=== PATIENT | male | born 1950 | race Caucasian/White ===

== ENCOUNTER → 2016-11-26 | Outpatient (REF) | payer MEDICARE ==
[2016-11-26 12:03] LABS: BLOOD UREA NITROGEN 18 MG/DL (7-18); CARBON DIOXIDE LEVEL 34 MEQ/L (21-32); CHLORIDE LEVEL 100 MEQ/L (98-107); CREATININE FOR GFR 0.84 MG/DL (0.70-1.30); GLOMERULAR FILTRATION RATE > 60.0 (>49); GLUCOSE, FASTING 182 MG/DL (80-110); POTASSIUM SERUM 4.4 MEQ/L (3.5-5.1); SODIUM LEVEL 139 MEQ/L (136-145)
[2016-11-26 12:04] LABS: ALBUMIN 3.7 GM/DL (3.2-5.2); ALBUMIN/GLOBULIN RATIO 1.23 (1.00-1.93); ALKALINE PHOSPHATASE 92 U/L (45-117); ALT/SGPT 26 U/L (12-78); ANION GAP 5 MEQ/L (8-16); AST/SGOT 20 U/L (15-37); BILIRUBIN,TOTAL 0.3 MG/DL (0.2-1.0); CALCIUM LEVEL 9.1 MG/DL (8.8-10.2); CHOLESTEROL LEVEL 165 MG/DL (<200); TOTAL PROTEIN 6.7 GM/DL (6.4-8.2); TRIGLYCERIDES LEVEL 74 MG/DL (<150)
== END ==
LOC: M SFHCCLAY 07:10
PROVIDERS: ATTEND Family Medicine
DX: E11.9 Type 2 diabetes mellitus without complications (principal)

== ENCOUNTER → 2017-05-29 | Outpatient (REF) | payer MEDICARE ==
[2017-05-29 13:02] LABS: ALBUMIN 3.8 GM/DL (3.2-5.2); ALBUMIN/GLOBULIN RATIO 1.23 (1.00-1.93); ALKALINE PHOSPHATASE 89 U/L (45-117); ALT/SGPT 20 U/L (12-78); ANION GAP 7 MEQ/L (8-16); AST/SGOT 11 U/L (15-37); BILIRUBIN,TOTAL 0.3 MG/DL (0.2-1.0); BLOOD UREA NITROGEN 18 MG/DL (7-18); CALCIUM LEVEL 9.4 MG/DL (8.8-10.2); CARBON DIOXIDE LEVEL 32 MEQ/L (21-32); CHLORIDE LEVEL 99 MEQ/L (98-107); CREATININE FOR GFR 0.83 MG/DL (0.70-1.30); GLOMERULAR FILTRATION RATE > 60.0 (>49); GLUCOSE, FASTING 189 MG/DL (80-110); POTASSIUM SERUM 4.6 MEQ/L (3.5-5.1); SODIUM LEVEL 138 MEQ/L (136-145); TOTAL PROTEIN 6.9 GM/DL (6.4-8.2)
== END ==
LOC: M SFHCCLAY 09:11
PROVIDERS: ATTEND Family Medicine
DX: E11.9 Type 2 diabetes mellitus without complications (principal)

== ENCOUNTER → 2017-12-29 | Outpatient (REF) | payer MEDICARE ==
[2017-12-29 17:50] LABS: ALBUMIN 3.7 GM/DL (3.2-5.2); ALBUMIN/GLOBULIN RATIO 1.12 (1.00-1.93); ALKALINE PHOSPHATASE 93 U/L (45-117); ALT/SGPT 27 U/L (12-78); ANION GAP 5 MEQ/L (8-16); AST/SGOT 16 U/L (7-37); BILIRUBIN,TOTAL 0.5 MG/DL (0.2-1.0); BLOOD UREA NITROGEN 14 MG/DL (7-18); CALCIUM LEVEL 8.9 MG/DL (8.8-10.2); CARBON DIOXIDE LEVEL 32 MEQ/L (21-32); CHLORIDE LEVEL 99 MEQ/L (98-107); CHOLESTEROL LEVEL 183 MG/DL (<200); CHOLESTEROL RISK RATIO 3.452 (<5); CREATININE FOR GFR 0.81 MG/DL (0.70-1.30); ESTIMATED AVERAGE GLUCOSE 269 MG/DL (60-110); GLOMERULAR FILTRATION RATE > 60.0 (>49); GLUCOSE, FASTING 306 MG/DL (70-100); HDL CHOLESTEROL 53 MG/DL (>40); LDL CHOLESTEROL 112.8 MG/DL (<100); NON-HDL-C 130 MG/DL; POTASSIUM SERUM 4.4 MEQ/L (3.5-5.1); SODIUM LEVEL 136 MEQ/L (136-145); TRIGLYCERIDES LEVEL 86 MG/DL (<150)
== END ==
LOC: M SFHCCLAY 11:12
DX: E11.9 Type 2 diabetes mellitus without complications (principal); E78.5 Hyperlipidemia, unspecified
CPT/HCPCS: 80053

== ENCOUNTER → 2018-07-02 | Outpatient (REF) | payer MEDICARE ==
[2018-07-02 17:01] LABS: ALBUMIN 3.8 GM/DL (3.2-5.2); ALBUMIN/GLOBULIN RATIO 1.31 (1.00-1.93); ALKALINE PHOSPHATASE 131 U/L (45-117); ALT/SGPT 19 U/L (12-78); ANION GAP 4 MEQ/L (8-16); AST/SGOT 13 U/L (7-37); BILIRUBIN,TOTAL 0.5 MG/DL (0.2-1.0); BLOOD UREA NITROGEN 14 MG/DL (7-18); CALCIUM LEVEL 9.2 MG/DL (8.8-10.2); CARBON DIOXIDE LEVEL 32 MEQ/L (21-32); CHLORIDE LEVEL 100 MEQ/L (98-107); CREATININE FOR GFR 0.82 MG/DL (0.70-1.30); GLOMERULAR FILTRATION RATE > 60.0 (>49); GLUCOSE, FASTING 239 MG/DL (70-100); POTASSIUM SERUM 4.6 MEQ/L (3.5-5.1); SODIUM LEVEL 136 MEQ/L (136-145); TOTAL PROTEIN 6.7 GM/DL (6.4-8.2)
[2018-07-02 17:15] LABS: ESTIMATED AVERAGE GLUCOSE 252 MG/DL (60-110); HEMOGLOBIN A1c 10.4 %
== END ==
LOC: M SFHCCLAY 11:01
DX: E11.29 Type 2 diabetes mellitus with other diabetic kidney complication (principal)
CPT/HCPCS: 80053

== ENCOUNTER → 2018-12-14 | Outpatient (REF) | payer MEDICARE ==
[2018-12-14 17:31] LABS: HEMOGLOBIN A1c 13.2 %
[2018-12-14 17:53] LABS: BASO # 0.1 10^3/uL (0.0-0.2); BASO % 0.6 % (0.0-1.0); EOS # 0.1 10^3/uL (0.0-0.50); HEMATOCRIT 38.3 % (42.0-52.0); HEMOGLOBIN 13.2 g/dl (13.5-17.5); LYMPH # 1.9 10^3/uL (1.5-4.5); LYMPH % 23.5 % (24.0-44.0); MEAN CORPUSCULAR HEMOGLOBIN 32.3 pg (27.0-33.0); MEAN CORPUSCULAR HGB CONC 34.5 g/dl (32.0-36.5); MEAN CORPUSCULAR VOLUME 93.6 fl (80.0-96.0); MONO # 0.6 10^3/uL (0.0-0.8); MONO % 7.3 % (0.0-5.0); NEUTROPHILS # 5.4 10^3/uL (1.8-7.7); NEUTROPHILS % 67.2 % (36.0-66.0); PLATELET COUNT, AUTOMATED 201 10^3/uL (150-450); RED BLOOD COUNT 4.09 10^6/uL (4.30-6.10)
[2018-12-14 19:28] LABS: ACETONE/KETONE 3.56 MG/DL (<2.81); ALBUMIN 3.4 GM/DL (3.2-5.2); ALT/SGPT 23 U/L (12-78); BILIRUBIN,TOTAL 0.4 MG/DL (0.2-1.0); BLOOD UREA NITROGEN 31 MG/DL (7-18); CALCIUM LEVEL 8.7 MG/DL (8.8-10.2); CARBON DIOXIDE LEVEL 29 MEQ/L (21-32); CHLORIDE LEVEL 95 MEQ/L (98-107); CHOLESTEROL LEVEL 161 MG/DL (<200); CHOLESTEROL RISK RATIO 3.425 (<5); GLOMERULAR FILTRATION RATE > 60.0 (>49); GLUCOSE, FASTING 513 MG/DL (70-100); HDL CHOLESTEROL 47 MG/DL (>40); LDL CHOLESTEROL 77 MG/DL (<100); NON-HDL-C 114 MG/DL; POTASSIUM SERUM 5.2 MEQ/L (3.5-5.1); SODIUM LEVEL 132 MEQ/L (136-145); THYROID STIMULATING HORMONE 0.683 uIU/ML (0.358-3.740); THYROXINE (T4) 9.1 UG/DL (4.5-12.0); TOTAL PROTEIN 6.5 GM/DL (6.4-8.2); TOTAL T3 74.9 NG/DL (60.0-181.0); TRIGLYCERIDES LEVEL 184 MG/DL (<150); URIC ACID 5.2 MG/DL (3.5-7.2)
== END ==
LOC: M SFHCCLAY 09:23
PROVIDERS: ATTEND Family Medicine
DX: E11.29 Type 2 diabetes mellitus with other diabetic kidney complication (principal); I10 Essential (primary) hypertension; E78.5 Hyperlipidemia, unspecified; M79.674 Pain in right toe(s); F32.9 Major depressive disorder, single episode, unspecified; R41.3 Other amnesia

== ENCOUNTER → 2019-03-17 | Outpatient (REF) | payer MEDICARE ==
[2019-03-17 17:22] LABS: BLOOD UREA NITROGEN 19 MG/DL (7-18); CALCIUM LEVEL 9.3 MG/DL (8.8-10.2); CARBON DIOXIDE LEVEL 30 MEQ/L (21-32); CHLORIDE LEVEL 107 MEQ/L (98-107); CREATININE FOR GFR 0.81 MG/DL (0.70-1.30); GLOMERULAR FILTRATION RATE > 60.0 (>49); GLUCOSE, FASTING 69 MG/DL (70-100); POTASSIUM SERUM 4.7 MEQ/L (3.5-5.1); SODIUM LEVEL 141 MEQ/L (136-145)
[2019-03-17 18:14] LABS: HEMOGLOBIN A1c 6.3 %
== END ==
LOC: M SFHCCLAY 11:14
PROVIDERS: ATTEND Family Medicine
DX: E11.29 Type 2 diabetes mellitus with other diabetic kidney complication (principal)

== ENCOUNTER → 2019-03-31 | Outpatient (REF) | payer MEDICARE ==
[2019-03-31 14:46] LABS: BASO # 0.1 10^3/uL (0.0-0.2); BASO % 0.7 % (0.0-1.0); EOS # 0.1 10^3/uL (0.0-0.50); EOS % 1.5 % (0.0-3.0); HEMATOCRIT 43.4 % (42.0-52.0); HEMOGLOBIN 14.3 g/dl (13.5-17.5); LYMPH # 2.5 10^3/uL (1.5-4.5); LYMPH % 27.7 % (24.0-44.0); MEAN CORPUSCULAR HGB CONC 32.9 g/dl (32.0-36.5); MEAN CORPUSCULAR VOLUME 97.1 fl (80.0-96.0); MONO # 0.7 10^3/uL (0.0-0.8); MONO % 8.1 % (0.0-5.0); NEUTROPHILS # 5.7 10^3/uL (1.8-7.7); NEUTROPHILS % 61.8 % (36.0-66.0); PLATELET COUNT, AUTOMATED 213 10^3/uL (150-450); RED BLOOD COUNT 4.47 10^6/uL (4.30-6.10); WHITE BLOOD COUNT 9.2 10^3/uL (4.0-10.0)
[2019-03-31 15:19] LABS: ALBUMIN 3.8 GM/DL (3.2-5.2); ALT/SGPT 24 U/L (12-78); BILIRUBIN,TOTAL 0.3 MG/DL (0.2-1.0); BLOOD UREA NITROGEN 23 MG/DL (7-18); CALCIUM LEVEL 9.4 MG/DL (8.8-10.2); CARBON DIOXIDE LEVEL 32 MEQ/L (21-32); CHLORIDE LEVEL 107 MEQ/L (98-107); CREATININE FOR GFR 0.92 MG/DL (0.70-1.30); FOLATE 20.7 NG/ML; GLOMERULAR FILTRATION RATE > 60.0 (>49); GLUCOSE, FASTING 104 MG/DL (70-100); POTASSIUM SERUM 5.5 MEQ/L (3.5-5.1); RHEUMATOID FACTOR QUANT < 10.0 IU/ML (<15.0); SODIUM LEVEL 143 MEQ/L (136-145); TOTAL PROTEIN 6.7 GM/DL (6.4-8.2); VITAMIN B12 LEVEL 507 PG/ML
[2019-03-31 15:41] LABS: ERYTHROCYTE SEDIMENTATION RATE 5 mm/hr (0-20)
[2019-04-05 10:13] LABS: DRVV SCREEN 96.8 SEC
[2019-04-05 10:15] LABS: PTT LUPUS TYPE ANTICOAG SCREEN 2.4 (0-1.2)
[2019-04-05 10:35] LABS: NORMALIZED RATIO 1.2 (0.00-1.20)
[2019-04-05 14:21] LABS: ALBUMIN 3.97 GM/DL (3.29-5.55); ALBUMIN % 59.3 % (55.8-66.1); ALPHA-1-GLOBULIN % 4.7 % (2.9-4.9); ALPHA-1-GLOBULINS 0.31 GM/DL (0.17-0.41); ALPHA-2-GLOBULINS 0.93 GM/DL (0.42-0.99); ALPHA-2-GLOBULINS % 13.9 % (7.1-11.8); BETA-1-GLOBULINS 0.42 GM/DL (0.28-0.60); BETA-1-GLOBULINS % 6.2 % (4.7-7.2); BETA-2-GLOBULINS 0.35 GM/DL (0.19-0.55); BETA-2-GLOBULINS % 5.2 % (3.2-6.5); GAMMA GLOBULIN % 10.7 % (11.1-18.8); GAMMA GLOBULINS 0.72 GM/DL (0.65-1.58)
[2019-04-07 00:06] LABS: ANTI DS-DNA AB <1:10 titer (.); ANTINUCLEAR ANTIBODIES DIRECT Negative (Negative); CERULOPLASMIN 25.1 mg/dL (16.0-31.0); COPPER PLASMA 109 ug/dL (72-166); LEAD BLOOD ADULT 2 ug/dL (0-4); Lyme Disease IgG/IgM Antibodie <0.91 ISR (0.00-0.90); Lyme Disease IgM Ab Quantitati <0.80 index (0.00-0.79); SJOGREN'S ANTI SS-A <0.2 AI (0.0-0.9); SJOGREN'S ANTI SS-B <0.2 AI (0.0-0.9); VITAMIN B1 LEVEL WHOLE BLOOD 134.1 nmol/L (66.5-200.0); VITAMIN B6,PYRIDOXAL PHOSPHATE 57.4 ug/L (5.3-46.7); VITAMIN E(ALPHA TOCOPHEROL) 8.5 mg/L (9.0-29.0)
[2019-04-08 08:24] LABS: HEXAGONAL PHASE PHOSPHOLIPID 32 sec (0-11)
== END ==
LOC: M LABNEURO 08:58
PROVIDERS: ATTEND Psychiatry & Neurology Neurology
DX: G31.84 Mild cognitive impairment of uncertain or unknown etiology (principal)

== ENCOUNTER → 2019-04-12 | Outpatient (CLI) | payer MEDICARE ==
[~2019-04-12] MED LIST: ISOVUE-370 76% 100ML VIAL (Q9967) As Ordered ONE
--- NOTE | 2019-04-12 15:38 | REPVR ---
EXAM: CT Head Without and With Contrast EXAM DATE/TIME: 04/12/2019 3:24 PM CLINICAL HISTORY: 68 years old, male; Altered mental status/memory loss TECHNIQUE: Imaging protocol: Computed tomography images of the head without and with intravenous contrast. Radiation optimization: All CT scans at this facility use at least one of these dose optimization techniques: automated exposure control; mA and/or kV adjustment per patient size (includes targeted exams where dose is matched to clinical indication); or iterative reconstruction. Contrast material: ISOVUE 370; Contrast volume: 75 ml; Contrast route: IV; COMPARISON: No relevant prior studies available. FINDINGS: Brain: Prominence of the cortical sulci. Small vessel ischemic change and chronic bilateral parietal lobe ischemic infarcts. No acute cortical infarct, mass effect, pathologic enhancement, or intracranial hemorrhage. Ventricles: Age-appropriate caliber of the ventricles. Bones/joints: No acute calvarial pathology. Sinuses: No sinus fluid. Mastoid air cells: A few opacified left mastoid air cells. Soft tissues: Unremarkable soft tissues. IMPRESSION: Small vessel ischemic change and chronic bilateral parietal lobe ischemic infarcts. Electronically signed by: Cameron Montelongo On 04/12/2019 15:37:46 PM
== END ==
LOC: M RAD 14:52
PROVIDERS: ATTEND Psychiatry & Neurology Neurology
DX: R41.3 Other amnesia (principal)
CPT/HCPCS: 70470; Q9967

== ENCOUNTER → 2019-06-23 | Outpatient (REF) | payer MEDICARE ==
[2019-06-23 16:58] LABS: ALBUMIN 3.9 GM/DL (3.2-5.2); ALT/SGPT 23 U/L (12-78); BILIRUBIN,TOTAL 0.4 MG/DL (0.2-1.0); BLOOD UREA NITROGEN 26 MG/DL (7-18); CALCIUM LEVEL 9.5 MG/DL (8.8-10.2); CARBON DIOXIDE LEVEL 31 MEQ/L (21-32); CHLORIDE LEVEL 104 MEQ/L (98-107); CREATININE FOR GFR 0.88 MG/DL (0.70-1.30); GLOMERULAR FILTRATION RATE > 60.0 (>49); GLUCOSE, FASTING 104 MG/DL (70-100); POTASSIUM SERUM 4.7 MEQ/L (3.5-5.1); SODIUM LEVEL 139 MEQ/L (136-145); TOTAL PROTEIN 7.2 GM/DL (6.4-8.2)
[2019-06-23 18:00] LABS: HEMOGLOBIN A1c 6.8 %
== END ==
LOC: M SFHCCLAY 11:20
PROVIDERS: ATTEND Family Medicine
DX: E11.29 Type 2 diabetes mellitus with other diabetic kidney complication (principal)

== ENCOUNTER 2019-12-10 08:29 | Inpatient (IN) | payer MEDICARE ==
[~2019-12-10] VITALS: Ht 177.8 cm; Wt 88.1 kg
[2019-12-10] MEDS ORDERED: DIGO0.123 (08:37)
[2019-12-10] MEDS ORDERED: METF500T13 PO (08:37)
[2019-12-10] MEDS ORDERED: HUMA100I5 SC (08:37)
[2019-12-10] MEDS ORDERED: ATOR1TAB21 PO (08:37)
[2019-12-10] MEDS ORDERED: CARV12.5 PO (08:37)
[2019-12-10] MEDS ORDERED: TRAM50TA2 PO (08:37)
[2019-12-10] MEDS ORDERED: RAMI1CAP26 PO (08:37)
[2019-12-10] MEDS ORDERED: PRAD150C6 PO (08:37)
[2019-12-10] MEDS ORDERED: LANTINJ4 SC (08:37)
[2019-12-10] MEDS ORDERED: OXYB5TAB10 PO (08:37)
[2019-12-10] MEDS ORDERED: NS 1,000 ML IV SCH (08:51)
[2019-12-10] MEDS ORDERED: NS 250 ML IV ONE (09:00)
[2019-12-10] MEDS ORDERED: ATORVASTATIN 20 MG TAB PO SCH (09:00)
[2019-12-10] MEDS: DABIGATRAN ETEXILATE 75 MG CAP (PRADAXA) PO SCH ×2 (09:00→21:49)
[2019-12-10 09:09] LABS: VENOUS BASE EXCESS 6.6 (-2.0-2.0); VENOUS HCO3 31.2 MEQ/L (23.0-27.0); VENOUS O2 SATURATION 91.3 % (60.0-80.0); VENOUS PARTIAL PRESSURE O2 61.8 mmHg (30.0-50.0); VENOUS PH 7.468 UNITS (7.330-7.430); VENOUS STANDARD HCO3 30.3 MEQ/L; VENOUS TOTAL CO2 32.5 MEQ/L (24.0-28.0)
[2019-12-10 09:17] LABS: BASO % 0.2 % (0.0-1.0); EOS % 0.1 % (0.0-3.0); HEMATOCRIT 41.3 % (42.0-52.0); HEMOGLOBIN 14.3 g/dl (13.5-17.5); LYMPH # 2.7 10^3/uL (1.5-5.0); LYMPH % 14.7 % (24.0-44.0); MEAN CORPUSCULAR HEMOGLOBIN 30.9 pg (27.0-33.0); MEAN CORPUSCULAR HGB CONC 34.6 g/dl (32.0-36.5); MEAN CORPUSCULAR VOLUME 89.2 fl (80.0-96.0); MONO # 1.6 10^3/uL (0.0-0.8); MONO % 8.8 % (0.0-5.0); NEUTROPHILS # 14.2 10^3/uL (1.5-8.5); NEUTROPHILS % 75.8 % (36.0-66.0); PLATELET COUNT, AUTOMATED 228 10^3/uL (150-450); RED BLOOD COUNT 4.63 10^6/uL (4.30-6.10); WHITE BLOOD COUNT 18.7 10^3/uL (4.0-10.0)
--- NOTE | 2019-12-10 09:38 | REP ---
Portable chest x-ray: Single view. History: Diabetic ketoacidosis. No comparison chest x-ray. Findings: A unipolar pacemaker is seen in the right heart via the left side. Monitoring electrodes are noted. The lungs are well inflated and clear. Heart size is normal. The thoracic aorta slightly tortuous. Pulmonary vasculature is not increased. No significant bony abnormality is appreciated. Impression: Pacemaker in place. Otherwise no active disease. Electronically Signed by Derek Ye MD 12/10/2019 09:29 A
[2019-12-10 09:41] LABS: OSMOLALITY SERUM 290 MOSM/KG (280-301)
[2019-12-10 09:50] LABS: ALT/SGPT 44 U/L (12-78); BLOOD UREA NITROGEN 30 MG/DL (7-18); CALCIUM LEVEL 8.7 MG/DL (8.8-10.2); CARBON DIOXIDE LEVEL 32 mmol/L; CHLORIDE LEVEL 93 MEQ/L (98-107); GLOMERULAR FILTRATION RATE > 60.0 (>49); GLUCOSE, FASTING 260 MG/DL (70-100); PHOSPHORUS LEVEL 2.3 MG/DL (2.5-4.9); POTASSIUM SERUM 3.7 MEQ/L (3.5-5.1); SODIUM LEVEL 132 MEQ/L (136-145)
[2019-12-10 09:51] LABS: ALBUMIN 3.3 GM/DL (3.2-5.2); BILIRUBIN,DIRECT 0.2 MG/DL (0.0-0.2); BILIRUBIN,TOTAL 0.8 MG/DL (0.2-1.0); CK-MB VALUE MASS 4.4 NG/ML (<3.6); CPK CREATINE PHOSPHOKINASE 571 U/L (39-308); MAGNESIUM LEVEL 2.2 MG/DL (1.8-2.4); MB/CK RELATIVE INDEX 0.77 (< OR =4); TROPONIN I 0.03 NG/ML (< 0.10)
[2019-12-10 09:52] LABS: LIPASE 112 U/L (73-393)
[2019-12-10 09:56] LABS: ACETONE/KETONE 2.72 MG/DL (<2.81)
[2019-12-10] MEDS ORDERED: ISOVUE-370 76% 100ML VIAL (Q9967) As Ordered ONE (09:56)
[2019-12-10 10:26] LABS: HEMOGLOBIN A1c 7.3 %
[2019-12-10] MEDS ORDERED: ONDANSETRON 4MG/2ML VIAL (J2405 PER 1MG) IV ONE (10:45)
--- NOTE | 2019-12-10 11:44 | ECGEPIP ---
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
--- NOTE | 2019-12-10 12:04 | REP ---
CT abdomen and pelvis with IV but without oral contrast: History: Diabetic ketoacidosis. No comparison abdomen CT. CT contrast dose: 100 mL of intravenous Isovue 370. CT findings: Preliminary advertising account representative views show a normal bowel gas pattern. The lung bases are unremarkable. The liver and the spleen are normal in size and homogeneous in texture. A small sliding-type hiatal hernia is suspected. No adrenal lesion is seen on either side. No focal liver lesion is seen. There is mild fatty infiltration of the liver. There is a pacemaker in the right heart. The spleen is unremarkable. No pancreatic abnormality is observed. The gallbladder shows no abnormality. The kidneys enhance symmetrically. There is some focal cortical scarring in the lower pole of the left kidney. There is no evidence of hydronephrosis. Vascular calcification is seen in the abdominal aorta without evidence of aneurysm. Small and large intestinal bowel loops are unremarkable. Urinary bladder, seminal vesicles and prostate are intact. No abdominal wall defect is seen. The cecal tip is in the right mid abdomen suggesting mesenteric cecum. A short normal appendix is seen in the region of Morison's pouch. No abdominal wall defect is seen. No bony destructive lesion is observed. Impression: Suspected small hiatal hernia. Mild fatty infiltration of the liver. No acute abdominal or pelvic abnormality seen. Electronically Signed by Derek Ye MD 12/10/2019 12:07 P
[2019-12-10] MEDS ORDERED: MOM 30ML SUSPENSION UDC PO PRN (12:15)
[2019-12-10] MEDS ORDERED: ACETAMINOPHEN TAB 650MG DOSE (2X325MG) PO PRN (12:15)
[2019-12-10] MEDS ORDERED: traMADol 50 MG TAB PO PRN (12:30)
[2019-12-10] MEDS ORDERED: DEXTROSE 50% 50 ML SYRINGE IV PRN (12:45)
[2019-12-10] MEDS ORDERED: GLUCAGON FOR INJ 1 MG VIAL (J1610) SC PRN (12:45)
[2019-12-10] MEDS ORDERED: GLUCOSE 4 GM CHEW TABLET PO PRN (12:45)
[2019-12-10] MEDS ORDERED: ONDANSETRON 4 MG TAB (S0181) PO PRN (12:45)
--- NOTE | 2019-12-10 12:47 | HPEPDOC ---
General Date of Admission 12/10/19 Date of Service: Dec 10, 2019 Chief Complaint The patient is a 69-year-old male admitted with a reason for visit of N/V. Source: Patient Exam Limitations: No limitations Timing/Duration: Day(s) Severity: Mild Associated Symptoms: Vomiting History of Present Illness Patient is 69 years old male with past mental history of coronary artery diseases, type 2 diabetes, atrial fibrillation, CVA, pacemaker presented to the hospital with nausea and vomiting. Patient stated that for past 3 days he has been having multiple episodes of vomiting associated with continuous nausea. Patient stated that he has a poor appetite. Patient denied fever, chills, chest pain, palpitations diarrhea or dysuria. In emergency room patient was found to have leukocytosis of 18, EKG does not show any acute ischemic changes. CT chest/abdomen/pelvis did not reveal any acute pathology. Home Medications Scheduled Atorvastatin Calcium (Atorvastatin Calcium) 20 Mg Tablet, 20 MG PO DAILY, (Reported) Carvedilol (Carvedilol) 12.5 Mg Tablet, 12.5 MG PO BID, (Reported) Dabigatran Etexilate Mesylate (Pradaxa) 150 Mg Capsule, 150 MG PO BID, (Reported) Insulin Glargine,Hum.rec.anlog (Lantus Solostar) 100 Unit/1 Ml Insuln.pen, 90 UNITS SC QAM, (Reported) Insulin Lispro (Humalog Kwikpen U-100) 100 Unit/1 Ml Insuln.pen, 1 DOSE SC AC, (Reported) PER SLIDING SCALE Metformin HCl (Metformin HCl) 500 Mg Tablet, 500 MG PO BID, (Reported) Oxybutynin Chloride (Oxybutynin Chloride) 5 Mg Tablet, 5 MG PO BID, (Reported) Ramipril (Ramipril) 10 Mg Capsule, 10 MG PO QHS, (Reported) Scheduled PRN Tramadol HCl (Tramadol HCl) 50 Mg Tablet, 50 MG PO Q6HP PRN for PAIN, (Reported) Allergies Coded Allergies: Penicillins (Verified Allergy, Unknown, UNKNOWN CHILDHOOD REACTION, 12/10/19) lorazepam (Verified Adverse Reaction, Unknown, AGGRESSIVE, 12/10/19) Past Medical History Medical History DM WITH MICROALBUMINURIA LYME DISEASE HTN SEIZURES HX OF ATRIAL FIBRILLATION CVA Surgical History STROKE 2012 CARDIAC STENTS X 2 2012 CARDIAC DEFIBRILLATOR 2012 CARDIAC ABLATION 2011 Family History FATHER: 71 YRS, CHF, DIAGNOSED WITH HYPERTENSION, UNSPECIFIED HEART DISEASE MOTHER: 70 YRS, SEPSIS, DIABETES SIBLINGS: 45 YRS, HOMOCIDE 1 SISTER(S) . 1 SON(S) - HEALTHY. Social History * Smoker: current smoker Alcohol: Denies Drugs: denies, marijuana A-FIB/CHADSVASC A-FIB History Current/History of A-Fib/PAF?: Yes Current PO Anticoag Therapy: Yes Review of Systems Constitutional: Reports: Fatigue; Denies: Chills, Fever Eyes: Denies: Pain, Vision change ENT: Denies: Head Aches Skin: Denies: Rash, Lesions Pulmonary: Denies: Dyspnea, Cough Cardiovascular: Denies: Chest Pain, Palpitations Gastrointestinal: Reports: Nausea, Vomiting Genitourinary: Denies: Dysuria, Frequency Hematologic: Denies: Bruising Endocrine: Denies: Polydipsia Musculoskeletal: Denies: Neck Pain, Back Pain Neurological: Denies: Weakness Psych: Reports: Mood Normal Physical Examination General Exam: Positive: Alert, Cooperative Eye Exam: Positive: PERRLA ENT Exam: Positive: Atraumatic, Mucous membr. moist/pink Neck Exam: Positive: Supple; Negative: JVD Chest Exam: Positive: Clear to auscultation Heart Exam: Positive: Irregular Rhythm Telemetry: Positive: Atrial fibrillation Abdomen Exam: Positive: Normal bowel sounds Extremity Exam: Negative: Clubbing, Cyanosis Skin Exam: Positive: Nl turgor and temperature Neuro Exam: Positive: Strength at 5/5 X4 ext, Cranial Nerves 3-12 NL Psych Exam: Positive: Mental status NL Vital Signs Vital Signs Date Time Temp Pulse Resp B/P (MAP) Pulse Ox O2 Delivery O2 Flow Rate FiO2 12/10/19 11:15 86 170/97 (121) 97 12/10/19 10:29 18 Room Air 12/10/19 08:29 99.0 Laboratory Data Labs 24H Laboratory Tests 2 12/10/19 08:56: Anion Gap 7L, Glomerular Filtration Rate > 60.0, Osmolality 290, Calcium Level 8.7L, Phosphorus Level 2.3L, Magnesium Level 2.2, Total Bilirubin 0.8, Direct Bilirubin 0.2, Aspartate Amino Transf (AST/SGOT) 53H, Alanine Aminotransferase (ALT/SGPT) 44, Alkaline Phosphatase 97, Total Creatine Kinase 571H, Creatine Kinase MB 4.4H, Creatine Kinase MB Relative Index 0.77, Troponin I 0.03, Total Protein 7.0, Albumin 3.3, Albumin/Globulin Ratio 0.89L, Lipase 112, B- Hydroxybutyrate 2.72 12/10/19 08:57: Immature Granulocyte % (Auto) 0.4, Neutrophils (%) (Auto) 75.8H, Lymphocytes (%) (Auto) 14.7L, Monocytes (%) (Auto) 8.8H, Eosinophils (%) (Auto) 0.1, Basophils (%) (Auto) 0.2, Neutrophils # (Auto) 14.2H, Lymphocytes # (Auto) 2.7, Monocytes # (Auto) 1.6H, Eosinophils # (Auto) 0.0, Basophils # (Auto) 0.0, Nucleated Red Blood Cells % (auto) 0.0, Blood Gas Bicarbonate Standard 30.3, Venous Blood pH 7.468H, Venous Blood Partial Pressure CO2 44.0, Venous Blood Partial Pressure O2 61.8H, Venous Blood Total Carbon Dioxide 32.5H, Venous Blood HCO3 31.2H, Venous Blood Oxygen Saturation 91.3H, Venous Blood Base Excess 6.6H 12/10/19 08:58: Estimated Mean Plasma Glucose 163H, Hemoglobin A1c 7.3 CBC/BMP Laboratory Tests 12/10/19 08:56 12/10/19 08:57 Microbiology Microbiology 12/10/19 Blood Culture, Received Pending 12/10/19 Blood Culture, Received Pending Assessment/Plan Patient is 69 years old male with past mental history of coronary artery diseases, type 2 diabetes, atrial fibrillation, CVA, pacemaker presented to the hospital with nausea and vomiting. Patient stated that for past 3 days he has been having multiple episodes of vomiting associated with continuous nausea. Patient stated that he has a poor appetite. Patient denied fever, chills, chest pain, palpitations diarrhea or dysuria. In emergency room patient was found to have leukocytosis of 18, EKG does not show any acute ischemic changes. CT chest/abdomen/pelvis did not reveal any acute pathology Problems (1) Vomiting Status: Acute Problem Text: Most likely secondary to gastritis versus foot poisoning nurses viral gastroenteritis. He does not have diarrhea Liver function test unremarkable Zofran when necessary (2) Leukocytosis Status: Acute Problem Text: Most likely reactive Patient does not look toxic, he doesn't have fever, chills, cough, tachycardia Continue to monitor (3) Insulin dependent diabetes mellitus Status: Chronic Problem Text: Diabetes diet Detemir twice a day Insulin sliding scale HbA1c 7.2, well controlled diabetes (4) Coronary artery disease Status: Chronic Problem Text: I increased the dose of atorvastatin to 40 mg I will add aspirin 81 mg given history of significant coronary artery diseases with stents (5) Hypertensive urgency Status: Acute Problem Text: Blood pressure significantly elevated on admission Most likely patient missed his morning dose of his antihypertensive medications Continue home cardioprotective medications Plan / VTE VTE Prophylaxis Ordered?: Yes TAYLOR MANZANARES DO Dec 10, 2019 12:46
[2019-12-10 12:50] VITALS: BP 135/75
[2019-12-10] MEDS ORDERED: POTASSIUM CHLORIDE 10 MEQ SR TABLET PO ONE (13:00)
[2019-12-10] MEDS: ATORVASTATIN 20 MG TAB PO SCH (13:42)
[2019-12-10] MEDS: ASPIRIN 81 MG CHEW TABLET PO SCH (13:42)
[2019-12-10 14:00] VITALS: BP 135/75
[2019-12-10] MEDS: HumaLOG INSULIN (NovoLOG) PER UNIT SC SCH ×2 (18:09→21:00)
[2019-12-10] MEDS ORDERED: HEPARIN SOD (PORCINE) 5000UNITS/ML VIAL (J1644 PER 1000UNITS) SC SCH (21:00)
[2019-12-10] MEDS: ramipriL 5 MG CAP PO SCH (21:49)
[2019-12-10] MEDS: oxyBUTYnin 5 MG TAB PO SCH (21:49)
[2019-12-10] MEDS: CARVedilol 12.5 MG TAB PO SCH (21:50)
[2019-12-10] MEDS: LEVEMIR (INSULIN DETEMIR) 1 UNITS/0.01ML SC SCH (21:50)
[2019-12-10 22:00] VITALS: BP 121/60
[2019-12-11 05:45] VITALS: BP 109/63
[2019-12-11 05:56] LABS: HEMATOCRIT 37.6 % (42.0-52.0); MEAN CORPUSCULAR HEMOGLOBIN 31.3 pg (27.0-33.0); MEAN CORPUSCULAR HGB CONC 34.6 g/dl (32.0-36.5); MEAN CORPUSCULAR VOLUME 90.6 fl (80.0-96.0); PLATELET COUNT, AUTOMATED 199 10^3/uL (150-450); RED BLOOD COUNT 4.15 10^6/uL (4.30-6.10); WHITE BLOOD COUNT 12.4 10^3/uL (4.0-10.0)
[2019-12-11 06:25] LABS: BLOOD UREA NITROGEN 30 MG/DL (7-18); CALCIUM LEVEL 8.5 MG/DL (8.8-10.2); CARBON DIOXIDE LEVEL 32 MEQ/L (21-32); CHLORIDE LEVEL 98 MEQ/L (98-107); GLOMERULAR FILTRATION RATE > 60.0 (>49); GLUCOSE, FASTING 121 MG/DL (70-100); MAGNESIUM LEVEL 2.1 MG/DL (1.8-2.4); POTASSIUM SERUM 3.8 MEQ/L (3.5-5.1); SODIUM LEVEL 134 MEQ/L (136-145)
[2019-12-11] MEDS: ATORVASTATIN 20 MG TAB PO SCH (08:18)
[2019-12-11] MEDS: DABIGATRAN ETEXILATE 75 MG CAP (PRADAXA) PO SCH ×2 (08:18→21:24)
[2019-12-11] MEDS: ASPIRIN 81 MG CHEW TABLET PO SCH (08:18)
[2019-12-11] MEDS: CARVedilol 12.5 MG TAB PO SCH ×2 (08:18→21:25)
[2019-12-11] MEDS: oxyBUTYnin 5 MG TAB PO SCH ×2 (08:18→21:24)
[2019-12-11] MEDS: HumaLOG INSULIN (NovoLOG) PER UNIT SC SCH ×4 (08:19→20:45)
[2019-12-11] MEDS: LEVEMIR (INSULIN DETEMIR) 1 UNITS/0.01ML SC SCH ×2 (08:19→20:45)
[2019-12-11] MEDS ORDERED: LevoFLOXacin IV 750 MG in IV 1 EA IV SCH (09:00)
[2019-12-11] MEDS ORDERED: FLUBLOK(EGG FREE)(QUAD)INFLUENZA VACC 0.5ML SYRINGE (90682)18YRS&OLDER IM ONE (09:00)
--- NOTE | 2019-12-11 10:29 | IPNPDOC ---
Text Note Date of Service The patient was seen on 12/11/19. NOTE Subjective: Patient continues to have generalized weakness. His nausea resolved. He denied fever, chills, nausea, vomiting, chest pain, palpitations, diarrhea or dysuria Objective:VITAL SIGNS: Please see below. GENERAL: awake, alert, NAD HEENT: NCAT, anicteric sclera, [place] NECK: supple, no JVD CARDIOVASCULAR EXAMINATION: NS1S2, regular rate/rhythm RESPIRATORY EXAMINATION: CTA b/l, no wheezes/rales/rhonchi ABDOMINAL EXAMINATION: positive bowel sounds x 4, NT EXTREMITIES: no cyanosis, clubbing, edema SKIN: warm, no rashes. NEUROLOGICAL EXAMINATION: AAO x 3, no motor/sensory deficits PSYCHIATRIC EXAMINATION: calm, normal affect Patient is 69 years old male with past mental history of coronary artery diseases, type 2 diabetes, atrial fibrillation, CVA, pacemaker presented to the hospital with nausea and vomiting. Patient stated that for past 3 days he has been having multiple episodes of vomiting associated with continuous nausea. Patient stated that he has a poor appetite. Patient denied fever, chills, chest pain, palpitations diarrhea or dysuria. In emergency room patient was found to have leukocytosis of 18, EKG does not show any acute ischemic changes. CT chest/abdomen/pelvis did not reveal any acute pathology. On 12/11/19 blood culture came back positive for gram-positive cocci in clusters. Problems Sepsis Unknown source for now. On admission patient had leukocytosis, however patient was nontoxic, afebrile. Today in the morning blood culture came back positive for gram positive cocci in clusters. His leukocytosis improved without antibiotic treatment. There is possibility for blood culture contamination. I will repeat blood culture. I will check sedimentation rate and rheumatoid factor. I will do echo to rule out endocarditis. Patient has pacemaker, there is possibility that device can be infected due to possible bacteremia. I started vancomycin to cover possible MRSA Appreciate/agree with ID consult Vomiting Resolved Most likely secondary to gastritis versus foot poisoning versus viral gastroenteritis. He does not have diarrhea. Could be secondary to daily use of marijuana and represent marijuana cyclic vomiting syndrome Liver function test unremarkable Zofran when necessary Leukocytosis Improved today. There is possibility for sepsis. Await repeated blood culture Patient does not look toxic, he doesn't have fever, chills, cough, tachycardia Vancomycin IV started empirically Insulin dependent diabetes mellitus Diabetes diet Detemir twice a day Insulin sliding scale HbA1c 7.2, well controlled diabetes Coronary artery disease I increased the dose of atorvastatin to 40 mg aspirin 81 mg given history of significant coronary artery diseases with stents Hypertensive urgency/hypertension Resolved Blood pressure significantly elevated on admission Most likely patient missed his morning dose of his antihypertensive medications Continue home cardioprotective medications VS,Fishbone, I+O VS, Fishbone, I+O Laboratory Tests 12/11/19 05:01 Vital Signs Date Time Temp Pulse Resp B/P (MAP) Pulse Ox O2 Delivery O2 Flow Rate FiO2 12/11/19 08:18 84 109/63 12/11/19 05:45 99.1 20 97 Room Air I&O- Last 24 Hours up to 6 AM 12/11/19 05:59 Intake Total 2290 ml Output Total 0 ml Balance 2290 ml TAYLOR MANZANARES DO Dec 11, 2019 10:29
[2019-12-11 10:43] LABS: RHEUMATOID FACTOR QUANT < 10.0 IU/ML (<15.0)
--- NOTE | 2019-12-11 11:10 | PHACANCOPD ---
PHARMACY VANCOMYCIN DOSING Pt Demographics Demographics Patient Age:69 , Weight:88.100 , Gender: male Adjusted Body Weight Date: 12/11/19, Adjusted Body Weight: [79.04] Kg Vancomycin Vancomycin indication: Sepsis Vancomycin Target Ranges: 15-20 mcg/ml Vancomycin Load Y/N: Yes Load Dose Date Time Vancomycin Load Dose:2g Date:12/11/19 Time:11:00 Vancomycin Dose Date: 12/11/19. Current Vancomycin Dose: [1g iv q12h] Intermittent Dosing?: No Labs Labs Item Value Date Time White Blood Count 18.7 10^3/uL H 12/10/19 0857 White Blood Count 12.4 10^3/uL H 12/11/19 0501 Creatinine 1.00 MG/DL 12/10/19 0856 Creatinine 0.90 MG/DL 12/11/19 0501 Micro Microbiology 12/11/19 Blood Culture, Received Pending 12/11/19 Blood Culture, Received Pending 12/10/19 Blood Culture - Preliminary, Resulted No growth after 24 hours . All specim... 12/10/19 Blood Culture - Preliminary, Resulted Creatinine Clearance Date:12/11/19. Creatinine Clearance: [80ml/min]. Assessment and Plan Maintaining Current Dose?: Yes Reason for dose change: No Dose Change Pharmacist Note Pharmacist Note Date: 12/11/19. Pharmacist note: Pt is a 69 year old male being treated for sepsis goal trough 15-20mcg/ml. The patient has not been treated with vancomycin here at [facility] in the past. To achieve goal the patient will receive a 2g iv vancomycin loading dose 12/11/19 @11:00. Maintenance therapy will consist of 1g vancomycin IV every 12 hours. We will continue to monitor and adjust the dose as needed. [facility] Dec 11, 2019 11:10
[2019-12-11 11:11] LABS: ERYTHROCYTE SEDIMENTATION RATE 7 mm/hr (0-20)
[2019-12-11] MEDS: VANCOMYCIN HCL 1,000 MG, VIAL MATE ADAPTER 1 EACH in D5W 250 ML IV SCH ×2 (11:34→22:56)
[2019-12-11] MEDS ORDERED: VANCOMYCIN HCL 1,000 MG, VIAL MATE ADAPTER 1 EACH in D5W 250 ML IV ONE (12:00)
[2019-12-11 14:00] VITALS: BP 122/62
[2019-12-11] MEDS: ramipriL 5 MG CAP PO SCH (20:44)
[2019-12-11 22:00] VITALS: BP 102/61
[2019-12-12 06:00] VITALS: BP 116/66
[2019-12-12] MEDS: HumaLOG INSULIN (NovoLOG) PER UNIT SC SCH ×4 (07:01→21:00)
[2019-12-12] MEDS: ASPIRIN 81 MG CHEW TABLET PO SCH (08:42)
[2019-12-12] MEDS: DABIGATRAN ETEXILATE 75 MG CAP (PRADAXA) PO SCH ×2 (08:42→21:04)
[2019-12-12] MEDS: oxyBUTYnin 5 MG TAB PO SCH ×2 (08:42→21:05)
[2019-12-12] MEDS: ATORVASTATIN 20 MG TAB PO SCH (08:42)
[2019-12-12] MEDS: CARVedilol 12.5 MG TAB PO SCH ×2 (08:44→21:05)
[2019-12-12] MEDS: LEVEMIR (INSULIN DETEMIR) 1 UNITS/0.01ML SC SCH ×2 (09:18→21:06)
[2019-12-12 09:28] LABS: BLOOD UREA NITROGEN 25 MG/DL (7-18); CALCIUM LEVEL 8.4 MG/DL (8.8-10.2); CARBON DIOXIDE LEVEL 32 MEQ/L (21-32); CHLORIDE LEVEL 97 MEQ/L (98-107); CREATININE FOR GFR 0.94 MG/DL (0.70-1.30); GLOMERULAR FILTRATION RATE > 60.0 (>49); GLUCOSE, FASTING 121 MG/DL (70-100); POTASSIUM SERUM 3.8 MEQ/L (3.5-5.1); SODIUM LEVEL 135 MEQ/L (136-145)
[2019-12-12] MEDS: VANCOMYCIN HCL 1,000 MG, VIAL MATE ADAPTER 1 EACH in D5W 250 ML IV SCH (10:44)
--- NOTE | 2019-12-12 11:59 | IPNPDOC ---
Text Note Date of Service The patient was seen on 12/12/19. NOTE Subjective: Patient stated that he feels better today. Also, patient stated when he walk he has a problem with balance. He denied fever, chills, nausea, vomiting, chest pain, palpitations, diarrhea or dysuria Objective:VITAL SIGNS: Please see below. GENERAL: awake, alert, NAD HEENT: NCAT, anicteric sclera, [place] NECK: supple, no JVD CARDIOVASCULAR EXAMINATION: NS1S2, regular rate/rhythm RESPIRATORY EXAMINATION: CTA b/l, no wheezes/rales/rhonchi ABDOMINAL EXAMINATION: positive bowel sounds x 4, NT EXTREMITIES: no cyanosis, clubbing, edema SKIN: warm, no rashes. NEUROLOGICAL EXAMINATION: AAO x 3, no motor/sensory deficits PSYCHIATRIC EXAMINATION: calm, normal affect Patient is 69 years old male with past mental history of coronary artery diseases, type 2 diabetes, atrial fibrillation, CVA, pacemaker presented to the hospital with nausea and vomiting. Patient stated that for past 3 days he has been having multiple episodes of vomiting associated with continuous nausea. Patient stated that he has a poor appetite. Patient denied fever, chills, chest pain, palpitations diarrhea or dysuria. In emergency room patient was found to have leukocytosis of 18, EKG does not show any acute ischemic changes. CT chest/abdomen/pelvis did not reveal any acute pathology. On 12/11/19 blood culture came back positive for gram-positive cocci in clusters. Repeated 3 sets of blood culture negative Problems Sepsis Unknown source for now. On admission patient had leukocytosis, however patient was nontoxic, afebrile. Today in the morning blood culture came back positive for gram positive cocci in clusters. His leukocytosis improved without antibiotic treatment. There is possibility for blood culture contamination. Patient has pacemaker, there is possibility that device can be infected due to possible bacteremia. I started vancomycin to cover possible MRSA On 12/12/19 MRSA screen negative. I will discontinue vancomycin. We'll start doxycycline by mouth Subsequently 3 sets of blood culture negative. The second and third sets of blood culture have been done before antibiotics. Most likely patient had contamination, however patient had leukocytosis on admission. I ordered Echo to rule out endocarditis, pending Sedimentation rate 7, rheumatoid factor within normal limit Vomiting Resolved Most likely secondary to gastritis versus food poisoning versus viral gastro enteritis. He does not have diarrhea. Could be secondary to daily use of marijuana and represent marijuana cyclic vomiting syndrome Liver function test unremarkable Zofran when necessary Leukocytosis Await CBC result Patient does not look toxic Continue empiric antibiotic therapy Insulin dependent diabetes mellitus Diabetes diet Detemir twice a day Insulin sliding scale HbA1c 7.2, well controlled diabetes Coronary artery disease I increased the dose of atorvastatin to 40 mg aspirin 81 mg given history of significant coronary artery diseases with stents Hypertensive urgency/hypertension Blood pressures under control now Resolved Blood pressure significantly elevated on admission Most likely patient missed his morning dose of his antihypertensive medications Continue home cardioprotective medications PT/OT evaluation VS,Fishbone, I+O VS, Fishbone, I+O Laboratory Tests 12/12/19 08:46 Vital Signs Date Time Temp Pulse Resp B/P (MAP) Pulse Ox O2 Delivery O2 Flow Rate FiO2 12/12/19 08:44 80 116/66 12/12/19 06:00 99.7 18 97 Room Air I&O- Last 24 Hours up to 6 AM 12/12/19 05:59 Intake Total 690 ml Output Total 0 ml Balance 690 ml TAYLOR MANZANARES DO Dec 12, 2019 11:59
[2019-12-12] MEDS: DOXYCYCLINE HYCLATE 100MG TABLET PO SCH ×2 (12:18→21:05)
[2019-12-12 12:20] LABS: BASO # 0.1 10^3/uL (0.0-0.2); BASO % 0.5 % (0.0-1.0); EOS % 0.4 % (0.0-3.0); HEMATOCRIT 38.8 % (42.0-52.0); LYMPH # 2.1 10^3/uL (1.5-5.0); LYMPH % 23.1 % (24.0-44.0); MEAN CORPUSCULAR HEMOGLOBIN 30.7 pg (27.0-33.0); MEAN CORPUSCULAR HGB CONC 33.5 g/dl (32.0-36.5); MEAN CORPUSCULAR VOLUME 91.5 fl (80.0-96.0); MONO # 0.9 10^3/uL (0.0-0.8); MONO % 9.7 % (0.0-5.0); NEUTROPHILS % 65.8 % (36.0-66.0); PLATELET COUNT, AUTOMATED 210 10^3/uL (150-450); RED BLOOD COUNT 4.24 10^6/uL (4.30-6.10); WHITE BLOOD COUNT 9.2 10^3/uL (4.0-10.0)
[2019-12-12 14:00] VITALS: BP 102/60
--- NOTE | 2019-12-12 19:23 | ECHO ---
DATE OF PROCEDURE: 12/12/2019 REFERRING PHYSICIAN: Dr. Vicente Ramirezhzgarret INDICATION: Sepsis. Height 178 cm, weight 88 kg. DIMENSIONS: IVS: 1.3 LV: 4.7 LVPW: 1.3 LA: 4.4 Aorta: 3.7 IVC: 1.2 Mitral E wave velocity: 64 A wave: 93 E prime septal: 4.0 E prime lateral: 8.0 FINDINGS: The study is of good technical quality, the patient is in sinus rhythm. Left ventricle is normal size. Mild left ventricular hypertrophy is present. There is a subtle apical wall motion abnormality but overall left ventricular systolic function is preserved, and I estimate ejection fraction (EF) around 60%. Right ventricle is also normal size and systolic function. Left atrium is mildly enlarged. Right atrium appears normal. There is an echo artifact in right- sided chambers consistent with pacemaker or implantable cardioverter defibrillator (ICD) leads. No pericardial effusion is noted. Aortic valve is minimally sclerotic, but it has three cusps and preserved mobility. Mitral valve also has mild degenerative abnormalities but mobility of leaflets is preserved. Tricuspid valve appears normal. Pulmonic valve was not seen. Inferior vena cava is normal size. Aortic root is normal. Aortic arch and abdominal aorta were not well seen. Doppler interrogation reveals no significant aortic valvular disease. There is also competent mitral valve. There is mild tricuspid insufficiency. Calculated pulmonary artery pressure is in high 20s corresponding to upper limits of normal values. Mitral inflow pattern and tissue Doppler imaging of mitral annulus indicate grade 1 diastolic dysfunction. CONCLUSIONS: 1. Study is of good technical quality, the patient is in sinus rhythm. 2. Normal left ventricular (LV) size with mild left ventricular hypertrophy (LVH), small apical wall motion abnormality and overall preserved LV systolic function. Grade 1 diastolic dysfunction. 3. No significant valvular disease. 4. Likely normal central venous pressure and normal pulmonary artery pressure. 5. An echo artifact in right-sided heart chambers corresponding to pacemaker or ICD leads. COMMENT: Subacute bacterial endocarditis (SBE) prophylaxis is not recommended. MTDD
[2019-12-12] MEDS: ramipriL 5 MG CAP PO SCH (21:05)
[2019-12-12 22:00] VITALS: BP 105/59
[2019-12-13 06:00] VITALS: BP 102/64
[2019-12-13] MEDS: ASPIRIN 81 MG CHEW TABLET PO SCH (08:00)
[2019-12-13] MEDS: HumaLOG INSULIN (NovoLOG) PER UNIT SC SCH ×2 (08:00→11:59)
[2019-12-13 08:01] VITALS: BP 102/64
[2019-12-13] MEDS: DABIGATRAN ETEXILATE 75 MG CAP (PRADAXA) PO SCH (08:01)
[2019-12-13] MEDS: CARVedilol 12.5 MG TAB PO SCH (08:01)
[2019-12-13] MEDS: DOXYCYCLINE HYCLATE 100MG TABLET PO SCH (08:01)
[2019-12-13] MEDS: ATORVASTATIN 20 MG TAB PO SCH (08:01)
[2019-12-13] MEDS: oxyBUTYnin 5 MG TAB PO SCH (08:01)
[2019-12-13] MEDS: LEVEMIR (INSULIN DETEMIR) 1 UNITS/0.01ML SC SCH (08:02)
[2019-12-13 08:45] LABS: BASO # 0.1 10^3/uL (0.0-0.2); BASO % 0.5 % (0.0-1.0); EOS # 0.1 10^3/uL (0.0-0.5); EOS % 1.3 % (0.0-3.0); HEMATOCRIT 36.8 % (42.0-52.0); HEMOGLOBIN 12.4 g/dl (13.5-17.5); LYMPH # 2.8 10^3/uL (1.5-5.0); LYMPH % 25.2 % (24.0-44.0); MEAN CORPUSCULAR HEMOGLOBIN 30.8 pg (27.0-33.0); MEAN CORPUSCULAR HGB CONC 33.7 g/dl (32.0-36.5); MEAN CORPUSCULAR VOLUME 91.5 fl (80.0-96.0); MONO # 1.2 10^3/uL (0.0-0.8); NEUTROPHILS # 6.7 10^3/uL (1.5-8.5); NEUTROPHILS % 60.6 % (36.0-66.0); PLATELET COUNT, AUTOMATED 211 10^3/uL (150-450); RED BLOOD COUNT 4.02 10^6/uL (4.30-6.10)
[2019-12-13 09:27] LABS: BLOOD UREA NITROGEN 26 MG/DL (7-18); CALCIUM LEVEL 8.4 MG/DL (8.8-10.2); CARBON DIOXIDE LEVEL 31 MEQ/L (21-32); CHLORIDE LEVEL 98 MEQ/L (98-107); CREATININE FOR GFR 0.99 MG/DL (0.70-1.30); GLOMERULAR FILTRATION RATE > 60.0 (>49); GLUCOSE, FASTING 163 MG/DL (70-100); MAGNESIUM LEVEL 2.3 MG/DL (1.8-2.4); POTASSIUM SERUM 3.7 MEQ/L (3.5-5.1); SODIUM LEVEL 135 MEQ/L (136-145)
[2019-12-13] MEDS ORDERED: DOXY100T PO (11:40)
[2019-12-13] MEDS ORDERED: ASPI81CH33 PO (14:38)
--- NOTE | 2019-12-13 14:43 | DS.PDOC ---
Discharge Summary General Date of Admission Dec 10, 2019 at 12:11 Date of Discharge 12/13/19 Discharge Summary PROCEDURES PERFORMED DURING STAY: [None]. ADMITTING DIAGNOSES: Vomiting Sepsis rule out Leukocytosis Hypertensive urgency/hypertension Coronary artery disease Insulin dependent diabetes mellitus DISCHARGE DIAGNOSES: Vomiting Sepsis rule out Leukocytosis Hypertensive urgency/hypertension Coronary artery disease Insulin dependent diabetes mellitus COMPLICATIONS/CHIEF COMPLAINT: Insulin Dependent Diabetes Mellitus,Vomiting. HISTORY OF PRESENT ILLNESS: Patient is 69 years old male with past mental history of coronary artery diseases, type 2 diabetes, atrial fibrillation, CVA, pacemaker presented to the hospital with nausea and vomiting. Patient stated that for past 3 days he has been having multiple episodes of vomiting associated with continuous nausea. Patient stated that he has a poor appetite. Patient denied fever, chills, chest pain, palpitations diarrhea or dysuria. In emergency room patient was found to have leukocytosis of 18, EKG does not show any acute ischemic changes. CT chest/abdomen/pelvis did not reveal any acute pathology. On 12/11/19 blood culture came back positive for gram-positive cocci in clusters. Repeated 3 sets of blood culture negative HOSPITAL COURSE: Sepsis, rule out On admission patient had leukocytosis, however patient was nontoxic, afebrile. T chastity in the morning blood culture came back positive for gram positive cocci in clusters. His leukocytosis improved without antibiotic treatment. There is possibility for blood culture contamination. Patient has pacemaker, there is possibility that device can be infected due to possible bacteremia. I started vancomycin to cover possible MRSA On 12/12/19 MRSA screen negative. I discontinued vancomycin and start doxycycline by mouth Subsequently 3 sets of blood culture negative. The second and third sets of blood culture have been done before antibiotics. Most likely patient had contamination, however patient had leukocytosis on admission. Echo was done and it was negative for vegetation Sedimentation rate 7, rheumatoid factor within normal limit Vomiting Resolved Most likely secondary to gastritis versus food poisoning versus viral gastroenteritis. He did not have diarrhea. Could be secondary to daily use of marijuana and represent marijuana cyclic vomiting syndrome Liver function test unremarkable Zofran when necessary Leukocytosis Await CBC result Patient does not look toxic Continue empiric antibiotic therapy Insulin dependent diabetes mellitus Diabetes diet Detemir twice a day Insulin sliding scale HbA1c 7.2, well controlled diabetes Coronary artery disease I increased the dose of atorvastatin to 40 mg aspirin 81 mg given history of significant coronary artery diseases with stents Hypertensive urgency/hypertension Blood pressures under control now Resolved Blood pressure significantly elevated on admission Most likely patient missed his morning dose of his antihypertensive medications Continue home cardioprotective medications PT/OT evaluation DISCHARGE MEDICATIONS: Please see below. ALLERGIES: Please see below. PHYSICAL EXAMINATION ON DISCHARGE: VITAL SIGNS: Please see below. Objective:VITAL SIGNS: Please see below. GENERAL: awake, alert, NAD HEENT: NCAT, anicteric sclera, [place] NECK: supple, no JVD CARDIOVASCULAR EXAMINATION: NS1S2, regular rate/rhythm RESPIRATORY EXAMINATION: CTA b/l, no wheezes/rales/rhonchi ABDOMINAL EXAMINATION: positive bowel sounds x 4, NT EXTREMITIES: no cyanosis, clubbing, edema SKIN: warm, no rashes. NEUROLOGICAL EXAMINATION: AAO x 3, no motor/sensory deficits PSYCHIATRIC EXAMINATION: calm, normal affect LABORATORY DATA: Please see below. IMAGING: CT abdomen and pelvis with IV but without oral contrast: History: Diabetic ketoacidosis. No comparison abdomen CT. CT contrast dose: 100 mL of intravenous Isovue 370. CT findings: Preliminary design editor views show a normal bowel gas pattern. The lung bases are unremarkable. The liver and the spleen are normal in size and homogeneous in texture. A small sliding-type hiatal hernia is suspected. No adrenal lesion is seen on either side. No focal liver lesion is seen. There is mild fatty infiltration of the liver. There is a pacemaker in the right heart. The spleen is unremarkable. No pancreatic abnormality is observed. The gallbladder shows no abnormality. The kidneys enhance symmetrically. There is some focal cortical scarring in the lower pole of the left kidney. There is no evidence of hydronephrosis. Vascular calcification is seen in the abdominal aorta without evidence of aneurysm. Small and large intestinal bowel loops are unremarkable. Urinary bladder, seminal vesicles and prostate are intact. No abdominal wall defect is seen. The cecal tip is in the right mid abdomen suggesting mesenteric cecum. A short normal appendix is seen in the region of Morison's pouch. No abdominal wall defect is seen. No bony destructive lesion is observed. Impression: Suspected small hiatal hernia. Mild fatty infiltration of the liver. No acute abdominal or pelvic abnormality seen. Electronically Signed by Derek Ye MD 12/10/2019 12:07 P Portable chest x-ray: Single view. History: Diabetic ketoacidosis. No comparison chest x-ray. Findings: A unipolar pacemaker is seen in the right heart via the left side. Monitoring electrodes are noted. The lungs are well inflated and clear. Heart size is normal. The thoracic aorta slightly tortuous. Pulmonary vasculature is not increased. No significant bony abnormality is appreciated. Impression: Pacemaker in place. Otherwise no active disease. Electronically Signed by Derek Ye MD 12/10/2019 09:29 A PROGNOSIS: Fair ACTIVITY: [As tolerated]. DIET: Cardiac DISPOSITION: Home, Self-Care. DISCHARGE INSTRUCTIONS: Follow-up with PCP Avoid marijuana smoking DISCHARGE CONDITION: [Stable]. TIME SPENT ON DISCHARGE: Greater than 20 minutes. Vital Signs/I&Os Vital Signs Date Time Temp Pulse Resp B/P (MAP) Pulse Ox O2 Delivery O2 Flow Rate FiO2 12/13/19 08:01 77 102/64 12/13/19 06:00 98.6 18 98 Room Air I&O- Last 24 Hours up to 6 AM 12/13/19 06:00 Intake Total 2165 ml Output Total 0 ml Balance 2165 ml Laboratory Data Labs 24H Laboratory Tests 2 12/12/19 16:23: Bedside Glucose (Misc Panel) 212H 12/12/19 20:15: Bedside Glucose (Misc Panel) 147H 12/13/19 06:10: Bedside Glucose (Misc Panel) 183H 12/13/19 08:27: Immature Granulocyte % (Auto) 1.4, Neutrophils (%) (Auto) 60.6, Lymphocytes (%) (Auto) 25.2, Monocytes (%) (Auto) 11.0H, Eosinophils (%) (Auto) 1.3, Basophils (%) (Auto) 0.5, Neutrophils # (Auto) 6.7, Lymphocytes # (Auto) 2.8, Monocytes # (Auto) 1.2H, Eosinophils # (Auto) 0.1, Basophils # (Auto) 0.1, Nucleated Red Blood Cells % (auto) 0.0, Anion Gap 6L, Glomerular Filtration Rate > 60.0, Calcium Level 8.4L, Magnesium Level 2.3, Thyroid Stimulating Hormone (TSH) 1.070 12/13/19 11:48: Bedside Glucose (Misc Panel) 112 CBC/BMP Laboratory Tests 12/13/19 08:27 FSBS Laboratory Tests Test 12/12/19 16:23 12/12/19 20:15 12/13/19 06:10 12/13/19 11:48 Range/Units Bedside Glucose (Misc Panel) 212 147 183 112 80-115 MG/DL Microbiology Microbiology 12/11/19 Blood Culture - Preliminary, Resulted No Growth after 48 hours. All Specime... 12/11/19 Blood Culture - Preliminary, Resulted No Growth after 48 hours. All Specime... 12/10/19 Blood Culture - Preliminary, Resulted No Growth after 72 hours. All specime... 12/10/19 Blood Culture - Final, Complete Staphylococcus Warneri Discharge Medications Scheduled Atorvastatin Calcium (Atorvastatin Calcium) 20 Mg Tablet, 20 MG PO DAILY, (Reported) Carvedilol (Carvedilol) 12.5 Mg Tablet, 12.5 MG PO BID, (Reported) Dabigatran Etexilate Mesylate (Pradaxa) 150 Mg Capsule, 150 MG PO BID, (Reported) Doxycycline Hyclate (Doxycycline Hyclate) 100 Mg Tablet, 100 MG PO BID Insulin Glargine,Hum.rec.anlog (Lantus Solostar) 100 Unit/1 Ml Insuln.pen, 90 UNITS SC QAM, (Reported) Insulin Lispro (Humalog Kwikpen U-100) 100 Unit/1 Ml Insuln.pen, 1 DOSE SC AC, (Reported) PER SLIDING SCALE Metformin HCl (Metformin HCl) 500 Mg Tablet, 500 MG PO BID, (Reported) Oxybutynin Chloride (Oxybutynin Chloride) 5 Mg Tablet, 5 MG PO BID, (Reported) Ramipril (Ramipril) 10 Mg Capsule, 10 MG PO QHS, (Reported) Scheduled PRN Tramadol HCl (Tramadol HCl) 50 Mg Tablet, 50 MG PO Q6HP PRN for PAIN, (Reported) Allergies Coded Allergies: Penicillins (Verified Allergy, Unknown, UNKNOWN CHILDHOOD REACTION, 12/10/19) lorazepam (Verified Adverse Reaction, Unknown, AGGRESSIVE, 12/10/19) TAYLOR MANZANARES DO Dec 13, 2019 14:43
== END 2019-12-13 13:12 | disposition home or self-care (01) | DRG 392 ==
LOC: M ED 08:29 → M ED INP 12:11 → ENRESERVDT 12:27 → ENRESERVTM 12:27 → M MSPAV 12:41 → ENRESERV 12:50
PROVIDERS: ADMIT Internal Medicine; ATTEND Internal Medicine
DX: R11.2 Nausea with vomiting, unspecified (principal); D72.829 Elevated white blood cell count, unspecified; I16.0 Hypertensive urgency; I25.10 Atherosclerotic heart disease of native coronary artery without angina pectoris; F12.988 Cannabis use, unspecified with other cannabis-induced disorder; E11.9 Type 2 diabetes mellitus without complications; R11.15 Cyclical vomiting syndrome unrelated to migraine; I48.91 Unspecified atrial fibrillation; Z86.73 Personal history of transient ischemic attack (TIA), and cerebral infarction without residual deficits; Z95.0 Presence of cardiac pacemaker; Z79.4 Long term (current) use of insulin; Z79.899 Other long term (current) drug therapy; Z95.5 Presence of coronary angioplasty implant and graft

== ENCOUNTER → 2019-12-20 | Outpatient (REF) | payer MEDICARE ==
[~2019-12-20] MED LIST changes: +ASPI81CH33 PO; +ATOR1TAB21 PO; +CARV12.5 PO; +DIGO0.123; +DOXY100T PO; +HUMA100I5 SC; -ISOVUE-370 76% 100ML VIAL (Q9967) As Ordered ONE; +LANTINJ4 SC; +METF500T13 PO; +OXYB5TAB10 PO; +PRAD150C6 PO; +RAMI1CAP26 PO; +TRAM50TA2 PO
[2019-12-20 17:40] LABS: BASO # 0.1 10^3/uL (0.0-0.2); BASO % 0.7 % (0.0-1.0); EOS # 0.2 10^3/uL (0.0-0.5); EOS % 1.4 % (0.0-3.0); HEMATOCRIT 38.3 % (42.0-52.0); HEMOGLOBIN 12.7 g/dl (13.5-17.5); LYMPH # 3.5 10^3/uL (1.5-5.0); LYMPH % 25.7 % (24.0-44.0); MEAN CORPUSCULAR HEMOGLOBIN 30.9 pg (27.0-33.0); MEAN CORPUSCULAR HGB CONC 33.2 g/dl (32.0-36.5); MEAN CORPUSCULAR VOLUME 93.2 fl (80.0-96.0); MONO # 0.9 10^3/uL (0.0-0.8); MONO % 6.7 % (0.0-5.0); NEUTROPHILS # 8.7 10^3/uL (1.5-8.5); NEUTROPHILS % 64.8 % (36.0-66.0); PLATELET COUNT, AUTOMATED 300 10^3/uL (150-450); RED BLOOD COUNT 4.11 10^6/uL (4.30-6.10); WHITE BLOOD COUNT 13.5 10^3/uL (4.0-10.0)
[2019-12-20 17:58] LABS: ALBUMIN 3.3 GM/DL (3.2-5.2); ALT/SGPT 26 U/L (12-78); BILIRUBIN,TOTAL 0.5 MG/DL (0.2-1.0); BLOOD UREA NITROGEN 15 MG/DL (7-18); CALCIUM LEVEL 9.1 MG/DL (8.8-10.2); CARBON DIOXIDE LEVEL 32 MEQ/L (21-32); CHLORIDE LEVEL 101 MEQ/L (98-107); CREATININE FOR GFR 0.75 MG/DL (0.70-1.30); GLOMERULAR FILTRATION RATE > 60.0 (>49); GLUCOSE, FASTING 116 MG/DL (70-100); POTASSIUM SERUM 3.9 MEQ/L (3.5-5.1); SODIUM LEVEL 138 MEQ/L (136-145); TOTAL PROTEIN 6.2 GM/DL (6.4-8.2)
== END ==
LOC: M SFHCCLAY 13:09
PROVIDERS: ATTEND Family Medicine
DX: R11.2 Nausea with vomiting, unspecified (principal); K59.00 Constipation, unspecified; E11.29 Type 2 diabetes mellitus with other diabetic kidney complication

== ENCOUNTER 2020-01-25 19:19 | Inpatient (IN) | payer MEDICARE ==
[2020-01-25] VITALS (8 sets, daily range): BP systolic 135–172; BP diastolic 64–77
[~2020-01-25] VITALS: Ht 177.8 cm; Wt 86.1 kg
[2020-01-25] MEDS ORDERED: ISOVUE-370 76% 100ML VIAL As Ordered ONE (19:40)
[2020-01-25 19:54] LABS: BASO # 0.1 10^3/uL (0.0-0.2); BASO % 0.7 % (0.0-1.0); EOS # 0.2 10^3/uL (0.0-0.5); EOS % 2.5 % (0.0-3.0); HEMATOCRIT 35.4 % (42.0-52.0); HEMOGLOBIN 11.5 g/dl (13.5-17.5); LYMPH # 2.2 10^3/uL (1.5-5.0); LYMPH % 24.7 % (24.0-44.0); MEAN CORPUSCULAR HEMOGLOBIN 30.5 pg (27.0-33.0); MEAN CORPUSCULAR HGB CONC 32.5 g/dl (32.0-36.5); MEAN CORPUSCULAR VOLUME 93.9 fl (80.0-96.0); MONO # 0.7 10^3/uL (0.0-0.8); MONO % 7.7 % (0.0-5.0); NEUTROPHILS # 5.7 10^3/uL (1.5-8.5); NEUTROPHILS % 64.1 % (36.0-66.0); PLATELET COUNT, AUTOMATED 258 10^3/uL (150-450); RED BLOOD COUNT 3.77 10^6/uL (4.30-6.10); WHITE BLOOD COUNT 8.9 10^3/uL (4.0-10.0)
[2020-01-25 20:04] LABS: INR 2.02; PROTHROMBIN TIME 22.6 SECONDS (11.8-14.0)
[2020-01-25 20:05] LABS: PARTIAL THROMBOPLASTIN TIME 40.8 SECONDS (25.0-38.4)
--- NOTE | 2020-01-25 20:19 | REPVR ---
PROCEDURE INFORMATION: Exam: CT Head Without Contrast Exam date and time: 01/25/2020 7:52 PM Age: 69 years old Clinical indication: Other: CVA; Additional info: CVA - nursing interventions must not delay CT TECHNIQUE: Imaging protocol: Computed tomography of the head without contrast. Radiation optimization: All CT scans at this facility use at least one of these dose optimization techniques: automated exposure control; mA and/or kV adjustment per patient size (includes targeted exams where dose is matched to clinical indication); or iterative reconstruction. Other technique: STROKE PROTOCOL was implemented. COMPARISON: CT Head W/O FOLL BY WITH CONTR 04/12/2019 3:14 PM FINDINGS: Brain: There is a stable large area of encephalomalacia involving the right parietal lobe, consistent with an old infarct. A small area of encephalomalacia consistent with old infarct is visualized involving the medial left parietal lobe, which is also stable. Chronic lacunar infarcts are identified within the bilateral thalami. This is stable. Artifact limits evaluation of the samara. There is a tiny focus of hypodensity inferior to the right basal ganglia, likely representing a dilated perivascular space. A small lacunar infarct is within the differential. This is a stable finding. No acute intracranial hemorrhage is visualized. The white-fernandez differentiation is otherwise preserved demonstrating no acute territorial type infarct. There is moderate cerebral white matter hypodensity, likely representing small vessel ischemic disease in a patient this age. The acuity of the white matter disease is indeterminate. There is no midline shift. Ventricles: There is mild prominence of the ventricles and sulci, compatible with atrophy. Bones/joints: The calvarium demonstrates no evidence for a depressed fracture. Sinuses: Visualized sinuses are unremarkable. No fluid levels. Mastoid air cells: No mastoid effusion. Vasculature: Intracranial atherosclerosis visualized. Soft tissues: Unremarkable. IMPRESSION: 1. No acute intracranial hemorrhage or acute territorial type infarct. 2. There is a stable large area of encephalomalacia involving the right parietal lobe, consistent with an old infarct. A small area of encephalomalacia consistent with old infarct is visualized involving the medial left parietal lobe, which is also stable. 3. Chronic lacunar infarcts are identified within the bilateral thalami. This is stable. 4. There is moderate cerebral white matter hypodensity, likely representing small vessel ischemic disease in a patient this age. 5. Mild atrophy. 6. If further evaluation is clinically indicated, an MRI of the brain is recommended. ASSESSMENT: [place] Stroke Program Early CT Score (ASPECTS) = 10 Electronically signed by: Pablo Jeong On 01/25/2020 20:18:45 PM
--- NOTE | 2020-01-25 20:42 | REPVR ---
PROCEDURE INFORMATION: Exam: CT Angiography Neck With Contrast Exam date and time: 01/25/2020 7:52 PM Age: 69 years old Clinical indication: Other: CVA TECHNIQUE: Imaging protocol: Computed tomography angiography of the neck with intravenous contrast. 3D rendering: MIP and/or 3D reconstructed images were created by the technologist. Radiation optimization: All CT scans at this facility use at least one of these dose optimization techniques: automated exposure control; mA and/or kV adjustment per patient size (includes targeted exams where dose is matched to clinical indication); or iterative reconstruction. Contrast material: ISOVUE 370; Contrast volume: 100 ml; Contrast route: IV; COMPARISON: No relevant prior studies available. FINDINGS: Right common carotid artery: No significant stenosis. No dissection or occlusion. Right internal carotid artery: Atherosclerosis and less than 50% stenosis of the proximal right internal carotid artery. Right external carotid artery: No occlusion or significant stenosis. Right vertebral artery: The right vertebral artery is asymmetrically small in caliber, without occlusion. Left common carotid artery: A bovine aortic arch is visualized, with common origin of the brachiocephalic artery and left common carotid artery. No significant stenosis or occlusion of the left common carotid artery. Left internal carotid artery: Atherosclerotic changes involving the proximal left internal carotid artery, without stenosis using NASCET criteria. This vessel appears stenosed on the MIP images, although stenosis is not confirmed on the source images. Left external carotid artery: No occlusion or significant stenosis. Left vertebral artery: A dominant left vertebral artery is identified. Severe stenosis of the proximal left vertebral artery. Subclavian arteries: Venous enhancement and artifact limit evaluation of the right subclavian artery. Atherosclerosis and mural thrombus involving the proximal left subclavian artery, with less than 50% luminal narrowing/stenosis. Oropharynx: Calcifications are visualized within the bilateral palatine tonsils. Bones/joints: Spondylosis visualized at multiple cervical and upper thoracic levels. Soft tissues: A left-sided pacemaker is partially visualized. Lymph nodes: Scattered small cervical lymph nodes identified, without significant lymphadenopathy. Lungs: Centrilobular and paraseptal emphysematous changes identified within the lungs bilaterally. IMPRESSION: 1. Atherosclerosis and less than 50% stenosis of the proximal right internal carotid artery. 2. A dominant left vertebral artery is identified. Severe stenosis of the proximal left vertebral artery. 3. Atherosclerosis and mural thrombus involving the proximal left subclavian artery, with less than 50% luminal narrowing/stenosis. 4. Atherosclerotic changes involving the proximal left internal carotid artery, without stenosis using NASCET criteria. 5. Additional findings described above. REFERENCES: NASCET CRITERIA. The degree of internal carotid artery stenosis is based on NASCET criteria. Normal is no stenosis. Mild is less than 50% stenosis. Moderate is 50-69% stenosis. Severe is 70% to 99% stenosis. Total occlusion is no detectable patent lumen. Electronically signed by: Pablo Jeong On 01/25/2020 20:41:29 PM
--- NOTE | 2020-01-25 20:42 | REPVR ---
PROCEDURE INFORMATION: Exam: CT Angiography Head With Contrast Exam date and time: 01/25/2020 7:52 PM Age: 69 years old Clinical indication: Other: CVA; Additional info: CVA - nursing interventions must not delay CT TECHNIQUE: Imaging protocol: Computed tomography angiography of the head with intravenous contrast. 3D rendering: MIP and/or 3D reconstructed images were created by the technologist. Radiation optimization: All CT scans at this facility use at least one of these dose optimization techniques: automated exposure control; mA and/or kV adjustment per patient size (includes targeted exams where dose is matched to clinical indication); or iterative reconstruction. Contrast material: ISOVUE 370; Contrast volume: 100 ml; Contrast route: IV; COMPARISON: CT Head W/O FOLL BY WITH CONTR 04/12/2019 3:14 PM FINDINGS: Anterior cerebral arteries: No occlusion or significant stenosis. No aneurysm. Right internal carotid artery: Atherosclerotic changes and moderate stenoses of the right internal carotid artery. No aneurysm. Right middle cerebral artery: No occlusion or significant stenosis. No aneurysm. Right posterior cerebral artery: No occlusion or significant stenosis. No aneurysm. Right vertebral artery: No occlusion or significant stenosis. No aneurysm. Left internal carotid artery: Atherosclerotic changes and moderate stenoses of the left internal carotid artery. No aneurysm. Left middle cerebral artery: Mild stenosis involving an M2 segment of the left middle cerebral artery. No aneurysm. Left posterior cerebral artery: Hypoplasia of the P1 segment of the left posterior cerebral artery. No significant stenosis or occlusion of the remaining left BANK ANALYST. No aneurysm. Left vertebral artery: Atherosclerosis and mild stenosis of the V4 segment of the left vertebral artery. A dominant left vertebral artery is identified. Basilar artery: No occlusion or significant stenosis. No aneurysm. Dural sinuses/cerebral veins: The left transverse and sigmoid venous sinuses are poorly visualized, which can be due to the timing of injection or hypoplasia, although thrombosis cannot be excluded. IMPRESSION: 1. Atherosclerotic changes and moderate stenoses of the bilateral internal carotid arteries. 2. Atherosclerosis and mild stenosis of the V4 segment of the left vertebral artery. A dominant left vertebral artery is identified. 3. Mild stenosis involving an M2 segment of the left middle cerebral artery. 4. The left transverse and sigmoid venous sinuses are poorly visualized, which can be due to the timing of injection or hypoplasia, although thrombosis cannot be excluded. This can be further evaluated with postcontrast MRI/MRV. 5. Additional findings described above. Electronically signed by: Pablo Jeong On 01/25/2020 20:41:45 PM
[2020-01-25] MEDS ORDERED: BASA100I SC (20:45)
[2020-01-25] MEDS ORDERED: VENL75TA2 PO (20:45)
[2020-01-25] MEDS: HumaLOG INSULIN (NovoLOG) PER UNIT SC SCH (21:00)
[2020-01-25] MEDS: LEVEMIR (INSULIN DETEMIR) 1 UNITS/0.01ML SC SCH (21:00)
[2020-01-25 21:10] LABS: ALBUMIN 3.3 GM/DL (3.2-5.2); ALT/SGPT 23 U/L (12-78); BILIRUBIN,DIRECT < 0.1 MG/DL (0.0-0.2); BILIRUBIN,TOTAL 0.3 MG/DL (0.2-1.0); CK-MB VALUE MASS 2.1 NG/ML (<3.6); CPK CREATINE PHOSPHOKINASE 123 U/L (39-308); DIGOXIN LEVEL 0.1 NG/ML (0.5-2.0); MB/CK RELATIVE INDEX 1.71 (< OR =4); TOTAL PROTEIN 6.4 GM/DL (6.4-8.2); TROPONIN I < 0.02 NG/ML (< 0.10)
[2020-01-25] MEDS ORDERED: ASPIRIN 81 MG CHEW TABLET PO ONE (21:30)
[2020-01-25] MEDS ORDERED: GLUCAGON INJ 1MG VIAL SC PRN (22:30)
[2020-01-25] MEDS ORDERED: DEXTROSE 50% 50 ML SYRINGE IV PRN (22:30)
[2020-01-25] MEDS ORDERED: GLUCOSE 4GM CHEW TABLET PO PRN (22:30)
[2020-01-25] MEDS ORDERED: INSULADS SC (22:36)
[2020-01-25] MEDS ORDERED: ONDA8TAB10 PO (22:37)
--- NOTE | 2020-01-26 01:00 | HPEPDOC ---
General Date of Admission 01/25/20 Date of Service: Jan 25, 2020 Chief Complaint The patient is a 69-year-old male admitted with a reason for visit of Weakness. Source: Patient, RN/MD History of Present Illness 69 year old male with PMH of Stroke, seizures, Dementia, CAD s/p stents, AICD, DM, Hypertension, Smoker presented to the ED with sudden onset weakness of the right side of his body today at 5:30 pm. He was sitting in a chair in the porch smoking cigarette when he slumped over to the right. He tried to get up but was unable to do so. His hands and legs were just flopping down and he could not hold them up. He also had slurring of speech but denied any difficulty in swallowing. He was brought to the ED at 7:30 pm. In the ED he was noted to have right sided weakness though the slurring had improved. Patient said he was weak all over both his legs and arms and he could not get out his chair and walk. Patient is not a reliable historian. During his stay in the ED his weakness had improved significantly though still not completely resolved. CT head showed large area of old stroke on the right parietal area with encephalomalacia and a small area of encephalomalacia consistent with old infarct involving the medial left parietal lobe, which is also stable, Chronic lacunar infarcts are identified within the bilateral thalami. This Patient has AICD so could not get an MRI. CT angio of the head and neck were done. CT angio of head showed moderate stenosis of both the internal carotid arteries. The rest of the right system ( Right MCA, Right ANIMAL SITTER and Right Vertebral) was ok. On the left MCA there was mild stenosis, Left ANIMAL SITTER has hypoplastic P1 segment, Left vertebral artery mild stenosis. CT angio of the neck did not show any significant stenosis of the common carotid / external carotid arteries/ proximal internal carotid/ bracheocephalic art eries. It showed a dominant left vertebral artery. Severe stenosis of the proximal left vertebral artery. Atherosclerosis and mural thrombus involving the proximal left subclavian without significant occlusion. Dr Garcia Spoke with the Neuro attending at [facility] [place]. As per him patient is not a candidate for interventional neurology and advised adding ASA to pradexa. Patient was admitted for Stroke/TIA. Home Medications Scheduled Aspirin (Children's Aspirin) 81 Mg Tab.chew, 81 MG PO DAILY Atorvastatin Calcium (Atorvastatin Calcium) 20 Mg Tablet, 40 MG PO QHS Carvedilol (Carvedilol) 12.5 Mg Tablet, 12.5 MG PO BID, (Reported) Dabigatran Etexilate Mesylate (Pradaxa) 150 Mg Capsule, 150 MG PO BID, (Reported) Insulin Glargine (Lantus) 100 Unit/1 Ml Vial, 60 UNIT SC DAILY, (Reported) Insulin Lispro (Humalog Kwikpen U-100) 100 Unit/1 Ml Insuln.pen, 1 DOSE SC AC, (Reported) PER SLIDING SCALE Metformin HCl (Metformin HCl) 500 Mg Tablet, 500 MG PO BID, (Reported) Ondansetron HCl (Ondansetron HCl) 8 Mg Tablet, 8 MG PO BID, (Reported) Oxybutynin Chloride (Oxybutynin Chloride) 5 Mg Tablet, 5 MG PO BID, (Reported) Ramipril (Ramipril) 10 Mg Capsule, 10 MG PO QHS, (Reported) Venlafaxine HCl (Venlafaxine HCl) 75 Mg Tablet, 75 MG PO BID, (Reported) Allergies Coded Allergies: Penicillins (Verified Allergy, Unknown, UNKNOWN CHILDHOOD REACTION, 12/10/19) lorazepam (Verified Adverse Reaction, Unknown, AGGRESSIVE, 12/10/19) Past Medical History Medical History STROKE 2012 DM LYME DISEASE HTN SEIZURES HX OF ATRIAL FIBRILLATION s/p Ablation AICD CAD S/P stents DEPRESSION VASCULAR DEMENTIA WITHOUT BEHAVIORAL DISTURBANCE MEMORY LOSS Mild left ventricular hypertrophy(LVH), small apical wall motion abnormality and overall preserved LV systolic function. Grade 1 diastolic dysfunction. Surgical History CARDIAC STENTS X 2 2012 CARDIAC DEFIBRILLATOR 2012 CARDIAC ABLATION 2012 Family History FATHER: 71 YRS, CHF, DIAGNOSED WITH HYPERTENSION, UNSPECIFIED HEART DISEASE MOTHER: 70 YRS, SEPSIS, DIABETES SIBLINGS: 45 YRS, HOMICIDE Social History * Smoker: current smoker Alcohol: Denies Drugs: marijuana A-FIB/CHADSVASC A-FIB History Current/History of A-Fib/PAF?: Yes Current PO Anticoag Therapy: Yes Review of Systems Constitutional: Denies: Chills, Fever, Night Sweats Eyes: Denies: Pain, Vision change ENT: Denies: Head Aches, Ear Pain, Dysphagia Skin: Denies: Rash, Lesions, Breakdown Pulmonary: Denies: Dyspnea, Cough Cardiovascular: Denies: Chest Pain, Palpitations, Orthopnea, Paroxysmal Noc. Dyspnea Gastrointestinal: Denies: Nausea, Vomiting, Abdominal Pain, Diarrhea Genitourinary: Denies: Dysuria, Frequency, Incontinence, Retention Hematologic: Denies: Bruising, Bleeding Excessively Musculoskeletal: Denies: Neck Pain, Back Pain, Joint Pain, Muscle Pain, Spasms Neurological: Reports: Weakness, Incoordination, Change in speech Physical Examination General Exam: Positive: Alert, Cooperative, No Acute Distress Eye Exam: Positive: PERRLA, Conjunctiva & lids normal, EOMI; Negative: Sclera icteric ENT Exam: Positive: Atraumatic, Mucous membr. moist/pink, Pharynx Normal Neck Exam: Positive: Supple; Negative: JVD, thyromegaly Chest Exam: Positive: Clear to auscultation, Normal air movement Heart Exam: Positive: Rate Normal, Regular Rhythm, Normal S1, Normal S2; Negative: Murmurs, Rubs Telemetry: Positive: No significant arrhythmia Abdomen Exam: Positive: Normal bowel sounds, Soft; Negative: Tenderness, Hepatospenomegaly Extremity Exam: Positive: Normal pulses; Negative: Clubbing, Cyanosis, Edema Neuro Exam: Positive: Normal Speech, Reflexes 2+ (at the knees bilaterally), Other (Power 3/5 in the right upper and lower extremity and 5/5 on the left upper and lower extremity.) Vital Signs Vital Signs Date Time Temp Pulse Resp B/P (MAP) Pulse Ox O2 Delivery O2 Flow Rate FiO2 01/25/20 21:05 87 20 140/70 98 Room Air 01/25/20 20:50 98.6 Laboratory Data Labs 24H Laboratory Tests 2 01/25/20 19:44: POC Glucose (Misc Panel) 246H, POC Sodium (Misc Panel) 140, POC Potassium (Misc Panel) 4.7, POC Chloride (Misc Panel) 100, POC Total CO2 (Misc Panel) 30.0H, POC Blood Urea Nitrogen (Misc Panel 22, POC Ionized Calcium (Misc Panel) 4.7, POC Creatinine (Misc Panel) 1.1, POC Hematocrit (Misc Panel) 35.0L 01/25/20 19:45: Prothrombin Time 22.6H, Prothromb Time International Ratio 2.02, Activated Partial Thromboplast Time 40.8H 01/25/20 19:46: Immature Granulocyte % (Auto) 0.3, Neutrophils (%) (Auto) 64.1, Lymphocytes (%) (Auto) 24.7, Monocytes (%) (Auto) 7.7H, Eosinophils (%) (Auto) 2.5, Basophils (%) (Auto) 0.7, Neutrophils # (Auto) 5.7, Lymphocytes # (Auto) 2.2, Monocytes # (Auto) 0.7, Eosinophils # (Auto) 0.2, Basophils # (Auto) 0.1, Nucleated Red Blood Cells % (auto) 0.0, Total Bilirubin 0.3, Direct Bilirubin < 0.1, Aspartate Amino Transf (AST/SGOT) 34, Alanine Aminotransferase (ALT/SGPT) 23, Alkaline Phosphatase 77, Total Creatine Kinase 123, Creatine Kinase MB 2.1, Creatine Kinase MB Relative Index 1.71, Troponin I < 0.02, Total Protein 6.4, Albumin 3.3, Albumin/Globulin Ratio 1.1, Digoxin Level 0.1L 01/25/20 20:09: CBC/BMP Laboratory Tests 01/25/20 19:46 Assessment/Plan 69 year old male with PMH of Stroke, seizures, Dementia, CAD s/p stents, AICD, DM, Hypertension, Smoker presented to the ED with sudden onset weakness of the right side of his body today at 5:30 pm. He was sitting in a chair in the porch smoking cigarette when he slumped over to the right. He tried to get up but was unable to do so. His hands and legs were just flopping down and he could not hold them up. He also had slurring of speech but denied any difficulty in swallowing. He was brought to the ED at 7:30 pm. In the ED he was noted to have right sided weakness though the slurring had improved. Patient said he was weak all over both his legs and arms and he could not get out his chair and walk. Patient is not a reliable historian. During his stay in [facility] ED his weakness had improved significantly though still not completely resolved. CT head showed large area of old stroke on the right parietal area with encep halomalacia and a small area of encephalomalacia consistent with old infarct involving the medial left parietal lobe, which is also stable, Chronic lacunar infarcts are identified within the bilateral thalami. This Patient has AICD so could not get an MRI. CT angio of the head and neck were done. CT angio of head showed moderate stenosis of both the internal carotid arteries. The rest of the right system ( Right MCA, Right ANIMAL SITTER and Right Vertebral) was ok. On the left MCA there was mild stenosis, Left ANIMAL SITTER has hypoplastic P1 segment, Left vertebral artery mild stenosis. CT angio of the neck did not show any significant stenosis of the common carotid / external carotid arteries/ proximal internal carotid/ bracheocephalic arteries. It showed a dominant left vertebral artery. Severe stenosis of the proximal left vertebral artery. Atherosclerosis and mural thrombus involving the proximal left subclavian without significant occlusion. Dr Garcia Spoke with the Neuro attending at [facility] [place]. As per him patient is not a candidate for interventional neurology and advised adding ASA to pradexa. Patient was admitted for Stroke/TIA. TIA/Stroke No acute events noted in CT angio of the head and neck. He does have severe stenosis in the proximal left vertebral artery started on ASA, continue pradexa, statin allow for permission hypertension will hold ACEI Will leave it to the day team to consider consultation with our Neurology if necessary. PT/OT Diabetes continue levemir and lispro. Hold metformin. Hypertension continue betablocker, hold ACEi. Depression venlafaxine. Smoker smoking cessation discussed Vascular dementia multiinfarct dementia history is not reliable gets easily agitated, fussy and irritated. Plan / VTE VTE Prophylaxis Ordered?: Yes BRUCE OAKLEY MD Jan 25, 2020 22:00
[2020-01-26 04:00] VITALS: BP 161/76
[2020-01-26 06:11] LABS: BASO # 0.1 10^3/uL (0.0-0.2); BASO % 0.7 % (0.0-1.0); EOS # 0.2 10^3/uL (0.0-0.5); EOS % 1.5 % (0.0-3.0); HEMATOCRIT 32.9 % (42.0-52.0); LYMPH # 2.4 10^3/uL (1.5-5.0); LYMPH % 22.4 % (24.0-44.0); MEAN CORPUSCULAR HEMOGLOBIN 31.6 pg (27.0-33.0); MEAN CORPUSCULAR HGB CONC 33.4 g/dl (32.0-36.5); MEAN CORPUSCULAR VOLUME 94.5 fl (80.0-96.0); MONO # 1.1 10^3/uL (0.0-0.8); MONO % 10.2 % (0.0-5.0); NEUTROPHILS # 6.9 10^3/uL (1.5-8.5); NEUTROPHILS % 64.8 % (36.0-66.0); PLATELET COUNT, AUTOMATED 246 10^3/uL (150-450); RED BLOOD COUNT 3.48 10^6/uL (4.30-6.10); WHITE BLOOD COUNT 10.7 10^3/uL (4.0-10.0)
[2020-01-26 06:35] LABS: BLOOD UREA NITROGEN 17 MG/DL (7-18); CALCIUM LEVEL 8.8 MG/DL (8.8-10.2); CARBON DIOXIDE LEVEL 28 MEQ/L (21-32); CHLORIDE LEVEL 107 MEQ/L (98-107); CREATININE FOR GFR 0.81 MG/DL (0.70-1.30); GLOMERULAR FILTRATION RATE > 60.0 (>49); GLUCOSE, FASTING 137 MG/DL (70-100); POTASSIUM SERUM 3.8 MEQ/L (3.5-5.1); SODIUM LEVEL 142 MEQ/L (136-145)
[2020-01-26 08:00] VITALS: BP 174/87
[2020-01-26] MEDS: VENLAFAXINE 37.5 MG TAB PO SCH ×2 (08:47→20:50)
[2020-01-26] MEDS: oxyBUTYnin 5 MG TAB PO SCH ×2 (08:47→20:50)
[2020-01-26] MEDS: DABIGATRAN ETEXILATE 75 MG CAP (PRADAXA) PO SCH ×2 (08:47→20:50)
[2020-01-26] MEDS: CARVedilol 12.5 MG TAB PO SCH ×2 (08:47→20:50)
[2020-01-26] MEDS: ASPIRIN 81 MG CHEW TABLET PO SCH (08:47)
[2020-01-26] MEDS: LEVEMIR (INSULIN DETEMIR) 1 UNITS/0.01ML SC SCH ×2 (08:48→20:49)
[2020-01-26] MEDS: HumaLOG INSULIN (NovoLOG) PER UNIT SC SCH ×4 (08:48→20:43)
--- NOTE | 2020-01-26 10:01 | REP ---
CHEST, PORTABLE: Two portable views of the chest are performed and compared to a prior study of 12/10/2019. No acute infiltrate seen. The heart is not enlarged. There is mild calcification and tortuosity of the thoracic aorta. The mediastinal silhouette is unchanged. Single lead pacemaker is unchanged. IMPRESSION: No acute pulmonary disease. Electronically Signed by Trey Thibodeaux MD 01/26/2020 07:36 P
[2020-01-26 12:00] VITALS: BP 173/82
--- NOTE | 2020-01-26 14:37 | ECGEPIP ---
[facility] - ED Test Date: 2020-01-25 Pat Name: ADAM WARD Department: Room: [place] [address] Gender: Male Lokie Engineer: ninoska : 1950 Requested By: WILMER Murray Order Number: [id number] Reading MD: Marbella Zaragoza Measurements Intervals [place] Rate: 85 P: 67 MI: 245 QRS: -4 QRSD: 105 T: 26 QT: 350 QTc: 418 Interpretive Statements SINUS RHYTHM WITH FIRST DEGREE AV BLOCK NSTTW abnormalities IVCD INCREASED RATE 12/10/19 Electronically Signed on 01-26-2020 14:37:45 EDT by Marbella Zaragoza
--- NOTE | 2020-01-26 14:56 | REPVR ---
PROCEDURE INFORMATION: Exam: CT Head Without Contrast Exam date and time: 01/26/2020 12:18 PM Age: 69 years old Clinical indication: Pain; Headache; Additional info: Interim eval TECHNIQUE: Imaging protocol: Computed tomography of the head without contrast. Radiation optimization: All CT scans at this facility use at least one of these dose optimization techniques: automated exposure control; mA and/or kV adjustment per patient size (includes targeted exams where dose is matched to clinical indication); or iterative reconstruction. COMPARISON: CT Head without contrast 01/25/2020 7:44 PM FINDINGS: Brain: There is low attenuation abnormality in the periventricular white matter, likely reflecting chronic microvascular ischemic disease. There are chronic lacunar infarcts. There is an old right MCA territory infarct. Ventricles: Normal. No ventriculomegaly. Bones/joints: Unremarkable. No acute fracture. Sinuses: Visualized sinuses are unremarkable. No fluid levels. Mastoid air cells: Visualized mastoid air cells are well aerated. Soft tissues: Unremarkable. IMPRESSION: 1. There is low attenuation abnormality in the periventricular white matter, likely reflecting chronic microvascular ischemic disease. If an acute infarct is clinically suspected, consider MRI with diffusion imaging. 2. There are chronic lacunar infarcts. 3. There is an old right MCA territory infarct. Electronically signed by: Dandre Kelley On 01/26/2020 14:56:00 PM
--- NOTE | 2020-01-26 15:31 | IPNPDOC ---
Text Note Date of Service The patient was seen on 01/26/20. NOTE Subjective: Patient seen and examined at [facility]. No acute overnight evnets re ported. No new medical complaints. Still reports right sided weakness. Objective: General: NAD, lying comfortably in bed, disheveled HEENT: NC/AT, EOMI, PERRL Lungs: CTA B/L Heart; +S1S2, RRR Abd; soft, NT, +BS Ext: no edema Neuro: diminished sensation right upper/lower extremity, 3-4/5 strength right upper/lower extremity A/P: 69 year old male with PMH of Stroke, seizures, Dementia, CAD s/p stents, AICD, DM, Hypertension, Smoker presented to the ED with sudden onset weakness of the right side of his body. He was sitting in a chair in the porch smoking cigarette when he slumped over to the right. He tried to get up but was unable to do so. His hands and legs were just flopping down and he could not hold them up. He also had slurring of speech but denied any difficulty in swallowing. He was brought to the ED at 7:30 pm. In the ED he was noted to have right sided weakness though the slurring had improved. Patient said he was weak all over both his legs and arms and he could not get out his chair and walk. Patient is not a reliable historian. During his stay in [facility] ED his weakness had improved significantly though still not completely resolved. Dr Garcia Spoke with the Neuro attending at [facility] [place]. As per him patient is not a candidate for interventional neurology and advised adding ASA to pradexa. Patient was admitted for Stroke/TIA. #TIA/Stroke - No acute findings noted in CT angio of the head and neck. He does have severe stenosis in the proximal left vertebral artery, and prior CVA's - started on ASA, continue pradexa, statin - allow for permission hypertension - will hold ACEI - discussed with neurology - assistance appreciated - repeat CT head today and tomorrow, telemetry monitoring, then focus on PT/OT/ST #seizure disorder #Diabetes continue levemir and lispro. Hold metformin. #HTN continue betablocker, hold ACEi. #Depression venlafaxine. #Smoker smoking cessation discussed #Vascular dementia multiinfarct dementia history is not reliable gets easily agitated, fussy and irritated. #HX OF ATRIAL FIBRILLATION s/p Ablation - on pradaxa - rate controlled #HFpEF #DVT prophylaxis VS,Fishbone, I+O VS, Fishbone, I+O Laboratory Tests 01/25/20 19:46 01/26/20 05:25 Vital Signs Date Time Temp Pulse Resp B/P (MAP) Pulse Ox O2 Delivery O2 Flow Rate FiO2 01/26/20 12:00 97.3 68 20 173/82 (112) 97 Room Air I&O- Last 24 Hours up to 6 AM 01/26/20 06:00 Output Total 280 ml Balance -280 ml ROB ALMONTE MD Jan 26, 2020 15:31
[2020-01-26 16:00] VITALS: BP 179/91
[2020-01-26 20:00] VITALS: BP 157/77
[2020-01-26] MEDS ORDERED: ATORVASTATIN 20 MG TAB PO SCH (21:00)
[2020-01-26] MEDS ORDERED: zolPIDEM TARTRATE 5 MG TAB PO ONE (22:15)
[2020-01-27] VITALS: BP 146/76
[2020-01-27 04:00] VITALS: BP 161/86
[2020-01-27 05:22] LABS: BASO # 0.1 10^3/uL (0.0-0.2); BASO % 0.6 % (0.0-1.0); EOS # 0.2 10^3/uL (0.0-0.5); EOS % 1.7 % (0.0-3.0); HEMATOCRIT 33.2 % (42.0-52.0); HEMOGLOBIN 11.1 g/dl (13.5-17.5); LYMPH # 2.7 10^3/uL (1.5-5.0); LYMPH % 28.8 % (24.0-44.0); MEAN CORPUSCULAR HEMOGLOBIN 30.8 pg (27.0-33.0); MEAN CORPUSCULAR HGB CONC 33.4 g/dl (32.0-36.5); MEAN CORPUSCULAR VOLUME 92.2 fl (80.0-96.0); MONO # 0.9 10^3/uL (0.0-0.8); MONO % 9.8 % (0.0-5.0); NEUTROPHILS # 5.4 10^3/uL (1.5-8.5); NEUTROPHILS % 58.8 % (36.0-66.0); PLATELET COUNT, AUTOMATED 228 10^3/uL (150-450); WHITE BLOOD COUNT 9.3 10^3/uL (4.0-10.0)
[2020-01-27 05:49] LABS: BLOOD UREA NITROGEN 12 MG/DL (7-18); CALCIUM LEVEL 8.5 MG/DL (8.8-10.2); CARBON DIOXIDE LEVEL 30 MEQ/L (21-32); CHLORIDE LEVEL 106 MEQ/L (98-107); CREATININE FOR GFR 0.61 MG/DL (0.70-1.30); GLOMERULAR FILTRATION RATE > 60.0 (>49); GLUCOSE, FASTING 54 MG/DL (70-100); POTASSIUM SERUM 3.5 MEQ/L (3.5-5.1); SODIUM LEVEL 141 MEQ/L (136-145)
[2020-01-27] MEDS: HumaLOG INSULIN (NovoLOG) PER UNIT SC SCH ×2 (07:30→12:46)
[2020-01-27 08:00] VITALS: BP 160/77
[2020-01-27] MEDS: LEVEMIR (INSULIN DETEMIR) 1 UNITS/0.01ML SC SCH (08:42)
[2020-01-27] MEDS ORDERED: LEVEMIR (INSULIN DETEMIR) 1 UNITS/0.01ML SC ONE (08:45)
[2020-01-27] MEDS: ASPIRIN 81 MG CHEW TABLET PO SCH (08:50)
[2020-01-27 08:51] VITALS: BP 161/86
[2020-01-27] MEDS: oxyBUTYnin 5 MG TAB PO SCH (08:51)
[2020-01-27] MEDS: VENLAFAXINE 37.5 MG TAB PO SCH (08:51)
[2020-01-27] MEDS: DABIGATRAN ETEXILATE 75 MG CAP (PRADAXA) PO SCH (08:51)
[2020-01-27] MEDS: CARVedilol 12.5 MG TAB PO SCH (08:51)
[2020-01-27] MEDS ORDERED: ATOR1TAB21 PO (11:37)
[2020-01-27] MEDS ORDERED: ASPI81CH8 PO (11:37)
[2020-01-27 12:00] VITALS: BP 158/80
--- NOTE | 2020-01-27 14:08 | DS.PDOC ---
Discharge Summary General Date of Admission Jan 25, 2020 at 22:18 Date of Discharge 01/27/20 Specialist/Consultants Involve neurology Discharge Summary PROCEDURES PERFORMED DURING STAY: [None]. ADMITTING DIAGNOSES: 1. CVA/TIA Secondary DIAGNOSES: Hx #CVA HTN DM Depression nicotine abuse vascular dementia afib/ablation/pradaxa HFpEF COMPLICATIONS/CHIEF COMPLAINT: Cva,Dementia. HISTORY OF PRESENT ILLNESS: 69 year old male with PMH of Stroke, seizures, Dementia, CAD s/p stents, AICD, DM, Hypertension, Smoker presented to the ED with sudden onset weakness of the right side of his body today at 5:30 pm. He was sitting in a chair in the porch smoking cigarette when he slumped over to the right. He tried to get up but was unable to do so. His hands and legs were just flopping down and he could not hold them up. He also had slurring of speech but denied any difficulty in swal lowing. He was brought to the ED at 7:30 pm. In the ED he was noted to have right sided weakness though the slurring had improved. Patient said he was weak all over both his legs and arms and he could not get out his chair and walk. Patient is not a reliable historian. During his stay in the ED his weakness had improved significantly though still not completely resolved. CT head showed large area of old stroke on the right parietal area with encephalomalacia and a small area of encephalomalacia consistent with old infarct involving the medial left parietal lobe, which is also stable, Chronic lacunar infarcts are identified within the bilateral thalami. This Patient has AICD so could not get an MRI. CT angio of the head and neck were done. CT angio of head showed moderate stenosis of both the internal carotid arteries. The rest of the right system ( Right MCA, Right CONDITIONER TUMBLER OPERATOR and Right Vertebral) was ok. On the left MCA there was mild stenosis, Left CONDITIONER TUMBLER OPERATOR has hypoplastic P1 segment, Left vertebral artery mild stenosis. CT angio of the neck did not show any significant stenosis of the common carotid / external carotid arteries/ proximal internal carotid/ bracheocephalic arteries. It showed a dominant left vertebral artery. Severe stenosis of the proximal left vertebral artery. Atherosclerosis and mural thrombus involving the proximal left subclavian without significant occlusion. Dr Garcia Spoke with the Neuro attending at [facility]. As per him patient is not a candidate for interventional neurology and advised adding ASA to pradexa. Patient was admitted for Stroke/TIA. HOSPITAL COURSE: Patient continued with right sided residual deficits. Consulted neurology with recs for PT/OT/ST. Repeat CT with no evidence of CVA. No events on telemetry. Discharged to ARU. DISCHARGE MEDICATIONS: Please see below. ALLERGIES: Please see below. PHYSICAL EXAMINATION ON DISCHARGE: VITAL SIGNS: Please see below. General: NAD, lying comfortably in bed, disheveled HEENT: NC/AT, EOMI, PERRL Lungs: CTA B/L Heart; +S1S2, RRR Abd; soft, NT, +BS Ext: no edema Neuro: diminished sensation right upper/lower extremity, 3-4/5 strength right upper/lower extremity LABORATORY DATA: Please see below. ACTIVITY: [As tolerated]. DISCHARGE PLAN: Discharge to ARU DISCHARGE INSTRUCTIONS: 1. As per ARU 2. Neurology on discharge as scheduled 3. PCP on discharge as scheduled DISCHARGE CONDITION: [Stable]. TIME SPENT ON DISCHARGE: 35 minutes. Vital Signs/I&Os Vital Signs Date Time Temp Pulse Resp B/P (MAP) Pulse Ox O2 Delivery O2 Flow Rate FiO2 01/27/20 12:00 98.1 72 16 158/80 (106) 96 Room Air I&O- Last 24 Hours up to 6 AM 01/27/20 05:59 Intake Total 510 ml Output Total 0 ml Balance 510 ml Laboratory Data Labs 24H Laboratory Tests 2 01/26/20 18:11: Bedside Glucose (Misc Panel) 59L 01/26/20 20:41: Bedside Glucose (Misc Panel) 201H 01/27/20 05:07: Immature Granulocyte % (Auto) 0.3, Neutrophils (%) (Auto) 58.8, Lymphocytes (%) (Auto) 28.8, Monocytes (%) (Auto) 9.8H, Eosinophils (%) (Auto) 1.7, Basophils (%) (Auto) 0.6, Neutrophils # (Auto) 5.4, Lymphocytes # (Auto) 2.7, Monocytes # (Auto) 0.9H, Eosinophils # (Auto) 0.2, Basophils # (Auto) 0.1, Nucleated Red Blood Cells % (auto) 0.0, Anion Gap 5L, Glomerular Filtration Rate > 60.0, Calcium Level 8.5L 01/27/20 08:31: Bedside Glucose (Misc Panel) 183H 01/27/20 12:37: Bedside Glucose (Misc Panel) 179H CBC/BMP Laboratory Tests 01/27/20 05:07 FSBS Laboratory Tests Test 01/26/20 18:11 01/26/20 20:41 01/27/20 08:31 01/27/20 12:37 Range/Units Bedside Glucose (Misc Panel) 59 201 183 179 80-115 MG/DL Discharge Medications Scheduled Aspirin (Children's Aspirin) 81 Mg Tab.chew, 81 MG PO DAILY Atorvastatin Calcium (Atorvastatin Calcium) 20 Mg Tablet, 40 MG PO QHS Carvedilol (Carvedilol) 12.5 Mg Tablet, 12.5 MG PO BID, (Reported) Dabigatran Etexilate Mesylate (Pradaxa) 150 Mg Capsule, 150 MG PO BID, (Reported) Insulin Glargine (Lantus) 100 Unit/1 Ml Vial, 60 UNIT SC DAILY, (Reported) Insulin Lispro (Humalog Kwikpen U-100) 100 Unit/1 Ml Insuln.pen, 1 DOSE SC AC, (Reported) PER SLIDING SCALE Metformin HCl (Metformin HCl) 500 Mg Tablet, 500 MG PO BID, (Reported) Ondansetron HCl (Ondansetron HCl) 8 Mg Tablet, 8 MG PO BID, (Reported) Oxybutynin Chloride (Oxybutynin Chloride) 5 Mg Tablet, 5 MG PO BID, (Reported) Ramipril (Ramipril) 10 Mg Capsule, 10 MG PO QHS, (Reported) Venlafaxine HCl (Venlafaxine HCl) 75 Mg Tablet, 75 MG PO BID, (Reported) Allergies Coded Allergies: Penicillins (Verified Allergy, Unknown, UNKNOWN CHILDHOOD REACTION, 12/10/19) lorazepam (Verified Adverse Reaction, Unknown, AGGRESSIVE, 12/10/19) ROB ALMONTE MD Jan 27, 2020 14:08
== END 2020-01-27 14:58 | DRG 65 ==
LOC: M ED 19:19 → M ED INP 22:18 → ENRESERV 22:30 → M PCU 23:37
PROVIDERS: ADMIT Internal Medicine Nephrology; ATTEND Internal Medicine
DX: I63.9 Cerebral infarction, unspecified (principal); G81.91 Hemiplegia, unspecified affecting right dominant side; I50.32 Chronic diastolic (congestive) heart failure; R56.9 Unspecified convulsions; F01.50 Vascular dementia, unspecified severity, without behavioral disturbance, psychotic disturbance, mood disturbance, and anxiety; I25.10 Atherosclerotic heart disease of native coronary artery without angina pectoris; E11.9 Type 2 diabetes mellitus without complications; I11.0 Hypertensive heart disease with heart failure; I65.02 Occlusion and stenosis of left vertebral artery; I65.23 Occlusion and stenosis of bilateral carotid arteries; F17.210 Nicotine dependence, cigarettes, uncomplicated; Z95.810 Presence of automatic (implantable) cardiac defibrillator; Z95.5 Presence of coronary angioplasty implant and graft; Z79.82 Long term (current) use of aspirin; Z79.899 Other long term (current) drug therapy; Z79.4 Long term (current) use of insulin; Z88.0 Allergy status to penicillin; Z88.8 Allergy status to other drugs, medicaments and biological substances

== ENCOUNTER 2020-01-26 13:55 | Inpatient (IN) | payer MEDICARE ==
[~2020-01-26] VITALS: Ht 177.8 cm; Wt 84.2 kg
[~2020-01-26 13:55] MED LIST changes: +BASA100I SC; +INSULADS SC; +ONDA8TAB10 PO; +VENL75TA2 PO
[2020-01-27] MEDS ORDERED: ASPI81CH8 PO (11:37)
[2020-01-27] MEDS ORDERED: ATOR1TAB21 PO (11:37)
[2020-01-27] MEDS ORDERED: GLUCAGON INJ 1MG VIAL SC PRN (12:30)
[2020-01-27] MEDS ORDERED: ACETAMINOPHEN TAB 650MG DOSE (2X325MG) PO PRN (12:30)
[2020-01-27] MEDS ORDERED: zolPIDEM TARTRATE 5 MG TAB PO PRN (12:30)
[2020-01-27] MEDS ORDERED: DEXTROSE 50% 50 ML SYRINGE IV PRN (12:30)
[2020-01-27] MEDS ORDERED: GLUCOSE 4GM CHEW TABLET PO PRN (12:30)
[2020-01-27] MEDS ORDERED: HEPARIN SOD (PORCINE) 5000UNITS/ML VIAL (J1644 PER 1000UNITS) SC SCH (12:30)
[2020-01-27] MEDS ORDERED: BISACODYL 10 MG SUPP PR PRN (12:30)
--- NOTE | 2020-01-27 12:38 | HPEPDOC ---
Hydro Station Operator Note DATE OF ADMISSION: 01-27-20 DATE OF SERVICE: 01-27-20 TIME OF ADMISSION: Please refer to physician's admission order. SOURCE OF ADMISSION INFORMATION: [facility] record and patient CHIEF COMPLAINT: stroke HISTORY OF PRESENT ILLNESS: 69M pmh seizures, strokes, Cad s/p stent with AICD, HTN, Afib s/p ablation, chronic diastolic CHF, vascular dementia, current smoker presented to [facility] ED on 01-25-20 with new right sided weakness and dysarthria. CTH showed, No acute i ntracranial hemorrhage or acute territorial type infarctstable large area of encephalomalacia involving the right parietal lobe, consistent with an old infarct. A small area of encephalomalacia consistent with old infarct is visualized involving the medial left parietal lobe, which is also stableChronic lacunar infarcts are identified within the bilateral thalami. Patient was u nable to have MRI performed due to AICD and CTA neck did show, Severe stenosis of the proximal left vertebral artery. His case was discussed with [facility] neurologist who recommended Pradaxa and ASA. He was noted to have significant weakness in therapy for clinical symptoms consistent with a new stroke and deemed medically appropriate for discharge to ARU on 01-27-20. REVIEW OF SYSTEMS: The following is a completed review of systems and has been reviewed. Review of systems otherwise unremarkable. PAIN: Patient self reports no pain EYES: No recent vision changes EARS, NOSE, & THROAT: No throat pain, or dysphagia, or rhinorrhea CARDIOVASCULAR: Denies chest pain or palpitations PULMONARY: Denies shortness of breath GASTROINTESTINAL: +constipation GENITOURINARY: denies dysuria MUSCULOSKELETAL: right sided weakness NEUROLOGICAL:right sided paresis and mild neglect HEMATOLOGICAL: denies easy bruising SKIN: denies rash PSYCHIATRIC: Unremarkable All other review of systems found to be negative. PAST MEDICAL HISTORY: as per HPI ALLERGIES: Please see below. MEDICATIONS: Please see below. FAMILY HISTORY: Cardiac, DM SOCIAL HISTORY: +smoker, +marijuana user, denies ETOH DIET: consistent carb, fluid restrict PHYSICAL EXAMINATION: VITAL SIGNS: Please see below. GENERAL: Pleasant and cooperative. No acute distress. HEENT: PERRL. Extraocular movements intact. Clear conjunctiva CARDIOVASCULAR: Regular rate and rhythm. No murmurs, rubs, or gallops, + AICD LUNGS: Clear to auscultation bilaterally. No wheezes. No rhonchi ABDOMEN: [Soft, nontender, nondistended. Positive bowel sounds. Normal active bowel sounds NEUROLOGICAL: Alert and oriented times three. Cranial nerves II through XII grossly intact. Sensation diminished to light touch RUE with extinction to light touch EXTREMITIES: 5\5 strength LUE, 3/5 Right elbow flexors/extensors and wrist extensors, 4+/5 collection systems foreman, 4\5 strength right lower extremity. 5/5 strength in left lower extremity. SKIN: no rash LABORATORY DATA: Please see below. IMAGING:Imaging documentation personally reviewed by record FUNCTIONAL STATUS: Premorbid: Modified Independent with all activities of daily life as well as mobility On Admission: Max-total assist for bed mobility and functional transfers GOALS: Supervision ambulation with RW household distances, functional transfers, Mod-I bed mobility, dressing, toileting, supervision bathing ASSESSMENT:69-year-old M with past medical history of vascular dementia with multiple strokes who presents status new onset right sided weakness likely due to new CVA PLAN: 1. Rehab-PT/OT advance gait and ADLs, strengthen/stretch/maintain ROM all 4 limbs- avoid E-stim to RUE as patient reporting seizure-like activity following an old stroke and AICD in place - SUPPLY CHAIN DIRECTOR eval for cog and swallow 2. Neuro: hx of multiple infarcts with new right sided weakness, MRI incompatible, with symptoms most consistent with new ischemic stroke in setting of severely stenotic left vertebral artery- c/u statin, ASA and Pradaxa for secondary stroke prevention, optimize BPs -vascular dementia with depression- c/u Effexor -f/u neuro as outpatient 3. Cardiac- chronic systolic CHF- fluid restrict, daily weights, medicine consulted to assist in overall management -HTN c/u Coreg and Ramipril 4. Resp: encourage incentive spirometry, Duonebs given hx of smoking, monitor for infection 5. Endo: pmh DM c/u Levemir and ISS, home metformin restarted, adjust prn 6. : monitor PVRS 7. GI ppx: protonix 40mg 8. DVT ppx: heparin and TEDs, f/u admission dopplers 9. Pain: Tylenol prn 10. Dispo: TBD POST ADMISSION PHYSICIAN EVALUATION: Medical and functional status: Description of medical status, medical assessment: As above. Rehabilitation diagnosis and current and prior cold morbid medical conditions as above. Risk of complications and plans to mitigate them as above. Description of functional status current status is as above. Prior status as above. Status compared to preadmission: There are no clinically significant differences between the patient's current status and the information described on the preadmission screening document. Treatment plan anticipated: Treatment plan is as described above. Required disciplines including physical therapy, occupational therapy, others as noted above. Intensity of services: 3 hours a day, 6 days a week. Special considerations: There are no specific special or safety considerations that would likely preclude immediate implementation of an intensive rehabilitation program or subsequently influence the plan of care. ATTESTATION: Considering all the information above, it is my best judgment that this patient requires intensive rehabilitation therapy as described above and an inpatient hospital environment due to the complexity of nursing, medical, and rehabilitation needs required by the patient. Furthermore, this patient can reasonably be expected to participate in an benefit from an inpatient rehabilit ation stay with an interdisciplinary team approach to the delivery of rehabilitation care under the direction and supervision of rehabilitation physician. PROGNOSIS: good ESTIMATED LENGTH OF STAY:18-21 days. PROJECTED DISCHARGE DESTINATION: Home with family support and any durable medical equipment required to increase functional safety and mobility TIME SPENT COUNSELING AND COORDINATING INITIAL CARE: Greater than 70 minutes. Vital Signs as per EMR Home Medications Scheduled Aspirin (Children's Aspirin) 81 Mg Tab.chew, 81 MG PO DAILY Atorvastatin Calcium (Atorvastatin Calcium) 20 Mg Tablet, 40 MG PO QHS Carvedilol (Carvedilol) 12.5 Mg Tablet, 12.5 MG PO BID, (Reported) Dabigatran Etexilate Mesylate (Pradaxa) 150 Mg Capsule, 150 MG PO BID, (Reported) Insulin Glargine (Lantus) 100 Unit/1 Ml Vial, 60 UNIT SC DAILY, (Reported) Insulin Lispro (Humalog Kwikpen U-100) 100 Unit/1 Ml Insuln.pen, 1 DOSE SC AC, (Reported) PER SLIDING SCALE Metformin HCl (Metformin HCl) 500 Mg Tablet, 500 MG PO BID, (Reported) Ondansetron HCl (Ondansetron HCl) 8 Mg Tablet, 8 MG PO BID, (Reported) Oxybutynin Chloride (Oxybutynin Chloride) 5 Mg Tablet, 5 MG PO BID, (Reported) Ramipril (Ramipril) 10 Mg Capsule, 10 MG PO QHS, (Reported) Venlafaxine HCl (Venlafaxine HCl) 75 Mg Tablet, 75 MG PO BID, (Reported) Allergies Coded Allergies: Penicillins (Verified Allergy, Unknown, UNKNOWN CHILDHOOD REACTION, 12/10/19) lorazepam (Verified Adverse Reaction, Unknown, AGGRESSIVE, 12/10/19) A-FIB/CHADSVASC A-FIB History Current/History of A-Fib/PAF?: No RUSLAN SOTELO MD Jan 27, 2020 12:38
[2020-01-27 15:26] VITALS: BP 129/70
--- NOTE | 2020-01-27 16:31 | REP ---
Bilateral lower extremity Duplex Doppler venous ultrasound: Real time compression and duplex Doppler interrogation of the bilateral lower extremity deep venous system is performed. Bilaterally, the common femoral, superficial femoral and popliteal veins are fully compressible with transducer pressure and demonstrate normal spontaneous and phasic flow, without evidence of deep venous thrombosis. Impression: No evidence of deep venous thrombosis of the bilateral lower extremity femoral popliteal venous system. Electronically Signed by Trey Thibodeaux MD 01/27/2020 04:22 P
[2020-01-27] MEDS: HumaLOG INSULIN (NovoLOG) PER UNIT SC SCH ×2 (17:26→20:18)
[2020-01-27] MEDS: metFORMIN (GLUCOPHAGE) 500 MG TAB PO SCH (17:26)
[2020-01-27] MEDS: REMEDY PHYTOPLEX Z-GUARD PASTE 113GM TUBE (FROM STOREROOM PRODUCT) TOP SCH ×2 (17:27→20:19)
[2020-01-27 20:00] VITALS: BP 166/87
[2020-01-27] MEDS: IPRATROPIUM 0.5MG/ALBUTEROL 2.5MG INH SOL UD 3ML (DUONEB) NEB SCH (20:00)
[2020-01-27] MEDS: CARVedilol 12.5 MG TAB PO SCH (20:15)
[2020-01-27] MEDS: ramipriL 5 MG CAP PO SCH (20:16)
[2020-01-27] MEDS: DOCUSATE SODIUM 100 MG CAP PO SCH (20:16)
[2020-01-27] MEDS: SENNA 8.6 MG TAB (SENOKOT) PO SCH (20:16)
[2020-01-27] MEDS: oxyBUTYnin 5 MG TAB PO SCH (20:17)
[2020-01-27] MEDS: DABIGATRAN ETEXILATE 75 MG CAP (PRADAXA) PO SCH (20:17)
[2020-01-27] MEDS: ATORVASTATIN 20 MG TAB PO SCH (20:17)
[2020-01-27] MEDS: VENLAFAXINE 37.5 MG TAB PO SCH (20:17)
[2020-01-27] MEDS: LEVEMIR (INSULIN DETEMIR) 1 UNITS/0.01ML SC SCH (20:18)
[2020-01-28 06:00] VITALS: BP 164/88
[2020-01-28 07:18] LABS: BASO # 0.1 10^3/uL (0.0-0.2); BASO % 0.5 % (0.0-1.0); EOS # 0.2 10^3/uL (0.0-0.5); EOS % 1.9 % (0.0-3.0); HEMATOCRIT 36.5 % (42.0-52.0); HEMOGLOBIN 12.2 g/dl (13.5-17.5); LYMPH # 2.1 10^3/uL (1.5-5.0); LYMPH % 18.8 % (24.0-44.0); MEAN CORPUSCULAR HEMOGLOBIN 31.4 pg (27.0-33.0); MEAN CORPUSCULAR HGB CONC 33.4 g/dl (32.0-36.5); MEAN CORPUSCULAR VOLUME 94.1 fl (80.0-96.0); MONO # 1.2 10^3/uL (0.0-0.8); MONO % 10.7 % (0.0-5.0); NEUTROPHILS # 7.5 10^3/uL (1.5-8.5); NEUTROPHILS % 67.7 % (36.0-66.0); PLATELET COUNT, AUTOMATED 260 10^3/uL (150-450); RED BLOOD COUNT 3.88 10^6/uL (4.30-6.10); WHITE BLOOD COUNT 11.1 10^3/uL (4.0-10.0)
[2020-01-28 07:36] LABS: ALBUMIN 3.3 GM/DL (3.2-5.2); ALT/SGPT 19 U/L (12-78); BILIRUBIN,TOTAL 0.8 MG/DL (0.2-1.0); BLOOD UREA NITROGEN 11 MG/DL (7-18); CALCIUM LEVEL 8.9 MG/DL (8.8-10.2); CARBON DIOXIDE LEVEL 32 MEQ/L (21-32); CHLORIDE LEVEL 102 MEQ/L (98-107); GLOMERULAR FILTRATION RATE > 60.0 (>49); GLUCOSE, FASTING 161 MG/DL (70-100); POTASSIUM SERUM 4.6 MEQ/L (3.5-5.1); SODIUM LEVEL 135 MEQ/L (136-145); TOTAL PROTEIN 6.9 GM/DL (6.4-8.2)
--- NOTE | 2020-01-28 07:44 | HPEPDOC ---
[facility] Medical History & Physical Date of Admission Jan 27, 2020 Date of Service: Jan 28, 2020 Attending Physician: RUSLAN SOTELO MD History and Physical TIME OF SERVICE: 3:10 PM REASON FOR CONSULT: Medical management HISTORY OF PRESENT ILLNESS: This is a 59-year-old presented to ER on January 24 with complaints of new right- sided weakness and dysarthria. CT of the head was negative for a new acute infarct. He was unable to have an MRI because of ICD placement. But CTA of the neck confirmed the presence of severe stenosis of the proximal left vertebral artery. Per discussion with Neurology at [facility], he was started on pradaxa and aspirin and was transferred to ARU for rehabilitation. Currently, the patients only complaint is of nausea. Per discussion with his RN, his blood pressure has been high. REVIEW OF SYSTEMS: 12 point review of systems negative except as listed in HPI PAST MEDICAL/ SURGICAL HISTORY: CAD status post stent. Chronic HTN A. fib status post ablation Chronic diastolic CHF Vascular dementia. AICD placement. Old right parietal lobe infarct SOCIAL HISTORY: He smokes tobacco and THC products He is FAMILY HISTORY: CAD Diabetes ALLERGIES: Please see below. HOME MEDICATIONS: Please see below. PHYSICAL EXAMINATION: VITAL SIGNS: Please see below. GEN: well-nourished / well developed/ NAD HEENT: mucus membranes moist and pink CVS: RRR/NMRG LUNGS: lungs are clear to auscultation bilaterally on room air MSK/EXTREMITIES: range of motion intact in all 4 extremities NEURO: CN 2-12 are grossly intact / he has marked right upper and right lower extremity weakness PSYCH: alert and oriented / able to understand and follow all commands LABORATORY DATA: See below. MICROBIOLOGY: Please see below. ASSESSMENT: Mr. Ngo is a 59-year-old with a history of CAD, HTN, A. fib, chronic diastolic CHF, vascular dementia, and CVA who presented with new right upper lower extremity weakness, possibly due to new CVA; he is admitted to ARU for rehabilitation. PLAN: 1. Right upper and lower extremity weakness, possibly due to CVA - plan per PMNR / continue with aspirin, atorvastatin, resume Pradaxa 150mg BID 2. Uncontrolled hypertension - continue with current doses of Coreg and ramipril, add amlodipine 2.5 mg daily 3. IDDM - levemir and lispro with metformin. 4. Depression venlafaxine 5. A Fib - pradaxa DVT PROPHYLAXIS: n/a on AC Thank you for consulting us. We will continue to follow the patient with you Vital Signs Vital Signs Date Time Temp Pulse Resp B/P (MAP) Pulse Ox O2 Delivery O2 Flow Rate FiO2 01/28/20 06:00 97.8 76 18 164/88 (113) 98 Room Air Laboratory Data Labs 24H Laboratory Tests 2 01/27/20 16:26: Bedside Glucose (Misc Panel) 262H 01/27/20 20:03: Bedside Glucose (Misc Panel) 118H 01/28/20 06:23: Immature Granulocyte % (Auto) 0.4, Neutrophils (%) (Auto) 67.7H, Lymphocytes (%) (Auto) 18.8L, Monocytes (%) (Auto) 10.7H, Eosinophils (%) (Auto) 1.9, Basophils (%) (Auto) 0.5, Neutrophils # (Auto) 7.5, Lymphocytes # (Auto) 2.1, Monocytes # (Auto) 1.2H, Eosinophils # (Auto) 0.2, Basophils # (Auto) 0.1, Nucleated Red Blood Cells % (auto) 0.0, Anion Gap 1L, Glomerular Filtration Rate > 60.0, Calcium Level 8.9, Total Bilirubin 0.8#, Aspartate Amino Transf (AST/SGOT) 14, Alanine Aminotransferase (ALT/SGPT) 19, Alkaline Phosphatase 83, Total Protein 6.9, Albumin 3.3, Albumin/Globulin Ratio 0.9 01/28/20 06:50: Bedside Glucose (Misc Panel) 169H CBC/BMP Laboratory Tests 01/28/20 06:23 Home Medications Scheduled Amlodipine Besylate (Amlodipine Besylate) 10 Mg Tablet, 10 MG PO DAILY Aspirin (Children's Aspirin) 81 Mg Tab.chew, 81 MG PO DAILY Atorvastatin Calcium (Atorvastatin Calcium) 20 Mg Tablet, 40 MG PO QHS Carvedilol (Carvedilol) 12.5 Mg Tablet, 12.5 MG PO BID Dabigatran Etexilate Mesylate (Pradaxa) 150 Mg Capsule, 150 MG PO BID Insulin Glargine (Lantus) 100 Unit/1 Ml Vial, 60 UNIT SC DAILY Insulin Lispro (Humalog Kwikpen U-100) 100 Unit/1 Ml Insuln.pen, 1 DOSE SC AC PER SLIDING SCALE Metoclopramide HCl (Metoclopramide HCl) 10 Mg Tablet, 10 MG PO ACHS Ondansetron HCl (Ondansetron HCl) 8 Mg Tablet, 8 MG PO BID Oxybutynin Chloride (Oxybutynin Chloride) 5 Mg Tablet, 5 MG PO BID Ramipril (Altace) 5 Mg Capsule, 10 MG PO Q12H Venlafaxine HCl (Venlafaxine HCl) 75 Mg Tablet, 75 MG PO BID Allergies Coded Allergies: Penicillins (Verified Allergy, Unknown, UNKNOWN CHILDHOOD REACTION, 12/10/19) lorazepam (Verified Adverse Reaction, Unknown, AGGRESSIVE, 12/10/19) A-FIB/CHADSVASC A-FIB History Current/History of A-Fib/PAF?: Yes Current PO Anticoag Therapy: Yes MARY BENJAMIN MD Jan 28, 2020 07:44
[2020-01-28] MEDS: IPRATROPIUM 0.5MG/ALBUTEROL 2.5MG INH SOL UD 3ML (DUONEB) NEB SCH ×3 (08:30→19:49)
[2020-01-28] MEDS: REMEDY PHYTOPLEX Z-GUARD PASTE 113GM TUBE (FROM STOREROOM PRODUCT) TOP SCH ×3 (09:00→21:00)
[2020-01-28] MEDS ORDERED: HYDROCHLOROthiazide 6.25MG PER 1/4TAB PO SCH (09:00)
[2020-01-28] MEDS ORDERED: ASPIRIN 81 MG ENTERIC TAB PO SCH (09:00)
[2020-01-28] MEDS ORDERED: PANTOPRAZOLE 40MG TAB (PROTONIX) PO SCH (09:00)
[2020-01-28] MEDS: DABIGATRAN ETEXILATE 75 MG CAP (PRADAXA) PO SCH ×2 (09:25→21:00)
[2020-01-28] MEDS: VENLAFAXINE 37.5 MG TAB PO SCH ×2 (09:26→21:00)
[2020-01-28] MEDS: metFORMIN (GLUCOPHAGE) 500 MG TAB PO SCH (09:26)
[2020-01-28] MEDS: oxyBUTYnin 5 MG TAB PO SCH ×2 (09:26→21:00)
[2020-01-28] MEDS: DOCUSATE SODIUM 100 MG CAP PO SCH ×2 (09:26→21:00)
[2020-01-28] MEDS: CARVedilol 12.5 MG TAB PO SCH ×2 (09:27→21:00)
[2020-01-28] MEDS: HumaLOG INSULIN (NovoLOG) PER UNIT SC SCH ×4 (09:27→21:00)
[2020-01-28 15:10] VITALS: BP 190/102
[2020-01-28] MEDS ORDERED: ONDANSETRON 4 MG TAB PO PRN (17:15)
[2020-01-28 18:00] VITALS: BP 172/92
[2020-01-28] MEDS ORDERED: METOPROLOL 5 MG/5 ML VIAL IV STA (19:11)
[2020-01-28] MEDS ORDERED: ONDANSETRON 4MG/2ML VIAL IV PRN (19:15)
[2020-01-28] MEDS ORDERED: NS 1,000 ML IV SCH (19:15)
[2020-01-28 19:35] VITALS: BP 180/100
[2020-01-28] MEDS: ramipriL 5 MG CAP PO SCH (21:00)
[2020-01-28] MEDS ORDERED: DABIGATRAN ETEXILATE 75 MG CAP (PRADAXA) PO SCH (21:00)
[2020-01-28] MEDS: SENNA 8.6 MG TAB (SENOKOT) PO SCH (21:00)
[2020-01-28] MEDS: LEVEMIR (INSULIN DETEMIR) 1 UNITS/0.01ML SC SCH (21:00)
[2020-01-28] MEDS: ATORVASTATIN 20 MG TAB PO SCH (21:00)
[2020-01-30] MEDS ORDERED: AMLO10TA5 PO (08:18)
[2020-01-30] MEDS ORDERED: ALTA1CAP3 PO (08:21)
[2020-01-30] MEDS ORDERED: METO10TA2 PO (08:24)
[2020-01-30 12:30] VITALS: BP 119/71
[2020-01-30] MEDS: **hydrALAZINE HCL** 25 MG TAB PO SCH ×2 (12:30→17:24)
--- NOTE | 2020-01-30 13:26 | IPNPDOC ---
PM&R Progress Note DATE OF SERVICE: Jan 30, 2020 Vice President Underwriting Progress Note Subjective: Patient reporting his nausea is accompanied by dizziness. He denies having new weakness in his limbs or difficulty swallowing. REVIEW OF SYSTEMS: The following is a completed review of systems and has been reviewed. Review of systems otherwise unremarkable. PAIN: Patient self reports no pain EYES: No recent vision changes EARS, NOSE, & THROAT: No throat pain, or dysphagia, or rhinorrhea CARDIOVASCULAR: Denies chest pain or palpitations PULMONARY: Denies shortness of breath GASTROINTESTINAL: +constipation GENITOURINARY: denies dysuria MUSCULOSKELETAL: right sided weakness NEUROLOGICAL:right sided paresis and mild neglect, +dizziness HEMATOLOGICAL: denies easy bruising SKIN: denies rash PSYCHIATRIC: Unremarkable All other review of systems found to be negative. PHYSICAL EXAMINATION: VITAL SIGNS: Please see below. GENERAL: Pleasant and cooperative. No acute distress. HEENT: PERRL. Extraocular movements intact. Clear conjunctiva CARDIOVASCULAR: Regular rate and rhythm. No murmurs, rubs, or gallops, + AICD LUNGS: Clear to auscultation bilaterally. No wheezes. No rhonchi ABDOMEN: [Soft, nontender, nondistended. Positive bowel sounds. Normal active bowel sounds NEUROLOGICAL: Alert and oriented times three. Cranial nerves II through XII grossly intact. Sensation diminished to light touch RUE with extinction to light touch (-) nystagmus EXTREMITIES: 5\5 strength LUE, 3/5 Right elbow flexors/extensors and wrist extensors, 4+/5 heavy equipment operator, 4\5 strength right lower extremity. 5/5 strength in left lower extremity. SKIN: no rash ASSESSMENT:69-year-old M with past medical history of vascular dementia with multiple strokes who presents status new onset right sided weakness likely due to new CVA was transferred to acute level of care on 01-28-20 for Hypertensive emergency requiring IV BP meds, now returning 01-30-20 for an interrupted stay- PLAN: 1. Rehab-PT/OT advance gait and ADLs, strengthen/stretch/maintain ROM all 4 limbs- avoid E-stim to RUE as patient reporting seizure-like activity following an old stroke and AICD in place - SUPERIOR COURT CLERK eval for cog and swallow 2. Neuro: hx of multiple infarcts with new right sided weakness, MRI incompatible, with symptoms most consistent with new ischemic stroke in setting of severely stenotic left vertebral artery- c/u statin, ASA and Pradaxa for secondary stroke prevention, optimize BPs -vascular dementia with depression- c/u Effexor -f/u neuro as outpatient -patient sent out for hypertensive urgency 01-28-20 with nausea and vomiting, suspect possible posterior circulation infarct given severe vertebral artery stenosis, will add meclizine 3. Cardiac- chronic diastolic CHF (ECHO )- fluid restrict, daily weights, medicine consulted to assist in overall management -HTN c/u Coreg and Ramipril, amlodipine added, will also add hydralazine 25mg q6h and hold for sBP <140 -Afib s/p ablation on pradaxa 4. Resp: encourage incentive spirometry, Duonebs given hx of smoking, monitor for infection 5. Endo: pmh DM c/u Levemir and ISS with possible gastroparesis 6. : monitor PVRS 7. GI ppx: protonix 40mg -possible gastroparesis, started on Reglan while on acute care side, will lower from 10mg to 5mg ACqHS to avoid serotonin syndrome since he is on Effexor 8. DVT ppx: on pradxa, TEDs -dopplers negative for DVT 9. Pain: Tylenol prn 10. Dispo: TBD Allergies Coded Allergies: Penicillins (Verified Allergy, Unknown, UNKNOWN CHILDHOOD REACTION, 12/10/19) lorazepam (Verified Adverse Reaction, Unknown, AGGRESSIVE, 12/10/19) Vital Signs Vital Signs Date Time Temp Pulse Resp B/P (MAP) Pulse Ox O2 Delivery O2 Flow Rate FiO2 01/28/20 19:35 97.1 94 16 180/100 (126) 93 Room Air Current Medications Current Medications Current Medications Medications (Trade) Dose Ordered Sig/Kenneth Route PRN Reason Start Time Stop Time Status Last Admin Dose Admin Acetaminophen (Tylenol Tab) 650 mg Q4HP PRN PO fever/MILD PAIN (PS 1-4) 01/27/20 12:30 01/29/20 21:13 DC Albuterol/ Ipratropium (Duoneb (Ipr 0.5mg/Alb 2.5mg)) 3 ml RTID NEB 01/27/20 20:00 01/29/20 21:13 DC 01/28/20 13:29 Amlodipine Besylate (Norvasc) 2.5 mg DAILY PO 01/28/20 09:00 01/28/20 19:12 DC Aspirin (Ecotrin) 81 mg DAILY PO 01/28/20 09:00 01/29/20 21:13 DC 01/28/20 09:25 Atorvastatin Calcium (Lipitor) 40 mg QHS PO 01/27/20 21:00 01/29/20 21:13 DC 01/27/20 20:17 Bisacodyl (Dulcolax Suppository) 10 mg DAILYPRN PRN HI CONSTIPATION 01/27/20 12:30 01/29/20 21:13 DC Carvedilol (COReg) 12.5 mg BID PO 01/27/20 21:00 01/29/20 21:13 DC 01/28/20 09:27 Dabigatran (Pradaxa) 150 mg BID PO 01/27/20 21:00 01/29/20 21:13 DC 01/28/20 09:25 Dabigatran (Pradaxa) 150 mg BID PO 01/28/20 21:00 UNV Dextrose (Dextrose 50%) 25 ml ASDIRECTED PRN IV SEE LABEL COMMENTS 01/27/20 12:30 01/29/20 21:13 DC Docusate Sodium (Colace) 100 mg BID PO 01/27/20 21:00 01/29/20 21:13 DC 01/28/20 09:26 Glucagon (Glucagon) 1 mg ASDIRECTED PRN SC SEE LABEL COMMENTS 01/27/20 12:30 01/29/20 21:13 DC Glucose (Glucose) 16 GM ASDIRECTED PRN PO SEE LABEL COMMENTS 01/27/20 12:30 01/29/20 21:13 DC Heparin Sodium (Porcine) (Heparin) 5,000 units Q12H SC 01/27/20 12:30 01/27/20 15:41 DC Hydrochlorothiazide (Hydrodiuril) 6.25 mg DAILY PO 01/28/20 09:00 01/28/20 17:33 DC Insulin Detemir (Levemir Insulin) 10 units QHS SC 01/27/20 21:00 01/29/20 21:13 DC 01/27/20 20:18 Insulin Human Lispro (HumaLOG INSULIN) SEE PROTOCOL TABLE AC SC 01/27/20 17:30 01/29/20 21:13 DC 01/28/20 11:53 Insulin Human Lispro (HumaLOG INSULIN) SEE PROTOCOL TABLE QHS SC 01/27/20 21:00 01/29/20 21:13 DC Metformin HCl (Glucophage) 500 mg BID@08,18 PO 01/27/20 18:00 01/28/20 19:12 DC 01/28/20 09:26 Metoprolol Tartrate (Lopressor) 2.5 mg STAT STAT IV 01/28/20 19:11 01/28/20 19:28 DC Ondansetron HCl (ZOFRAN INJection) 4 mg Q4HP PRN IV NAUSEA OR VOMITING 01/28/20 19:15 01/29/20 21:13 DC Ondansetron HCl (Zofran) 4 mg Q6HP PRN PO NAUSEA OR VOMITING 01/28/20 17:15 01/28/20 19:12 DC 01/28/20 17:39 Oxybutynin Chloride (Ditropan) 5 mg BID PO 01/27/20 21:00 01/29/20 21:13 DC 01/28/20 09:26 Pantoprazole Sodium (Protonix) 40 mg DAILY PO 01/28/20 09:00 01/29/20 21:13 DC Ramipril (Altace) 10 mg QHS PO 01/27/20 21:00 01/29/20 21:13 DC 01/27/20 20:16 Senna (Senokot) 1 tab QHS PO 01/27/20 21:00 01/29/20 21:13 DC 01/27/20 20:16 Sodium Chloride 1,000 ml @ 40 mls/hr Q24H IV 01/28/20 19:15 01/29/20 21:13 DC 01/28/20 20:08 Venlafaxine HCl (Effexor) 75 mg BID PO 01/27/20 21:00 01/29/20 21:13 DC 01/28/20 09:26 Zolpidem Tartrate (Ambien) 5 mg QHSP PRN PO insomnia 01/27/20 12:30 01/29/20 21:13 DC 01/27/20 20:16 RUSLAN SOTELO MD Jan 30, 2020 13:26
[2020-01-30] MEDS: IPRATROPIUM 0.5MG/ALBUTEROL 2.5MG INH SOL UD 3ML (DUONEB) NEB SCH ×2 (14:00→19:33)
[2020-01-30] MEDS: METOCLOPRAMIDE 10 MG TAB PO SCH ×3 (14:32→21:27)
[2020-01-30] MEDS: REMEDY PHYTOPLEX Z-GUARD PASTE 113GM TUBE (FROM STOREROOM PRODUCT) TOP SCH ×2 (16:00→21:00)
[2020-01-30] MEDS: guaiFENesin 200 MG TAB PO SCH ×2 (17:25→21:26)
[2020-01-30] MEDS: MECLIZINE 12.5 MG TAB PO SCH ×2 (17:25→21:27)
[2020-01-30] MEDS: HumaLOG INSULIN (NovoLOG) PER UNIT SC SCH ×2 (17:26→21:25)
[2020-01-30 20:00] VITALS: BP 150/86
[2020-01-30] MEDS ORDERED: LEVEMIR (INSULIN DETEMIR) 1 UNITS/0.01ML SC SCH (21:00)
[2020-01-30] MEDS: ramipriL 5 MG CAP PO SCH (21:26)
[2020-01-30] MEDS: VENLAFAXINE 37.5 MG TAB PO SCH (21:26)
[2020-01-30] MEDS: oxyBUTYnin 5 MG TAB PO SCH (21:26)
[2020-01-30] MEDS: DABIGATRAN ETEXILATE 75 MG CAP (PRADAXA) PO SCH (21:26)
[2020-01-30] MEDS: ATORVASTATIN 20 MG TAB PO SCH (21:26)
[2020-01-30] MEDS: CARVedilol 12.5 MG TAB PO SCH (21:27)
[2020-01-30] MEDS: zolPIDEM TARTRATE 5 MG TAB PO PRN (22:12)
[2020-01-31] MEDS: **hydrALAZINE HCL** 25 MG TAB PO SCH ×4 (00:30→17:27)
[2020-01-31 06:00] VITALS: BP 142/81
[2020-01-31] MEDS: IPRATROPIUM 0.5MG/ALBUTEROL 2.5MG INH SOL UD 3ML (DUONEB) NEB SCH ×3 (06:03→19:33)
[2020-01-31] MEDS: DABIGATRAN ETEXILATE 75 MG CAP (PRADAXA) PO SCH ×2 (09:03→21:27)
[2020-01-31] MEDS: oxyBUTYnin 5 MG TAB PO SCH ×2 (09:05→21:28)
[2020-01-31] MEDS: guaiFENesin 200 MG TAB PO SCH ×3 (09:06→21:27)
[2020-01-31] MEDS: METOCLOPRAMIDE 10 MG TAB PO SCH ×4 (09:06→21:27)
[2020-01-31] MEDS: ASPIRIN 81 MG CHEW TABLET PO SCH (09:06)
[2020-01-31] MEDS: HumaLOG INSULIN (NovoLOG) PER UNIT SC SCH ×4 (09:06→21:00)
[2020-01-31] MEDS: CARVedilol 12.5 MG TAB PO SCH ×2 (09:07→21:28)
[2020-01-31] MEDS: amLODIPine 10 MG TAB PO SCH (09:07)
[2020-01-31] MEDS: MECLIZINE 12.5 MG TAB PO SCH (09:07)
[2020-01-31] MEDS: ramipriL 5 MG CAP PO SCH ×2 (09:07→21:26)
[2020-01-31] MEDS: VENLAFAXINE 37.5 MG TAB PO SCH ×2 (09:08→21:27)
[2020-01-31] MEDS: REMEDY PHYTOPLEX Z-GUARD PASTE 113GM TUBE (FROM STOREROOM PRODUCT) TOP SCH ×3 (09:08→21:30)
[2020-01-31 14:00] VITALS: BP 98/53
--- NOTE | 2020-01-31 15:14 | IPNPDOC ---
PM&R Progress Note DATE OF SERVICE: Jan 31, 2020 Freight Hustler Progress Note Subjective: Patient reporting he feels dizzy with position changes in therapy and believes this is why he has trouble sitting up straight and following steps. eh was encouraged to be patient and work on the small steps first. REVIEW OF SYSTEMS: The following is a completed review of systems and has been reviewed. Review of systems otherwise unremarkable. PAIN: Patient self reports no pain EYES: No recent vision changes EARS, NOSE, & THROAT: No throat pain, or dysphagia, or rhinorrhea CARDIOVASCULAR: Denies chest pain or palpitations PULMONARY: Denies shortness of breath GASTROINTESTINAL: denies constipation/diarrhea GENITOURINARY: denies dysuria MUSCULOSKELETAL: right sided weakness NEUROLOGICAL:right sided paresis and mild neglect, +dizziness HEMATOLOGICAL: denies easy bruising SKIN: denies rash PSYCHIATRIC: Unremarkable All other review of systems found to be negative. PHYSICAL EXAMINATION: VITAL SIGNS: Please see below. GENERAL: Pleasant and cooperative. No acute distress. HEENT: PERRL. Extraocular movements intact. Clear conjunctiva CARDIOVASCULAR: Regular rate and rhythm. No murmurs, rubs, or gallops, + AICD LUNGS: Clear to auscultation bilaterally. No wheezes. No rhonchi ABDOMEN: [Soft, nontender, nondistended. Positive bowel sounds. Normal active bowel sounds NEUROLOGICAL: Alert and oriented times three. Cranial nerves II through XII grossly intact. Sensation diminished to light touch RUE with extinction to light touch (-) nystagmus EXTREMITIES: 5\5 strength LUE, 3/5 Right elbow flexors/extensors and wrist extensors, 4+/5 chief controller tower, 4\5 strength right lower extremity. 5/5 strength in left lower extremity. SKIN: no rash ASSESSMENT:69-year-old M with past medical history of vascular dementia with multiple strokes who presents status new onset right sided weakness likely due to new CVA was transferred to acute level of care on 01-28-20 for Hypertensive emergency requiring IV BP meds, now returning 01-30-20 for an interrupted stay- PLAN: 1. Rehab-PT/OT advance gait and ADLs, strengthen/stretch/maintain ROM all 4 limbs- avoid E-stim to RUE as patient reporting seizure-like activity following an old stroke and AICD in place - DUMPMAN eval for cog and swallow 2. Neuro: hx of multiple infarcts with new right sided weakness, MRI incompatible, with symptoms most consistent with new ischemic stroke in setting of severely stenotic left vertebral artery- c/u statin, ASA and Pradaxa for secondary stroke prevention, optimize BPs -vascular dementia with depression- c/u Effexor -f/u neuro as outpatient -patient sent out for hypertensive urgency 01-28-20 with nausea and vomiting, suspect possible posterior circulation infarct given severe vertebral artery stenosis, with significant new impairments in his mobility level due to positional vertigo making a new posterior infarct very likely- will change Meclizine to 25mg TID for central vertigo 3. Cardiac- chronic diastolic CHF (ECHO )- fluid restrict, daily weights, medicine consulted to assist in overall management -HTN c/u Coreg and Ramipril, amlodipine added, c/u hydralazine 25mg q6h and hold for sBP <140 -Afib s/p ablation on pradaxa 4. Resp: encourage incentive spirometry, Duonebs given hx of smoking, monitor for infection 5. Endo: pmh DM c/u Levemir and ISS, increasing evening levemir and adding daytime dosing 6. : monitor PVRS 7. GI ppx: protonix 40mg -possible gastroparesis, started on Reglan while on acute care side, lowered from 10mg to 5mg ACqHS to avoid serotonin syndrome since he is on Effexor 8. DVT ppx: on pradaxa, TEDs -dopplers negative for DVT 9. Pain: Tylenol prn 10. Dispo: TBD Allergies Coded Allergies: Penicillins (Verified Allergy, Unknown, UNKNOWN CHILDHOOD REACTION, 12/10/19) lorazepam (Verified Adverse Reaction, Unknown, AGGRESSIVE, 12/10/19) Vital Signs Vital Signs Date Time Temp Pulse Resp B/P (MAP) Pulse Ox O2 Delivery O2 Flow Rate FiO2 01/31/20 14:00 97.8 75 18 98/53 (68) 96 Room Air Laboratory Data Labs 24H Laboratory Tests 2 01/30/20 20:56: Bedside Glucose (Misc Panel) 285H 01/31/20 06:52: Bedside Glucose (Misc Panel) 263H 01/31/20 11:22: Bedside Glucose (Misc Panel) 271H Current Medications Current Medications Current Medications Medications (Trade) Dose Ordered Sig/Kenneth Route PRN Reason Start Time Stop Time Status Last Admin Dose Admin Acetaminophen (Tylenol Tab) 650 mg Q4HP PRN PO fever/MILD PAIN (PS 1-4) 01/27/20 12:30 01/29/20 21:13 DC Albuterol/ Ipratropium (Duoneb (Ipr 0.5mg/Alb 2.5mg)) 3 ml RTID NEB 01/27/20 20:00 01/29/20 21:13 DC 01/28/20 13:29 Albuterol/ Ipratropium (Duoneb (Ipr 0.5mg/Alb 2.5mg)) 3 ml RTID NEB 01/30/20 14:00 01/31/20 13:06 Amlodipine Besylate (Norvasc) 2.5 mg DAILY PO 01/28/20 09:00 01/28/20 19:12 DC Amlodipine Besylate (Norvasc) 10 mg DAILY PO 01/31/20 09:00 01/31/20 09:07 Aspirin (Aspirin Chewable) 81 mg DAILY PO 01/31/20 09:00 01/31/20 09:06 Aspirin (Ecotrin) 81 mg DAILY PO 01/28/20 09:00 01/29/20 21:13 DC 01/28/20 09:25 Atorvastatin Calcium (Lipitor) 40 mg QHS PO 01/27/20 21:00 01/29/20 21:13 DC 01/27/20 20:17 Atorvastatin Calcium (Lipitor) 40 mg QHS PO 01/30/20 21:00 01/30/20 21:26 Bisacodyl (Dulcolax Suppository) 10 mg DAILYPRN PRN [place] CONSTIPATION 01/27/20 12:30 01/29/20 21:13 DC Carvedilol (COReg) 12.5 mg BID PO 01/27/20 21:00 01/29/20 21:13 DC 01/28/20 09:27 Carvedilol (COReg) 12.5 mg BID PO 01/30/20 21:00 01/31/20 09:07 Dabigatran (Pradaxa) 150 mg BID PO 01/27/20 21:00 01/29/20 21:13 DC 01/28/20 09:25 Dabigatran (Pradaxa) 150 mg BID PO 01/28/20 21:00 UNV Dabigatran (Pradaxa) 150 mg BID PO 01/30/20 21:00 01/31/20 09:03 Dextrose (Dextrose 50%) 25 ml ASDIRECTED PRN IV SEE LABEL COMMENTS 01/27/20 12:30 01/29/20 21:13 DC Docusate Sodium (Colace) 100 mg BID PO 01/27/20 21:00 01/29/20 21:13 DC 01/28/20 09:26 Glucagon (Glucagon) 1 mg ASDIRECTED PRN SC SEE LABEL COMMENTS 01/27/20 12:30 01/29/20 21:13 DC Glucose (Glucose) 16 GM ASDIRECTED PRN PO SEE LABEL COMMENTS 01/27/20 12:30 01/29/20 21:13 DC Guaifenesin (Robitussin Tab) 400 mg TID PO 01/30/20 16:00 01/31/20 09:06 Heparin Sodium (Porcine) (Heparin) 5,000 units Q12H SC 01/27/20 12:30 01/27/20 15:41 DC Hydralazine HCl (Apresoline) 25 mg Q6H PO 01/30/20 12:00 01/31/20 06:37 Hydrochlorothiazide (Hydrodiuril) 6.25 mg DAILY PO 01/28/20 09:00 01/28/20 17:33 DC Insulin Detemir (Levemir Insulin) 5 units DAILY SC 02/01/20 09:00 Insulin Detemir (Levemir Insulin) 10 units QHS SC 01/27/20 21:00 01/29/20 21:13 DC 01/27/20 20:18 Insulin Detemir (Levemir Insulin) 15 units QHS SC 01/30/20 21:00 01/31/20 10:21 DC 01/30/20 21:25 Insulin Detemir (Levemir Insulin) 20 units QHS SC 01/31/20 21:00 Insulin Human Lispro (HumaLOG INSULIN) SEE PROTOCOL TABLE AC SC 01/27/20 17:30 01/29/20 21:13 DC 01/28/20 11:53 Insulin Human Lispro (HumaLOG INSULIN) SEE PROTOCOL TABLE QHS SC 01/27/20 21:00 01/29/20 21:13 DC Insulin Human Lispro (HumaLOG INSULIN) See Protocol Table AC SC 01/30/20 17:30 01/31/20 11:56 Insulin Human Lispro (HumaLOG INSULIN) See Protocol Table QHS SC 01/30/20 21:00 01/30/20 21:25 Meclizine HCl (Antivert) 12.5 mg TID PO 01/30/20 16:00 01/31/20 13:52 DC 01/31/20 09:07 Meclizine HCl (Antivert) 25 mg TID PO 01/31/20 16:00 Metformin HCl (Glucophage) 500 mg BID@08,18 PO 01/27/20 18:00 01/28/20 19:12 DC 01/28/20 09:26 Metoclopramide HCl (Reglan) 5 mg ACHS PO 01/30/20 12:00 01/31/20 11:56 Metoprolol Tartrate (Lopressor) 2.5 mg STAT STAT IV 01/28/20 19:11 01/28/20 19:28 DC Ondansetron HCl (ZOFRAN INJection) 4 mg Q4HP PRN IV NAUSEA OR VOMITING 01/28/20 19:15 01/29/20 21:13 DC Ondansetron HCl (Zofran) 4 mg Q6HP PRN PO NAUSEA OR VOMITING 01/28/20 17:15 01/28/20 19:12 DC 01/28/20 17:39 Oxybutynin Chloride (Ditropan) 5 mg BID PO 01/27/20 21:00 01/29/20 21:13 DC 01/28/20 09:26 Oxybutynin Chloride (Ditropan) 5 mg BID PO 01/30/20 21:00 01/31/20 09:05 Pantoprazole Sodium (Protonix) 40 mg DAILY PO 01/28/20 09:00 01/29/20 21:13 DC Ramipril (Altace) 10 mg Q12H PO 01/30/20 21:00 01/31/20 09:07 Ramipril (Altace) 10 mg QHS PO 01/27/20 21:00 01/29/20 21:13 DC 01/27/20 20:16 Senna (Senokot) 1 tab QHS PO 01/27/20 21:00 01/29/20 21:13 DC 01/27/20 20:16 Sodium Chloride 1,000 ml @ 40 mls/hr Q24H IV 01/28/20 19:15 01/29/20 21:13 DC 01/28/20 20:08 Venlafaxine HCl (Effexor) 75 mg BID PO 01/27/20 21:00 01/29/20 21:13 DC 01/28/20 09:26 Venlafaxine HCl (Effexor) 75 mg BID PO 01/30/20 21:00 01/31/20 09:08 Zolpidem Tartrate (Ambien) 5 mg QHSP PRN PO insomnia 01/27/20 12:30 01/29/20 21:13 DC 01/27/20 20:16 Zolpidem Tartrate (Ambien) 5 mg QHSP PRN PO insomnia 01/30/20 13:30 01/30/20 22:12 RUSLAN SOTELO MD Jan 31, 2020 15:14
[2020-01-31] MEDS: MECLIZINE 25 MG TABLET PO SCH ×2 (17:26→21:27)
[2020-01-31] MEDS: LIDOCAINE 5% (LIDODERM) PATCH TD SCH ×2 (18:20)
[2020-01-31 20:00] VITALS: BP 126/67
[2020-01-31] MEDS ORDERED: LEVEMIR (INSULIN DETEMIR) 1 UNITS/0.01ML SC SCH (21:00)
[2020-01-31] MEDS: zolPIDEM TARTRATE 5 MG TAB PO PRN (21:28)
[2020-01-31] MEDS: ATORVASTATIN 20 MG TAB PO SCH (21:28)
[2020-02-01] VITALS: BP 108/64
[2020-02-01 06:00] VITALS: BP 127/74
[2020-02-01] MEDS: **hydrALAZINE HCL** 25 MG TAB PO SCH ×4 (06:00→17:43)
[2020-02-01] MEDS: IPRATROPIUM 0.5MG/ALBUTEROL 2.5MG INH SOL UD 3ML (DUONEB) NEB SCH ×3 (06:19→19:20)
[2020-02-01 07:19] LABS: BASO # 0.1 10^3/uL (0.0-0.2); BASO % 0.5 % (0.0-1.0); EOS # 0.1 10^3/uL (0.0-0.5); EOS % 1.1 % (0.0-3.0); HEMATOCRIT 36.2 % (42.0-52.0); HEMOGLOBIN 12.2 g/dl (13.5-17.5); LYMPH % 27.3 % (24.0-44.0); MEAN CORPUSCULAR HEMOGLOBIN 30.8 pg (27.0-33.0); MEAN CORPUSCULAR HGB CONC 33.7 g/dl (32.0-36.5); MEAN CORPUSCULAR VOLUME 91.4 fl (80.0-96.0); MONO # 1.3 10^3/uL (0.0-0.8); MONO % 11.5 % (0.0-5.0); NEUTROPHILS # 6.5 10^3/uL (1.5-8.5); NEUTROPHILS % 59.2 % (36.0-66.0); PLATELET COUNT, AUTOMATED 301 10^3/uL (150-450); RED BLOOD COUNT 3.96 10^6/uL (4.30-6.10); WHITE BLOOD COUNT 11.1 10^3/uL (4.0-10.0)
[2020-02-01 07:48] LABS: BLOOD UREA NITROGEN 36 MG/DL (7-18); CALCIUM LEVEL 8.8 MG/DL (8.8-10.2); CARBON DIOXIDE LEVEL 29 MEQ/L (21-32); CHLORIDE LEVEL 98 MEQ/L (98-107); CREATININE FOR GFR 0.85 MG/DL (0.70-1.30); GLOMERULAR FILTRATION RATE > 60.0 (>49); GLUCOSE, FASTING 198 MG/DL (70-100); POTASSIUM SERUM 3.3 MEQ/L (3.5-5.1); SODIUM LEVEL 132 MEQ/L (136-145)
[2020-02-01] MEDS: LIDOCAINE 5% (LIDODERM) PATCH TD SCH ×2 (09:00)
[2020-02-01] MEDS: REMEDY PHYTOPLEX Z-GUARD PASTE 113GM TUBE (FROM STOREROOM PRODUCT) TOP SCH ×3 (09:00→21:06)
[2020-02-01] MEDS: guaiFENesin 200 MG TAB PO SCH ×3 (09:00→21:03)
[2020-02-01] MEDS: DABIGATRAN ETEXILATE 75 MG CAP (PRADAXA) PO SCH ×2 (09:28→21:04)
[2020-02-01] MEDS: LEVEMIR (INSULIN DETEMIR) 1 UNITS/0.01ML SC SCH ×2 (09:29→21:05)
[2020-02-01] MEDS: VENLAFAXINE 37.5 MG TAB PO SCH ×2 (09:30→21:04)
[2020-02-01] MEDS: HumaLOG INSULIN (NovoLOG) PER UNIT SC SCH ×4 (09:30→21:00)
[2020-02-01] MEDS: MECLIZINE 25 MG TABLET PO SCH ×3 (09:31→21:04)
[2020-02-01] MEDS: ASPIRIN 81 MG CHEW TABLET PO SCH (09:31)
[2020-02-01] MEDS: METOCLOPRAMIDE 10 MG TAB PO SCH ×4 (09:31→21:05)
[2020-02-01] MEDS: oxyBUTYnin 5 MG TAB PO SCH ×2 (09:31→21:05)
[2020-02-01] MEDS: CARVedilol 12.5 MG TAB PO SCH ×2 (09:32→21:06)
[2020-02-01] MEDS: amLODIPine 10 MG TAB PO SCH (09:32)
[2020-02-01] MEDS: ramipriL 5 MG CAP PO SCH ×2 (09:38→21:04)
[2020-02-01] MEDS ORDERED: POTASSIUM CHLORIDE 10 MEQ SR TABLET PO ONE (10:30)
[2020-02-01 14:00] VITALS: BP 106/56
[2020-02-01 21:00] VITALS: BP 145/65
[2020-02-01] MEDS: zolPIDEM TARTRATE 5 MG TAB PO PRN (21:04)
[2020-02-01] MEDS: ATORVASTATIN 20 MG TAB PO SCH (21:05)
[2020-02-02] MEDS: **hydrALAZINE HCL** 25 MG TAB PO SCH ×4 (06:00→17:15)
[2020-02-02 06:27] VITALS: BP 132/66
[2020-02-02] MEDS: IPRATROPIUM 0.5MG/ALBUTEROL 2.5MG INH SOL UD 3ML (DUONEB) NEB SCH ×3 (07:02→20:00)
[2020-02-02 07:18] LABS: BLOOD UREA NITROGEN 32 MG/DL (7-18); CALCIUM LEVEL 8.2 MG/DL (8.8-10.2); CARBON DIOXIDE LEVEL 29 MEQ/L (21-32); CHLORIDE LEVEL 105 MEQ/L (98-107); CREATININE FOR GFR 0.77 MG/DL (0.70-1.30); GLOMERULAR FILTRATION RATE > 60.0 (>49); GLUCOSE, FASTING 93 MG/DL (70-100); POTASSIUM SERUM 3.7 MEQ/L (3.5-5.1); SODIUM LEVEL 141 MEQ/L (136-145)
[2020-02-02] MEDS: HumaLOG INSULIN (NovoLOG) PER UNIT SC SCH ×4 (07:30→21:00)
[2020-02-02] MEDS: LEVEMIR (INSULIN DETEMIR) 1 UNITS/0.01ML SC SCH ×2 (09:00→21:42)
[2020-02-02] MEDS: ASPIRIN 81 MG CHEW TABLET PO SCH (09:54)
[2020-02-02] MEDS: ramipriL 5 MG CAP PO SCH ×2 (09:55→21:44)
[2020-02-02] MEDS: guaiFENesin 200 MG TAB PO SCH ×3 (09:55→21:44)
[2020-02-02] MEDS: amLODIPine 10 MG TAB PO SCH (09:55)
[2020-02-02] MEDS: POTASSIUM CHLORIDE 10 MEQ SR TABLET PO SCH (09:55)
[2020-02-02] MEDS: LIDOCAINE 5% (LIDODERM) PATCH TD SCH ×2 (09:56→09:57)
[2020-02-02] MEDS: VENLAFAXINE 37.5 MG TAB PO SCH ×2 (09:56→21:45)
[2020-02-02] MEDS: MECLIZINE 25 MG TABLET PO SCH ×3 (09:56→21:43)
[2020-02-02] MEDS: oxyBUTYnin 5 MG TAB PO SCH ×2 (09:56→21:45)
[2020-02-02] MEDS: DABIGATRAN ETEXILATE 75 MG CAP (PRADAXA) PO SCH ×2 (09:56→21:45)
[2020-02-02] MEDS: CARVedilol 12.5 MG TAB PO SCH ×2 (09:56→21:43)
[2020-02-02] MEDS: REMEDY PHYTOPLEX Z-GUARD PASTE 113GM TUBE (FROM STOREROOM PRODUCT) TOP SCH ×3 (09:57→21:43)
[2020-02-02 14:00] VITALS: BP 104/57
[2020-02-02] MEDS ORDERED: MOM 30ML SUSPENSION UDC PO PRN (16:15)
[2020-02-02 17:14] VITALS: BP 139/71
[2020-02-02] MEDS: SENNA 8.6 MG TAB (SENOKOT) PO PRN ×2 (17:23→21:43)
[2020-02-02 20:00] VITALS: BP 130/64
[2020-02-02] MEDS: ATORVASTATIN 20 MG TAB PO SCH (21:44)
[2020-02-02] MEDS: DOCUSATE SODIUM 100 MG CAP PO PRN (21:45)
[2020-02-03 06:00] VITALS: BP 116/65
[2020-02-03] MEDS: **hydrALAZINE HCL** 25 MG TAB PO SCH ×4 (06:00→17:21)
[2020-02-03] MEDS: IPRATROPIUM 0.5MG/ALBUTEROL 2.5MG INH SOL UD 3ML (DUONEB) NEB SCH ×3 (07:31→19:47)
[2020-02-03 07:44] LABS: BASO # 0.1 10^3/uL (0.0-0.2); BASO % 0.7 % (0.0-1.0); EOS # 0.2 10^3/uL (0.0-0.5); EOS % 2.4 % (0.0-3.0); HEMATOCRIT 34.2 % (42.0-52.0); HEMOGLOBIN 11.4 g/dl (13.5-17.5); LYMPH # 2.3 10^3/uL (1.5-5.0); LYMPH % 23.8 % (24.0-44.0); MEAN CORPUSCULAR HEMOGLOBIN 30.7 pg (27.0-33.0); MEAN CORPUSCULAR HGB CONC 33.3 g/dl (32.0-36.5); MEAN CORPUSCULAR VOLUME 92.2 fl (80.0-96.0); MONO # 1.2 10^3/uL (0.0-0.8); MONO % 11.9 % (0.0-5.0); NEUTROPHILS # 5.9 10^3/uL (1.5-8.5); NEUTROPHILS % 60.7 % (36.0-66.0); PLATELET COUNT, AUTOMATED 276 10^3/uL (150-450); RED BLOOD COUNT 3.71 10^6/uL (4.30-6.10); WHITE BLOOD COUNT 9.7 10^3/uL (4.0-10.0)
[2020-02-03 08:05] LABS: BLOOD UREA NITROGEN 24 MG/DL (7-18); CALCIUM LEVEL 8.6 MG/DL (8.8-10.2); CARBON DIOXIDE LEVEL 29 MEQ/L (21-32); CHLORIDE LEVEL 104 MEQ/L (98-107); CREATININE FOR GFR 0.69 MG/DL (0.70-1.30); GLOMERULAR FILTRATION RATE > 60.0 (>49); GLUCOSE, FASTING 172 MG/DL (70-100); POTASSIUM SERUM 3.9 MEQ/L (3.5-5.1); SODIUM LEVEL 137 MEQ/L (136-145)
[2020-02-03] MEDS: amLODIPine 10 MG TAB PO SCH (09:00)
[2020-02-03] MEDS: ramipriL 5 MG CAP PO SCH ×2 (09:00→20:56)
[2020-02-03] MEDS: CARVedilol 12.5 MG TAB PO SCH ×2 (09:00→20:57)
[2020-02-03] MEDS: HumaLOG INSULIN (NovoLOG) PER UNIT SC SCH ×4 (09:33→20:58)
[2020-02-03] MEDS: LEVEMIR (INSULIN DETEMIR) 1 UNITS/0.01ML SC SCH ×2 (09:35→20:57)
[2020-02-03] MEDS: ASPIRIN 81 MG CHEW TABLET PO SCH (09:35)
[2020-02-03] MEDS: DABIGATRAN ETEXILATE 75 MG CAP (PRADAXA) PO SCH ×2 (09:35→20:56)
[2020-02-03] MEDS: POTASSIUM CHLORIDE 10 MEQ SR TABLET PO SCH (09:35)
[2020-02-03] MEDS: VENLAFAXINE 37.5 MG TAB PO SCH ×2 (09:36→20:57)
[2020-02-03] MEDS: guaiFENesin 200 MG TAB PO SCH ×3 (09:36→20:56)
[2020-02-03] MEDS: oxyBUTYnin 5 MG TAB PO SCH ×2 (09:37→20:57)
[2020-02-03] MEDS: MECLIZINE 25 MG TABLET PO SCH ×3 (09:37→20:57)
[2020-02-03] MEDS: REMEDY PHYTOPLEX Z-GUARD PASTE 113GM TUBE (FROM STOREROOM PRODUCT) TOP SCH ×3 (09:38→20:58)
[2020-02-03] MEDS: LIDOCAINE 5% (LIDODERM) PATCH TD SCH ×2 (09:40)
[2020-02-03] MEDS: ATORVASTATIN 20 MG TAB PO SCH (20:57)
[2020-02-03 22:00] VITALS: BP 139/77
[2020-02-04 06:00] VITALS: BP 126/63
[2020-02-04] MEDS: **hydrALAZINE HCL** 25 MG TAB PO SCH ×4 (06:00→18:00)
[2020-02-04] MEDS: IPRATROPIUM 0.5MG/ALBUTEROL 2.5MG INH SOL UD 3ML (DUONEB) NEB SCH ×3 (07:20→19:29)
[2020-02-04] MEDS: REMEDY PHYTOPLEX Z-GUARD PASTE 113GM TUBE (FROM STOREROOM PRODUCT) TOP SCH ×3 (09:00→21:00)
[2020-02-04] MEDS: LIDOCAINE 5% (LIDODERM) PATCH TD SCH ×4 (09:00→09:33)
[2020-02-04] MEDS: MIRALAX *UNIT DOSE* 17GM PACKET PO SCH (09:00)
[2020-02-04] MEDS: DOCUSATE SODIUM 100 MG CAP PO PRN (09:30)
[2020-02-04] MEDS: ramipriL 5 MG CAP PO SCH ×2 (09:30→21:47)
[2020-02-04] MEDS: guaiFENesin 200 MG TAB PO SCH ×3 (09:30→21:50)
[2020-02-04] MEDS: POTASSIUM CHLORIDE 10 MEQ SR TABLET PO SCH (09:30)
[2020-02-04] MEDS: DABIGATRAN ETEXILATE 75 MG CAP (PRADAXA) PO SCH ×2 (09:30→21:49)
[2020-02-04] MEDS: MECLIZINE 25 MG TABLET PO SCH ×3 (09:31→21:49)
[2020-02-04] MEDS: LEVEMIR (INSULIN DETEMIR) 1 UNITS/0.01ML SC SCH ×2 (09:31→21:48)
[2020-02-04] MEDS: SENNA 8.6 MG TAB (SENOKOT) PO PRN (09:32)
[2020-02-04] MEDS: oxyBUTYnin 5 MG TAB PO SCH ×2 (09:32→21:47)
[2020-02-04] MEDS: CARVedilol 12.5 MG TAB PO SCH ×2 (09:32→21:49)
[2020-02-04] MEDS: ASPIRIN 81 MG CHEW TABLET PO SCH (09:32)
[2020-02-04] MEDS: amLODIPine 10 MG TAB PO SCH (09:32)
[2020-02-04] MEDS: HumaLOG INSULIN (NovoLOG) PER UNIT SC SCH ×4 (09:32→21:00)
[2020-02-04] MEDS: VENLAFAXINE 37.5 MG TAB PO SCH ×2 (09:33→21:50)
[2020-02-04 14:00] VITALS: BP 100/59
[2020-02-04] MEDS: BISACODYL 5 MG TAB PO SCH (16:17)
[2020-02-04 17:37] VITALS: BP 101/60
[2020-02-04 20:00] VITALS: BP 110/75
[2020-02-04] MEDS: ATORVASTATIN 20 MG TAB PO SCH (21:49)
[2020-02-04 23:43] VITALS: BP 111/56
[2020-02-05] MEDS: **hydrALAZINE HCL** 25 MG TAB PO SCH ×4 (06:00→18:00)
[2020-02-05 06:04] VITALS: BP 109/64
[2020-02-05] MEDS: IPRATROPIUM 0.5MG/ALBUTEROL 2.5MG INH SOL UD 3ML (DUONEB) NEB SCH ×3 (07:22→19:28)
[2020-02-05 08:11] LABS: HEMATOCRIT 35.7 % (42.0-52.0); HEMOGLOBIN 11.9 g/dl (13.5-17.5); MEAN CORPUSCULAR HEMOGLOBIN 31.8 pg (27.0-33.0); MEAN CORPUSCULAR HGB CONC 33.3 g/dl (32.0-36.5); MEAN CORPUSCULAR VOLUME 95.5 fl (80.0-96.0); PLATELET COUNT, AUTOMATED 290 10^3/uL (150-450); RED BLOOD COUNT 3.74 10^6/uL (4.30-6.10); WHITE BLOOD COUNT 15.5 10^3/uL (4.0-10.0)
[2020-02-05 08:40] LABS: ALBUMIN 2.6 GM/DL (3.2-5.2); ALT/SGPT 27 U/L (12-78); BILIRUBIN,TOTAL 0.5 MG/DL (0.2-1.0); BLOOD UREA NITROGEN 23 MG/DL (7-18); CALCIUM LEVEL 8.2 MG/DL (8.8-10.2); CARBON DIOXIDE LEVEL 29 MEQ/L (21-32); CHLORIDE LEVEL 101 MEQ/L (98-107); CREATININE FOR GFR 0.83 MG/DL (0.70-1.30); GLOMERULAR FILTRATION RATE > 60.0 (>49); GLUCOSE, FASTING 182 MG/DL (70-100); POTASSIUM SERUM 4.9 MEQ/L (3.5-5.1); SODIUM LEVEL 137 MEQ/L (136-145); TOTAL PROTEIN 5.5 GM/DL (6.4-8.2)
[2020-02-05] MEDS: REMEDY PHYTOPLEX Z-GUARD PASTE 113GM TUBE (FROM STOREROOM PRODUCT) TOP SCH ×3 (09:00→21:00)
[2020-02-05] MEDS: guaiFENesin 200 MG TAB PO SCH ×3 (09:00→21:33)
[2020-02-05] MEDS: MIRALAX *UNIT DOSE* 17GM PACKET PO SCH (09:55)
[2020-02-05] MEDS: LEVEMIR (INSULIN DETEMIR) 1 UNITS/0.01ML SC SCH ×2 (09:56→21:34)
[2020-02-05] MEDS: HumaLOG INSULIN (NovoLOG) PER UNIT SC SCH ×4 (09:57→21:00)
[2020-02-05] MEDS: DABIGATRAN ETEXILATE 75 MG CAP (PRADAXA) PO SCH ×2 (09:57→21:35)
[2020-02-05] MEDS: ramipriL 5 MG CAP PO SCH ×2 (09:58→21:36)
[2020-02-05] MEDS: amLODIPine 10 MG TAB PO SCH (09:58)
[2020-02-05] MEDS: ASPIRIN 81 MG CHEW TABLET PO SCH (09:58)
[2020-02-05] MEDS: VENLAFAXINE 37.5 MG TAB PO SCH ×2 (09:58→21:36)
[2020-02-05] MEDS: BISACODYL 5 MG TAB PO SCH (09:58)
[2020-02-05] MEDS: MECLIZINE 25 MG TABLET PO SCH ×3 (09:59→21:36)
[2020-02-05] MEDS: oxyBUTYnin 5 MG TAB PO SCH ×2 (09:59→21:34)
[2020-02-05] MEDS: POTASSIUM CHLORIDE 10 MEQ SR TABLET PO SCH (09:59)
[2020-02-05] MEDS: CARVedilol 12.5 MG TAB PO SCH ×2 (09:59→21:34)
[2020-02-05] MEDS: LIDOCAINE 5% (LIDODERM) PATCH TD SCH ×2 (10:22)
[2020-02-05 12:00] VITALS: BP 94/50
[2020-02-05 14:00] VITALS: BP 110/61
[2020-02-05] MEDS ORDERED: BISACODYL 10 MG SUPP PR PRN (15:00)
--- NOTE | 2020-02-05 15:46 | IPNPDOC ---
Text Note Date of Service The patient was seen on 02/05/20. NOTE Subjective: Patient seen and examined at bedside. Sitting in chair eating lunch. In good spirits. at bedside. No medical complaints. Objective: VITAL SIGNS: Please see below. GEN: well-nourished / well developed/ NAD HEENT: mucus membranes moist and pink CVS: RRR/NMRG LUNGS: lungs are clear to auscultation bilaterally on room air NEURO: CN 2-12 are grossly intact / he has marked right upper and right lower extremity weakness PSYCH: alert and oriented / able to understand and follow all commands LABORATORY DATA: See below. MICROBIOLOGY: Please see below. ASSESSMENT: Mr. Ngo is a 59-year-old with a history of CAD, HTN, A. fib, chronic diastolic CHF, vascular dementia, and CVA who presented with new right upper lower extremity weakness, possibly due to new CVA; he is admitted to ARU for rehabilitation. PLAN: 1. Right upper and lower extremity weakness, possibly due to CVA - plan per PMNR / continue with aspirin, atorvastatin, resume Pradaxa 150mg BID 2. Uncontrolled hypertension - continue with current doses of Coreg and ramipril, add amlodipine 2.5 mg daily 3. IDDM - levemir and lispro with metformin. 4. Depression venlafaxine 5. A Fib - pradaxa 6. Leukocytosis - unclear etiology - no obvious signs/symptoms of infection - will continue to monitor Dispo: follow up CBC, further eval for possible source of infx. VS,Fishbone, I+O VS, Fishbone, I+O Laboratory Tests 02/05/20 07:50 Vital Signs Date Time Temp Pulse Resp B/P (MAP) Pulse Ox O2 Delivery O2 Flow Rate FiO2 02/05/20 14:00 99.2 71 18 110/61 (77) 95 Room Air I&O- Last 24 Hours up to 6 AM 02/05/20 06:00 Intake Total 500 ml Output Total 150 ml Balance 350 ml ROB ALMONTE MD Feb 05, 2020 15:46
--- NOTE | 2020-02-05 16:41 | REP ---
Two-view chest: 02/05/2020. Indication: Dyspnea. Leukocytosis. Comparison: 01/25/2020. Findings: Right lower lobe opacity is present. There is no pleural effusion or pneumothorax. Left-sided pacer / AICD device is present. The cardiac silhouette is not enlarged. Impression: Right lower lobe pneumonia. Electronically Signed by Carlito Mendoza DO 02/05/2020 04:32 P
[2020-02-05] MEDS: ATORVASTATIN 20 MG TAB PO SCH (21:35)
[2020-02-05] MEDS: zolPIDEM TARTRATE 5 MG TAB PO PRN (21:36)
[2020-02-05 22:00] VITALS: BP 123/76
[2020-02-06 05:25] VITALS: BP 135/77
[2020-02-06] MEDS: **hydrALAZINE HCL** 25 MG TAB PO SCH ×4 (05:25→18:07)
[2020-02-06] MEDS: HumaLOG INSULIN (NovoLOG) PER UNIT SC SCH ×4 (07:30→21:00)
[2020-02-06 07:39] LABS: BASO # 0.1 10^3/uL (0.0-0.2); BASO % 0.5 % (0.0-1.0); EOS # 0.3 10^3/uL (0.0-0.5); EOS % 1.9 % (0.0-3.0); HEMATOCRIT 33.5 % (42.0-52.0); HEMOGLOBIN 11.1 g/dl (13.5-17.5); LYMPH # 1.8 10^3/uL (1.5-5.0); LYMPH % 13.5 % (24.0-44.0); MEAN CORPUSCULAR HEMOGLOBIN 31.5 pg (27.0-33.0); MEAN CORPUSCULAR HGB CONC 33.1 g/dl (32.0-36.5); MEAN CORPUSCULAR VOLUME 95.2 fl (80.0-96.0); MONO # 1.4 10^3/uL (0.0-0.8); MONO % 10.6 % (0.0-5.0); NEUTROPHILS # 9.7 10^3/uL (1.5-8.5); NEUTROPHILS % 72.7 % (36.0-66.0); PLATELET COUNT, AUTOMATED 276 10^3/uL (150-450); RED BLOOD COUNT 3.52 10^6/uL (4.30-6.10); WHITE BLOOD COUNT 13.4 10^3/uL (4.0-10.0)
[2020-02-06] MEDS: IPRATROPIUM 0.5MG/ALBUTEROL 2.5MG INH SOL UD 3ML (DUONEB) NEB SCH ×3 (08:00→19:51)
[2020-02-06] MEDS: oxyBUTYnin 5 MG TAB PO SCH ×2 (08:13→22:08)
[2020-02-06] MEDS: MIRALAX *UNIT DOSE* 17GM PACKET PO SCH (08:13)
[2020-02-06] MEDS: amLODIPine 10 MG TAB PO SCH (08:13)
[2020-02-06] MEDS: guaiFENesin 200 MG TAB PO SCH ×3 (08:13→22:08)
[2020-02-06] MEDS: MECLIZINE 25 MG TABLET PO SCH (08:13)
[2020-02-06] MEDS: BISACODYL 5 MG TAB PO SCH (08:13)
[2020-02-06] MEDS: DABIGATRAN ETEXILATE 75 MG CAP (PRADAXA) PO SCH ×2 (08:14→22:06)
[2020-02-06] MEDS: LIDOCAINE 5% (LIDODERM) PATCH TD SCH ×2 (08:14)
[2020-02-06] MEDS: POTASSIUM CHLORIDE 10 MEQ SR TABLET PO SCH (08:14)
[2020-02-06] MEDS: ramipriL 5 MG CAP PO SCH ×2 (08:15→22:08)
[2020-02-06] MEDS: VENLAFAXINE 37.5 MG TAB PO SCH ×2 (08:15→22:08)
[2020-02-06] MEDS: CARVedilol 12.5 MG TAB PO SCH ×2 (08:15→22:09)
[2020-02-06] MEDS: ASPIRIN 81 MG CHEW TABLET PO SCH (08:15)
[2020-02-06] MEDS: REMEDY PHYTOPLEX Z-GUARD PASTE 113GM TUBE (FROM STOREROOM PRODUCT) TOP SCH ×3 (08:16→22:07)
[2020-02-06] MEDS: LEVEMIR (INSULIN DETEMIR) 1 UNITS/0.01ML SC SCH ×2 (08:16→22:07)
[2020-02-06 14:00] VITALS: BP 92/55
--- NOTE | 2020-02-06 15:12 | IPNPDOC ---
PM&R Progress Note DATE OF SERVICE: Feb 01, 2020 [employer] Progress Note Subjective: Patient reporting he feels ok and states his dizziness is getting better. He denies anymore nausea or vomiting. REVIEW OF SYSTEMS: The following is a completed review of systems and has been reviewed. Review of systems otherwise unremarkable. PAIN: Patient self reports no pain EYES: No recent vision changes EARS, NOSE, & THROAT: No throat pain, or dysphagia, or rhinorrhea CARDIOVASCULAR: Denies chest pain or palpitations PULMONARY: Denies shortness of breath GASTROINTESTINAL: denies constipation/diarrhea GENITOURINARY: denies dysuria MUSCULOSKELETAL: right sided weakness NEUROLOGICAL:right sided paresis and mild neglect, +dizziness HEMATOLOGICAL: denies easy bruising SKIN: denies rash PSYCHIATRIC: Unremarkable All other review of systems found to be negative. PHYSICAL EXAMINATION: VITAL SIGNS: Please see below. GENERAL: Pleasant and cooperative. No acute distress. HEENT: PERRL. Extraocular movements intact. Clear conjunctiva CARDIOVASCULAR: Regular rate and rhythm. No murmurs, rubs, or gallops, + AICD LUNGS: Clear to auscultation bilaterally. No wheezes. No rhonchi ABDOMEN: [Soft, nontender, nondistended. Positive bowel sounds. Normal active bowel sounds NEUROLOGICAL: Alert and oriented times three. Cranial nerves II through XII gr ossly intact. Sensation diminished to light touch RUE with extinction to light touch (-) nystagmus EXTREMITIES: 5\5 strength LUE, 3/5 Right elbow flexors/extensors and wrist extensors, 4+/5 director of product marketing, 4\5 strength right lower extremity. 5/5 strength in left lower extremity. SKIN: no rash ASSESSMENT:69-year-old M with past medical history of vascular dementia with multiple strokes who presents status new onset right sided weakness likely due to new CVA was transferred to acute level of care on 01-28-20 for Hypertensive emergency requiring IV BP meds, now returning 01-30-20 for an interrupted stay- PLAN: 1. Rehab-PT/OT advance gait and ADLs, strengthen/stretch/maintain ROM all 4 mehta bs- avoid E-stim to RUE as patient reporting seizure-like activity following an old stroke and AICD in place - PLUMBER'S HELPER eval for cog and swallow 2. Neuro: hx of multiple infarcts with new right sided weakness, MRI incompatible, with symptoms most consistent with new ischemic stroke in setting of severely stenotic left vertebral artery- c/u statin, ASA and Pradaxa for secondary stroke prevention, optimize BPs -vascular dementia with depression- c/u Effexor -f/u neuro as outpatient -patient sent out for hypertensive urgency 01-28-20 with nausea and vomiting, suspect possible posterior circulation infarct given severe vertebral artery stenosis, with significant new impairments in his mobility level due to positional vertigo making a new posterior infarct very likely- will change Meclizine to 25mg TID for central vertigo 3. Cardiac- chronic diastolic CHF (ECHO )- fluid restrict, daily weights, medicine consulted to assist in overall management -HTN c/u Coreg and Ramipril, amlodipine added, c/u hydralazine 25mg q6h and hold for sBP <140 -Afib s/p ablation on pradaxa 4. Resp: encourage incentive spirometry, Duonebs given hx of smoking, monitor for infection 5. Endo: pmh DM c/u Levemir and ISS, increasing evening levemir and adding daytime dosing -hypokalemia- replete and add daily dosing 6. : monitor PVRS, c/u ditropan 7. GI ppx: protonix 40mg -possible gastroparesis, started on Reglan while on acute care side, lowered from 10mg to 5mg ACqHS, will d/c altogether as nausea improving 8. DVT ppx: on pradaxa, TEDs -dopplers negative for DVT 9. Pain: Tylenol prn 10. Dispo: TBD Allergies Coded Allergies: Penicillins (Verified Allergy, Unknown, UNKNOWN CHILDHOOD REACTION, 12/10/19) lorazepam (Verified Adverse Reaction, Unknown, AGGRESSIVE, 12/10/19) Vital Signs Vital Signs Date Time Temp Pulse Resp B/P (MAP) Pulse Ox O2 Delivery O2 Flow Rate FiO2 02/06/20 14:00 99.6 74 19 92/55 (67) 94 Room Air Laboratory Data CBC/BMP Laboratory Tests 02/06/20 07:14 Labs 24H Laboratory Tests 2 02/05/20 16:29: Bedside Glucose (Misc Panel) 56L 02/05/20 20:51: Bedside Glucose (Misc Panel) 190H 02/05/20 21:07: Urine Color YELLOW, Urine Appearance CLEAR, Urine pH 5.0, Urine Specific [place] 1.019, Urine Protein NEGATIVE, Urine Glucose (UA) NEGATIVE, Urine Ketones NEGATIVE, Urine Blood NEGATIVE, Urine Nitrite NEGATIVE, Urine Bilirubin NEGATIVE, Urine Urobilinogen 0.2, Urine Leukocyte Esterase NEGATIVE, Urine WBC (Auto) 1, Urine RBC (Auto) 3, Urine Hyaline Casts (Auto) 0, Urine Bacteria (Auto ) NEGATIVE, Urine Squamous Epithelial Cells 0, Urine Sperm (Auto) 02/06/20 05:54: Bedside Glucose (Misc Panel) 57L 02/06/20 06:22: Bedside Glucose (Misc Panel) 111 02/06/20 07:14: Immature Granulocyte % (Auto) 0.8, Neutrophils (%) (Auto) 72.7H, Lymphocytes (%) (Auto) 13.5L, Monocytes (%) (Auto) 10.6H, Eosinophils (%) (Auto) 1.9, Basophils (%) (Auto) 0.5, Neutrophils # (Auto) 9.7H, Lymphocytes # (Auto) 1.8, Monocytes # (Auto) 1.4H, Eosinophils # (Auto) 0.3, Basophils # (Auto) 0.1, Nucleated Red Blood Cells % (auto) 0.0 02/06/20 11:37: Bedside Glucose (Misc Panel) 94 Current Medications Current Medications Current Medications Medications (Trade) Dose Ordered Sig/Kenneth Route PRN Reason Start Time Stop Time Status Last Admin Dose Admin Acetaminophen (Tylenol Tab) 650 mg Q4HP PRN PO fever/MILD PAIN (PS 1-4) 01/27/20 12:30 01/29/20 21:13 DC Albuterol/ Ipratropium (Duoneb (Ipr 0.5mg/Alb 2.5mg)) 3 ml RTID NEB 01/27/20 20:00 01/29/20 21:13 DC 01/28/20 13:29 Albuterol/ Ipratropium (Duoneb (Ipr 0.5mg/Alb 2.5mg)) 3 ml RTID NEB 01/30/20 14:00 02/04/20 07:20 Amlodipine Besylate (Norvasc) 2.5 mg DAILY PO 01/28/20 09:00 01/28/20 19:12 DC Amlodipine Besylate (Norvasc) 10 mg DAILY PO 01/31/20 09:00 02/06/20 08:13 Aspirin (Aspirin Chewable) 81 mg DAILY PO 01/31/20 09:00 02/06/20 08:15 Aspirin (Ecotrin) 81 mg DAILY PO 01/28/20 09:00 01/29/20 21:13 DC 01/28/20 09:25 Atorvastatin Calcium (Lipitor) 40 mg QHS PO 01/27/20 21:00 01/29/20 21:13 DC 01/27/20 20:17 Atorvastatin Calcium (Lipitor) 40 mg QHS PO 01/30/20 21:00 02/05/20 21:35 Bisacodyl (Dulcolax Suppository) 10 mg DAILYPRN PRN [place] CONSTIPATION 02/05/20 15:00 Bisacodyl (Dulcolax Suppository) 10 mg DAILYPRN PRN [place] CONSTIPATION 01/27/20 12:30 01/29/20 21:13 DC Bisacodyl (Dulcolax Tab) 5 mg DAILY PO 02/04/20 09:00 02/06/20 08:13 Carvedilol (COReg) 12.5 mg BID PO 01/27/20 21:00 01/29/20 21:13 DC 01/28/20 09:27 Carvedilol (COReg) 12.5 mg BID PO 01/30/20 21:00 02/06/20 08:15 Dabigatran (Pradaxa) 150 mg BID PO 01/27/20 21:00 01/29/20 21:13 DC 01/28/20 09:25 Dabigatran (Pradaxa) 150 mg BID PO 01/28/20 21:00 UNV Dabigatran (Pradaxa) 150 mg BID PO 01/30/20 21:00 02/06/20 08:14 Dextrose (Dextrose 50%) 25 ml ASDIRECTED PRN IV SEE LABEL COMMENTS 01/27/20 12:30 01/29/20 21:13 DC Docusate Sodium (Colace) 100 mg BID PO 01/27/20 21:00 01/29/20 21:13 DC 01/28/20 09:26 Docusate Sodium (Colace) 100 mg BIDP PRN PO CONSTIPATION 02/02/20 16:15 02/04/20 09:30 Glucagon (Glucagon) 1 mg ASDIRECTED PRN SC SEE LABEL COMMENTS 01/27/20 12:30 01/29/20 21:13 DC Glucose (Glucose) 16 GM ASDIRECTED PRN PO SEE LABEL COMMENTS 01/27/20 12:30 01/29/20 21:13 DC Guaifenesin (Robitussin Tab) 400 mg TID PO 01/30/20 16:00 02/06/20 08:13 Heparin Sodium (Porcine) (Heparin) 5,000 units Q12H SC 01/27/20 12:30 01/27/20 15:41 DC Hydralazine HCl (Apresoline) 25 mg Q6H PO 01/30/20 12:00 02/03/20 17:21 Hydrochlorothiazide (Hydrodiuril) 6.25 mg DAILY PO 01/28/20 09:00 01/28/20 17:33 DC Insulin Detemir (Levemir Insulin) 5 units DAILY SC 02/01/20 09:00 02/06/20 10:23 DC 02/06/20 08:16 Insulin Detemir (Levemir Insulin) 10 units QHS [place] 01/27/20 21:00 01/29/20 21:13 DC 01/27/20 20:18 Insulin Detemir (Levemir Insulin) 15 units QHS SC 02/06/20 21:00 Insulin Detemir (Levemir Insulin) 15 units QHS LA 01/30/20 21:00 01/31/20 10:21 DC 01/30/20 21:25 Insulin Detemir (Levemir Insulin) 20 units QHS LA 01/31/20 21:00 02/01/20 10:03 DC 01/31/20 21:29 Insulin Detemir (Levemir Insulin) 24 units QHS LA 02/01/20 21:00 02/06/20 10:22 DC 02/05/20 21:34 Insulin Human Lispro (HumaLOG INSULIN) SEE PROTOCOL TABLE AC LA 01/27/20 17:30 01/29/20 21:13 DC 01/28/20 11:53 Insulin Human Lispro (H[facility]LOG [facility]ULIN) [facility] 01/[facility]20 21:00 01/29/20 21:13 DC Insulin Human Lispro (HumaLOG INSULIN) See Protocol Table AC LA 01/30/20 17:30 02/05/20 12:45 Insulin Human Lispro (HumaLOG INSULIN) See Protocol Table QHS SC 01/30/20 21:00 01/30/20 21:25 Lidocaine (Lidoderm Patch) 1 patch DAILY TD 01/31/20 09:00 02/06/20 08:14 Lidocaine (Lidoderm Patch) 1 patch DAILY TD 01/31/20 09:00 02/06/20 08:14 Magnesium Hydroxide (Milk Of Magnesia) 30 ml DAILYPRN PRN PO CONSTIPATION 02/02/20 16:15 02/02/20 17:22 Meclizine HCl (Antivert) 12.5 mg TID PO 02/06/20 16:00 Meclizine HCl (Antivert) 12.5 mg TID PO 01/30/20 16:00 01/31/20 13:52 DC 01/31/20 09:07 Meclizine HCl (Antivert) 25 mg TID PO 01/31/20 16:00 02/06/20 10:22 DC 02/06/20 08:13 Metformin HCl (Glucophage) 500 mg BID@ PO 01/27/20 18:00 01/28/20 19:12 DC 01/28/20 09:26 Metoclopramide HCl (Reglan) 5 mg ACHS PO 01/30/20 12:00 02/02/20 09:14 DC 02/01/20 21:05 Metoprolol Tartrate (Lopressor) 2.5 mg STAT STAT IV 01/28/20 19:11 01/28/20 19:28 DC Non-Formulary Medication ( See Comment Field Below ) REMOVE LIDODERM PATCH DAILY@ XX 01/31/20 21:00 02/05/20 21:36 Non-Formulary Medication ( See Comment Field Below ) REMOVE LIDODERM PATCH DAILY@ XX 01/31/20 21:00 02/05/20 21:37 Ondansetron HCl (ZOFRAN INJection) 4 mg Q4HP PRN IV NAUSEA OR VOMITING 01/28/20 19:15 01/29/20 21:13 DC Ondansetron HCl (Zofran) 4 mg Q6HP PRN PO NAUSEA OR VOMITING 01/28/20 17:15 01/28/20 19:12 DC 01/28/20 17:39 Oxybutynin Chloride (Ditropan) 5 mg BID PO 01/27/20 21:00 01/29/20 21:13 DC 01/28/20 09:26 Oxybutynin Chloride (Ditropan) 5 mg BID PO 01/30/20 21:00 02/06/20 08:13 Pantoprazole Sodium (Protonix) 40 mg DAILY PO 01/28/20 09:00 01/29/20 21:13 DC Polyethylene Glycol (Miralax) 1 pkt DAILY PO 02/04/20 09:00 02/06/20 08:13 Potassium Chloride (Micro-K Extencaps) 20 meq DAILY PO 02/02/20 09:00 02/06/20 08:14 Ramipril (Altace) 10 mg Q12H PO 01/30/20 21:00 02/06/20 08:15 Ramipril (Altace) 10 mg QHS PO 01/27/20 21:00 01/29/20 21:13 DC 01/27/20 20:16 Senna (Senokot) 1 tab BIDP PRN PO CONSTIPATION 02/02/20 16:15 02/04/20 09:32 Senna (Senokot) 1 tab QHS PO 01/27/20 21:00 01/29/20 21:13 DC 01/27/20 20:16 Sodium Chloride 1,000 ml @ 40 mls/hr Q24H IV 01/28/20 19:15 01/29/20 21:13 DC 01/28/20 20:08 Venlafaxine HCl (Effexor) 75 mg BID PO 01/27/20 21:00 01/29/20 21:13 DC 01/28/20 09:26 Venlafaxine HCl (Effexor) 75 mg BID PO 01/30/20 21:00 02/06/20 08:15 Zolpidem Tartrate (Ambien) 5 mg QHSP PRN PO insomnia 01/27/20 12:30 01/29/20 21:13 DC 01/27/20 20:16 Zolpidem Tartrate (Ambien) 5 mg QHSP PRN PO insomnia 01/30/20 13:30 02/05/20 21:36 RUSLAN SOTELO MD Feb 06, 2020 15:12
--- NOTE | 2020-02-06 15:15 | IPNPDOC ---
PM&R Progress Note DATE OF SERVICE: Feb 06, 2020 [employer] Progress Note Subjective: Patient reporting he is eating more and drinking more since the weekend and was pleased to see his . he thinks the ambien is making him more confused during the day and would like to try something else for sleep. REVIEW OF SYSTEMS: The following is a completed review of systems and has been reviewed. Review of systems otherwise unremarkable. PAIN: Patient self reports no pain EYES: No recent vision changes EARS, NOSE, & THROAT: No throat pain, or dysphagia, or rhinorrhea CARDIOVASCULAR: Denies chest pain or palpitations PULMONARY: Denies shortness of breath GASTROINTESTINAL: denies constipation/diarrhea GENITOURINARY: denies dysuria MUSCULOSKELETAL: right sided weakness NEUROLOGICAL:right sided paresis and mild neglect, +dizziness (improving) HEMATOLOGICAL: denies easy bruising SKIN: denies rash PSYCHIATRIC: Unremarkable All other review of systems found to be negative. PHYSICAL EXAMINATION: VITAL SIGNS: Please see below. GENERAL: Pleasant and cooperative. No acute distress. HEENT: PERRL. Extraocular movements intact. Clear conjunctiva CARDIOVASCULAR: Regular rate and rhythm. No murmurs, rubs, or gallops, + AICD LUNGS: Clear to auscultation bilaterally. No wheezes. No rhonchi ABDOMEN: [Soft, nontender, nondistended. Positive bowel sounds. Normal active bowel sounds NEUROLOGICAL: Alert and oriented times three. Cranial nerves II through XII grossly intact. Sensation diminished to light touch RUE with extinction to light touch (-) nystagmus EXTREMITIES: 5\5 strength LUE, 3/5 Right elbow flexors/extensors and wrist extensors, 4+/5 manager food, 4\5 strength right lower extremity. 5/5 strength in left lower extremity. SKIN: no rash ASSESSMENT:69-year-old M with past medical history of vascular dementia with multiple strokes who presents status new onset right sided weakness likely due to new CVA was transferred to acute level of care on 01-28-20 for Hypertensive emergency requiring IV BP meds, now returning 01-30-20 for an interrupted stay- PLAN: 1. Rehab-PT/OT advance gait and ADLs, strengthen/stretch/maintain ROM all 4 limbs- avoid E-stim to RUE as patient reporting seizure-like activity following an old stroke and AICD in place - ENTERPR[employer] SERVICES MANAGER eval for cog and swallow 2. Neuro: hx of multiple infarcts with new right sided weakness, MRI incompatible, with symptoms most consistent with new ischemic stroke in setting of severely stenotic left vertebral artery- c/u statin, ASA and Pradaxa for secondary stroke prevention, optimize BPs -vascular dementia with depression- c/u Effexor -f/u neuro as outpatient -patient sent out for hypertensive urgency 01-28-20 with nausea and vomiting, suspect possible posterior circulation infarct given severe vertebral artery stenosis, with significant new impairments in his mobility level due to positional vertigo making a new posterior infarct very likely- dizziness overall better, will decrease Meclizine to 12.5 mg TID for central vertigo and c/u taper off 3. Cardiac- chronic diastolic CHF (ECHO )- fluid restrict, daily weights, medicine consulted to assist in overall management -HTN c/u Coreg and Ramipril, amlodipine added, c/u hydralazine 25mg q6h and hold for sBP <140 -Afib s/p ablation on pradaxa 4. Resp: encourage incentive spirometry, Duonebs given hx of smoking, monitor for infection 5. Endo: pmh DM c/u Levemir and ISS, lowering levemir due to recent poor po intake -hypokalemia- resolved, K=4.9 today, will d/c daily dosing 6. : monitor PVRS, c/u ditropan 7. GI ppx: protonix 40mg -reglan d/c'd 8. DVT ppx: on pradaxa, TEDs -dopplers negative for DVT 9. Pain: Tylenol prn 10. SPych- c/u effexor for depression, will change ambien to trazodone 11. Dispo: TBD Allergies Coded Allergies: Penicillins (Verified Allergy, Unknown, UNKNOWN CHILDHOOD REACTION, 12/10/19) lorazepam (Verified Adverse Reaction, Unknown, AGGRESSIVE, 12/10/19) Vital Signs Vital Signs Date Time Temp Pulse Resp B/P (MAP) Pulse Ox O2 Delivery O2 Flow Rate FiO2 02/06/20 14:00 99.6 74 19 92/55 (67) 94 Room Air Laboratory Data CBC/BMP Laboratory Tests 02/06/20 07:14 Labs 24H Laboratory Tests 2 02/05/20 16:29: Bedside Glucose (Misc Panel) 56L 02/05/20 20:51: Bedside Glucose (Misc Panel) 190H 02/05/20 21:07: Urine Color YELLOW, Urine Appearance CLEAR, Urine pH 5.0, Urine Specific [place] 1.019, Urine Protein NEGATIVE, Urine Glucose (UA) NEGATIVE, Urine Ketones NEGATIVE, Urine Blood NEGATIVE, Urine Nitrite NEGATIVE, Urine Bilirubin NEGATIVE, Urine Urobilinogen 0.2, Urine Leukocyte Esterase NEGATIVE, Urine WBC (Auto) 1, Urine RBC (Auto) 3, Urine Hyaline Casts (Auto) 0, Urine Bacteria (Auto) NEGATIVE, Urine Squamous Epithelial Cells 0, Urine Sperm (Auto) 02/06/20 05:54: Bedside Glucose (Misc Panel) 57L 02/06/20 06:22: Bedside Glucose (Misc Panel) 111 02/06/20 07:14: Immature Granulocyte % (Auto) 0.8, Neutrophils (%) (Auto) 72.7H, Lymphocytes (%) (Auto) 13.5L, Monocytes (%) (Auto) 10.6H, Eosinophils (%) (Auto) 1.9, Basophils (%) (Auto) 0.5, Neutrophils # (Auto) 9.7H, Lymphocytes # (Auto) 1.8, Monocytes # (Auto) 1.4H, Eosinophils # (Auto) 0.3, Basophils # (Auto) 0.1, Nucleated Red Blood Cells % (auto) 0.0 02/06/20 11:37: Bedside Glucose (Misc Panel) 94 Current Medications Current Medications Current Medications Medications (Trade) Dose Ordered Sig/Kenneth Route PRN Reason Start Time Stop Time Status Last Admin Dose Admin Acetaminophen (Tylenol Tab) 650 mg Q4HP PRN PO fever/MILD PAIN (PS 1-4) 01/27/20 12:30 01/29/20 21:13 DC Albuterol/ Ipratropium (Duoneb (Ipr 0.5mg/Alb 2.5mg)) 3 ml RTID NEB 01/27/20 20:00 01/29/20 21:13 DC 01/28/20 13:29 Albuterol/ Ipratropium (Duoneb (Ipr 0.5mg/Alb 2.5mg)) 3 ml RTID NEB 01/30/20 14:00 02/04/20 07:20 Amlodipine Besylate (Norvasc) 2.5 mg DAILY PO 01/28/20 09:00 01/28/20 19:12 DC Amlodipine Besylate (Norvasc) 10 mg DAILY PO 01/31/20 09:00 02/06/20 08:13 Aspirin (Aspirin Chewable) 81 mg DAILY PO 01/31/20 09:00 02/06/20 08:15 Aspirin (Ecotrin) 81 mg DAILY PO 01/28/20 09:00 01/29/20 21:13 DC 01/28/20 09:25 Atorvastatin Calcium (Lipitor) 40 mg QHS PO 01/27/20 21:00 01/29/20 21:13 DC 01/27/20 20:17 Atorvastatin Calcium (Lipitor) 40 mg QHS PO 01/30/20 21:00 02/05/20 21:35 Bisacodyl (Dulcolax Suppository) 10 mg DAILYPRN PRN [place] CONSTIPATION 02/05/20 15:00 Bisacodyl (Dulcolax Suppository) 10 mg DAILYPRN PRN [place] CONSTIPATION 01/27/20 12:30 01/29/20 21:13 DC Bisacodyl (Dulcolax Tab) 5 mg DAILY PO 02/04/20 09:00 02/06/20 08:13 Carvedilol (COReg) 12.5 mg BID PO 01/27/20 21:00 01/29/20 21:13 DC 01/28/20 09:27 Carvedilol (COReg) 12.5 mg BID PO 01/30/20 21:00 02/06/20 08:15 Dabigatran (Pradaxa) 150 mg BID PO 01/27/20 21:00 01/29/20 21:13 DC 01/28/20 09:25 Dabigatran (Pradaxa) 150 mg BID PO 01/28/20 21:00 UNV Dabigatran (Pradaxa) 150 mg BID PO 01/30/20 21:00 02/06/20 08:14 Dextrose (Dextrose 50%) 25 ml ASDIRECTED PRN IV SEE LABEL COMMENTS 01/27/20 12:30 01/29/20 21:13 DC Docusate Sodium (Colace) 100 mg BID PO 01/27/20 21:00 01/29/20 21:13 DC 01/28/20 09:26 Docusate Sodium (Colace) 100 mg BIDP PRN PO CONSTIPATION 02/02/20 16:15 02/04/20 09:30 Glucagon (Glucagon) 1 mg ASDIRECTED PRN SC SEE LABEL COMMENTS 01/27/20 12:30 01/29/20 21:13 DC Glucose (Glucose) 16 GM ASDIRECTED PRN PO SEE LABEL COMMENTS 01/27/20 12:30 01/29/20 21:13 DC Guaifenesin (Robitussin Tab) 400 mg TID PO 01/30/20 16:00 02/06/20 08:13 Heparin Sodium (Porcine) (Heparin) 5,000 units Q12H SC 01/27/20 12:30 01/27/20 15:41 DC Hydralazine HCl (Apresoline) 25 mg Q6H PO 01/30/20 12:00 02/03/20 17:21 Hydrochlorothiazide (Hydrodiuril) 6.25 mg DAILY PO 01/28/20 09:00 01/28/20 17:33 DC Insulin Detemir (Levemir Insulin) 5 units DAILY SC 02/01/20 09:00 02/06/20 10:23 DC 02/06/20 08:16 Insulin Detemir (Levemir Insulin) 10 units QHS SC 01/27/20 21:00 01/29/20 21:13 DC 01/27/20 20:18 Insulin Detemir (Levemir Insulin) 15 units QHS SC 02/06/20 21:00 Insulin Detemir (Levemir Insulin) 15 units QHS SC 01/30/20 21:00 01/31/20 10:21 DC 01/30/20 21:25 Insulin Detemir (Levemir Insulin) 20 units QHS SC 01/31/20 21:00 02/01/20 10:03 DC 01/31/20 21:29 Insulin Detemir (Levemir Insulin) 24 units QHS SC 02/01/20 21:00 02/06/20 10:22 DC 02/05/20 21:34 Insulin Human Lispro (HumaLOG INSULIN) SEE PROTOCOL TABLE AC [place] 01/27/20 17:30 01/29/20 21:13 DC 01/28/20 11:53 Insulin Human Lispro (HumaLOG INSULIN) SEE PROTOCOL TABLE QHS [place] 01/27/20 21:00 01/29/20 21:13 DC Insulin Human Lispro (HumaLOG INSULIN) See Protocol Table AC SC 01/30/20 17:30 02/05/20 12:45 Insulin Human Lispro (HumaLOG INSULIN) See Protocol Table QHS [place] 01/30/20 21:00 01/30/20 21:25 Lidocaine (Lidoderm Patch) 1 patch DAILY TD 01/31/20 09:00 02/06/20 08:14 Lidocaine (Lidoderm Patch) 1 patch DAILY TD 01/31/20 09:00 02/06/20 08:14 Magnesium Hydroxide (Milk Of Magnesia) 30 ml DAILYPRN PRN PO CONSTIPATION 02/02/20 16:15 02/02/20 17:22 Meclizine HCl (Antivert) 12.5 mg TID PO 02/06/20 16:00 Meclizine HCl (Antivert) 12.5 mg TID PO 01/30/20 16:00 01/31/20 13:52 DC 01/31/20 09:07 Meclizine HCl (Antivert) 25 mg TID PO 01/31/20 16:00 02/06/20 10:22 DC 02/06/20 08:13 Metformin HCl (Glucophage) 500 mg BID@08,18 PO 01/27/20 18:00 01/28/20 19:12 DC 01/28/20 09:26 Metoclopramide HCl (Reglan) 5 mg ACHS PO 01/30/20 12:00 02/02/20 09:14 DC 02/01/20 21:05 Metoprolol Tartrate (Lopressor) 2.5 mg STAT STAT IV 01/28/20 19:11 01/28/20 19:28 DC Non-Formulary Medication ( See Comment Field Below ) REMOVE LIDODERM PATCH DAILY@ XX 01/31/20 21:00 02/05/20 21:36 Non-Formulary Medication ( See Comment Field Below ) REMOVE LIDODERM PATCH DAILY@ XX 01/31/20 21:00 02/05/20 21:37 Ondansetron HCl (ZOFRAN INJection) 4 mg Q4HP PRN IV NAUSEA OR VOMITING 01/28/20 19:15 01/29/20 21:13 DC Ondansetron HCl (Zofran) 4 mg Q6HP PRN PO NAUSEA OR VOMITING 01/28/20 17:15 01/28/20 19:12 DC 01/28/20 17:39 Oxybutynin Chloride (Ditropan) 5 mg BID PO 01/27/20 21:00 01/29/20 21:13 DC 01/28/20 09:26 Oxybutynin Chloride (Ditropan) 5 mg BID PO 01/30/20 21:00 02/06/20 08:13 Pantoprazole Sodium (Protonix) 40 mg DAILY PO 01/28/20 09:00 01/29/20 21:13 DC Polyethylene Glycol (Miralax) 1 pkt DAILY PO 02/04/20 09:00 02/06/20 08:13 Potassium Chloride (Micro-K Extencaps) 20 meq DAILY PO 02/02/20 09:00 02/06/20 08:14 Ramipril (Altace) 10 mg Q12H PO 01/30/20 21:00 02/06/20 08:15 Ramipril (Altace) 10 mg QHS PO 01/27/20 21:00 01/29/20 21:13 DC 01/27/20 20:16 Senna (Senokot) 1 tab BIDP PRN PO CONSTIPATION 02/02/20 16:15 02/04/20 09:32 Senna (Senokot) 1 tab QHS PO 01/27/20 21:00 01/29/20 21:13 DC 01/27/20 20:16 Sodium Chloride 1,000 ml @ 40 mls/hr Q24H IV 01/28/20 19:15 01/29/20 21:13 DC 01/28/20 20:08 Venlafaxine HCl (Effexor) 75 mg BID PO 01/27/20 21:00 01/29/20 21:13 DC 01/28/20 09:26 Venlafaxine HCl (Effexor) 75 mg BID PO 01/30/20 21:00 02/06/20 08:15 Zolpidem Tartrate (Ambien) 5 mg QHSP PRN PO insomnia 01/27/20 12:30 01/29/20 21:13 DC 01/27/20 20:16 Zolpidem Tartrate (Ambien) 5 mg QHSP PRN PO insomnia 01/30/20 13:30 02/05/20 21:36 RUSLAN SOTELO MD Feb 06, 2020 15:15
[2020-02-06] MEDS ORDERED: DOCUSATE SODIUM 100 MG CAP PO SCH (16:00)
[2020-02-06] MEDS: MECLIZINE 12.5 MG TAB PO SCH ×2 (18:06→22:09)
[2020-02-06] MEDS ORDERED: traZODone 25MG PER 1/2 TABLET PO SCH (21:00)
[2020-02-06 22:00] VITALS: BP 132/75
[2020-02-06] MEDS: ATORVASTATIN 20 MG TAB PO SCH (22:09)
[2020-02-07] VITALS: BP 121/75
[2020-02-07 06:00] VITALS: BP 128/60
[2020-02-07] MEDS: **hydrALAZINE HCL** 25 MG TAB PO SCH ×4 (06:00→18:00)
[2020-02-07] MEDS: LevoFLOXacin 750 MG TABLET PO SCH (06:20)
[2020-02-07] MEDS: IPRATROPIUM 0.5MG/ALBUTEROL 2.5MG INH SOL UD 3ML (DUONEB) NEB SCH ×3 (07:12→20:00)
[2020-02-07] MEDS: HumaLOG INSULIN (NovoLOG) PER UNIT SC SCH ×4 (07:30→20:34)
[2020-02-07] MEDS: MECLIZINE 12.5 MG TAB PO SCH ×3 (08:39→21:13)
[2020-02-07] MEDS: DABIGATRAN ETEXILATE 75 MG CAP (PRADAXA) PO SCH ×2 (08:39→21:13)
[2020-02-07] MEDS: oxyBUTYnin 5 MG TAB PO SCH ×2 (08:39→21:12)
[2020-02-07] MEDS: POTASSIUM CHLORIDE 10 MEQ SR TABLET PO SCH (08:40)
[2020-02-07] MEDS: guaiFENesin 200 MG TAB PO SCH ×3 (08:40→21:13)
[2020-02-07] MEDS: ramipriL 5 MG CAP PO SCH ×2 (08:42→21:14)
[2020-02-07] MEDS: amLODIPine 10 MG TAB PO SCH (08:42)
[2020-02-07] MEDS: VENLAFAXINE 37.5 MG TAB PO SCH ×2 (08:42→21:13)
[2020-02-07] MEDS: ASPIRIN 81 MG CHEW TABLET PO SCH (08:42)
[2020-02-07] MEDS: CARVedilol 12.5 MG TAB PO SCH ×2 (08:42→21:12)
[2020-02-07] MEDS: MIRALAX *UNIT DOSE* 17GM PACKET PO SCH (08:43)
[2020-02-07] MEDS: BISACODYL 5 MG TAB PO SCH (08:43)
[2020-02-07] MEDS: LIDOCAINE 5% (LIDODERM) PATCH TD SCH ×2 (08:43)
[2020-02-07] MEDS: REMEDY PHYTOPLEX Z-GUARD PASTE 113GM TUBE (FROM STOREROOM PRODUCT) TOP SCH ×3 (08:44→21:14)
[2020-02-07 14:00] VITALS: BP 137/70
[2020-02-07 20:00] VITALS: BP 114/56
[2020-02-07] MEDS: ATORVASTATIN 20 MG TAB PO SCH (21:12)
[2020-02-07] MEDS: LEVEMIR (INSULIN DETEMIR) 1 UNITS/0.01ML SC SCH (21:14)
[2020-02-08] MEDS: LevoFLOXacin 750 MG TABLET PO SCH (05:38)
[2020-02-08 06:00] VITALS: BP 120/64
[2020-02-08] MEDS: **hydrALAZINE HCL** 25 MG TAB PO SCH ×4 (06:00→17:25)
[2020-02-08 06:44] LABS: BASO # 0.1 10^3/uL (0.0-0.2); EOS # 0.2 10^3/uL (0.0-0.5); EOS % 2.4 % (0.0-3.0); HEMATOCRIT 32.5 % (42.0-52.0); HEMOGLOBIN 10.9 g/dl (13.5-17.5); LYMPH # 2.1 10^3/uL (1.5-5.0); MEAN CORPUSCULAR HEMOGLOBIN 31.3 pg (27.0-33.0); MEAN CORPUSCULAR HGB CONC 33.5 g/dl (32.0-36.5); MEAN CORPUSCULAR VOLUME 93.4 fl (80.0-96.0); MONO # 0.9 10^3/uL (0.0-0.8); MONO % 10.4 % (0.0-5.0); NEUTROPHILS # 5.4 10^3/uL (1.5-8.5); PLATELET COUNT, AUTOMATED 286 10^3/uL (150-450); RED BLOOD COUNT 3.48 10^6/uL (4.30-6.10); WHITE BLOOD COUNT 8.8 10^3/uL (4.0-10.0)
[2020-02-08 07:15] LABS: BLOOD UREA NITROGEN 15 MG/DL (7-18); CALCIUM LEVEL 8.4 MG/DL (8.8-10.2); CARBON DIOXIDE LEVEL 28 MEQ/L (21-32); CHLORIDE LEVEL 103 MEQ/L (98-107); CREATININE FOR GFR 0.74 MG/DL (0.70-1.30); GLOMERULAR FILTRATION RATE > 60.0 (>49); GLUCOSE, FASTING 143 MG/DL (70-100); POTASSIUM SERUM 4.4 MEQ/L (3.5-5.1); SODIUM LEVEL 135 MEQ/L (136-145)
[2020-02-08] MEDS: IPRATROPIUM 0.5MG/ALBUTEROL 2.5MG INH SOL UD 3ML (DUONEB) NEB SCH ×3 (08:00→19:50)
[2020-02-08] MEDS: ASPIRIN 81 MG CHEW TABLET PO SCH (08:40)
[2020-02-08] MEDS: VENLAFAXINE 37.5 MG TAB PO SCH ×2 (08:40→21:50)
[2020-02-08] MEDS: HumaLOG INSULIN (NovoLOG) PER UNIT SC SCH ×4 (08:40→21:49)
[2020-02-08] MEDS: guaiFENesin 200 MG TAB PO SCH ×3 (08:40→21:49)
[2020-02-08] MEDS: BISACODYL 5 MG TAB PO SCH (08:41)
[2020-02-08] MEDS: MECLIZINE 12.5 MG TAB PO SCH (08:41)
[2020-02-08] MEDS: amLODIPine 10 MG TAB PO SCH (08:41)
[2020-02-08] MEDS: DABIGATRAN ETEXILATE 75 MG CAP (PRADAXA) PO SCH ×2 (08:41→21:49)
[2020-02-08] MEDS: ramipriL 5 MG CAP PO SCH ×2 (08:41→21:50)
[2020-02-08] MEDS: oxyBUTYnin 5 MG TAB PO SCH ×2 (08:42→21:50)
[2020-02-08] MEDS: LIDOCAINE 5% (LIDODERM) PATCH TD SCH ×2 (08:42)
[2020-02-08] MEDS: CARVedilol 12.5 MG TAB PO SCH ×2 (08:42→21:50)
[2020-02-08] MEDS: MIRALAX *UNIT DOSE* 17GM PACKET PO SCH (08:42)
[2020-02-08] MEDS: REMEDY PHYTOPLEX Z-GUARD PASTE 113GM TUBE (FROM STOREROOM PRODUCT) TOP SCH ×3 (08:43→21:49)
--- NOTE | 2020-02-08 09:52 | IPNPDOC ---
PM&R Progress Note DATE OF SERVICE: Feb 07, 2020 Net Mvc Developer Progress Note Subjective: Patient seen in the morning sleeping and unable to rouse, vitals stable, therapy held until the afternoon when patient was able to participate. REVIEW OF SYSTEMS: The following is a completed review of systems and has been reviewed. Review of systems otherwise unremarkable. PAIN: Patient self reports no pain EYES: No recent vision changes EARS, NOSE, & THROAT: No throat pain, or dysphagia, or rhinorrhea CARDIOVASCULAR: Denies chest pain or palpitations PULMONARY: Denies shortness of breath GASTROINTESTINAL: denies constipation/diarrhea GENITOURINARY: denies dysuria MUSCULOSKELETAL: right sided weakness NEUROLOGICAL:right sided paresis and mild neglect, +dizziness (improving) HEMATOLOGICAL: denies easy bruising SKIN: denies rash PSYCHIATRIC: Unremarkable All other review of systems found to be negative. PHYSICAL EXAMINATION: VITAL SIGNS: Please see below. GENERAL: Pleasant and cooperative. No acute distress. HEENT: PERRL. Extraocular movements intact. Clear conjunctiva CARDIOVASCULAR: Regular rate and rhythm. No murmurs, rubs, or gallops, + AICD LUNGS: Clear to auscultation bilaterally. No wheezes. No rhonchi ABDOMEN: Soft, nontender, nondistended. Positive bowel sounds. Normal active bowel sounds NEUROLOGICAL: Alert and oriented times three. Cranial nerves II through XII grossly intact. Sensation diminished to light touch RUE with extinction to light touch (-) nystagmus EXTREMITIES: 5\5 strength LUE, 3/5 Right elbow flexors/extensors and wrist extensors, 4+/5 studio couch frame builder, 4\5 strength right lower extremity. 5/5 strength in left lower extremity. SKIN: no rash ASSESSMENT:69-year-old M with past medical history of vascular dementia with multiple strokes who presents status new onset right sided weakness likely due to new CVA was transferred to acute level of care on 01-28-20 for Hypertensive emergency requiring IV BP meds, now returning 01-30-20 for an interrupted stay- PLAN: 1. Rehab-PT/OT advance gait and ADLs, strengthen/stretch/maintain ROM all 4 limbs- avoid E-stim to RUE as patient reporting seizure-like activity following an old stroke and AICD in place - FILEMAKER DEVELOPER eval for cog and swallow- dysphagia resolved 2. Neuro: hx of multiple infarcts with new right sided weakness, MRI incompatible, with symptoms most consistent with new ischemic stroke in setting of severely stenotic left vertebral artery- c/u statin, ASA and Pradaxa for secondary stroke prevention, optimize BPs -vascular dementia with depression- c/u Effexor -f/u neuro as outpatient -patient sent out for hypertensive urgency 01-28-20 with nausea and vomiting, suspect possible posterior circulation infarct given severe vertebral artery alysia nosis, with significant new impairments in his mobility level due to positional vertigo making a new posterior infarct very likely- dizziness overall better, decreased Meclizine to 12.5 mg TID for central vertigo and plan to taper off 3. Cardiac- chronic diastolic CHF (ECHO )- fluid restrict, daily weights, medicine consulted to assist in overall management -HTN c/u Coreg and Ramipril, amlodipine added, c/u hydralazine 25mg q6h and hold for sBP <140 -Afib s/p ablation on pradaxa 4. Resp: encourage incentive spirometry, recent CXR positive for Right LL PNA started on Levaquin -c/u Duonebs 5. Endo: pmh DM with fluctuating po intake, will hold levemir and c/u ISS for now -hypokalemia- resolved, holding daily supplement and c/u to monitor 6. : monitor PVRS, c/u ditropan 7. GI ppx: protonix 40mg -reglan d/c'd 8. DVT ppx: on pradaxa, TEDs -dopplers negative for DVT 9. Pain: Tylenol prn 10. Psych- c/u effexor for depression, will hold all sleep aids as patient very lethargic this morning 11. Dispo: 02-20-20 to home, slowly progressing towards goals Allergies Coded Allergies: Penicillins (Verified Allergy, Unknown, UNKNOWN CHILDHOOD REACTION, 12/10/19) lorazepam (Verified Adverse Reaction, Unknown, AGGRESSIVE, 12/10/19) Vital Signs Vital Signs Date Time Temp Pulse Resp B/P (MAP) Pulse Ox O2 Delivery O2 Flow Rate FiO2 02/08/20 08:41 128/70 02/08/20 08:41 66 02/08/20 06:00 98.2 16 94 Room Air Laboratory Data CBC/BMP Laboratory Tests 02/08/20 06:12 Labs 24H Laboratory Tests 2 02/07/20 11:30: Bedside Glucose (Misc Panel) 140H 02/07/20 16:43: Bedside Glucose (Misc Panel) 183H 02/07/20 19:54: Bedside Glucose (Misc Panel) 198H 02/08/20 05:37: Bedside Glucose (Misc Panel) 144H 02/08/20 06:12: Immature Granulocyte % (Auto) 1.2, Neutrophils (%) (Auto) 61.0, Lymphocytes (%) (Auto) 24.0, Monocytes (%) (Auto) 10.4H, Eosinophils (%) (Auto) 2.4, Basophils (%) (Auto) 1.0, Neutrophils # (Auto) 5.4, Lymphocytes # (Auto) 2.1, Monocytes # (Auto) 0.9H, Eosinophils # (Auto) 0.2, Basophils # (Auto) 0.1, Nucleated Red Blood Cells % (auto) 0.0, Anion Gap 4L, Glomerular Filtration Rate > 60.0, Calcium Level 8.4L Current Medications Current Medications Current Medications Medications (Trade) Dose Ordered Sig/Kenneth Route PRN Reason Start Time Stop Time Status Last Admin Dose Admin Acetaminophen (Tylenol Tab) 650 mg Q4HP PRN PO fever/MILD PAIN (PS 1-4) 01/27/20 12:30 01/29/20 21:13 DC Albuterol/ Ipratropium (Duoneb (Ipr 0.5mg/Alb 2.5mg)) 3 ml RTID NEB 01/27/20 20:00 01/29/20 21:13 DC 01/28/20 13:29 Albuterol/ Ipratropium (Duoneb (Ipr 0.5mg/Alb 2.5mg)) 3 ml RTID NEB 01/30/20 14:00 02/04/20 07:20 Amlodipine Besylate (Norvasc) 2.5 mg DAILY PO 01/28/20 09:00 01/28/20 19:12 DC Amlodipine Besylate (Norvasc) 10 mg DAILY PO 01/31/20 09:00 02/08/20 08:41 Aspirin (Aspirin Chewable) 81 mg DAILY PO 01/31/20 09:00 02/08/20 08:40 Aspirin (Ecotrin) 81 mg DAILY PO 01/28/20 09:00 01/29/20 21:13 DC 01/28/20 09:25 Atorvastatin Calcium (Lipitor) 40 mg QHS PO 01/27/20 21:00 01/29/20 21:13 DC 01/27/20 20:17 Atorvastatin Calcium (Lipitor) 40 mg QHS PO 01/30/20 21:00 02/07/20 21:12 Bisacodyl (Dulcolax Suppository) 10 mg DAILYPRN PRN [place] CONSTIPATION 02/05/20 15:00 Bisacodyl (Dulcolax Suppository) 10 mg DAILYPRN PRN [place] CONSTIPATION 01/27/20 12:30 01/29/20 21:13 DC Bisacodyl (Dulcolax Tab) 5 mg DAILY PO 02/04/20 09:00 02/08/20 08:41 Carvedilol (COReg) 12.5 mg BID PO 01/27/20 21:00 01/29/20 21:13 DC 01/28/20 09:27 Carvedilol (COReg) 12.5 mg BID PO 01/30/20 21:00 02/08/20 08:42 Dabigatran (Pradaxa) 150 mg BID PO 01/27/20 21:00 01/29/20 21:13 DC 01/28/20 09:25 Dabigatran (Pradaxa) 150 mg BID PO 01/28/20 21:00 UNV Dabigatran (Pradaxa) 150 mg BID PO 01/30/20 21:00 02/08/20 08:41 Dextrose (Dextrose 50%) 25 ml ASDIRECTED PRN IV SEE LABEL COMMENTS 01/27/20 12:30 01/29/20 21:13 DC Docusate Sodium (Colace) 100 mg BID PO 01/27/20 21:00 01/29/20 21:13 DC 01/28/20 09:26 Docusate Sodium (Colace) 100 mg BIDP PRN PO CONSTIPATION 02/02/20 16:15 02/06/20 15:16 DC 02/04/20 09:30 Docusate Sodium (Colace) 100 mg BIDP PRN PO CONSTIPATION 02/06/20 15:30 Docusate Sodium (Colace) 100 mg TID PO 02/06/20 16:00 Cancel Glucagon (Glucagon) 1 mg ASDIRECTED PRN SC SEE LABEL COMMENTS 01/27/20 12:30 01/29/20 21:13 DC Glucose (Glucose) 16 GM ASDIRECTED PRN PO SEE LABEL COMMENTS 01/27/20 12:30 01/29/20 21:13 DC Guaifenesin (Robitussin Tab) 400 mg TID PO 01/30/20 16:00 02/08/20 08:40 Heparin Sodium (Porcine) (Heparin) 5,000 units Q12H SC 01/27/20 12:30 01/27/20 15:41 DC Hydralazine HCl (Apresoline) 25 mg Q6H PO 01/30/20 12:00 02/06/20 18:07 Hydrochlorothiazide (Hydrodiuril) 6.25 mg DAILY PO 01/28/20 09:00 01/28/20 17:33 DC Insulin Detemir (Levemir Insulin) 5 units DAILY SC 02/01/20 09:00 02/06/20 10:23 DC 02/06/20 08:16 Insulin Detemir (Levemir Insulin) 10 units QHS IA 01/27/20 21:00 01/29/20 21:13 DC 01/27/20 20:18 Insulin Detemir (Levemir Insulin) 15 units QHS IA 02/06/20 21:00 02/07/20 21:14 Insulin Detemir (Levemir Insulin) 15 units QHS IA 01/30/20 21:00 01/31/20 10:21 DC 01/30/20 21:25 Insulin Detemir (Levemir Insulin) 20 units QHS IA 01/31/20 21:00 02/01/20 10:03 DC 01/31/20 21:29 Insulin Detemir (Levemir Insulin) 24 units QHS IA 02/01/20 21:00 02/06/20 10:22 DC 02/05/20 21:34 Insulin Human Lispro (HumaLOG INSULIN) SEE PROTOCOL TABLE AC IA 01/27/20 17:30 01/29/20 21:13 DC 01/28/20 11:53 Insulin Human Lispro (HumaLOG INSULIN) SEE [facility]OTOCOL TABLE [facility] 01/27/20 21:00 01/29/20 21:13 DC Insulin Human Lispro (HumaLOG INSULIN) See Protocol Table AC IA 01/30/20 17:30 02/08/20 08:40 Insulin Human Lispro (HumaLOG INSULIN) See Protocol Table QHS SC 01/30/20 21:00 01/30/20 21:25 Levofloxacin (Levaquin) 750 mg DAILY@06 PO 02/07/20 06:00 02/08/20 05:38 Lidocaine (Lidoderm Patch) 1 patch DAILY TD 01/31/20 09:00 02/08/20 08:42 Lidocaine (Lidoderm Patch) 1 patch DAILY TD 01/31/20 09:00 02/08/20 08:42 Magnesium Hydroxide (Milk Of Magnesia) 30 ml DAILYPRN PRN PO CONSTIPATION 02/02/20 16:15 02/02/20 17:22 Meclizine HCl (Antivert) 12.5 mg TID PO 02/06/20 16:00 02/08/20 08:41 Meclizine HCl (Antivert) 12.5 mg TID PO 01/30/20 16:00 01/31/20 13:52 DC 01/31/20 09:07 Meclizine HCl (Antivert) 25 mg TID PO 01/31/20 16:00 02/06/20 10:22 DC 02/06/20 08:13 Metformin HCl (Glucophage) 500 mg BID@08,18 PO 01/27/20 18:00 01/28/20 19:12 DC 01/28/20 09:26 Metoclopramide HCl (Reglan) 5 mg ACHS PO 01/30/20 12:00 02/02/20 09:14 DC 02/01/20 21:05 Metoprolol Tartrate (Lopressor) 2.5 mg STAT STAT IV 01/28/20 19:11 01/28/20 19:28 DC Non-Formulary Medication ( See Comment Field Below ) REMOVE LIDODERM PATCH DAILY@ XX 01/31/20 21:00 02/07/20 21:15 Non-Formulary Medication ( See Comment Field Below ) REMOVE LIDODERM PATCH DAILY@21 XX 01/31/20 21:00 02/07/20 21:15 Ondansetron HCl (ZOFRAN INJection) 4 mg Q4HP PRN IV NAUSEA OR VOMITING 01/28/20 19:15 01/29/20 21:13 DC Ondansetron HCl (Zofran) 4 mg Q6HP PRN PO NAUSEA OR VOMITING 01/28/20 17:15 01/28/20 19:12 DC 01/28/20 17:39 Oxybutynin Chloride (Ditropan) 5 mg BID PO 01/27/20 21:00 01/29/20 21:13 DC 01/28/20 09:26 Oxybutynin Chloride (Ditropan) 5 mg BID PO 01/30/20 21:00 02/08/20 08:42 Pantoprazole Sodium (Protonix) 40 mg DAILY PO 01/28/20 09:00 01/29/20 21:13 DC Polyethylene Glycol (Miralax) 1 pkt DAILY PO 02/04/20 09:00 02/08/20 08:42 Potassium Chloride (Micro-K Extencaps) 20 meq DAILY PO 02/02/20 09:00 02/07/20 10:10 DC 02/07/20 08:40 Ramipril (Altace) 10 mg Q12H PO 01/30/20 21:00 02/08/20 08:41 Ramipril (Altace) 10 mg QHS PO 01/27/20 21:00 01/29/20 21:13 DC 01/27/20 20:16 Senna (Senokot) 1 tab BIDP PRN PO CONSTIPATION 02/02/20 16:15 02/04/20 09:32 Senna (Senokot) 1 tab QHS PO 01/27/20 21:00 01/29/20 21:13 DC 01/27/20 20:16 Sodium Chloride 1,000 ml @ 40 mls/hr Q24H IV 01/28/20 19:15 01/29/20 21:13 DC 01/28/20 20:08 Trazodone HCl (Desyrel) 25 mg QHS PO 02/06/20 21:00 02/07/20 17:37 DC 02/06/20 22:08 Venlafaxine HCl (Effexor) 75 mg BID PO 01/27/20 21:00 01/29/20 21:13 DC 01/28/20 09:26 Venlafaxine HCl (Effexor) 75 mg BID PO 01/30/20 21:00 02/08/20 08:40 Zolpidem Tartrate (Ambien) 5 mg QHSP PRN PO insomnia 01/27/20 12:30 01/29/20 21:13 DC 01/27/20 20:16 Zolpidem Tartrate (Ambien) 5 mg QHSP PRN PO insomnia 01/30/20 13:30 02/06/20 15:15 DC 02/05/20 21:36 RUSLAN SOTELO MD Feb 08, 2020 09:52
[2020-02-08 12:27] VITALS: BP 122/68
[2020-02-08] MEDS: LACTOBACILLUS ACIDOPHILUS CAP (BACID) PO SCH ×3 (12:33→21:51)
--- NOTE | 2020-02-08 13:12 | IPNPDOC ---
PM&R Progress Note DATE OF SERVICE: Feb 08, 2020 Air Traffic Instructor Progress Note Subjective: Patient seen today eating lunch stating he feels well overall and denies having a cough or fever. He reports he continues be less dizzy. REVIEW OF SYSTEMS: The following is a completed review of systems and has been reviewed. Review of systems otherwise unremarkable. PAIN: Patient self reports no pain EYES: No recent vision changes EARS, NOSE, & THROAT: No throat pain, or dysphagia, or rhinorrhea CARDIOVASCULAR: Denies chest pain or palpitations PULMONARY: Denies shortness of breath GASTROINTESTINAL: denies constipation/diarrhea GENITOURINARY: denies dysuria MUSCULOSKELETAL: right sided weakness NEUROLOGICAL:right sided paresis and mild neglect, +dizziness (improving) HEMATOLOGICAL: denies easy bruising SKIN: denies rash PSYCHIATRIC: Unremarkable All other review of systems found to be negative. PHYSICAL EXAMINATION: VITAL SIGNS: Please see below. GENERAL: Pleasant and cooperative. No acute distress. HEENT: PERRL. Extraocular movements intact. Clear conjunctiva CARDIOVASCULAR: Regular rate and rhythm. No murmurs, rubs, or gallops, + AICD LUNGS: Clear to auscultation bilaterally. No wheezes. No rhonchi ABDOMEN: Soft, nontender, nondistended. Positive bowel sounds. Normal active bowel sounds NEUROLOGICAL: Alert and oriented times three. Cranial nerves II through XII grossly intact. Sensation diminished to light touch RUE with extinction to light touch (-) nystagmus EXTREMITIES: 5\5 strength LUE, 3/5 Right elbow flexors/extensors and wrist extensors, 4+/5 shearing machine operator, 4\5 strength right lower extremity. 5/5 strength in left lower extremity. SKIN: no rash ASSESSMENT:69-year-old M with past medical history of vascular dementia with multiple strokes who presents status new onset right sided weakness likely due to new CVA was transferred to acute level of care on 01-28-20 for Hypertensive emergency requiring IV BP meds, now returning 01-30-20 for an interrupted stay- PLAN: 1. Rehab-PT/OT advance gait and ADLs, strengthen/stretch/maintain ROM all 4 limbs- avoid E-stim to RUE as patient reporting seizure-like activity following an old stroke and AICD in place - ROPE WALKER eval for cog and swallow- dysphagia resolved 2. Neuro: hx of multiple infarcts with new right sided weakness, MRI incompatible, with symptoms most consistent with new ischemic stroke in setting of severely stenotic left vertebral artery- c/u statin, ASA and Pradaxa for secondary stroke prevention, optimize BPs -vascular dementia with depression- c/u Effexor -f/u neuro as outpatient -patient sent out for hypertensive urgency 01-28-20 with nausea and vomiting, suspect possible posterior circulation infarct given severe vertebral artery stenosis, with significant new impairments in his mobility level due to positional vertigo making a new posterior infarct very likely- dizziness overall better, will change Meclizine to 12.5 mg TID prn for central vertigo and plan to taper off 3. Cardiac- chronic diastolic CHF (ECHO )- fluid restrict, daily weights, medicine consulted to assist in overall management -HTN c/u Coreg and Ramipril, amlodipine added, c/u hydralazine 25mg q6h and hold for sBP <140 -Afib s/p ablation on pradaxa 4. Resp: encourage incentive spirometry, recent CXR positive for Right LL PNA c/u 7 day course of Levaquin, patient denies cough or fever -c/u Duonebs 5. Endo: pmh DM with fluctuating po intake, c/u to hold levemir and c/u ISS for now -hypokalemia- resolved, holding daily supplement and c/u to monitor 6. : monitor PVRS, c/u ditropan 7. GI ppx: protonix 40mg -reglan d/c'd 8. DVT ppx: on pradaxa, TEDs -dopplers negative for DVT 9. Pain: Tylenol prn 10. Psych- c/u effexor for depression, c/u to hold sleep aids, daytime lethargy resolved today 11. Dispo: 02-20-20 to home, slowly progressing towards goals Allergies Coded Allergies: Penicillins (Verified Allergy, Unknown, UNKNOWN CHILDHOOD REACTION, 12/10/19) lorazepam (Verified Adverse Reaction, Unknown, AGGRESSIVE, 12/10/19) Vital Signs Vital Signs Date Time Temp Pulse Resp B/P (MAP) Pulse Ox O2 Delivery O2 Flow Rate FiO2 02/08/20 12:27 122/68 (86) 02/08/20 08:41 66 02/08/20 06:00 98.2 16 94 Room Air Laboratory Data CBC/BMP Laboratory Tests 02/08/20 06:12 Labs 24H Laboratory Tests 2 02/07/20 16:43: Bedside Glucose (Misc Panel) 183H 02/07/20 19:54: Bedside Glucose (Misc Panel) 198H 02/08/20 05:37: Bedside Glucose (Misc Panel) 144H 02/08/20 06:12: Immature Granulocyte % (Auto) 1.2, Neutrophils (%) (Auto) 61.0, Lymphocytes (%) (Auto) 24.0, Monocytes (%) (Auto) 10.4H, Eosinophils (%) (Auto) 2.4, Basophils (%) (Auto) 1.0, Neutrophils # (Auto) 5.4, Lymphocytes # (Auto) 2.1, Monocytes # (Auto) 0.9H, Eosinophils # (Auto) 0.2, Basophils # (Auto) 0.1, Nucleated Red Blood Cells % (auto) 0.0, Anion Gap 4L, Glomerular Filtration Rate > 60.0, Calcium Level 8.4L 02/08/20 11:47: Bedside Glucose (Misc Panel) 128H Current Medications Current Medications Current Medications Medications (Trade) Dose Ordered Sig/Kenneth Route PRN Reason Start Time Stop Time Status Last Admin Dose Admin Acetaminophen (Tylenol Tab) 650 mg Q4HP PRN PO fever/MILD PAIN (PS 1-4) 01/27/20 12:30 01/29/20 21:13 DC Albuterol/ Ipratropium (Duoneb (Ipr 0.5mg/Alb 2.5mg)) 3 ml RTID NEB 01/27/20 20:00 01/29/20 21:13 DC 01/28/20 13:29 Albuterol/ Ipratropium (Duoneb (Ipr 0.5mg/Alb 2.5mg)) 3 ml RTID NEB 01/30/20 14:00 02/04/20 07:20 Amlodipine Besylate (Norvasc) 2.5 mg DAILY PO 01/28/20 09:00 01/28/20 19:12 DC Amlodipine Besylate (Norvasc) 10 mg DAILY PO 01/31/20 09:00 02/08/20 08:41 Aspirin (Aspirin Chewable) 81 mg DAILY PO 01/31/20 09:00 02/08/20 08:40 Aspirin (Ecotrin) 81 mg DAILY PO 01/28/20 09:00 01/29/20 21:13 DC 01/28/20 09:25 Atorvastatin Calcium (Lipitor) 40 mg QHS PO 01/27/20 21:00 01/29/20 21:13 DC 01/27/20 20:17 Atorvastatin Calcium (Lipitor) 40 mg QHS PO 01/30/20 21:00 02/07/20 21:12 Bisacodyl (Dulcolax Suppository) 10 mg DAILYPRN PRN [place] CONSTIPATION 02/05/20 15:00 Bisacodyl (Dulcolax Suppository) 10 mg DAILYPRN PRN [place] CONSTIPATION 01/27/20 12:30 01/29/20 21:13 DC Bisacodyl (Dulcolax Tab) 5 mg DAILY PO 02/04/20 09:00 02/08/20 08:41 Carvedilol (COReg) 12.5 mg BID PO 01/27/20 21:00 01/29/20 21:13 DC 01/28/20 09:27 Carvedilol (COReg) 12.5 mg BID PO 01/30/20 21:00 02/08/20 08:42 Dabigatran (Pradaxa) 150 mg BID PO 01/27/20 21:00 01/29/20 21:13 DC 01/28/20 09:25 Dabigatran (Pradaxa) 150 mg BID PO 01/28/20 21:00 UNV Dabigatran (Pradaxa) 150 mg BID PO 01/30/20 21:00 02/08/20 08:41 Dextrose (Dextrose 50%) 25 ml ASDIRECTED PRN IV SEE LABEL COMMENTS 01/27/20 12:30 01/29/20 21:13 DC Docusate Sodium (Colace) 100 mg BID PO 01/27/20 21:00 01/29/20 21:13 DC 01/28/20 09:26 Docusate Sodium (Colace) 100 mg BIDP PRN PO CONSTIPATION 02/02/20 16:15 02/06/20 15:16 DC 02/04/20 09:30 Docusate Sodium (Colace) 100 mg BIDP PRN PO CONSTIPATION 02/06/20 15:30 Docusate Sodium (Colace) 100 mg TID PO 02/06/20 16:00 Cancel Glucagon (Glucagon) 1 mg ASDIRECTED PRN SC SEE LABEL COMMENTS 01/27/20 12:30 01/29/20 21:13 DC Glucose (Glucose) 16 GM ASDIRECTED PRN PO SEE LABEL COMMENTS 01/27/20 12:30 01/29/20 21:13 DC Guaifenesin (Robitussin Tab) 400 mg TID PO 01/30/20 16:00 02/08/20 08:40 Heparin Sodium (Porcine) (Heparin) 5,000 units Q12H SC 01/27/20 12:30 01/27/20 15:41 DC Hydralazine HCl (Apresoline) 25 mg Q6H PO 01/30/20 12:00 02/06/20 18:07 Hydrochlorothiazide (Hydrodiuril) 6.25 mg DAILY PO 01/28/20 09:00 01/28/20 17:33 DC Insulin Detemir (Levemir Insulin) 5 units DAILY SC 02/01/20 09:00 02/06/20 10:23 DC 02/06/20 08:16 Insulin Detemir (Levemir Insulin) 10 units QHS SC 01/27/20 21:00 01/29/20 21:13 DC 01/27/20 20:18 Insulin Detemir (Levemir Insulin) 15 units QHS SC 02/06/20 21:00 02/07/20 21:14 Insulin Detemir (Levemir Insulin) 15 units QHS SC 01/30/20 21:00 01/31/20 10:21 DC 01/30/20 21:25 Insulin Detemir (Levemir Insulin) 20 units QHS SC 01/31/20 21:00 02/01/20 10:03 DC 01/31/20 21:29 Insulin Detemir (Levemir Insulin) 24 units QHS SC 02/01/20 21:00 02/06/20 10:22 DC 02/05/20 21:34 Insulin Human Lispro (HumaLOG INSULIN) SEE PROTOCOL TABLE AC SC 01/27/20 17:30 01/29/20 21:13 DC 01/28/20 11:53 Insulin Human Lispro (HumaLOG INSULIN) SEE PROTOCOL TABLE QHS SC 01/27/20 21:00 01/29/20 21:13 DC Insulin Human Lispro (HumaLOG INSULIN) See Protocol Table AC SC 01/30/20 17:30 02/08/20 12:33 Insulin Human Lispro (HumaLOG INSULIN) See Protocol Table QHS SC 01/30/20 21:00 01/30/20 21:25 Lactobacillus Acidophilus (Bacid) 1 ea WMHS PO 02/08/20 12:30 02/08/20 12:33 Levofloxacin (Levaquin) 750 mg DAILY@06 PO 02/07/20 06:00 02/13/20 21:00 02/08/20 05:38 Lidocaine (Lidoderm Patch) 1 patch DAILY TD 01/31/20 09:00 02/08/20 08:42 Lidocaine (Lidoderm Patch) 1 patch DAILY TD 01/31/20 09:00 02/08/20 08:42 Magnesium Hydroxide (Milk Of Magnesia) 30 ml DAILYPRN PRN PO CONSTIPATION 02/02/20 16:15 02/02/20 17:22 Meclizine HCl (Antivert) 12.5 mg TID PO 02/06/20 16:00 02/08/20 08:41 Meclizine HCl (Antivert) 12.5 mg TID PO 01/30/20 16:00 01/31/20 13:52 DC 01/31/20 09:07 Meclizine HCl (Antivert) 25 mg TID PO 01/31/20 16:00 02/06/20 10:22 DC 02/06/20 08:13 Metformin HCl (Glucophage) 500 mg BID@08,18 PO 01/27/20 18:00 01/28/20 19:12 DC 01/28/20 09:26 Metoclopramide HCl (Reglan) 5 mg ACHS PO 01/30/20 12:00 02/02/20 09:14 DC 02/01/20 21:05 Metoprolol Tartrate (Lopressor) 2.5 mg STAT STAT IV 01/28/20 19:11 01/28/20 19:28 DC Non-Formulary Medication ( See Comment Field Below ) REMOVE LIDODERM PATCH DAILY@21 XX 01/31/20 21:00 02/07/20 21:15 Non-Formulary Medication ( See Comment Field Below ) REMOVE LIDODERM PATCH DAILY@21 XX 01/31/20 21:00 02/07/20 21:15 Ondansetron HCl (ZOFRAN INJection) 4 mg Q4HP PRN IV NAUSEA OR VOMITING 01/28/20 19:15 01/29/20 21:13 DC Ondansetron HCl (Zofran) 4 mg Q6HP PRN PO NAUSEA OR VOMITING 01/28/20 17:15 01/28/20 19:12 DC 01/28/20 17:39 Oxybutynin Chloride (Ditropan) 5 mg BID PO 01/27/20 21:00 01/29/20 21:13 DC 01/28/20 09:26 Oxybutynin Chloride (Ditropan) 5 mg BID PO 01/30/20 21:00 02/08/20 08:42 Pantoprazole Sodium (Protonix) 40 mg DAILY PO 01/28/20 09:00 01/29/20 21:13 DC Polyethylene Glycol (Miralax) 1 pkt DAILY PO 02/04/20 09:00 02/08/20 08:42 Potassium Chloride (Micro-K Extencaps) 20 meq DAILY PO 02/02/20 09:00 02/07/20 10:10 DC 02/07/20 08:40 Ramipril (Altace) 10 mg Q12H PO 01/30/20 21:00 02/08/20 08:41 Ramipril (Altace) 10 mg QHS PO 01/27/20 21:00 01/29/20 21:13 DC 01/27/20 20:16 Senna (Senokot) 1 tab BIDP PRN PO CONSTIPATION 02/02/20 16:15 02/04/20 09:32 Senna (Senokot) 1 tab QHS PO 01/27/20 21:00 01/29/20 21:13 DC 01/27/20 20:16 Sodium Chloride 1,000 ml @ 40 mls/hr Q24H IV 01/28/20 19:15 01/29/20 21:13 DC 01/28/20 20:08 Trazodone HCl (Desyrel) 25 mg QHS PO 02/06/20 21:00 02/07/20 17:37 DC 02/06/20 22:08 Venlafaxine HCl (Effexor) 75 mg BID PO 01/27/20 21:00 01/29/20 21:13 DC 01/28/20 09:26 Venlafaxine HCl (Effexor) 75 mg BID PO 01/30/20 21:00 02/08/20 08:40 Zolpidem Tartrate (Ambien) 5 mg QHSP PRN PO insomnia 01/27/20 12:30 01/29/20 21:13 DC 01/27/20 20:16 Zolpidem Tartrate (Ambien) 5 mg QHSP PRN PO insomnia 01/30/20 13:30 02/06/20 15:15 DC 02/05/20 21:36 RUSLAN SOTELO MD Feb 08, 2020 13:12
[2020-02-08] MEDS ORDERED: MECLIZINE 12.5 MG TAB PO PRN (13:15)
[2020-02-08 14:00] VITALS: BP 120/70
[2020-02-08 20:32] VITALS: BP 114/64
[2020-02-08] MEDS: LEVEMIR (INSULIN DETEMIR) 1 UNITS/0.01ML SC SCH (21:48)
[2020-02-08] MEDS: ATORVASTATIN 20 MG TAB PO SCH (21:51)
[2020-02-09] VITALS: BP 133/72
[2020-02-09] MEDS: LevoFLOXacin 750 MG TABLET PO SCH (05:34)
[2020-02-09 05:36] VITALS: BP 103/55
[2020-02-09] MEDS: **hydrALAZINE HCL** 25 MG TAB PO SCH ×4 (05:40→17:34)
[2020-02-09] MEDS: IPRATROPIUM 0.5MG/ALBUTEROL 2.5MG INH SOL UD 3ML (DUONEB) NEB SCH ×3 (07:37→19:34)
[2020-02-09] MEDS: REMEDY PHYTOPLEX Z-GUARD PASTE 113GM TUBE (FROM STOREROOM PRODUCT) TOP SCH ×3 (09:00→21:35)
[2020-02-09] MEDS: ramipriL 5 MG CAP PO SCH ×2 (09:00→21:33)
[2020-02-09] MEDS: amLODIPine 10 MG TAB PO SCH (09:00)
[2020-02-09] MEDS: CARVedilol 12.5 MG TAB PO SCH ×2 (09:00→21:33)
[2020-02-09] MEDS: BISACODYL 5 MG TAB PO SCH (09:24)
[2020-02-09] MEDS: ASPIRIN 81 MG CHEW TABLET PO SCH (09:24)
[2020-02-09] MEDS: LACTOBACILLUS ACIDOPHILUS CAP (BACID) PO SCH ×4 (09:24→21:34)
[2020-02-09] MEDS: oxyBUTYnin 5 MG TAB PO SCH ×2 (09:25→21:34)
[2020-02-09] MEDS: VENLAFAXINE 37.5 MG TAB PO SCH ×2 (09:25→21:34)
[2020-02-09] MEDS: DABIGATRAN ETEXILATE 75 MG CAP (PRADAXA) PO SCH ×2 (09:25→21:34)
[2020-02-09] MEDS: guaiFENesin 200 MG TAB PO SCH ×3 (09:25→21:34)
[2020-02-09] MEDS: MIRALAX *UNIT DOSE* 17GM PACKET PO SCH (09:26)
[2020-02-09] MEDS: LIDOCAINE 5% (LIDODERM) PATCH TD SCH ×2 (09:26)
[2020-02-09] MEDS: HumaLOG INSULIN (NovoLOG) PER UNIT SC SCH ×4 (09:27→21:00)
--- NOTE | 2020-02-09 10:49 | IPNPDOC ---
PM&R Progress Note DATE OF SERVICE: Feb 09, 2020 [employer] Progress Note Subjective: Patient seen in the gym and later in his room stating his sitting tolerance is improving. REVIEW OF SYSTEMS: The following is a completed review of systems and has been reviewed. Review of systems otherwise unremarkable. PAIN: Patient self reports no pain EYES: No recent vision changes EARS, NOSE, & THROAT: No throat pain, or dysphagia, or rhinorrhea CARDIOVASCULAR: Denies chest pain or palpitations PULMONARY: Denies shortness of breath GASTROINTESTINAL: denies constipation/diarrhea GENITOURINARY: denies dysuria MUSCULOSKELETAL: right sided weakness NEUROLOGICAL:right sided paresis and mild neglect, +dizziness (improving) HEMATOLOGICAL: denies easy bruising SKIN: denies rash PSYCHIATRIC: Unremarkable All other review of systems found to be negative. PHYSICAL EXAMINATION: VITAL SIGNS: Please see below. GENERAL: Pleasant and cooperative. No acute distress. HEENT: PERRL. Extraocular movements intact. Clear conjunctiva CARDIOVASCULAR: Regular rate and rhythm. No murmurs, rubs, or gallops, + AICD LUNGS: Clear to auscultation bilaterally. No wheezes. No rhonchi ABDOMEN: Soft, nontender, nondistended. Positive bowel sounds. Normal active bowel sounds NEUROLOGICAL: Alert and oriented times three. Cranial nerves II through XII grossly intact. Sensation diminished to light touch RUE with extinction to light touch (-) nystagmus EXTREMITIES: 5\5 strength LUE, 3/5 Right elbow flexors/extensors and wrist extensors, 4+/5 intelligence director, 4\5 strength right lower extremity. 5/5 strength in left lower extremity. SKIN: no rash ASSESSMENT:69-year-old M with past medical history of vascular dementia with multiple strokes who presents status new onset right sided weakness likely due to new CVA was transferred to acute level of care on 01-28-20 for Hypertensive emergency requiring IV BP meds, now returning 01-30-20 for an interrupted stay- PLAN: 1. Rehab-PT/OT advance gait and ADLs, strengthen/stretch/maintain ROM all 4 limbs- avoid E-stim to RUE as patient reporting seizure-like activity following an old stroke and AICD in place - [employer] TE[employer]ER eval for cog and swallow- dysphagia resolved 2. Neuro: hx of multiple infarcts with new right sided weakness, MRI incompatible, with symptoms most consistent with new ischemic stroke in setting of severely stenotic left vertebral artery- c/u statin, ASA and Pradaxa for secondary stroke prevention, optimize BPs -vascular dementia with depression- c/u Effexor -f/u neuro as outpatient -patient sent out for hypertensive urgency 01-28-20 with nausea and vomiting, suspect possible posterior circulation infarct given severe vertebral artery stenosis, with significant new impairments in his mobility level due to p ositional vertigo making a new posterior infarct very likely- dizziness overall better, will change Meclizine to 12.5 mg TID prn for central vertigo and plan to taper off 3. Cardiac- chronic diastolic CHF (ECHO )- fluid restrict, daily weights, medicine consulted to assist in overall management -HTN c/u Coreg and Ramipril, amlodipine added, c/u hydralazine 25mg q6h and hold for sBP <140 -Afib s/p ablation on pradaxa 4. Resp: encourage incentive spirometry, recent CXR positive for Right LL PNA c/u 7 day course of Levaquin, patient denies cough or fever -c/u Duonebs 5. Endo: pmh DM with fluctuating po intake however patient reporting his appaetite is improving, c/u levemir and c/u ISS for now -hypokalemia- resolved, holding daily supplement and c/u to monitor 6. : monitor PVRS, c/u ditropan 7. GI ppx: protonix 40mg -reglan d/c'd 8. DVT ppx: on pradaxa, TEDs -dopplers negative for DVT 9. Pain: Tylenol prn 10. Psych- c/u effexor for depression, c/u to hold sleep aids, daytime lethargy reolved 11. Dispo: 02-20-20 to home, slowly progressing towards goals Allergies Coded Allergies: Penicillins (Verified Allergy, Unknown, UNKNOWN CHILDHOOD REACTION, 12/10/19) lorazepam (Verified Adverse Reaction, Unknown, AGGRESSIVE, 12/10/19) Vital Signs Vital Signs Date Time Temp Pulse Resp B/P (MAP) Pulse Ox O2 Delivery O2 Flow Rate FiO2 02/09/20 09:00 75 103/55 02/09/20 05:36 99.9 18 97 Room Air Laboratory Data Labs 24H Laboratory Tests 2 02/08/20 11:47: Bedside Glucose (Misc Panel) 128H 02/08/20 16:26: Bedside Glucose (Misc Panel) 175H 02/08/20 20:19: Bedside Glucose (Misc Panel) 262H 02/09/20 06:08: Bedside Glucose (Misc Panel) 200H Current Medications Current Medications Current Medications Medications (Trade) Dose Ordered Sig/Kenneth Route PRN Reason Start Time Stop Time Status Last Admin Dose Admin Acetaminophen (Tylenol Tab) 650 mg Q4HP PRN PO fever/MILD PAIN (PS 1-4) 01/27/20 12:30 01/29/20 21:13 DC Albuterol/ Ipratropium (Duoneb (Ipr 0.5mg/Alb 2.5mg)) 3 ml RTID NEB 01/27/20 20:00 01/29/20 21:13 DC 01/28/20 13:29 Albuterol/ Ipratropium (Duoneb (Ipr 0.5mg/Alb 2.5mg)) 3 ml RTID NEB 01/30/20 14:00 02/04/20 07:20 Amlodipine Besylate (Norvasc) 2.5 mg DAILY PO 01/28/20 09:00 01/28/20 19:12 DC Amlodipine Besylate (Norvasc) 10 mg DAILY PO 01/31/20 09:00 02/08/20 08:41 Aspirin (Aspirin Chewable) 81 mg DAILY PO 01/31/20 09:00 02/09/20 09:24 Aspirin (Ecotrin) 81 mg DAILY PO 01/28/20 09:00 01/29/20 21:13 DC 01/28/20 09:25 Atorvastatin Calcium (Lipitor) 40 mg QHS PO 01/27/20 21:00 01/29/20 21:13 DC 01/27/20 20:17 Atorvastatin Calcium (Lipitor) 40 mg QHS PO 01/30/20 21:00 02/08/20 21:51 Bisacodyl (Dulcolax Suppository) 10 mg DAILYPRN PRN [place] CONSTIPATION 02/05/20 15:00 Bisacodyl (Dulcolax Suppository) 10 mg DAILYPRN PRN [place] CONSTIPATION 01/27/20 12:30 01/29/20 21:13 DC Bisacodyl (Dulcolax Tab) 5 mg DAILY PO 02/04/20 09:00 02/09/20 09:24 Carvedilol (COReg) 12.5 mg BID PO 01/27/20 21:00 01/29/20 21:13 DC 01/28/20 09:27 Carvedilol (COReg) 12.5 mg BID PO 01/30/20 21:00 02/08/20 21:50 Dabigatran (Pradaxa) 150 mg BID PO 01/27/20 21:00 01/29/20 21:13 DC 01/28/20 09:25 Dabigatran (Pradaxa) 150 mg BID PO 01/28/20 21:00 UNV Dabigatran (Pradaxa) 150 mg BID PO 01/30/20 21:00 02/09/20 09:25 Dextrose (Dextrose 50%) 25 ml ASDIRECTED PRN IV SEE LABEL COMMENTS 01/27/20 12:30 01/29/20 21:13 DC Docusate Sodium (Colace) 100 mg BID PO 01/27/20 21:00 01/29/20 21:13 DC 01/28/20 09:26 Docusate Sodium (Colace) 100 mg BIDP PRN PO CONSTIPATION 02/02/20 16:15 02/06/20 15:16 DC 02/04/20 09:30 Docusate Sodium (Colace) 100 mg BIDP PRN PO CONSTIPATION 02/06/20 15:30 Docusate Sodium (Colace) 100 mg TID PO 02/06/20 16:00 Cancel Glucagon (Glucagon) 1 mg ASDIRECTED PRN SC SEE LABEL COMMENTS 01/27/20 12:30 01/29/20 21:13 DC Glucose (Glucose) 16 GM ASDIRECTED PRN PO SEE LABEL COMMENTS 01/27/20 12:30 01/29/20 21:13 DC Guaifenesin (Robitussin Tab) 400 mg TID PO 01/30/20 16:00 02/09/20 09:25 Heparin Sodium (Porcine) (Heparin) 5,000 units Q12H SC 01/27/20 12:30 01/27/20 15:41 DC Hydralazine HCl (Apresoline) 25 mg Q6H PO 01/30/20 12:00 02/08/20 17:25 Hydrochlorothiazide (Hydrodiuril) 6.25 mg DAILY PO 01/28/20 09:00 01/28/20 17:33 DC Insulin Detemir (Levemir Insulin) 5 units DAILY [place] 02/01/20 09:00 02/06/20 10:23 DC 02/06/20 08:16 Insulin Detemir (Levemir Insulin) 10 units QHS [place] 01/27/20 21:00 01/29/20 21:13 DC 01/27/20 20:18 [facility]ulin [facility] ([facility]) [facility] 02/06/20 21:00 02/08/20 21:48 Insulin Detemir (Levemir Insulin) 15 units QHS [place] 01/30/20 21:00 01/31/20 10:21 DC 01/30/20 21:25 Insulin Detemir (Le[facility]mir Insulin) [facility] 01/31/20 21:00 02/01/20 10:03 DC 01/31/20 21:29 Insulin Detemir (Levemir Insulin) 24 units [facility] 02/01/20 21:00 02/06/20 10:22 DC 02/05/20 21:34 Insulin Human Lispro (HumaLOG INSULIN) SEE PROTOCOL TABLE AC [place] 01/27/20 17:30 01/29/20 21:13 DC 01/28/20 11:53 Insulin Human Lispro (HumaLOG INSULIN) SEE PROTOCOL TABLE [facility] 01/27/20 21:00 01/29/20 21:13 DC Insulin Human Lispro (HumaLOG INSULIN) See Protocol Table AC [place] 01/30/20 17:30 02/09/20 09:27 Insulin Human Lispro (HumaLOG INSULIN) See Protocol Table [facility] 01/30/20 21:00 02/08/20 21:49 Lactobacillus Acidophilus (Bacid) 1 ea WMHS PO 02/08/20 12:30 02/09/20 09:24 Levofloxacin (Levaquin) 750 mg DAILY@06 PO 02/07/20 06:00 02/13/20 21:00 02/09/20 05:34 Lidocaine (Lidoderm Patch) 1 patch DAILY TD 01/31/20 09:00 02/09/20 09:26 Lidocaine (Lidoderm Patch) 1 patch DAILY TD 01/31/20 09:00 02/09/20 09:26 Magnesium Hydroxide (Milk Of Magnesia) 30 ml DAILYPRN PRN PO CONSTIPATION 02/02/20 16:15 02/02/20 17:22 Meclizine HCl (Antivert) 12.5 mg TID PO 02/06/20 16:00 02/08/20 13:13 DC 02/08/20 08:41 Meclizine HCl (Antivert) 12.5 mg TID PO 01/30/20 16:00 01/31/20 13:52 DC 01/31/20 09:07 Meclizine HCl (Antivert) 12.5 mg TID PRN PO dizziness 02/08/20 13:15 Meclizine HCl (Antivert) 25 mg TID PO 01/31/20 16:00 02/06/20 10:22 DC 02/06/20 08:13 Metformin HCl (Glucophage) 500 mg BID@18 PO 01/27/20 18:00 01/28/20 19:12 DC 01/28/20 09:26 Metoclopramide HCl (Reglan) 5 mg ACHS PO 01/30/20 12:00 02/02/20 09:14 DC 02/01/20 21:05 Metoprolol Tartrate (Lopressor) 2.5 mg STAT STAT IV 01/28/20 19:11 01/28/20 19:28 DC Non-Formulary Medication ( See Comment Field Below ) REMOVE LIDODERM PATCH DAILY@ XX 01/31/20 21:00 02/08/20 21:49 Non-Formulary Medication ( See Comment Field Below ) REMOVE LIDODERM PATCH DAILY@ XX 01/31/20 21:00 02/08/20 21:49 Ondansetron HCl (ZOFRAN INJection) 4 mg Q4HP PRN IV NAUSEA OR VOMITING 01/28/20 19:15 01/29/20 21:13 DC Ondansetron HCl (Zofran) 4 mg Q6HP PRN PO NAUSEA OR VOMITING 01/28/20 17:15 01/28/20 19:12 DC 01/28/20 17:39 Oxybutynin Chloride (Ditropan) 5 mg BID PO 01/27/20 21:00 01/29/20 21:13 DC 01/28/20 09:26 Oxybutynin Chloride (Ditropan) 5 mg BID PO 01/30/20 21:00 02/09/20 09:25 Pantoprazole Sodium (Protonix) 40 mg DAILY PO 01/28/20 09:00 01/29/20 21:13 DC Polyethylene Glycol (Miralax) 1 pkt DAILY PO 02/04/20 09:00 02/09/20 09:26 Potassium Chloride (Micro-K Extencaps) 20 meq DAILY PO 02/02/20 09:00 02/07/20 10:10 DC 02/07/20 08:40 Ramipril (Altace) 10 mg Q12H PO 01/30/20 21:00 02/08/20 21:50 Ramipril (Altace) 10 mg QHS PO 01/27/20 21:00 01/29/20 21:13 DC 01/27/20 20:16 Senna (Senokot) 1 tab BIDP PRN PO CONSTIPATION 02/02/20 16:15 02/04/20 09:32 Senna (Senokot) 1 tab QHS PO 01/27/20 21:00 01/29/20 21:13 DC 01/27/20 20:16 Sodium Chloride 1,000 ml @ 40 mls/hr Q24H IV 01/28/20 19:15 01/29/20 21:13 DC 01/28/20 20:08 Trazodone HCl (Desyrel) 25 mg QHS PO 02/06/20 21:00 02/07/20 17:37 DC 02/06/20 22:08 Venlafaxine HCl (Effexor) 75 mg BID PO 01/27/20 21:00 01/29/20 21:13 DC 01/28/20 09:26 Venlafaxine HCl (Effexor) 75 mg BID PO 01/30/20 21:00 02/09/20 09:25 Zolpidem Tartrate (Ambien) 5 mg QHSP PRN PO insomnia 01/27/20 12:30 01/29/20 21:13 DC 01/27/20 20:16 Zolpidem Tartrate (Ambien) 5 mg QHSP PRN PO insomnia 01/30/20 13:30 02/06/20 15:15 DC 02/05/20 21:36 RUSLAN SOTELO MD Feb 09, 2020 10:49
[2020-02-09 14:00] VITALS: BP 117/56
[2020-02-09 20:46] VITALS: BP 132/67
[2020-02-09] MEDS: LEVEMIR (INSULIN DETEMIR) 1 UNITS/0.01ML SC SCH (21:32)
[2020-02-09] MEDS: ATORVASTATIN 20 MG TAB PO SCH (21:34)
[2020-02-10 05:37] VITALS: BP 139/77
[2020-02-10] MEDS: LevoFLOXacin 750 MG TABLET PO SCH (05:58)
[2020-02-10] MEDS: **hydrALAZINE HCL** 25 MG TAB PO SCH ×6 (06:00→23:42)
[2020-02-10] MEDS: IPRATROPIUM 0.5MG/ALBUTEROL 2.5MG INH SOL UD 3ML (DUONEB) NEB SCH ×3 (07:19→19:17)
[2020-02-10] MEDS: HumaLOG INSULIN (NovoLOG) PER UNIT SC SCH ×4 (08:10→21:00)
[2020-02-10] MEDS: ASPIRIN 81 MG CHEW TABLET PO SCH (08:11)
[2020-02-10] MEDS: ramipriL 5 MG CAP PO SCH ×2 (08:11→21:04)
[2020-02-10] MEDS: DABIGATRAN ETEXILATE 75 MG CAP (PRADAXA) PO SCH ×2 (08:11→21:03)
[2020-02-10] MEDS: guaiFENesin 200 MG TAB PO SCH ×3 (08:11→21:04)
[2020-02-10] MEDS: BISACODYL 5 MG TAB PO SCH (08:11)
[2020-02-10] MEDS: VENLAFAXINE 37.5 MG TAB PO SCH ×2 (08:12→21:04)
[2020-02-10] MEDS: oxyBUTYnin 5 MG TAB PO SCH ×2 (08:12→21:04)
[2020-02-10] MEDS: amLODIPine 10 MG TAB PO SCH (08:12)
[2020-02-10] MEDS: MIRALAX *UNIT DOSE* 17GM PACKET PO SCH (08:12)
[2020-02-10] MEDS: CARVedilol 12.5 MG TAB PO SCH ×2 (08:12→21:04)
[2020-02-10] MEDS: LACTOBACILLUS ACIDOPHILUS CAP (BACID) PO SCH ×4 (08:12→21:04)
[2020-02-10] MEDS: REMEDY PHYTOPLEX Z-GUARD PASTE 113GM TUBE (FROM STOREROOM PRODUCT) TOP SCH ×3 (08:13→21:05)
[2020-02-10] MEDS: LIDOCAINE 5% (LIDODERM) PATCH TD SCH ×2 (08:21→08:22)
[2020-02-10 08:28] LABS: BASO # 0.1 10^3/uL (0.0-0.2); BASO % 0.8 % (0.0-1.0); EOS # 0.2 10^3/uL (0.0-0.5); EOS % 1.6 % (0.0-3.0); HEMOGLOBIN 10.8 g/dl (13.5-17.5); LYMPH # 1.8 10^3/uL (1.5-5.0); LYMPH % 18.3 % (24.0-44.0); MEAN CORPUSCULAR HEMOGLOBIN 31.1 pg (27.0-33.0); MEAN CORPUSCULAR HGB CONC 32.7 g/dl (32.0-36.5); MEAN CORPUSCULAR VOLUME 95.1 fl (80.0-96.0); MONO # 0.8 10^3/uL (0.0-0.8); MONO % 7.6 % (0.0-5.0); NEUTROPHILS % 70.6 % (36.0-66.0); PLATELET COUNT, AUTOMATED 315 10^3/uL (150-450); RED BLOOD COUNT 3.47 10^6/uL (4.30-6.10); WHITE BLOOD COUNT 9.9 10^3/uL (4.0-10.0)
[2020-02-10 08:44] LABS: BLOOD UREA NITROGEN 13 MG/DL (7-18); CALCIUM LEVEL 8.3 MG/DL (8.8-10.2); CARBON DIOXIDE LEVEL 30 MEQ/L (21-32); CHLORIDE LEVEL 105 MEQ/L (98-107); CREATININE FOR GFR 0.79 MG/DL (0.70-1.30); GLOMERULAR FILTRATION RATE > 60.0 (>49); GLUCOSE, FASTING 231 MG/DL (70-100); SODIUM LEVEL 140 MEQ/L (136-145)
[2020-02-10 14:00] VITALS: BP 130/63
[2020-02-10 20:00] VITALS: BP 121/72
[2020-02-10] MEDS: LEVEMIR (INSULIN DETEMIR) 1 UNITS/0.01ML SC SCH (21:03)
[2020-02-10] MEDS: ATORVASTATIN 20 MG TAB PO SCH (21:05)
[2020-02-10 23:42] VITALS: BP 138/82
[2020-02-11] MEDS ORDERED: ONDANSETRON 4MG/2ML VIAL IV PRN (02:15)
[2020-02-11] MEDS ORDERED: ONDANSETRON 4MG/2ML VIAL IV SCH (02:15)
[2020-02-11 06:00] VITALS: BP 132/66
[2020-02-11] MEDS: **hydrALAZINE HCL** 25 MG TAB PO SCH ×3 (06:00→18:00)
[2020-02-11] MEDS: LevoFLOXacin 750 MG TABLET PO SCH (06:07)
[2020-02-11] MEDS: IPRATROPIUM 0.5MG/ALBUTEROL 2.5MG INH SOL UD 3ML (DUONEB) NEB SCH ×2 (08:00→14:00)
[2020-02-11] MEDS: HumaLOG INSULIN (NovoLOG) PER UNIT SC SCH ×4 (08:41→21:00)
[2020-02-11] MEDS: oxyBUTYnin 5 MG TAB PO SCH ×2 (08:42→21:00)
[2020-02-11] MEDS: LIDOCAINE 5% (LIDODERM) PATCH TD SCH ×2 (08:42)
[2020-02-11] MEDS: LACTOBACILLUS ACIDOPHILUS CAP (BACID) PO SCH ×4 (08:43→21:01)
[2020-02-11] MEDS: MIRALAX *UNIT DOSE* 17GM PACKET PO SCH (08:43)
[2020-02-11] MEDS: BISACODYL 5 MG TAB PO SCH (08:43)
[2020-02-11] MEDS: ramipriL 5 MG CAP PO SCH ×2 (08:43→21:01)
[2020-02-11] MEDS: amLODIPine 10 MG TAB PO SCH (08:43)
[2020-02-11] MEDS: ASPIRIN 81 MG CHEW TABLET PO SCH (08:43)
[2020-02-11] MEDS: CARVedilol 12.5 MG TAB PO SCH ×2 (08:43→21:01)
[2020-02-11] MEDS: guaiFENesin 200 MG TAB PO SCH ×3 (08:44→21:02)
[2020-02-11] MEDS: DABIGATRAN ETEXILATE 75 MG CAP (PRADAXA) PO SCH ×2 (08:44→21:00)
[2020-02-11] MEDS: VENLAFAXINE 37.5 MG TAB PO SCH ×2 (08:44→21:01)
[2020-02-11] MEDS: REMEDY PHYTOPLEX Z-GUARD PASTE 113GM TUBE (FROM STOREROOM PRODUCT) TOP SCH ×3 (08:44→21:03)
[2020-02-11 14:00] VITALS: BP 109/61
[2020-02-11 20:00] VITALS: BP 126/62
[2020-02-11] MEDS: SENNA 8.6 MG TAB (SENOKOT) PO PRN (21:01)
[2020-02-11] MEDS: DOCUSATE SODIUM 100 MG CAP PO PRN (21:02)
[2020-02-11] MEDS: LEVEMIR (INSULIN DETEMIR) 1 UNITS/0.01ML SC SCH (21:02)
[2020-02-11] MEDS: ATORVASTATIN 20 MG TAB PO SCH (21:02)
[2020-02-12] VITALS: BP 125/65
[2020-02-12] MEDS: **hydrALAZINE HCL** 25 MG TAB PO SCH ×5 (05:16→23:45)
[2020-02-12] MEDS: LevoFLOXacin 750 MG TABLET PO SCH (05:28)
[2020-02-12 06:00] VITALS: BP 135/76
[2020-02-12] MEDS: IPRATROPIUM 0.5MG/ALBUTEROL 2.5MG INH SOL UD 3ML (DUONEB) NEB SCH ×3 (07:50→19:23)
[2020-02-12] MEDS: BISACODYL 5 MG TAB PO SCH (09:08)
[2020-02-12] MEDS: oxyBUTYnin 5 MG TAB PO SCH ×2 (09:08→20:50)
[2020-02-12] MEDS: HumaLOG INSULIN (NovoLOG) PER UNIT SC SCH ×4 (09:08→20:49)
[2020-02-12] MEDS: DABIGATRAN ETEXILATE 75 MG CAP (PRADAXA) PO SCH ×2 (09:08→20:49)
[2020-02-12] MEDS: LACTOBACILLUS ACIDOPHILUS CAP (BACID) PO SCH ×4 (09:08→20:49)
[2020-02-12] MEDS: SENNA 8.6 MG TAB (SENOKOT) PO PRN (09:08)
[2020-02-12] MEDS: ASPIRIN 81 MG CHEW TABLET PO SCH (09:08)
[2020-02-12] MEDS: guaiFENesin 200 MG TAB PO SCH ×3 (09:09→20:50)
[2020-02-12] MEDS: amLODIPine 10 MG TAB PO SCH (09:09)
[2020-02-12] MEDS: VENLAFAXINE 37.5 MG TAB PO SCH ×2 (09:09→20:49)
[2020-02-12] MEDS: ramipriL 5 MG CAP PO SCH ×2 (09:09→20:50)
[2020-02-12] MEDS: CARVedilol 12.5 MG TAB PO SCH ×2 (09:09→20:50)
[2020-02-12] MEDS: MIRALAX *UNIT DOSE* 17GM PACKET PO SCH (09:09)
[2020-02-12] MEDS: REMEDY PHYTOPLEX Z-GUARD PASTE 113GM TUBE (FROM STOREROOM PRODUCT) TOP SCH ×3 (09:10→20:50)
[2020-02-12] MEDS: LIDOCAINE 5% (LIDODERM) PATCH TD SCH ×2 (09:10)
[2020-02-12 14:00] VITALS: BP 124/63
--- NOTE | 2020-02-12 18:21 | IPNPDOC ---
Date Seen The patient was seen on 02/12/20. Progress Note SUBJECTIVE: Follow up. No acute complaints. At this time patient is not safe for home discharge. He denies chest pain, n/v/d, shortness of breath, cough. OBJECTIVE: VITAL SIGNS: Please see below PHYSICAL EXAMINATION: VITAL SIGNS: Please see below. GEN: well-nourished / well developed/ NAD HEENT: mucus membranes moist and pink CVS: RRR/NMRG. AICD in place LUNGS: CTAB, no wheezing, rhonchi or rales. MSK/EXTREMITIES: range of motion intact in all 4 extremities NEURO: CN 2-12 are grossly intact, 5/5 strength LUE, 4/5 RUE, 4/5 RLE, 5/5 LLE, no new focal deficits. PSYCH: alert and oriented / able to understand and follow all commands LABORATORY DATA: See below. MICROBIOLOGY: Please see below. ASSESSMENT: Mr. Ngo is a 59-year-old with a history of CAD, HTN, A. fib, chronic diastolic CHF, vascular dementia who is currently being treated for right sided weakness 2/2 to new CVA. PLAN: 1. Right upper and lower extremity weakness 2/2 to CVA. Plan per PMNR. C/w aspirin, atorvastatin, Pradaxa 150mg BID, PT/OT. Currently still not safe to go home. 2. HTN. Stable. C/w current meds. 3. IDDM. C/w levemir, ISS, AC/HS blood sugar checks, consistent carb diet. 4. Depression. Stable. C/w venlafaxine. 5. A Fib. Rate controlled. C/w BB, pradaxa 6. DVT px. On ASA, pradaxa only. VS, I&O, 24H, Fishbone Vital Signs/I&O Vital Signs Date Time Temp Pulse Resp B/P (MAP) Pulse Ox O2 Delivery O2 Flow Rate FiO2 02/12/20 17:59 101/64 02/12/20 14:00 97.5 70 17 98 Room Air I&O- Last 24 Hours up to 6 AM 02/12/20 06:00 Intake Total 780 ml Output Total 500 ml Balance 280 ml Laboratory Data 24H LABS Laboratory Tests 2 02/11/20 19:33: Bedside Glucose (Misc Panel) 226H 02/12/20 05:32: Bedside Glucose (Misc Panel) 202H 02/12/20 11:29: Bedside Glucose (Misc Panel) 249H 02/12/20 16:32: Bedside Glucose (Misc Panel) 169H Current Medications Current Medications Medications (Trade) Dose Ordered Sig/Kenneth Route PRN Reason Start Time Stop Time Status Last Admin Dose Admin Acetaminophen (Tylenol Tab) 650 mg Q4HP PRN PO fever/MILD PAIN (PS 1-4) 01/27/20 12:30 01/29/20 21:13 DC Albuterol/ Ipratropium (Duoneb (Ipr 0.5mg/Alb 2.5mg)) 3 ml RTID NEB 01/27/20 20:00 01/29/20 21:13 DC 01/28/20 13:29 Albuterol/ Ipratropium (Duoneb (Ipr 0.5mg/Alb 2.5mg)) 3 ml RTID NEB 01/30/20 14:00 02/12/20 07:50 Amlodipine Besylate (Norvasc) 2.5 mg DAILY PO 01/28/20 09:00 01/28/20 19:12 DC Amlodipine Besylate (Norvasc) 10 mg DAILY PO 01/31/20 09:00 02/12/20 09:09 Aspirin (Aspirin Chewable) 81 mg DAILY PO 01/31/20 09:00 02/12/20 09:08 Aspirin (Ecotrin) 81 mg DAILY PO 01/28/20 09:00 01/29/20 21:13 DC 01/28/20 09:25 Atorvastatin Calcium (Lipitor) 40 mg QHS PO 01/27/20 21:00 01/29/20 21:13 DC 01/27/20 20:17 Atorvastatin Calcium (Lipitor) 40 mg QHS PO 01/30/20 21:00 02/11/20 21:02 Bisacodyl (Dulcolax Suppository) 10 mg DAILYPRN PRN [place] CONSTIPATION 02/05/20 15:00 Bisacodyl (Dulcolax Suppository) 10 mg DAILYPRN PRN [place] CONSTIPATION 01/27/20 12:30 01/29/20 21:13 DC Bisacodyl (Dulcolax Tab) 5 mg DAILY PO 02/04/20 09:00 02/12/20 09:08 Carvedilol (COReg) 12.5 mg BID PO 01/27/20 21:00 01/29/20 21:13 DC 01/28/20 09:27 Carvedilol (COReg) 12.5 mg BID PO 01/30/20 21:00 02/12/20 09:09 Dabigatran (Pradaxa) 150 mg BID PO 01/27/20 21:00 01/29/20 21:13 DC 01/28/20 09:25 Dabigatran (Pradaxa) 150 mg BID PO 01/28/20 21:00 UNV Dabigatran (Pradaxa) 150 mg BID PO 01/30/20 21:00 02/12/20 09:08 Dextrose (Dextrose 50%) 25 ml ASDIRECTED PRN IV SEE LABEL COMMENTS 01/27/20 12:30 01/29/20 21:13 DC Docusate Sodium (Colace) 100 mg BID PO 01/27/20 21:00 01/29/20 21:13 DC 01/28/20 09:26 Docusate Sodium (Colace) 100 mg BIDP PRN PO CONSTIPATION 02/02/20 16:15 02/06/20 15:16 DC 02/04/20 09:30 Docusate Sodium (Colace) 100 mg BIDP PRN PO CONSTIPATION 02/06/20 15:30 02/11/20 21:02 Docusate Sodium (Colace) 100 mg TID PO 02/06/20 16:00 Cancel Glucagon (Glucagon) 1 mg ASDIRECTED PRN SC SEE LABEL COMMENTS 01/27/20 12:30 01/29/20 21:13 DC Glucose (Glucose) 16 GM ASDIRECTED PRN PO SEE LABEL COMMENTS 01/27/20 12:30 01/29/20 21:13 DC Guaifenesin (Robitussin Tab) 400 mg TID PO 01/30/20 16:00 02/12/20 17:58 Heparin Sodium (Porcine) (Heparin) 5,000 units Q12H SC 01/27/20 12:30 01/27/20 15:41 DC Hydralazine HCl (Apresoline) 25 mg Q6H PO 01/30/20 12:00 02/08/20 17:25 Hydrochlorothiazide (Hydrodiuril) 6.25 mg DAILY PO 01/28/20 09:00 01/28/20 17:33 DC Insulin Detemir (Levemir Insulin) 5 units DAILY [place] 02/01/20 09:00 02/06/20 10:23 DC 02/06/20 08:16 Insulin Detemir (Levemir Insulin) 10 units QHS [place] 01/27/20 21:00 01/29/20 21:13 DC 01/27/20 20:18 [facility] 02/06/20 21:00 02/11/20 21:02 Insulin Detemir (Levemir Insulin) 15 units QHS [place] 01/30/20 21:00 01/31/20 10:21 DC 01/30/20 21:25 [facility]ulin [facility]emir ([facility]mir [facility]ulin) [facility] 01/31/20 21:00 02/01/20 10:03 DC 01/31/20 21:29 Insulin Detemir (Levemir Insulin) [facility] 02/01/20 21:00 02/06/20 10:22 DC 02/05/20 21:34 Insulin Human Lispro (HumaLOG INSULIN) SEE PROTOCOL TABLE AC [place] 01/27/20 17:30 01/29/20 21:13 DC 01/28/20 11:53 Insulin Human Lispro (HumaLOG INSULIN) [facility]OCOL [facility] 01/27/20 21:00 01/29/20 21:13 DC Insulin Human Lispro (HumaLOG INSULIN) See Protocol Table AC [place] 01/30/20 17:30 02/12/20 17:59 Insulin Human Lispro (HumaLOG INSULIN) See Protocol Table [facility] 01/30/20 21:00 02/08/20 21:49 Lactobacillus Acidophilus (Bacid) 1 ea WMHS PO 02/08/20 12:30 02/12/20 17:58 Levofloxacin (Levaquin) 750 mg DAILY@06 PO 02/07/20 06:00 02/13/20 21:00 02/12/20 05:28 Lidocaine (Lidoderm Patch) 1 patch DAILY TD 01/31/20 09:00 02/12/20 09:10 Lidocaine (Lidoderm Patch) 1 patch DAILY TD 01/31/20 09:00 02/12/20 09:10 Magnesium Hydroxide (Milk Of Magnesia) 30 ml DAILYPRN PRN PO CONSTIPATION 02/02/20 16:15 02/02/20 17:22 Meclizine HCl (Antivert) 12.5 mg TID PO 02/06/20 16:00 02/08/20 13:13 DC 02/08/20 08:41 Meclizine HCl (Antivert) 12.5 mg TID PO 01/30/20 16:00 01/31/20 13:52 DC 01/31/20 09:07 Meclizine HCl (Antivert) 12.5 mg TID PRN PO dizziness 02/08/20 13:15 Meclizine HCl (Antivert) 25 mg TID PO 01/31/20 16:00 02/06/20 10:22 DC 02/06/20 08:13 Metformin HCl (Glucophage) 500 mg BID@08,18 PO 01/27/20 18:00 01/28/20 19:12 DC 01/28/20 09:26 Metoclopramide HCl (Reglan) 5 mg ACHS PO 01/30/20 12:00 02/02/20 09:14 DC 02/01/20 21:05 Metoprolol Tartrate (Lopressor) 2.5 mg STAT STAT IV 01/28/20 19:11 01/28/20 19:28 DC Miscellaneous (Unresolved Clarification Entry) SEE LABEL COMMENTS DAILY XX 02/11/20 09:00 02/12/20 11:02 DC 02/11/20 09:00 Non-Formulary Medication ( See Comment Field Below ) REMOVE LIDODERM PATCH DAILY@ XX 01/31/20 21:00 02/11/20 21:07 Non-Formulary Medication ( See Comment Field Below ) REMOVE LIDODERM PATCH DAILY@ XX 01/31/20 21:00 02/11/20 21:07 Ondansetron HCl (ZOFRAN INJection) 4 mg Q4H IV 02/11/20 02:15 02/11/20 02:19 DC Ondansetron HCl (ZOFRAN INJection) 4 mg Q4HP PRN IV NAUSEA OR VOMITING 02/11/20 02:15 02/11/20 03:14 Ondansetron HCl (ZOFRAN INJection) 4 mg Q4HP PRN IV NAUSEA OR VOMITING 01/28/20 19:15 01/29/20 21:13 DC Ondansetron HCl (Zofran) 4 mg Q6HP PRN PO NAUSEA OR VOMITING 01/28/20 17:15 01/28/20 19:12 DC 01/28/20 17:39 Oxybutynin Chloride (Ditropan) 5 mg BID PO 01/27/20 21:00 01/29/20 21:13 DC 01/28/20 09:26 Oxybutynin Chloride (Ditropan) 5 mg BID PO 01/30/20 21:00 02/12/20 09:08 Pantoprazole Sodium (Protonix) 40 mg DAILY PO 01/28/20 09:00 01/29/20 21:13 DC Polyethylene Glycol (Miralax) 1 pkt DAILY PO 02/04/20 09:00 02/12/20 09:09 Potassium Chloride (Micro-K Extencaps) 20 meq DAILY PO 02/02/20 09:00 02/07/20 10:10 DC 02/07/20 08:40 Ramipril (Altace) 10 mg Q12H PO 01/30/20 21:00 02/12/20 09:09 Ramipril (Altace) 10 mg QHS PO 01/27/20 21:00 01/29/20 21:13 DC 01/27/20 20:16 Senna (Senokot) 1 tab BIDP PRN PO CONSTIPATION 02/02/20 16:15 02/12/20 09:08 Senna (Senokot) 1 tab QHS PO 01/27/20 21:00 01/29/20 21:13 DC 01/27/20 20:16 Sodium Chloride 1,000 ml @ 40 mls/hr Q24H IV 01/28/20 19:15 01/29/20 21:13 DC 01/28/20 20:08 Trazodone HCl (Desyrel) 25 mg QHS PO 02/06/20 21:00 02/07/20 17:37 DC 02/06/20 22:08 Venlafaxine HCl (Effexor) 75 mg BID PO 01/27/20 21:00 01/29/20 21:13 DC 01/28/20 09:26 Venlafaxine HCl (Effexor) 75 mg BID PO 6/8/20 21:00 02/12/20 09:09 Zolpidem Tartrate (Ambien) 5 mg QHSP PRN PO insomnia 01/27/20 12:30 01/29/20 21:13 DC 01/27/20 20:16 Zolpidem Tartrate (Ambien) 5 mg QHSP PRN PO insomnia 01/30/20 13:30 02/06/20 15:15 DC 02/05/20 21:36 Allergies Coded Allergies: Penicillins (Verified Allergy, Unknown, UNKNOWN CHILDHOOD REACTION, 12/10/19) lorazepam (Verified Adverse Reaction, Unknown, AGGRESSIVE, 12/10/19) Margie Ho MD Feb 12, 2020 18:21
[2020-02-12 20:00] VITALS: BP 108/61
[2020-02-12] MEDS: ATORVASTATIN 20 MG TAB PO SCH (20:49)
[2020-02-12] MEDS: LEVEMIR (INSULIN DETEMIR) 1 UNITS/0.01ML SC SCH (20:49)
[2020-02-12 23:40] VITALS: BP 121/62
[2020-02-13 04:54] VITALS: BP 123/68
[2020-02-13] MEDS: **hydrALAZINE HCL** 25 MG TAB PO SCH ×5 (05:11→23:59)
[2020-02-13] MEDS: LevoFLOXacin 750 MG TABLET PO SCH (05:38)
[2020-02-13] MEDS: guaiFENesin 200 MG TAB PO SCH ×3 (07:32→20:09)
[2020-02-13] MEDS: HumaLOG INSULIN (NovoLOG) PER UNIT SC SCH ×4 (07:32→20:22)
[2020-02-13] MEDS: MIRALAX *UNIT DOSE* 17GM PACKET PO SCH (07:32)
[2020-02-13] MEDS: LACTOBACILLUS ACIDOPHILUS CAP (BACID) PO SCH ×4 (07:34→20:10)
[2020-02-13] MEDS: DABIGATRAN ETEXILATE 75 MG CAP (PRADAXA) PO SCH ×2 (07:41→20:10)
[2020-02-13] MEDS: ramipriL 5 MG CAP PO SCH ×2 (07:41→20:10)
[2020-02-13] MEDS: CARVedilol 12.5 MG TAB PO SCH ×2 (07:42→20:10)
[2020-02-13] MEDS: oxyBUTYnin 5 MG TAB PO SCH ×2 (07:42→20:10)
[2020-02-13] MEDS: amLODIPine 10 MG TAB PO SCH (07:42)
[2020-02-13] MEDS: VENLAFAXINE 37.5 MG TAB PO SCH ×2 (07:42→20:10)
[2020-02-13] MEDS: ASPIRIN 81 MG CHEW TABLET PO SCH (07:43)
[2020-02-13] MEDS: BISACODYL 5 MG TAB PO SCH (07:43)
[2020-02-13] MEDS: IPRATROPIUM 0.5MG/ALBUTEROL 2.5MG INH SOL UD 3ML (DUONEB) NEB SCH ×3 (07:45→20:00)
[2020-02-13] MEDS: REMEDY PHYTOPLEX Z-GUARD PASTE 113GM TUBE (FROM STOREROOM PRODUCT) TOP SCH ×3 (07:50→20:11)
[2020-02-13] MEDS: LIDOCAINE 5% (LIDODERM) PATCH TD SCH ×2 (07:55→07:56)
[2020-02-13 11:14] LABS: BASO # 0.1 10^3/uL (0.0-0.2); BASO % 0.6 % (0.0-1.0); EOS # 0.2 10^3/uL (0.0-0.5); EOS % 1.2 % (0.0-3.0); HEMATOCRIT 34.2 % (42.0-52.0); HEMOGLOBIN 11.1 g/dl (13.5-17.5); LYMPH # 1.9 10^3/uL (1.5-5.0); MEAN CORPUSCULAR HEMOGLOBIN 30.8 pg (27.0-33.0); MEAN CORPUSCULAR HGB CONC 32.5 g/dl (32.0-36.5); MONO # 1.2 10^3/uL (0.0-0.8); MONO % 8.1 % (0.0-5.0); NEUTROPHILS % 76.1 % (36.0-66.0); PLATELET COUNT, AUTOMATED 350 10^3/uL (150-450); WHITE BLOOD COUNT 14.4 10^3/uL (4.0-10.0)
[2020-02-13 11:37] LABS: BLOOD UREA NITROGEN 17 MG/DL (7-18); CALCIUM LEVEL 8.8 MG/DL (8.8-10.2); CARBON DIOXIDE LEVEL 29 MEQ/L (21-32); CHLORIDE LEVEL 105 MEQ/L (98-107); CREATININE FOR GFR 0.85 MG/DL (0.70-1.30); GLOMERULAR FILTRATION RATE > 60.0 (>49); GLUCOSE, FASTING 192 MG/DL (70-100); POTASSIUM SERUM 4.4 MEQ/L (3.5-5.1); SODIUM LEVEL 140 MEQ/L (136-145)
--- NOTE | 2020-02-13 13:45 | IPNPDOC ---
PM&R Progress Note DATE OF SERVICE: Feb 13, 2020 [employer] Therapist Progress Note Subjective: Patient seen in his room stating his right arm feels numb sometimes, but he get sensation back when he moves it around. REVIEW OF SYSTEMS: The following is a completed review of systems and has been reviewed. Review of systems otherwise unremarkable. PAIN: Patient self reports no pain EYES: No recent vision changes EARS, NOSE, & THROAT: No throat pain, or dysphagia, or rhinorrhea CARDIOVASCULAR: Denies chest pain or palpitations PULMONARY: Denies shortness of breath GASTROINTESTINAL: denies constipation/diarrhea GENITOURINARY: denies dysuria MUSCULOSKELETAL: right sided weakness NEUROLOGICAL:right sided paresis and mild neglect, +dizziness (improving) HEMATOLOGICAL: denies easy bruising SKIN: denies rash PSYCHIATRIC: Unremarkable All other review of systems found to be negative. PHYSICAL EXAMINATION: VITAL SIGNS: Please see below. GENERAL: Pleasant and cooperative. No acute distress. HEENT: PERRL. Extraocular movements intact. Clear conjunctiva CARDIOVASCULAR: Regular rate and rhythm. No murmurs, rubs, or gallops, + AICD LUNGS: Clear to auscultation bilaterally. No wheezes. No rhonchi ABDOMEN: Soft, nontender, nondistended. Positive bowel sounds. Normal active bowel sounds NEUROLOGICAL: Alert and oriented times three. Cranial nerves II through XII grossly intact. Sensation diminished to light touch RUE with extinction to light touch (-) nystagmus EXTREMITIES: 5\5 strength LUE, 3/5 Right elbow flexors/extensors and wrist extensors, 4+/5 seat joiner, 4\5 strength right lower extremity. 5/5 strength in left lower extremity. SKIN: no rash ASSESSMENT:69-year-old M with past medical history of vascular dementia with multiple strokes who presents status new onset right sided weakness likely due to new CVA was transferred to acute level of care on 01-28-20 for Hypertensive emergency requiring IV BP meds, returned 01-30-20 for an interrupted stay- PLAN: 1. Rehab-PT/OT advance gait and ADLs, strengthen/stretch/maintain ROM all 4 limbs- avoid E-stim to RUE as patient reporting seizure-like activity following an old stroke and AICD in place - LEAD MEDICAL TECHNOLOGIST eval for cog and swallow- dysphagia resolved 2. Neuro: hx of multiple infarcts with new right sided weakness, MRI incompatible, with symptoms most consistent with new ischemic stroke in setting of severely stenotic left vertebral artery- c/u statin, ASA and Pradaxa for s econdary stroke prevention, optimize BPs -vascular dementia with depression- c/u Effexor -f/u neuro as outpatient -patient sent out for hypertensive urgency 01-28-20 with nausea and vomiting, suspect possible posterior circulation infarct given severe vertebral artery stenosis, with significant new impairments in his mobility level due to positional vertigo making a new posterior infarct very likely- dizziness overall better, c/u Meclizine to 12.5 mg TID prn for central vertigo-patient currently not requesting 3. Cardiac- chronic diastolic CHF (ECHO )- fluid restrict, daily weights, medicine consulted to assist in overall management -HTN c/u Coreg and Ramipril, amlodipine added, c/u hydralazine 25mg q6h and hold for sBP <140 -Afib s/p ablation on pradaxa 4. Resp: encourage incentive spirometry, recent CXR positive for Right LL PNA s/p 7 day course of Levaquin, patient denies cough or fever- +leukocytosis today, clinically patient does not appear infected, will recheck cbc tomorrow -c/u Duonebs 5. Endo: pmh DM with fluctuating po intake however patient reporting his appetite is improving, c/u levemir and c/u ISS for now -hypokalemia- resolved, holding daily supplement and c/u to monitor 6. : monitor PVRS, c/u ditropan -will order UA given leukocytosis, patient with diminished sensation due to stroke 7. GI ppx: protonix 40mg -reglan d/c'd 8. DVT ppx: on pradaxa, TEDs -dopplers negative for DVT 9. Pain: Tylenol prn 10. Psych- c/u effexor for depression, c/u to hold sleep aids, daytime lethargy resolved 11. Dispo: 02-20-20 to home, slowly progressing towards goals Allergies Coded Allergies: Penicillins (Verified Allergy, Unknown, UNKNOWN CHILDHOOD REACTION, 12/10/19) lorazepam (Verified Adverse Reaction, Unknown, AGGRESSIVE, 12/10/19) Vital Signs Vital Signs Date Time Temp Pulse Resp B/P (MAP) Pulse Ox O2 Delivery O2 Flow Rate FiO2 6/22/20 12:34 138/70 02/13/20 04:54 98.0 53 16 100 Room Air Laboratory Data CBC/BMP Laboratory Tests 02/13/20 10:36 Labs 24H Laboratory Tests 2 02/12/20 16:32: Bedside Glucose (Misc Panel) 169H 02/12/20 19:43: Bedside Glucose (Misc Panel) 265H 02/13/20 06:16: Bedside Glucose (Misc Panel) 157H 02/13/20 10:36: Immature Granulocyte % (Auto) 1.0, Neutrophils (%) (Auto) 76.1H, Lymphocytes (%) (Auto) 13.0L, Monocytes (%) (Auto) 8.1H, Eosinophils (%) (Auto) 1.2, Basophils (%) (Auto) 0.6, Neutrophils # (Auto) 11.0H, Lymphocytes # (Auto) 1.9, Monocytes # (Auto) 1.2H, Eosinophils # (Auto) 0.2, Basophils # (Auto) 0.1, Nucleated Red Blood Cells % (auto) 0.0, Anion Gap 6L, Glomerular Filtration Rate > 60.0, Calcium Level 8.8 02/13/20 11:36: Bedside Glucose (Misc Panel) 181H Current Medications Current Medications Current Medications Medications (Trade) Dose Ordered Sig/Kenneth Route PRN Reason Start Time Stop Time Status Last Admin Dose Admin Acetaminophen (Tylenol Tab) 650 mg Q4HP PRN PO fever/MILD PAIN (PS 1-4) 01/27/20 12:30 01/29/20 21:13 DC Albuterol/ Ipratropium (Duoneb (Ipr 0.5mg/Alb 2.5mg)) 3 ml RTID NEB 01/27/20 20:00 01/29/20 21:13 DC 01/28/20 13:29 Albuterol/ Ipratropium (Duoneb (Ipr 0.5mg/Alb 2.5mg)) 3 ml RTID NEB 01/30/20 14:00 02/12/20 07:50 Amlodipine Besylate (Norvasc) 2.5 mg DAILY PO 01/28/20 09:00 01/28/20 19:12 DC Amlodipine Besylate (Norvasc) 10 mg DAILY PO 01/31/20 09:00 02/13/20 07:42 Aspirin (Aspirin Chewable) 81 mg DAILY PO 01/31/20 09:00 02/13/20 07:43 Aspirin (Ecotrin) 81 mg DAILY PO 01/28/20 09:00 01/29/20 21:13 DC 01/28/20 09:25 Atorvastatin Calcium (Lipitor) 40 mg QHS PO 01/27/20 21:00 01/29/20 21:13 DC 01/27/20 20:17 Atorvastatin Calcium (Lipitor) 40 mg QHS PO 01/30/20 21:00 02/12/20 20:49 Bisacodyl (Dulcolax Suppository) 10 mg DAILYPRN PRN [place] CONSTIPATION 02/05/20 15:00 02/12/20 20:49 Bisacodyl (Dulcolax Suppository) 10 mg DAILYPRN PRN [place] CONSTIPATION 01/27/20 12:30 01/29/20 21:13 DC Bisacodyl (Dulcolax Tab) 5 mg DAILY PO 02/04/20 09:00 02/13/20 07:43 Carvedilol (COReg) 12.5 mg BID PO 01/27/20 21:00 01/29/20 21:13 DC 01/28/20 09:27 Carvedilol (COReg) 12.5 mg BID PO 01/30/20 21:00 02/13/20 07:42 Dabigatran (Pradaxa) 150 mg BID PO 01/27/20 21:00 01/29/20 21:13 DC 01/28/20 09:25 Dabigatran (Pradaxa) 150 mg BID PO 01/28/20 21:00 UNV Dabigatran (Pradaxa) 150 mg BID PO 01/30/20 21:00 02/13/20 07:41 Dextrose (Dextrose 50%) 25 ml ASDIRECTED PRN IV SEE LABEL COMMENTS 01/27/20 12:30 01/29/20 21:13 DC Docusate Sodium (Colace) 100 mg BID PO 01/27/20 21:00 01/29/20 21:13 DC 01/28/20 09:26 Docusate Sodium (Colace) 100 mg BIDP PRN PO CONSTIPATION 02/02/20 16:15 02/06/20 15:16 DC 02/04/20 09:30 Docusate Sodium (Colace) 100 mg BIDP PRN PO CONSTIPATION 02/06/20 15:30 02/11/20 21:02 Docusate Sodium (Colace) 100 mg TID PO 02/06/20 16:00 Cancel Glucagon (Glucagon) 1 mg ASDIRECTED PRN SC SEE LABEL COMMENTS 01/27/20 12:30 01/29/20 21:13 DC Glucose (Glucose) 16 GM ASDIRECTED PRN PO SEE LABEL COMMENTS 01/27/20 12:30 01/29/20 21:13 DC Guaifenesin (Robitussin Tab) 400 mg TID PO 01/30/20 16:00 02/13/20 07:32 Heparin Sodium (Porcine) (Heparin) 5,000 units Q12H SC 01/27/20 12:30 01/27/20 15:41 DC Hydralazine HCl (Apresoline) 25 mg Q6H PO 01/30/20 12:00 02/13/20 12:34 Hydrochlorothiazide (Hydrodiuril) 6.25 mg DAILY PO 01/28/20 09:00 01/28/20 17:33 DC Insulin Detemir (Levemir Insulin) 5 units DAILY SC 02/01/20 09:00 02/06/20 10:23 DC 02/06/20 08:16 Insulin Detemir (Levemir Insulin) 10 units QHS SC 01/27/20 21:00 01/29/20 21:13 DC 01/27/20 20:18 Insulin Detemir (Levemir Insulin) 15 units QHS SC 02/06/20 21:00 02/12/20 20:49 Insulin Detemir (Levemir Insulin) 15 units QHS SC 01/30/20 21:00 01/31/20 10:21 DC 01/30/20 21:25 Insulin Detemir (Levemir Insulin) 20 units QHS SC 01/31/20 21:00 02/01/20 10:03 DC 01/31/20 21:29 Insulin Detemir (Levemir Insulin) 24 units QHS SC 02/01/20 21:00 02/06/20 10:22 DC 02/05/20 21:34 Insulin Human Lispro (HumaLOG INSULIN) SEE PROTOCOL TABLE AC SC 01/27/20 17:30 01/29/20 21:13 DC 01/28/20 11:53 Insulin Human Lispro (HumaLOG INSULIN) SEE PROTOCOL TABLE QHS SC 01/27/20 21:00 01/29/20 21:13 DC Insulin Human Lispro (HumaLOG INSULIN) See Protocol Table AC SC 01/30/20 17:30 02/13/20 12:35 Insulin Human Lispro (HumaLOG INSULIN) See Protocol Table QHS SC 01/30/20 21:00 02/12/20 20:49 Lactobacillus Acidophilus (Bacid) 1 ea WMHS PO 02/08/20 12:30 02/13/20 12:34 Levofloxacin (Levaquin) 750 mg DAILY@06 PO 02/07/20 06:00 02/13/20 21:00 02/13/20 05:38 Lidocaine (Lidoderm Patch) 1 patch DAILY TD 01/31/20 09:00 02/13/20 07:55 Lidocaine (Lidoderm Patch) 1 patch DAILY TD 01/31/20 09:00 02/13/20 07:56 Magnesium Hydroxide (Milk Of Magnesia) 30 ml DAILYPRN PRN PO CONSTIPATION 02/02/20 16:15 02/02/20 17:22 Meclizine HCl (Antivert) 12.5 mg TID PO 02/06/20 16:00 02/08/20 13:13 DC 02/08/20 08:41 Meclizine HCl (Antivert) 12.5 mg TID PO 01/30/20 16:00 01/31/20 13:52 DC 01/31/20 09:07 Meclizine HCl (Antivert) 12.5 mg TID PRN PO dizziness 02/08/20 13:15 Meclizine HCl (Antivert) 25 mg TID PO 01/31/20 16:00 02/06/20 10:22 DC 02/06/20 08:13 Metformin HCl (Glucophage) 500 mg BID@08,18 PO 01/27/20 18:00 01/28/20 19:12 DC 01/28/20 09:26 Metoclopramide HCl (Reglan) 5 mg ACHS PO 01/30/20 12:00 02/02/20 09:14 DC 02/01/20 21:05 Metoprolol Tartrate (Lopressor) 2.5 mg STAT STAT IV 01/28/20 19:11 01/28/20 19:28 DC Miscellaneous (Unresolved Clarification Entry) SEE LABEL COMMENTS DAILY XX 02/11/20 09:00 02/12/20 11:02 DC 02/11/20 09:00 Non-Formulary Medication ( See Comment Field Below ) REMOVE LIDODERM PATCH DAILY@21 XX 01/31/20 21:00 02/12/20 20:50 Non-Formulary Medication ( See Comment Field Below ) REMOVE LIDODERM PATCH DAILY@21 XX 01/31/20 21:00 02/12/20 20:50 Ondansetron HCl (ZOFRAN INJection) 4 mg Q4H IV 02/11/20 02:15 02/11/20 02:19 DC Ondansetron HCl (ZOFRAN INJection) 4 mg Q4HP PRN IV NAUSEA OR VOMITING 02/11/20 02:15 02/11/20 03:14 Ondansetron HCl (ZOFRAN INJection) 4 mg Q4HP PRN IV NAUSEA OR VOMITING 01/28/20 19:15 01/29/20 21:13 DC Ondansetron HCl (Zofran) 4 mg Q6HP PRN PO NAUSEA OR VOMITING 01/28/20 17:15 01/28/20 19:12 DC 01/28/20 17:39 Oxybutynin Chloride (Ditropan) 5 mg BID PO 01/27/20 21:00 01/29/20 21:13 DC 01/28/20 09:26 Oxybutynin Chloride (Ditropan) 5 mg BID PO 01/30/20 21:00 02/13/20 07:42 Pantoprazole Sodium (Protonix) 40 mg DAILY PO 01/28/20 09:00 01/29/20 21:13 DC Polyethylene Glycol (Miralax) 1 pkt DAILY PO 02/04/20 09:00 02/13/20 07:32 Potassium Chloride (Micro-K Extencaps) 20 meq DAILY PO 02/02/20 09:00 02/07/20 10:10 DC 02/07/20 08:40 Ramipril (Altace) 10 mg Q12H PO 01/30/20 21:00 02/13/20 07:41 Ramipril (Altace) 10 mg QHS PO 01/27/20 21:00 01/29/20 21:13 DC 01/27/20 20:16 Senna (Senokot) 1 tab BIDP PRN PO CONSTIPATION 02/02/20 16:15 02/12/20 09:08 Senna (Senokot) 1 tab QHS PO 01/27/20 21:00 01/29/20 21:13 DC 01/27/20 20:16 Sodium Chloride 1,000 ml @ 40 mls/hr Q24H IV 01/28/20 19:15 01/29/20 21:13 DC 01/28/20 20:08 Trazodone HCl (Desyrel) 25 mg QHS PO 02/06/20 21:00 02/07/20 17:37 DC 02/06/20 22:08 Venlafaxine HCl (Effexor) 75 mg BID PO 01/27/20 21:00 01/29/20 21:13 DC 01/28/20 09:26 Venlafaxine HCl (Effexor) 75 mg BID PO 01/30/20 21:00 02/13/20 07:42 Zolpidem Tartrate (Ambien) 5 mg QHSP PRN PO insomnia 01/27/20 12:30 01/29/20 21:13 DC 01/27/20 20:16 Zolpidem Tartrate (Ambien) 5 mg QHSP PRN PO insomnia 01/30/20 13:30 02/06/20 15:15 DC 02/05/20 21:36 RUSLAN SOTELO MD Feb 13, 2020 13:45
[2020-02-13 14:00] VITALS: BP 109/66
[2020-02-13 19:44] VITALS: BP 118/70
[2020-02-13] MEDS: ATORVASTATIN 20 MG TAB PO SCH (20:09)
[2020-02-13] MEDS: LEVEMIR (INSULIN DETEMIR) 1 UNITS/0.01ML SC SCH (20:11)
[2020-02-13] MEDS ORDERED: RAMELTEON 8 MG TAB (ROZEREM) PO ONE (22:00)
[2020-02-14] MEDS: **hydrALAZINE HCL** 25 MG TAB PO SCH ×4 (05:26→23:09)
[2020-02-14 05:55] VITALS: BP 124/69
[2020-02-14 06:36] LABS: BASO # 0.1 10^3/uL (0.0-0.2); BASO % 0.6 % (0.0-1.0); EOS # 0.3 10^3/uL (0.0-0.5); EOS % 2.4 % (0.0-3.0); HEMATOCRIT 33.3 % (42.0-52.0); HEMOGLOBIN 11.1 g/dl (13.5-17.5); LYMPH # 2.2 10^3/uL (1.5-5.0); LYMPH % 20.5 % (24.0-44.0); MEAN CORPUSCULAR HEMOGLOBIN 31.2 pg (27.0-33.0); MEAN CORPUSCULAR HGB CONC 33.3 g/dl (32.0-36.5); MEAN CORPUSCULAR VOLUME 93.5 fl (80.0-96.0); MONO # 0.9 10^3/uL (0.0-0.8); MONO % 8.8 % (0.0-5.0); NEUTROPHILS % 66.8 % (36.0-66.0); PLATELET COUNT, AUTOMATED 338 10^3/uL (150-450); RED BLOOD COUNT 3.56 10^6/uL (4.30-6.10); WHITE BLOOD COUNT 10.5 10^3/uL (4.0-10.0)
[2020-02-14] MEDS: HumaLOG INSULIN (NovoLOG) PER UNIT SC SCH ×4 (06:44→20:39)
[2020-02-14] MEDS: ASPIRIN 81 MG CHEW TABLET PO SCH (07:55)
[2020-02-14] MEDS: BISACODYL 5 MG TAB PO SCH (07:56)
[2020-02-14] MEDS: MIRALAX *UNIT DOSE* 17GM PACKET PO SCH (07:56)
[2020-02-14] MEDS: VENLAFAXINE 37.5 MG TAB PO SCH ×2 (07:56→21:24)
[2020-02-14] MEDS: ramipriL 5 MG CAP PO SCH ×2 (07:56→21:00)
[2020-02-14] MEDS: oxyBUTYnin 5 MG TAB PO SCH ×2 (07:56→21:25)
[2020-02-14] MEDS: LACTOBACILLUS ACIDOPHILUS CAP (BACID) PO SCH ×4 (07:56→21:24)
[2020-02-14] MEDS: CARVedilol 12.5 MG TAB PO SCH ×2 (07:56→21:00)
[2020-02-14] MEDS: DABIGATRAN ETEXILATE 75 MG CAP (PRADAXA) PO SCH ×2 (07:56→21:24)
[2020-02-14] MEDS: amLODIPine 10 MG TAB PO SCH (07:57)
[2020-02-14] MEDS: REMEDY PHYTOPLEX Z-GUARD PASTE 113GM TUBE (FROM STOREROOM PRODUCT) TOP SCH ×3 (07:58→21:26)
[2020-02-14] MEDS: LIDOCAINE 5% (LIDODERM) PATCH TD SCH ×2 (07:58)
[2020-02-14] MEDS: IPRATROPIUM 0.5MG/ALBUTEROL 2.5MG INH SOL UD 3ML (DUONEB) NEB SCH ×3 (08:00→19:54)
[2020-02-14] MEDS: guaiFENesin 200 MG TAB PO SCH ×3 (08:19→21:23)
[2020-02-14 14:00] VITALS: BP 147/74
[2020-02-14 20:28] VITALS: BP 105/56
[2020-02-14] MEDS: ATORVASTATIN 20 MG TAB PO SCH (21:25)
[2020-02-14] MEDS: DOCUSATE SODIUM 100 MG CAP PO PRN (21:25)
[2020-02-14] MEDS: SENNA 8.6 MG TAB (SENOKOT) PO PRN (21:25)
[2020-02-14] MEDS: LEVEMIR (INSULIN DETEMIR) 1 UNITS/0.01ML SC SCH (21:26)
[2020-02-14] MEDS: RAMELTEON 8 MG TAB (ROZEREM) PO PRN (23:07)
[2020-02-14 23:08] VITALS: BP 121/71
[2020-02-15] MEDS: **hydrALAZINE HCL** 25 MG TAB PO SCH ×3 (05:49→17:38)
[2020-02-15 05:50] VITALS: BP 131/70
[2020-02-15 06:49] LABS: BASO % 0.5 % (0.0-1.0); EOS # 0.2 10^3/uL (0.0-0.5); EOS % 2.5 % (0.0-3.0); HEMATOCRIT 32.2 % (42.0-52.0); HEMOGLOBIN 10.9 g/dl (13.5-17.5); LYMPH # 1.7 10^3/uL (1.5-5.0); LYMPH % 19.7 % (24.0-44.0); MEAN CORPUSCULAR HGB CONC 33.9 g/dl (32.0-36.5); MEAN CORPUSCULAR VOLUME 91.5 fl (80.0-96.0); MONO # 0.7 10^3/uL (0.0-0.8); NEUTROPHILS % 68.7 % (36.0-66.0); PLATELET COUNT, AUTOMATED 333 10^3/uL (150-450); RED BLOOD COUNT 3.52 10^6/uL (4.30-6.10); WHITE BLOOD COUNT 8.8 10^3/uL (4.0-10.0)
[2020-02-15 07:17] LABS: BLOOD UREA NITROGEN 15 MG/DL (7-18); CALCIUM LEVEL 8.5 MG/DL (8.8-10.2); CARBON DIOXIDE LEVEL 28 MEQ/L (21-32); CHLORIDE LEVEL 104 MEQ/L (98-107); GLOMERULAR FILTRATION RATE > 60.0 (>49); GLUCOSE, FASTING 172 MG/DL (70-100); SODIUM LEVEL 135 MEQ/L (136-145)
[2020-02-15] MEDS: IPRATROPIUM 0.5MG/ALBUTEROL 2.5MG INH SOL UD 3ML (DUONEB) NEB SCH ×3 (07:28→19:46)
[2020-02-15] MEDS: MIRALAX *UNIT DOSE* 17GM PACKET PO SCH (09:13)
[2020-02-15] MEDS: LACTOBACILLUS ACIDOPHILUS CAP (BACID) PO SCH ×4 (09:14→21:20)
[2020-02-15] MEDS: ASPIRIN 81 MG CHEW TABLET PO SCH (09:14)
[2020-02-15] MEDS: HumaLOG INSULIN (NovoLOG) PER UNIT SC SCH ×4 (09:14→21:20)
[2020-02-15] MEDS: LIDOCAINE 5% (LIDODERM) PATCH TD SCH ×2 (09:14)
[2020-02-15] MEDS: oxyBUTYnin 5 MG TAB PO SCH ×2 (09:15→21:22)
[2020-02-15] MEDS: DABIGATRAN ETEXILATE 75 MG CAP (PRADAXA) PO SCH ×2 (09:15→21:20)
[2020-02-15] MEDS: BISACODYL 5 MG TAB PO SCH (09:15)
[2020-02-15] MEDS: ramipriL 5 MG CAP PO SCH ×2 (09:15→21:00)
[2020-02-15] MEDS: amLODIPine 10 MG TAB PO SCH (09:15)
[2020-02-15] MEDS: VENLAFAXINE 37.5 MG TAB PO SCH ×2 (09:16→21:22)
[2020-02-15] MEDS: CARVedilol 12.5 MG TAB PO SCH ×2 (09:16→21:00)
[2020-02-15] MEDS: guaiFENesin 200 MG TAB PO SCH ×3 (09:16→21:22)
[2020-02-15] MEDS: REMEDY PHYTOPLEX Z-GUARD PASTE 113GM TUBE (FROM STOREROOM PRODUCT) TOP SCH ×3 (09:16→21:22)
--- NOTE | 2020-02-15 10:10 | IPNPDOC ---
PM&R Progress Note DATE OF SERVICE: Feb 14, 2020 [employer] Support Lead Progress Note Subjective: Patient seen in his room stating he is comfortable being discharged to short term rehab in order to make further gains before going home with his . REVIEW OF SYSTEMS: The following is a completed review of systems and has been reviewed. Review of systems otherwise unremarkable. PAIN: Patient self reports no pain EYES: No recent vision changes EARS, NOSE, & THROAT: No throat pain, or dysphagia, or rhinorrhea CARDIOVASCULAR: Denies chest pain or palpitations PULMONARY: Denies shortness of breath GASTROINTESTINAL: denies constipation/diarrhea GENITOURINARY: denies dysuria MUSCULOSKELETAL: right sided weakness NEUROLOGICAL:right sided paresis and mild neglect, +dizziness (resolved) HEMATOLOGICAL: denies easy bruising SKIN: denies rash PSYCHIATRIC: Unremarkable All other review of systems found to be negative. PHYSICAL EXAMINATION: VITAL SIGNS: Please see below. GENERAL: Pleasant and cooperative. No acute distress. HEENT: PERRL. Extraocular movements intact. Clear conjunctiva CARDIOVASCULAR: Regular rate and rhythm. No murmurs, rubs, or gallops, + AICD LUNGS: Clear to auscultation bilaterally. No wheezes. No rhonchi ABDOMEN: Soft, nontender, nondistended. Positive bowel sounds. Normal active bowel sounds NEUROLOGICAL: Alert and oriented times three. Cranial nerves II through XII grossly intact. Sensation diminished to light touch RUE with extinction to light touch (-) nystagmus EXTREMITIES: 5\5 strength LUE, 4/5 Right elbow flexors/extensors and wrist extensors, 4+/5 wood floor layer, 4\5 strength right lower extremity. 5/5 strength in left lower extremity. SKIN: no rash ASSESSMENT:69-year-old M with past medical history of vascular dementia with multiple strokes who presents status new onset right sided weakness likely due to new CVA was transferred to acute level of care on 01-28-20 for Hypertensive emergency requiring IV BP meds, returned 01-30-20 for an interrupted stay- PLAN: 1. Rehab-PT/OT advance gait and ADLs, strengthen/stretch/maintain ROM all 4 limbs- avoid E-stim to RUE as patient reporting seizure-like activity following an old stroke and AICD in place - PACK WORKER eval for cog and swallow- dysphagia resolved 2. Neuro: hx of multiple infarcts with new right sided weakness, MRI incompatible, with symptoms most consistent with new ischemic stroke in setting of severely stenotic left vertebral artery- c/u statin, ASA and Pradaxa for secondary stroke prevention, optimize BPs -vascular dementia with depression- c/u Effexor -f/u neuro as outpatient -patient sent out for hypertensive urgency 01-28-20 with nausea and vomiting, suspect possible posterior circulation infarct given severe vertebral artery s tenosis, with significant new impairments in his mobility level due to positional vertigo making a new posterior infarct very likely- dizziness overall better, c/u Meclizine to 12.5 mg TID prn for central vertigo-patient currently not requesting 3. Cardiac- chronic diastolic CHF (ECHO )- fluid restrict, daily weights, medicine consulted to assist in overall management -HTN c/u Coreg and Ramipril, amlodipine added, c/u hydralazine 25mg q6h and hold for sBP <140 -Afib s/p ablation on pradaxa 4. Resp: encourage incentive spirometry, recent CXR positive for Right LL PNA s/p 7 day course of Levaquin, patient denies cough or fever- +leukocytosis improving and clinically patient does not appear infected -c/u Duonebs 5. Endo: pmh DM with fluctuating po intake however patient reporting his appetite is improving, c/u levemir and c/u ISS for now -hypokalemia- resolved, holding daily supplement and c/u to monitor 6. : monitor PVRS, c/u ditropan -repeat AU negative and leukocytosis trending down 7. GI ppx: protonix 40mg -reglan d/c'd 8. DVT ppx: on pradaxa, TEDs -dopplers negative for DVT 9. Pain: Tylenol prn 10. Psych- c/u effexor for depression, c/u to hold sleep aids, daytime lethargy resolved 11. Dispo: 02-20-20 to SNF as patient would benefit from ongoing rehab given his complex neurological deficits Allergies Coded Allergies: Penicillins (Verified Allergy, Unknown, UNKNOWN CHILDHOOD REACTION, 12/10/19) lorazepam (Verified Adverse Reaction, Unknown, AGGRESSIVE, 12/10/19) Vital Signs Vital Signs Date Time Temp Pulse Resp B/P (MAP) Pulse Ox O2 Delivery O2 Flow Rate FiO2 02/15/20 09:15 71 124/64 02/15/20 05:50 98.4 18 95 Room Air Laboratory Data CBC/BMP Laboratory Tests 02/15/20 06:21 Labs 24H Laboratory Tests 2 02/14/20 11:27: Bedside Glucose (Misc Panel) 142H 02/14/20 16:30: Bedside Glucose (Misc Panel) 218H 02/14/20 20:00: Bedside Glucose (Misc Panel) 238H 02/15/20 05:38: Bedside Glucose (Misc Panel) 175H 02/15/20 06:21: Immature Granulocyte % (Auto) 0.6, Neutrophils (%) (Auto) 68.7H, Lymphocytes (%) (Auto) 19.7L, Monocytes (%) (Auto) 8.0H, Eosinophils (%) (Auto) 2.5, Basophils (%) (Auto) 0.5, Neutrophils # (Auto) 6.0, Lymphocytes # (Auto) 1.7, Monocytes # (Auto) 0.7, Eosinophils # (Auto) 0.2, Basophils # (Auto) 0.0, Nucleated Red Blood Cells % (auto) 0.0, Anion Gap 3L, Glomerular Filtration Rate > 60.0, Calcium Level 8.5L Current Medications Current Medications Current Medications Medications (Trade) Dose Ordered Sig/Kenneth Route PRN Reason Start Time Stop Time Status Last Admin Dose Admin Acetaminophen (Tylenol Tab) 650 mg Q4HP PRN PO fever/MILD PAIN (PS 1-4) 01/27/20 12:30 01/29/20 21:13 DC Albuterol/ Ipratropium (Duoneb (Ipr 0.5mg/Alb 2.5mg)) 3 ml RTID NEB 01/27/20 20:00 01/29/20 21:13 DC 01/28/20 13:29 Albuterol/ Ipratropium (Duoneb (Ipr 0.5mg/Alb 2.5mg)) 3 ml RTID NEB 01/30/20 14:00 02/12/20 07:50 Amlodipine Besylate (Norvasc) 2.5 mg DAILY PO 01/28/20 09:00 01/28/20 19:12 DC Amlodipine Besylate (Norvasc) 10 mg DAILY PO 01/31/20 09:00 02/15/20 09:15 Aspirin (Aspirin Chewable) 81 mg DAILY PO 01/31/20 09:00 02/15/20 09:14 Aspirin (Ecotrin) 81 mg DAILY PO 01/28/20 09:00 01/29/20 21:13 DC 01/28/20 09:25 Atorvastatin Calcium (Lipitor) 40 mg QHS PO 01/27/20 21:00 01/29/20 21:13 DC 01/27/20 20:17 Atorvastatin Calcium (Lipitor) 40 mg QHS PO 01/30/20 21:00 02/14/20 21:25 Bisacodyl (Dulcolax Suppository) 10 mg DAILYPRN PRN [place] CONSTIPATION 02/05/20 15:00 02/12/20 20:49 Bisacodyl (Dulcolax Suppository) 10 mg DAILYPRN PRN [place] CONSTIPATION 01/27/20 12:30 01/29/20 21:13 DC Bisacodyl (Dulcolax Tab) 5 mg DAILY PO 02/04/20 09:00 02/15/20 09:15 Carvedilol (COReg) 12.5 mg BID PO 01/27/20 21:00 01/29/20 21:13 DC 01/28/20 09:27 Carvedilol (COReg) 12.5 mg BID PO 01/30/20 21:00 02/15/20 09:16 Dabigatran (Pradaxa) 150 mg BID PO 01/27/20 21:00 01/29/20 21:13 DC 01/28/20 09:25 Dabigatran (Pradaxa) 150 mg BID PO 01/28/20 21:00 UNV Dabigatran (Pradaxa) 150 mg BID PO 01/30/20 21:00 02/15/20 09:15 Dextrose (Dextrose 50%) 25 ml ASDIRECTED PRN IV SEE LABEL COMMENTS 01/27/20 12:30 01/29/20 21:13 DC Docusate Sodium (Colace) 100 mg BID PO 01/27/20 21:00 01/29/20 21:13 DC 01/28/20 09:26 Docusate Sodium (Colace) 100 mg BIDP PRN PO CONSTIPATION 02/02/20 16:15 02/06/20 15:16 DC 02/04/20 09:30 Docusate Sodium (Colace) 100 mg BIDP PRN PO CONSTIPATION 02/06/20 15:30 02/14/20 21:25 Docusate Sodium (Colace) 100 mg TID PO 02/06/20 16:00 Cancel Glucagon (Glucagon) 1 mg ASDIRECTED PRN SC SEE LABEL COMMENTS 01/27/20 12:30 01/29/20 21:13 DC Glucose (Glucose) 16 GM ASDIRECTED PRN PO SEE LABEL COMMENTS 01/27/20 12:30 01/29/20 21:13 DC Guaifenesin (Robitussin Tab) 400 mg TID PO 01/30/20 16:00 02/15/20 09:16 Heparin Sodium (Porcine) (Heparin) 5,000 units Q12H SC 01/27/20 12:30 01/27/20 15:41 DC Hydralazine HCl (Apresoline) 25 mg Q6H PO 01/30/20 12:00 02/13/20 23:59 Hydrochlorothiazide (Hydrodiuril) 6.25 mg DAILY PO 01/28/20 09:00 01/28/20 17:33 DC Insulin Detemir (Levemir Insulin) 5 units DAILY SC 02/01/20 09:00 02/06/20 10:23 DC 02/06/20 08:16 Insulin Detemir (Levemir Insulin) 10 units QHS SC 01/27/20 21:00 01/29/20 21:13 DC 01/27/20 20:18 Insulin Detemir (Levemir Insulin) 15 units QHS SC 02/06/20 21:00 02/14/20 21:26 Insulin Detemir (Levemir Insulin) 15 units QHS SC 01/30/20 21:00 01/31/20 10:21 DC 01/30/20 21:25 Insulin Detemir (Levemir Insulin) 20 units QHS SC 01/31/20 21:00 02/01/20 10:03 DC 01/31/20 21:29 Insulin Detemir (Levemir Insulin) 24 units QHS SC 02/01/20 21:00 02/06/20 10:22 DC 02/05/20 21:34 Insulin Human Lispro (HumaLOG INSULIN) SEE PROTOCOL TABLE AC SC 01/27/20 17:30 01/29/20 21:13 DC 01/28/20 11:53 Insulin Human Lispro (HumaLOG INSULIN) SEE PROTOCOL TABLE QHS SC 01/27/20 21:00 01/29/20 21:13 DC Insulin Human Lispro (HumaLOG INSULIN) See Protocol Table AC SC 01/30/20 17:30 02/15/20 09:14 Insulin Human Lispro (HumaLOG INSULIN) See Protocol Table QHS SC 01/30/20 21:00 02/12/20 20:49 Lactobacillus Acidophilus (Bacid) 1 ea WMHS PO 02/08/20 12:30 02/15/20 09:14 Levofloxacin (Levaquin) 750 mg DAILY@06 PO 02/07/20 06:00 02/13/20 21:00 DC 02/13/20 05:38 Lidocaine (Lidoderm Patch) 1 patch DAILY TD 01/31/20 09:00 02/15/20 09:14 Lidocaine (Lidoderm Patch) 1 patch DAILY TD 01/31/20 09:00 02/15/20 09:14 Magnesium Hydroxide (Milk Of Magnesia) 30 ml DAILYPRN PRN PO CONSTIPATION 02/02/20 16:15 02/02/20 17:22 Meclizine HCl (Antivert) 12.5 mg TID PO 02/06/20 16:00 02/08/20 13:13 DC 02/08/20 08:41 Meclizine HCl (Antivert) 12.5 mg TID PO 01/30/20 16:00 01/31/20 13:52 DC 01/31/20 09:07 Meclizine HCl (Antivert) 12.5 mg TID PRN PO dizziness 02/08/20 13:15 Meclizine HCl (Antivert) 25 mg TID PO 01/31/20 16:00 02/06/20 10:22 DC 02/06/20 08:13 Metformin HCl (Glucophage) 500 mg BID@08,18 PO 01/27/20 18:00 01/28/20 19:12 DC 01/28/20 09:26 Metoclopramide HCl (Reglan) 5 mg ACHS PO 01/30/20 12:00 02/02/20 09:14 DC 02/01/20 21:05 Metoprolol Tartrate (Lopressor) 2.5 mg STAT STAT IV 01/28/20 19:11 01/28/20 19:28 DC Miscellaneous (Unresolved Clarification Entry) SEE LABEL COMMENTS DAILY XX 02/11/20 09:00 02/12/20 11:02 DC 02/11/20 09:00 Non-Formulary Medication ( See Comment Field Below ) REMOVE LIDODERM PATCH DAILY@21 XX 01/31/20 21:00 02/14/20 21:26 Non-Formulary Medication ( See Comment Field Below ) REMOVE LIDODERM PATCH DAILY@21 XX 01/31/20 21:00 02/14/20 21:26 Ondansetron HCl (ZOFRAN INJection) 4 mg Q4H IV 02/11/20 02:15 02/11/20 02:19 DC Ondansetron HCl (ZOFRAN INJection) 4 mg Q4HP PRN IV NAUSEA OR VOMITING 02/11/20 02:15 02/11/20 03:14 Ondansetron HCl (ZOFRAN INJection) 4 mg Q4HP PRN IV NAUSEA OR VOMITING 01/28/20 19:15 01/29/20 21:13 DC Ondansetron HCl (Zofran) 4 mg Q6HP PRN PO NAUSEA OR VOMITING 01/28/20 17:15 01/28/20 19:12 DC 01/28/20 17:39 Oxybutynin Chloride (Ditropan) 5 mg BID PO 01/27/20 21:00 01/29/20 21:13 DC 01/28/20 09:26 Oxybutynin Chloride (Ditropan) 5 mg BID PO 01/30/20 21:00 02/15/20 09:15 Pantoprazole Sodium (Protonix) 40 mg DAILY PO 01/28/20 09:00 01/29/20 21:13 DC Polyethylene Glycol (Miralax) 1 pkt DAILY PO 02/04/20 09:00 02/15/20 09:13 Potassium Chloride (Micro-K Extencaps) 20 meq DAILY PO 02/02/20 09:00 02/07/20 10:10 DC 02/07/20 08:40 Ramelteon (Rozerem) 8 mg QHSP PRN PO INSOMNIA 02/14/20 22:45 02/14/20 23:07 Ramipril (Altace) 10 mg Q12H PO 01/30/20 21:00 02/15/20 09:15 Ramipril (Altace) 10 mg QHS PO 01/27/20 21:00 01/29/20 21:13 DC 01/27/20 20:16 Senna (Senokot) 1 tab BIDP PRN PO CONSTIPATION 02/02/20 16:15 02/14/20 21:25 Senna (Senokot) 1 tab QHS PO 01/27/20 21:00 01/29/20 21:13 DC 01/27/20 20:16 Sodium Chloride 1,000 ml @ 40 mls/hr Q24H IV 01/28/20 19:15 01/29/20 21:13 DC 01/28/20 20:08 Trazodone HCl (Desyrel) 25 mg QHS PO 02/06/20 21:00 02/07/20 17:37 DC 02/06/20 22:08 Venlafaxine HCl (Effexor) 75 mg BID PO 01/27/20 21:00 01/29/20 21:13 DC 01/28/20 09:26 Venlafaxine HCl (Effexor) 75 mg BID PO 01/30/20 21:00 02/15/20 09:16 Zolpidem Tartrate (Ambien) 5 mg QHSP PRN PO insomnia 01/27/20 12:30 01/29/20 21:13 DC 01/27/20 20:16 Zolpidem Tartrate (Ambien) 5 mg QHSP PRN PO insomnia 01/30/20 13:30 02/06/20 15:15 DC 02/05/20 21:36 RUSLAN SOTELO MD Feb 15, 2020 10:10
--- NOTE | 2020-02-15 10:11 | IPNPDOC ---
PM&R Progress Note DATE OF SERVICE: Feb 15, 2020 Steam Crane Operator Progress Note Subjective: Patient reporting he is feeling well, enjoys being in a dark room, and feels he is making gains in therapy. REVIEW OF SYSTEMS: The following is a completed review of systems and has been reviewed. Review of systems otherwise unremarkable. PAIN: Patient self reports no pain EYES: No recent vision changes EARS, NOSE, & THROAT: No throat pain, or dysphagia, or rhinorrhea CARDIOVASCULAR: Denies chest pain or palpitations PULMONARY: Denies shortness of breath GASTROINTESTINAL: denies constipation/diarrhea GENITOURINARY: denies dysuria MUSCULOSKELETAL: right sided weakness NEUROLOGICAL:right sided paresis and mild neglect, +dizziness (resolved) HEMATOLOGICAL: denies easy bruising SKIN: denies rash PSYCHIATRIC: Unremarkable All other review of systems found to be negative. PHYSICAL EXAMINATION: VITAL SIGNS: Please see below. GENERAL: Pleasant and cooperative. No acute distress. HEENT: PERRL. Extraocular movements intact. Clear conjunctiva CARDIOVASCULAR: Regular rate and rhythm. No murmurs, rubs, or gallops, + AICD LUNGS: Clear to auscultation bilaterally. No wheezes. No rhonchi ABDOMEN: Soft, nontender, nondistended. Positive bowel sounds. Normal active bowel sounds NEUROLOGICAL: Alert and oriented times three. Cranial nerves II through XII grossly intact. Sensation diminished to light touch RUE with extinction to light touch (-) nystagmus EXTREMITIES: 5\5 strength LUE, 4/5 Right elbow flexors/extensors and wrist extensors, 4+/5 plastic hospital products assembler, 4\5 strength right lower extremity. 5/5 strength in left lower extremity. SKIN: no rash ASSESSMENT:69-year-old M with past medical history of vascular dementia with multiple strokes who presents status new onset right sided weakness likely due to new CVA was transferred to acute level of care on 01-28-20 for Hypertensive emergency requiring IV BP meds, returned 01-30-20 for an interrupted stay- PLAN: 1. Rehab-PT/OT advance gait and ADLs, strengthen/stretch/maintain ROM all 4 l imbs- avoid E-stim to RUE as patient reporting seizure-like activity following an old stroke and AICD in place - NETWORK ADMINISTRATOR eval for cog and swallow- dysphagia resolved 2. Neuro: hx of multiple infarcts with new right sided weakness, MRI incompatible, with symptoms most consistent with new ischemic stroke in setting of severely stenotic left vertebral artery- c/u statin, ASA and Pradaxa for secondary stroke prevention, optimize BPs -vascular dementia with depression- c/u Effexor -f/u neuro as outpatient -patient sent out for hypertensive urgency 01-28-20 with nausea and vomiting, suspect possible posterior circulation infarct given severe vertebral artery stenosis, with significant new impairments in his mobility level due to positional vertigo making a new posterior infarct very likely- dizziness overall better, c/u Meclizine to 12.5 mg TID prn for central vertigo-patient currently not requesting 3. Cardiac- chronic diastolic CHF (ECHO )- fluid restrict, daily weights, medicine consulted to assist in overall management -HTN c/u Coreg and Ramipril, amlodipine added, c/u hydralazine 25mg q6h and hold for sBP <140 -Afib s/p ablation on pradaxa 4. Resp: encourage incentive spirometry, recent CXR positive for Right LL PNA s/p 7 day course of Levaquin, patient denies cough or fever- +leukocytosis improving and clinically patient does not appear infected -c/u Duonebs 5. Endo: pmh DM with fluctuating po intake however patient reporting his appetite is improving, c/u levemir and c/u ISS for now -hypokalemia- resolved, holding daily supplement and c/u to monitor 6. : monitor PVRS, c/u ditropan -repeat AU negative and leukocytosis trending down 7. GI ppx: protonix 40mg -reglan d/c'd 8. DVT ppx: on pradaxa, TEDs -dopplers negative for DVT 9. Pain: Tylenol prn 10. Psych- c/u effexor for depression, c/u to hold sleep aids, daytime lethargy resolved 11. Dispo: 02-20-20 to SNF as patient would benefit from ongoing rehab given his complex neurological deficits Allergies Coded Allergies: Penicillins (Verified Allergy, Unknown, UNKNOWN CHILDHOOD REACTION, 12/10/19) lorazepam (Verified Adverse Reaction, Unknown, AGGRESSIVE, 12/10/19) Vital Signs Vital Signs Date Time Temp Pulse Resp B/P (MAP) Pulse Ox O2 Delivery O2 Flow Rate FiO2 02/15/20 09:15 71 124/64 02/15/20 05:50 98.4 18 95 Room Air Laboratory Data CBC/BMP Laboratory Tests 02/15/20 06:21 Labs 24H Laboratory Tests 2 02/14/20 11:27: Bedside Glucose (Misc Panel) 142H 02/14/20 16:30: Bedside Glucose (Misc Panel) 218H 02/14/20 20:00: Bedside Glucose (Misc Panel) 238H 02/15/20 05:38: Bedside Glucose (Misc Panel) 175H 02/15/20 06:21: Immature Granulocyte % (Auto) 0.6, Neutrophils (%) (Auto) 68.7H, Lymphocytes (%) (Auto) 19.7L, Monocytes (%) (Auto) 8.0H, Eosinophils (%) (Auto) 2.5, Basophils (%) (Auto) 0.5, Neutrophils # (Auto) 6.0, Lymphocytes # (Auto) 1.7, Monocytes # (Auto) 0.7, Eosinophils # (Auto) 0.2, Basophils # (Auto) 0.0, Nucleated Red Blood Cells % (auto) 0.0, Anion Gap 3L, Glomerular Filtration Rate > 60.0, Calcium Level 8.5L Current Medications Current Medications Current Medications Medications (Trade) Dose Ordered Sig/Kenneth Route PRN Reason Start Time Stop Time Status Last Admin Dose Admin Acetaminophen (Tylenol Tab) 650 mg Q4HP PRN PO fever/MILD PAIN (PS 1-4) 01/27/20 12:30 01/29/20 21:13 DC Albuterol/ Ipratropium (Duoneb (Ipr 0.5mg/Alb 2.5mg)) 3 ml RTID NEB 01/27/20 20:00 01/29/20 21:13 DC 01/28/20 13:29 Albuterol/ Ipratropium (Duoneb (Ipr 0.5mg/Alb 2.5mg)) 3 ml RTID NEB 01/30/20 14:00 02/12/20 07:50 Amlodipine Besylate (Norvasc) 2.5 mg DAILY PO 01/28/20 09:00 01/28/20 19:12 DC Amlodipine Besylate (Norvasc) 10 mg DAILY PO 01/31/20 09:00 02/15/20 09:15 Aspirin (Aspirin Chewable) 81 mg DAILY PO 01/31/20 09:00 02/15/20 09:14 Aspirin (Ecotrin) 81 mg DAILY PO 01/28/20 09:00 01/29/20 21:13 DC 01/28/20 09:25 Atorvastatin Calcium (Lipitor) 40 mg QHS PO 01/27/20 21:00 01/29/20 21:13 DC 01/27/20 20:17 Atorvastatin Calcium (Lipitor) 40 mg QHS PO 01/30/20 21:00 02/14/20 21:25 Bisacodyl (Dulcolax Suppository) 10 mg DAILYPRN PRN ND CONSTIPATION 02/05/20 15:00 02/12/20 20:49 Bisacodyl (Dulcolax Suppository) 10 mg DAILYPRN PRN ND CONSTIPATION 01/27/20 12:30 01/29/20 21:13 DC Bisacodyl (Dulcolax Tab) 5 mg DAILY PO 02/04/20 09:00 02/15/20 09:15 Carvedilol (COReg) 12.5 mg BID PO 01/27/20 21:00 01/29/20 21:13 DC 01/28/20 09:27 Carvedilol (COReg) 12.5 mg BID PO 01/30/20 21:00 02/15/20 09:16 Dabigatran (Pradaxa) 150 mg BID PO 01/27/20 21:00 01/29/20 21:13 DC 01/28/20 09:25 Dabigatran (Pradaxa) 150 mg BID PO 01/28/20 21:00 UNV Dabigatran (Pradaxa) 150 mg BID PO 01/30/20 21:00 02/15/20 09:15 Dextrose (Dextrose 50%) 25 ml ASDIRECTED PRN IV SEE LABEL COMMENTS 01/27/20 12:30 01/29/20 21:13 DC Docusate Sodium (Colace) 100 mg BID PO 01/27/20 21:00 01/29/20 21:13 DC 01/28/20 09:26 Docusate Sodium (Colace) 100 mg BIDP PRN PO CONSTIPATION 02/02/20 16:15 02/06/20 15:16 DC 02/04/20 09:30 Docusate Sodium (Colace) 100 mg BIDP PRN PO CONSTIPATION 02/06/20 15:30 02/14/20 21:25 Docusate Sodium (Colace) 100 mg TID PO 02/06/20 16:00 Cancel Glucagon (Glucagon) 1 mg ASDIRECTED PRN SC SEE LABEL COMMENTS 01/27/20 12:30 01/29/20 21:13 DC Glucose (Glucose) 16 GM ASDIRECTED PRN PO SEE LABEL COMMENTS 01/27/20 12:30 01/29/20 21:13 DC Guaifenesin (Robitussin Tab) 400 mg TID PO 01/30/20 16:00 02/15/20 09:16 Heparin Sodium (Porcine) (Heparin) 5,000 units Q12H SC 01/27/20 12:30 01/27/20 15:41 DC Hydralazine HCl (Apresoline) 25 mg Q6H PO 01/30/20 12:00 02/13/20 23:59 Hydrochlorothiazide (Hydrodiuril) 6.25 mg DAILY PO 01/28/20 09:00 01/28/20 17:33 DC Insulin Detemir (Levemir Insulin) 5 units DAILY SC 02/01/20 09:00 02/06/20 10:23 DC 02/06/20 08:16 Insulin Detemir (Levemir Insulin) 10 units QHS SC 01/27/20 21:00 01/29/20 21:13 DC 01/27/20 20:18 Insulin Detemir (Levemir Insulin) 15 units QHS SC 02/06/20 21:00 02/14/20 21:26 Insulin Detemir (Levemir Insulin) 15 units QHS SC 01/30/20 21:00 01/31/20 10:21 DC 01/30/20 21:25 Insulin Detemir (Levemir Insulin) 20 units QHS SC 01/31/20 21:00 02/01/20 10:03 DC 01/31/20 21:29 Insulin Detemir (Levemir Insulin) 24 units QHS SC 02/01/20 21:00 02/06/20 10:22 DC 02/05/20 21:34 Insulin Human Lispro (HumaLOG INSULIN) SEE PROTOCOL TABLE AC SC 01/27/20 17:30 01/29/20 21:13 DC 01/28/20 11:53 Insulin Human Lispro (HumaLOG INSULIN) SEE PROTOCOL TABLE QHS SC 01/27/20 21:00 01/29/20 21:13 DC Insulin Human Lispro (HumaLOG INSULIN) See Protocol Table AC SC 01/30/20 17:30 02/15/20 09:14 Insulin Human Lispro (HumaLOG INSULIN) See Protocol Table QHS SC 01/30/20 21:00 02/12/20 20:49 Lactobacillus Acidophilus (Bacid) 1 ea WMHS PO 02/08/20 12:30 02/15/20 09:14 Levofloxacin (Levaquin) 750 mg DAILY@06 PO 02/07/20 06:00 02/13/20 21:00 DC 02/13/20 05:38 Lidocaine (Lidoderm Patch) 1 patch DAILY TD 01/31/20 09:00 02/15/20 09:14 Lidocaine (Lidoderm Patch) 1 patch DAILY TD 01/31/20 09:00 02/15/20 09:14 Magnesium Hydroxide (Milk Of Magnesia) 30 ml DAILYPRN PRN PO CONSTIPATION 02/02/20 16:15 02/02/20 17:22 Meclizine HCl (Antivert) 12.5 mg TID PO 02/06/20 16:00 02/08/20 13:13 DC 02/08/20 08:41 Meclizine HCl (Antivert) 12.5 mg TID PO 01/30/20 16:00 01/31/20 13:52 DC 01/31/20 09:07 Meclizine HCl (Antivert) 12.5 mg TID PRN PO dizziness 02/08/20 13:15 Meclizine HCl (Antivert) 25 mg TID PO 01/31/20 16:00 02/06/20 10:22 DC 02/06/20 08:13 Metformin HCl (Glucophage) 500 mg BID@08,18 PO 01/27/20 18:00 01/28/20 19:12 DC 01/28/20 09:26 Metoclopramide HCl (Reglan) 5 mg ACHS PO 01/30/20 12:00 02/02/20 09:14 DC 02/01/20 21:05 Metoprolol Tartrate (Lopressor) 2.5 mg STAT STAT IV 01/28/20 19:11 01/28/20 19:28 DC Miscellaneous (Unresolved Clarification Entry) SEE LABEL COMMENTS DAILY XX 02/11/20 09:00 02/12/20 11:02 DC 02/11/20 09:00 Non-Formulary Medication ( See Comment Field Below ) REMOVE LIDODERM PATCH DAILY@21 XX 01/31/20 21:00 02/14/20 21:26 Non-Formulary Medication ( See Comment Field Below ) REMOVE LIDODERM PATCH DAILY@21 XX 01/31/20 21:00 02/14/20 21:26 Ondansetron HCl (ZOFRAN INJection) 4 mg Q4H IV 02/11/20 02:15 02/11/20 02:19 DC Ondansetron HCl (ZOFRAN INJection) 4 mg Q4HP PRN IV NAUSEA OR VOMITING 02/11/20 02:15 02/11/20 03:14 Ondansetron HCl (ZOFRAN INJection) 4 mg Q4HP PRN IV NAUSEA OR VOMITING 01/28/20 19:15 01/29/20 21:13 DC Ondansetron HCl (Zofran) 4 mg Q6HP PRN PO NAUSEA OR VOMITING 01/28/20 17:15 01/28/20 19:12 DC 01/28/20 17:39 Oxybutynin Chloride (Ditropan) 5 mg BID PO 01/27/20 21:00 01/29/20 21:13 DC 01/28/20 09:26 Oxybutynin Chloride (Ditropan) 5 mg BID PO 01/30/20 21:00 02/15/20 09:15 Pantoprazole Sodium (Protonix) 40 mg DAILY PO 01/28/20 09:00 01/29/20 21:13 DC Polyethylene Glycol (Miralax) 1 pkt DAILY PO 02/04/20 09:00 02/15/20 09:13 Potassium Chloride (Micro-K Extencaps) 20 meq DAILY PO 02/02/20 09:00 02/07/20 10:10 DC 02/07/20 08:40 Ramelteon (Rozerem) 8 mg QHSP PRN PO INSOMNIA 02/14/20 22:45 02/14/20 23:07 Ramipril (Altace) 10 mg Q12H PO 01/30/20 21:00 02/15/20 09:15 Ramipril (Altace) 10 mg QHS PO 01/27/20 21:00 01/29/20 21:13 DC 01/27/20 20:16 Senna (Senokot) 1 tab BIDP PRN PO CONSTIPATION 02/02/20 16:15 02/14/20 21:25 Senna (Senokot) 1 tab QHS PO 01/27/20 21:00 01/29/20 21:13 DC 01/27/20 20:16 Sodium Chloride 1,000 ml @ 40 mls/hr Q24H IV 01/28/20 19:15 01/29/20 21:13 DC 01/28/20 20:08 Trazodone HCl (Desyrel) 25 mg QHS PO 02/06/20 21:00 02/07/20 17:37 DC 02/06/20 22:08 Venlafaxine HCl (Effexor) 75 mg BID PO 01/27/20 21:00 01/29/20 21:13 DC 01/28/20 09:26 Venlafaxine HCl (Effexor) 75 mg BID PO 01/30/20 21:00 02/15/20 09:16 Zolpidem Tartrate (Ambien) 5 mg QHSP PRN PO insomnia 01/27/20 12:30 01/29/20 21:13 DC 01/27/20 20:16 Zolpidem Tartrate (Ambien) 5 mg QHSP PRN PO insomnia 01/30/20 13:30 02/06/20 15:15 DC 02/05/20 21:36 RUSLAN SOTELO MD Feb 15, 2020 10:11
[2020-02-15 14:00] VITALS: BP 113/57
[2020-02-15 20:30] VITALS: BP 108/59
[2020-02-15] MEDS: LEVEMIR (INSULIN DETEMIR) 1 UNITS/0.01ML SC SCH (21:19)
[2020-02-15] MEDS: ATORVASTATIN 20 MG TAB PO SCH (21:20)
[2020-02-15] MEDS: DOCUSATE SODIUM 100 MG CAP PO PRN (21:22)
[2020-02-15] MEDS: RAMELTEON 8 MG TAB (ROZEREM) PO PRN (21:22)
[2020-02-15] MEDS: SENNA 8.6 MG TAB (SENOKOT) PO PRN (21:22)
[2020-02-16 00:16] VITALS: BP 129/66
[2020-02-16] MEDS: ONDANSETRON 4 MG ORAL DISINTEGRATING TAB SL PRN ×3 (01:13→09:40)
[2020-02-16] MEDS: **hydrALAZINE HCL** 25 MG TAB PO SCH ×4 (05:42→17:55)
[2020-02-16 06:14] VITALS: BP 138/82
[2020-02-16] MEDS: HumaLOG INSULIN (NovoLOG) PER UNIT SC SCH ×4 (07:30→21:00)
[2020-02-16] MEDS: IPRATROPIUM 0.5MG/ALBUTEROL 2.5MG INH SOL UD 3ML (DUONEB) NEB SCH ×3 (07:34→19:40)
[2020-02-16] MEDS: LACTOBACILLUS ACIDOPHILUS CAP (BACID) PO SCH ×4 (08:00→21:45)
--- NOTE | 2020-02-16 12:12 | IPNPDOC ---
PM&R Progress Note DATE OF SERVICE: Feb 16, 2020 Elevator Service Mechanic Progress Note Subjective: Patient reporting he was nausous this morning and that ZOfran did not help, but since having a bowel movement he feels much better. REVIEW OF SYSTEMS: The following is a completed review of systems and has been reviewed. Review of systems otherwise unremarkable. PAIN: Patient self reports no pain EYES: No recent vision changes EARS, NOSE, & THROAT: No throat pain, or dysphagia, or rhinorrhea CARDIOVASCULAR: Denies chest pain or palpitations PULMONARY: Denies shortness of breath GASTROINTESTINAL: denies constipation/diarrhea GENITOURINARY: denies dysuria MUSCULOSKELETAL: right sided weakness NEUROLOGICAL:right sided paresis and mild neglect, +dizziness (resolved) HEMATOLOGICAL: denies easy bruising SKIN: denies rash PSYCHIATRIC: Unremarkable All other review of systems found to be negative. PHYSICAL EXAMINATION: VITAL SIGNS: Please see below. GENERAL: Pleasant and cooperative. No acute distress. HEENT: PERRL. Extraocular movements intact. Clear conjunctiva CARDIOVASCULAR: Regular rate and rhythm. No murmurs, rubs, or gallops, + AICD LUNGS: Clear to auscultation bilaterally. No wheezes. No rhonchi ABDOMEN: Soft, nontender, nondistended. Positive bowel sounds. Normal active bowel sounds NEUROLOGICAL: Alert and oriented times three. Cranial nerves II through XII grossly intact. Sensation diminished to light touch RUE with extinction to light touch (-) nystagmus EXTREMITIES: 5\5 strength LUE, 4/5 Right elbow flexors/extensors and wrist extensors, 4+/5 cooler man, 4\5 strength right lower extremity. 5/5 strength in left lower extremity. SKIN: no rash ASSESSMENT:69-year-old M with past medical history of vascular dementia with multiple strokes who presents status new onset right sided weakness likely due to new CVA was transferred to acute level of care on 01-28-20 for Hypertensive emergency requiring IV BP meds, returned 01-30-20 for an interrupted stay- PLAN: 1. Rehab-PT/OT advance gait and ADLs, strengthen/stretch/maintain ROM all 4 limbs- avoid E-stim to RUE as patient reporting seizure-like activity following an old stroke and AICD in place - GM VIDEO eval for cog and swallow- dysphagia resolved 2. Neuro: hx of multiple infarcts with new right sided weakness, MRI incompatible, with symptoms most consistent with new ischemic stroke in setting of severely stenotic left vertebral artery- c/u statin, ASA and Pradaxa for secondary stroke prevention, optimize BPs -vascular dementia with depression- c/u Effexor -f/u neuro as outpatient -patient sent out for hypertensive urgency 01-28-20 with nausea and vomiting, suspect possible posterior circulation infarct given severe vertebral artery stenosis, with significant new impairments in his mobility level due to positional vertigo making a new posterior infarct very likely- dizziness overall better, c/u Meclizine to 12.5 mg TID prn for central vertigo-patient currently not requesting 3. Cardiac- chronic diastolic CHF (ECHO )- fluid restrict, daily weights, medicine consulted to assist in overall management -HTN c/u Coreg and Ramipril, amlodipine added, c/u hydralazine 25mg q6h and hold for sBP <140 -Afib s/p ablation on pradaxa 4. Resp: encourage incentive spirometry, recent CXR positive for Right LL PNA s/p 7 day course of Levaquin, patient denies cough or fever- +leukocytosis improving and clinically patient does not appear infected -c/u Duonebs 5. Endo: pmh DM with fluctuating po intake however patient reporting his ap petite is improving, c/u levemir and c/u ISS for now -hypokalemia- resolved, holding daily supplement and c/u to monitor 6. : monitor PVRS, c/u ditropan -repeat AU negative and leukocytosis trending down 7. GI ppx: protonix 40mg -reglan d/c'd 8. DVT ppx: on pradaxa, TEDs -dopplers negative for DVT 9. Pain: Tylenol prn 10. Psych- c/u Effexor for depression, Rozerem had been added, however will hold as may have contributed to patient's GI symptoms today 11. Dispo: 02-20-20 to SNF as patient would benefit from ongoing rehab given his complex neurological deficits Allergies Coded Allergies: Penicillins (Verified Allergy, Unknown, UNKNOWN CHILDHOOD REACTION, 12/10/19) lorazepam (Verified Adverse Reaction, Unknown, AGGRESSIVE, 12/10/19) Vital Signs Vital Signs Date Time Temp Pulse Resp B/P (MAP) Pulse Ox O2 Delivery O2 Flow Rate FiO2 02/16/20 06:14 97.0 100 18 138/82 (100) 94 Room Air Laboratory Data Labs 24H Laboratory Tests 2 02/15/20 16:15: Bedside Glucose (Misc Panel) 120H 02/15/20 19:57: Bedside Glucose (Misc Panel) 303H 02/16/20 06:06: Bedside Glucose (Misc Panel) 264H 02/16/20 11:31: Bedside Glucose (Misc Panel) 271H Current Medications Current Medications Current Medications Medications (Trade) Dose Ordered Sig/Kenneth Route PRN Reason Start Time Stop Time Status Last Admin Dose Admin Acetaminophen (Tylenol Tab) 650 mg Q4HP PRN PO fever/MILD PAIN (PS 1-4) 01/27/20 12:30 01/29/20 21:13 DC Albuterol/ Ipratropium (Duoneb (Ipr 0.5mg/Alb 2.5mg)) 3 ml RTID NEB 01/27/20 20:00 01/29/20 21:13 DC 01/28/20 13:29 Albuterol/ Ipratropium (Duoneb (Ipr 0.5mg/Alb 2.5mg)) 3 ml RTID NEB 01/30/20 14:00 02/12/20 07:50 Amlodipine Besylate (Norvasc) 2.5 mg DAILY PO 01/28/20 09:00 01/28/20 19:12 DC Amlodipine Besylate (Norvasc) 10 mg DAILY PO 01/31/20 09:00 02/15/20 09:15 Aspirin (Aspirin Chewable) 81 mg DAILY PO 01/31/20 09:00 02/15/20 09:14 Aspirin (Ecotrin) 81 mg DAILY PO 01/28/20 09:00 01/29/20 21:13 DC 01/28/20 09:25 Atorvastatin Calcium (Lipitor) 40 mg QHS PO 01/27/20 21:00 01/29/20 21:13 DC 01/27/20 20:17 Atorvastatin Calcium (Lipitor) 40 mg QHS PO 01/30/20 21:00 02/15/20 21:20 Bisacodyl (Dulcolax Suppository) 10 mg DAILYPRN PRN OR CONSTIPATION 02/05/20 15:00 02/12/20 20:49 Bisacodyl (Dulcolax Suppository) 10 mg DAILYPRN PRN OR CONSTIPATION 01/27/20 12:30 01/29/20 21:13 DC Bisacodyl (Dulcolax Tab) 5 mg DAILY PO 02/04/20 09:00 02/15/20 09:15 Carvedilol (COReg) 12.5 mg BID PO 01/27/20 21:00 01/29/20 21:13 DC 01/28/20 09:27 Carvedilol (COReg) 12.5 mg BID PO 01/30/20 21:00 02/15/20 09:16 Dabigatran (Pradaxa) 150 mg BID PO 01/27/20 21:00 01/29/20 21:13 DC 01/28/20 09:25 Dabigatran (Pradaxa) 150 mg BID PO 01/28/20 21:00 UNV Dabigatran (Pradaxa) 150 mg BID PO 01/30/20 21:00 02/15/20 21:20 Dextrose (Dextrose 50%) 25 ml ASDIRECTED PRN IV SEE LABEL COMMENTS 01/27/20 12:30 01/29/20 21:13 DC Docusate Sodium (Colace) 100 mg BID PO 01/27/20 21:00 01/29/20 21:13 DC 01/28/20 09:26 Docusate Sodium (Colace) 100 mg BIDP PRN PO CONSTIPATION 02/02/20 16:15 02/06/20 15:16 DC 02/04/20 09:30 Docusate Sodium (Colace) 100 mg BIDP PRN PO CONSTIPATION 02/06/20 15:30 02/15/20 21:22 Docusate Sodium (Colace) 100 mg TID PO 02/06/20 16:00 Cancel Glucagon (Glucagon) 1 mg ASDIRECTED PRN SC SEE LABEL COMMENTS 01/27/20 12:30 01/29/20 21:13 DC Glucose (Glucose) 16 GM ASDIRECTED PRN PO SEE LABEL COMMENTS 01/27/20 12:30 01/29/20 21:13 DC Guaifenesin (Robitussin Tab) 400 mg TID PO 01/30/20 16:00 02/15/20 21:22 Heparin Sodium (Porcine) (Heparin) 5,000 units Q12H SC 01/27/20 12:30 01/27/20 15:41 DC Hydralazine HCl (Apresoline) 25 mg Q6H PO 01/30/20 12:00 02/13/20 23:59 Hydrochlorothiazide (Hydrodiuril) 6.25 mg DAILY PO 01/28/20 09:00 01/28/20 17:33 DC Insulin Detemir (Levemir Insulin) 5 units DAILY SC 02/01/20 09:00 02/06/20 10:23 DC 02/06/20 08:16 Insulin Detemir (Levemir Insulin) 10 units QHS [place] 01/27/20 21:00 01/29/20 21:13 DC 01/27/20 20:18 Insulin Detemir (Levemir Insulin) 15 units QHS [place] 02/06/20 21:00 02/15/20 21:19 Insulin Detemir (Levemir Insulin) 15 units QHS [place] 01/30/20 21:00 01/31/20 10:21 DC 01/30/20 21:25 Insulin Detemir (Levemir Insulin) 20 units QHS [place] 01/31/20 21:00 02/01/20 10:03 DC 01/31/20 21:29 Insulin Detemir (Levemir Insulin) 24 units QHS W[place] 02/01/20 21:00 02/06/20 10:22 DC 02/05/20 21:34 Insulin Human Lispro (HumaLOG INSULIN) SEE PROTOCOL TABLE AC [place] 01/27/20 17:30 01/29/20 21:13 DC 01/28/20 11:53 Insulin Human Lispro (HumaLOG INSULIN) [facility] 01/27/20 21:00 01/29/20 21:13 DC Insulin Human Lispro (HumaLOG INSULIN) See Protocol Table AC [place] 01/30/20 17:30 02/15/20 17:37 Insulin Human Lispro (HumaLOG INSULIN) See [facility] 01/30/20 21:00 02/15/20 21:20 Lactobacillus Acidophilus (Bacid) 1 ea WMHS PO 02/08/20 12:30 02/15/20 21:20 Levofloxacin (Levaquin) 750 mg DAILY@06 PO 02/07/20 06:00 02/13/20 21:00 DC 02/13/20 05:38 Lidocaine (Lidoderm Patch) 1 patch DAILY TD 01/31/20 09:00 02/15/20 09:14 Lidocaine (Lidoderm Patch) 1 patch DAILY TD 01/31/20 09:00 02/15/20 09:14 Magnesium Hydroxide (Milk Of Magnesia) 30 ml DAILYPRN PRN PO CONSTIPATION 02/02/20 16:15 02/02/20 17:22 Meclizine HCl (Antivert) 12.5 mg TID PO 02/06/20 16:00 02/08/20 13:13 DC 02/08/20 08:41 Meclizine HCl (Antivert) 12.5 mg TID PO 01/30/20 16:00 01/31/20 13:52 DC 01/31/20 09:07 Meclizine HCl (Antivert) 12.5 mg TID PRN PO dizziness 02/08/20 13:15 Meclizine HCl (Antivert) 25 mg TID PO 01/31/20 16:00 02/06/20 10:22 DC 02/06/20 08:13 Metformin HCl (Glucophage) 500 mg BID@08,18 PO 01/27/20 18:00 01/28/20 19:12 DC 01/28/20 09:26 Metoclopramide HCl (Reglan) 5 mg ACHS PO 01/30/20 12:00 02/02/20 09:14 DC 02/01/20 21:05 Metoprolol Tartrate (Lopressor) 2.5 mg STAT STAT IV 01/28/20 19:11 01/28/20 19:28 DC Miscellaneous (Unresolved Clarification Entry) SEE LABEL COMMENTS DAILY XX 02/11/20 09:00 02/12/20 11:02 DC 02/11/20 09:00 Non-Formulary Medication ( See Comment Field Below ) REMOVE LIDODERM PATCH DAILY@21 XX 01/31/20 21:00 02/15/20 21:23 Non-Formulary Medication ( See Comment Field Below ) REMOVE LIDODERM PATCH DAILY@21 XX 01/31/20 21:00 02/15/20 21:23 Ondansetron HCl (ZOFRAN INJection) 4 mg Q4H IV 02/11/20 02:15 02/11/20 02:19 DC Ondansetron HCl (ZOFRAN INJection) 4 mg Q4HP PRN IV NAUSEA OR VOMITING 02/11/20 02:15 02/16/20 01:04 DC 02/11/20 03:14 Ondansetron HCl (ZOFRAN INJection) 4 mg Q4HP PRN IV NAUSEA OR VOMITING 01/28/20 19:15 01/29/20 21:13 DC Ondansetron HCl (Zofran Odt) 4 mg Q4HP PRN SL NAUSEA OR VOMITING 02/16/20 01:00 02/16/20 09:40 Ondansetron HCl (Zofran) 4 mg Q6HP PRN PO NAUSEA OR VOMITING 01/28/20 17:15 01/28/20 19:12 DC 01/28/20 17:39 Oxybutynin Chloride (Ditropan) 5 mg BID PO 01/27/20 21:00 01/29/20 21:13 DC 01/28/20 09:26 Oxybutynin Chloride (Ditropan) 5 mg BID PO 01/30/20 21:00 02/15/20 21:22 Pantoprazole Sodium (Protonix) 40 mg DAILY PO 01/28/20 09:00 01/29/20 21:13 DC Polyethylene Glycol (Miralax) 1 pkt DAILY PO 02/04/20 09:00 02/15/20 09:13 Potassium Chloride (Micro-K Extencaps) 20 meq DAILY PO 02/02/20 09:00 02/07/20 10:10 DC 02/07/20 08:40 Ramelteon (Rozerem) 8 mg QHSP PRN PO INSOMNIA 02/14/20 22:45 02/16/20 10:43 DC 02/15/20 21:22 Ramipril (Altace) 10 mg Q12H PO 01/30/20 21:00 02/15/20 09:15 Ramipril (Altace) 10 mg QHS PO 01/27/20 21:00 01/29/20 21:13 DC 01/27/20 20:16 Senna (Senokot) 1 tab BIDP PRN PO CONSTIPATION 02/02/20 16:15 02/15/20 21:22 Senna (Senokot) 1 tab QHS PO 01/27/20 21:00 01/29/20 21:13 DC 01/27/20 20:16 Sodium Chloride 1,000 ml @ 40 mls/hr Q24H IV 01/28/20 19:15 01/29/20 21:13 DC 01/28/20 20:08 Trazodone HCl (Desyrel) 25 mg QHS PO 02/06/20 21:00 02/07/20 17:37 DC 02/06/20 22:08 Venlafaxine HCl (Effexor) 75 mg BID PO 01/27/20 21:00 01/29/20 21:13 DC 01/28/20 09:26 Venlafaxine HCl (Effexor) 75 mg BID PO 01/30/20 21:00 02/15/20 21:22 Zolpidem Tartrate (Ambien) 5 mg QHSP PRN PO insomnia 01/27/20 12:30 01/29/20 21:13 DC 01/27/20 20:16 Zolpidem Tartrate (Ambien) 5 mg QHSP PRN PO insomnia 01/30/20 13:30 02/06/20 15:15 DC 02/05/20 21:36 RUSLAN SOTELO MD Feb 16, 2020 12:12
[2020-02-16] MEDS: MIRALAX *UNIT DOSE* 17GM PACKET PO SCH (12:27)
[2020-02-16] MEDS: ASPIRIN 81 MG CHEW TABLET PO SCH (12:28)
[2020-02-16] MEDS: VENLAFAXINE 37.5 MG TAB PO SCH ×2 (12:28→21:46)
[2020-02-16] MEDS: guaiFENesin 200 MG TAB PO SCH ×3 (12:28→21:00)
[2020-02-16] MEDS: ramipriL 5 MG CAP PO SCH ×2 (12:28→21:49)
[2020-02-16] MEDS: DABIGATRAN ETEXILATE 75 MG CAP (PRADAXA) PO SCH ×2 (12:29→21:45)
[2020-02-16] MEDS: oxyBUTYnin 5 MG TAB PO SCH ×2 (12:29→21:46)
[2020-02-16] MEDS: BISACODYL 5 MG TAB PO SCH (12:29)
[2020-02-16] MEDS: amLODIPine 10 MG TAB PO SCH (12:29)
[2020-02-16] MEDS: CARVedilol 12.5 MG TAB PO SCH ×2 (12:29→21:50)
[2020-02-16] MEDS: LIDOCAINE 5% (LIDODERM) PATCH TD SCH ×2 (12:30→12:31)
[2020-02-16] MEDS: REMEDY PHYTOPLEX Z-GUARD PASTE 113GM TUBE (FROM STOREROOM PRODUCT) TOP SCH ×3 (12:31→21:00)
[2020-02-16 14:00] VITALS: BP 129/66
[2020-02-16] MEDS ORDERED: Zinc Oxide/Petrolatum,White TOP (15:01)
[2020-02-16] MEDS ORDERED: BISAC5TA PO (15:01)
[2020-02-16] MEDS ORDERED: VENL37TA PO (15:01)
[2020-02-16] MEDS ORDERED: RISATAB3 PO (15:01)
[2020-02-16] MEDS ORDERED: IPRA0.00 NEB (15:01)
[2020-02-16] MEDS ORDERED: OXYB5TAB10 PO (15:01)
[2020-02-16] MEDS ORDERED: CARV12.5 PO (15:01)
[2020-02-16] MEDS ORDERED: PRAD75CA5 PO (15:01)
[2020-02-16] MEDS ORDERED: HYDR25TA PO (15:01)
[2020-02-16] MEDS ORDERED: ONDA4TAB6 SL (15:01)
[2020-02-16] MEDS ORDERED: ASPI81CH8 PO (15:01)
[2020-02-16] MEDS ORDERED: INSUDET SC (15:01)
[2020-02-16] MEDS ORDERED: ALTA1CAP3 PO (15:01)
[2020-02-16] MEDS ORDERED: ATOR1TAB21 PO (15:01)
[2020-02-16] MEDS ORDERED: MECL12.589 PO (15:01)
[2020-02-16] MEDS ORDERED: INSUHUMDS SC ×2 (15:01)
[2020-02-16] MEDS ORDERED: AMLO10TA5 PO (15:01)
[2020-02-16] MEDS ORDERED: LIDO5TD TD (15:01)
[2020-02-16] MEDS: LEVEMIR (INSULIN DETEMIR) 1 UNITS/0.01ML SC SCH (21:46)
[2020-02-16] MEDS: ATORVASTATIN 20 MG TAB PO SCH (21:47)
[2020-02-16 21:50] VITALS: BP 139/72
[2020-02-17] MEDS: ONDANSETRON 4 MG ORAL DISINTEGRATING TAB SL PRN (00:20)
[2020-02-17] MEDS: **hydrALAZINE HCL** 25 MG TAB PO SCH ×4 (06:00→17:39)
[2020-02-17 06:02] VITALS: BP 116/60
[2020-02-17 07:11] LABS: BASO # 0.1 10^3/uL (0.0-0.2); BASO % 0.5 % (0.0-1.0); EOS # 0.1 10^3/uL (0.0-0.5); EOS % 0.7 % (0.0-3.0); HEMATOCRIT 30.8 % (42.0-52.0); HEMOGLOBIN 10.2 g/dl (13.5-17.5); LYMPH # 2.1 10^3/uL (1.5-5.0); LYMPH % 20.3 % (24.0-44.0); MEAN CORPUSCULAR HEMOGLOBIN 31.3 pg (27.0-33.0); MEAN CORPUSCULAR HGB CONC 33.1 g/dl (32.0-36.5); MEAN CORPUSCULAR VOLUME 94.5 fl (80.0-96.0); MONO # 0.7 10^3/uL (0.0-0.8); MONO % 6.7 % (0.0-5.0); NEUTROPHILS # 7.5 10^3/uL (1.5-8.5); NEUTROPHILS % 71.2 % (36.0-66.0); PLATELET COUNT, AUTOMATED 290 10^3/uL (150-450); RED BLOOD COUNT 3.26 10^6/uL (4.30-6.10); WHITE BLOOD COUNT 10.6 10^3/uL (4.0-10.0)
[2020-02-17 07:29] LABS: BLOOD UREA NITROGEN 22 MG/DL (7-18); CALCIUM LEVEL 8.6 MG/DL (8.8-10.2); CARBON DIOXIDE LEVEL 27 MEQ/L (21-32); CHLORIDE LEVEL 104 MEQ/L (98-107); CREATININE FOR GFR 0.76 MG/DL (0.70-1.30); GLOMERULAR FILTRATION RATE > 60.0 (>49); GLUCOSE, FASTING 241 MG/DL (70-100); SODIUM LEVEL 135 MEQ/L (136-145)
[2020-02-17] MEDS: IPRATROPIUM 0.5MG/ALBUTEROL 2.5MG INH SOL UD 3ML (DUONEB) NEB SCH ×3 (07:43→20:00)
[2020-02-17] MEDS: HumaLOG INSULIN (NovoLOG) PER UNIT SC SCH ×4 (07:54→21:00)
[2020-02-17] MEDS: LACTOBACILLUS ACIDOPHILUS CAP (BACID) PO SCH ×4 (07:54→21:14)
[2020-02-17] MEDS: REMEDY PHYTOPLEX Z-GUARD PASTE 113GM TUBE (FROM STOREROOM PRODUCT) TOP SCH ×3 (09:00→21:14)
[2020-02-17] MEDS: MIRALAX *UNIT DOSE* 17GM PACKET PO SCH (09:00)
[2020-02-17] MEDS: DABIGATRAN ETEXILATE 75 MG CAP (PRADAXA) PO SCH ×2 (09:43→21:12)
[2020-02-17] MEDS: LIDOCAINE 5% (LIDODERM) PATCH TD SCH ×2 (09:43→09:45)
[2020-02-17] MEDS: guaiFENesin 200 MG TAB PO SCH ×3 (09:43→21:14)
[2020-02-17] MEDS: ASPIRIN 81 MG CHEW TABLET PO SCH (09:43)
[2020-02-17] MEDS: VENLAFAXINE 37.5 MG TAB PO SCH ×2 (09:44→21:12)
[2020-02-17] MEDS: CARVedilol 12.5 MG TAB PO SCH ×2 (09:44→21:00)
[2020-02-17] MEDS: ramipriL 5 MG CAP PO SCH ×2 (09:44→21:00)
[2020-02-17] MEDS: oxyBUTYnin 5 MG TAB PO SCH ×2 (09:44→21:12)
[2020-02-17] MEDS: BISACODYL 5 MG TAB PO SCH (09:44)
[2020-02-17] MEDS: amLODIPine 10 MG TAB PO SCH (09:45)
[2020-02-17 14:00] VITALS: BP 124/67
[2020-02-17 20:30] VITALS: BP 108/58
[2020-02-17] MEDS: ATORVASTATIN 20 MG TAB PO SCH (21:14)
[2020-02-17] MEDS: LEVEMIR (INSULIN DETEMIR) 1 UNITS/0.01ML SC SCH (21:14)
[2020-02-18 00:09] VITALS: BP 110/58
[2020-02-18 05:57] VITALS: BP 142/77
[2020-02-18] MEDS: **hydrALAZINE HCL** 25 MG TAB PO SCH ×6 (06:12→17:37)
[2020-02-18] MEDS: IPRATROPIUM 0.5MG/ALBUTEROL 2.5MG INH SOL UD 3ML (DUONEB) NEB SCH ×3 (07:02→20:00)
[2020-02-18] MEDS: HumaLOG INSULIN (NovoLOG) PER UNIT SC SCH ×4 (08:14→21:00)
[2020-02-18] MEDS: BISACODYL 5 MG TAB PO SCH (08:15)
[2020-02-18] MEDS: DABIGATRAN ETEXILATE 75 MG CAP (PRADAXA) PO SCH ×2 (08:15→21:54)
[2020-02-18] MEDS: amLODIPine 10 MG TAB PO SCH (08:15)
[2020-02-18] MEDS: MIRALAX *UNIT DOSE* 17GM PACKET PO SCH (08:16)
[2020-02-18] MEDS: ramipriL 5 MG CAP PO SCH ×2 (08:16→21:55)
[2020-02-18] MEDS: VENLAFAXINE 37.5 MG TAB PO SCH ×2 (08:16→21:56)
[2020-02-18] MEDS: LACTOBACILLUS ACIDOPHILUS CAP (BACID) PO SCH ×4 (08:17→21:55)
[2020-02-18] MEDS: ASPIRIN 81 MG CHEW TABLET PO SCH (08:17)
[2020-02-18] MEDS: oxyBUTYnin 5 MG TAB PO SCH ×2 (08:17→21:55)
[2020-02-18] MEDS: guaiFENesin 200 MG TAB PO SCH ×3 (08:17→21:55)
[2020-02-18] MEDS: CARVedilol 12.5 MG TAB PO SCH ×2 (08:17→21:55)
[2020-02-18] MEDS: REMEDY PHYTOPLEX Z-GUARD PASTE 113GM TUBE (FROM STOREROOM PRODUCT) TOP SCH ×3 (08:23→21:00)
[2020-02-18] MEDS: LIDOCAINE 5% (LIDODERM) PATCH TD SCH ×2 (08:26)
[2020-02-18 14:00] VITALS: BP 118/62
[2020-02-18] MEDS: LEVEMIR (INSULIN DETEMIR) 1 UNITS/0.01ML SC SCH (21:54)
[2020-02-18] MEDS: ATORVASTATIN 20 MG TAB PO SCH (21:55)
[2020-02-18 22:00] VITALS: BP 132/71
[2020-02-19] MEDS: **hydrALAZINE HCL** 25 MG TAB PO SCH ×4 (05:41→17:04)
[2020-02-19 06:00] VITALS: BP 137/69
[2020-02-19] MEDS: IPRATROPIUM 0.5MG/ALBUTEROL 2.5MG INH SOL UD 3ML (DUONEB) NEB SCH ×3 (07:06→19:59)
[2020-02-19] MEDS: ASPIRIN 81 MG CHEW TABLET PO SCH (08:07)
[2020-02-19] MEDS: oxyBUTYnin 5 MG TAB PO SCH ×2 (08:07→21:15)
[2020-02-19] MEDS: BISACODYL 5 MG TAB PO SCH (08:07)
[2020-02-19] MEDS: LACTOBACILLUS ACIDOPHILUS CAP (BACID) PO SCH ×4 (08:07→21:15)
[2020-02-19] MEDS: CARVedilol 12.5 MG TAB PO SCH ×2 (08:08→21:15)
[2020-02-19] MEDS: DABIGATRAN ETEXILATE 75 MG CAP (PRADAXA) PO SCH ×2 (08:08→21:15)
[2020-02-19] MEDS: VENLAFAXINE 37.5 MG TAB PO SCH ×2 (08:14→21:15)
[2020-02-19] MEDS: amLODIPine 10 MG TAB PO SCH (08:14)
[2020-02-19] MEDS: ramipriL 5 MG CAP PO SCH ×2 (08:14→21:16)
[2020-02-19] MEDS: MIRALAX *UNIT DOSE* 17GM PACKET PO SCH (08:14)
[2020-02-19] MEDS: guaiFENesin 200 MG TAB PO SCH ×3 (08:15→21:14)
[2020-02-19] MEDS: LIDOCAINE 5% (LIDODERM) PATCH TD SCH ×2 (08:15→08:16)
[2020-02-19] MEDS: HumaLOG INSULIN (NovoLOG) PER UNIT SC SCH ×4 (09:00→21:00)
[2020-02-19] MEDS: REMEDY PHYTOPLEX Z-GUARD PASTE 113GM TUBE (FROM STOREROOM PRODUCT) TOP SCH ×3 (09:02→21:16)
[2020-02-19 14:00] VITALS: BP 102/57
[2020-02-19 20:00] VITALS: BP 117/60
[2020-02-19] MEDS: LEVEMIR (INSULIN DETEMIR) 1 UNITS/0.01ML SC SCH (21:14)
[2020-02-19] MEDS: ATORVASTATIN 20 MG TAB PO SCH (21:15)
[2020-02-20 00:03] VITALS: BP 112/57
[2020-02-20 05:56] VITALS: BP 130/77
[2020-02-20] MEDS: **hydrALAZINE HCL** 25 MG TAB PO SCH ×5 (05:56→23:58)
[2020-02-20 06:12] LABS: BASO # 0.1 10^3/uL (0.0-0.2); BASO % 0.7 % (0.0-1.0); EOS # 0.2 10^3/uL (0.0-0.5); HEMATOCRIT 31.2 % (42.0-52.0); HEMOGLOBIN 10.2 g/dl (13.5-17.5); LYMPH % 22.2 % (24.0-44.0); MEAN CORPUSCULAR HEMOGLOBIN 30.6 pg (27.0-33.0); MEAN CORPUSCULAR HGB CONC 32.7 g/dl (32.0-36.5); MEAN CORPUSCULAR VOLUME 93.7 fl (80.0-96.0); MONO # 0.8 10^3/uL (0.0-0.8); MONO % 9.3 % (0.0-5.0); NEUTROPHILS # 5.8 10^3/uL (1.5-8.5); NEUTROPHILS % 65.5 % (36.0-66.0); PLATELET COUNT, AUTOMATED 287 10^3/uL (150-450); RED BLOOD COUNT 3.33 10^6/uL (4.30-6.10); WHITE BLOOD COUNT 8.9 10^3/uL (4.0-10.0)
[2020-02-20 06:35] LABS: BLOOD UREA NITROGEN 16 MG/DL (7-18); CALCIUM LEVEL 8.4 MG/DL (8.8-10.2); CARBON DIOXIDE LEVEL 28 MEQ/L (21-32); CHLORIDE LEVEL 106 MEQ/L (98-107); CREATININE FOR GFR 0.67 MG/DL (0.70-1.30); GLOMERULAR FILTRATION RATE > 60.0 (>49); GLUCOSE, FASTING 189 MG/DL (70-100); POTASSIUM SERUM 3.6 MEQ/L (3.5-5.1); SODIUM LEVEL 139 MEQ/L (136-145)
[2020-02-20] MEDS: MIRALAX *UNIT DOSE* 17GM PACKET PO SCH (07:51)
[2020-02-20] MEDS: HumaLOG INSULIN (NovoLOG) PER UNIT SC SCH ×4 (07:51→20:37)
[2020-02-20] MEDS: LIDOCAINE 5% (LIDODERM) PATCH TD SCH ×2 (07:51)
[2020-02-20] MEDS: DABIGATRAN ETEXILATE 75 MG CAP (PRADAXA) PO SCH ×2 (07:52→20:36)
[2020-02-20] MEDS: VENLAFAXINE 37.5 MG TAB PO SCH ×2 (07:52→20:36)
[2020-02-20] MEDS: ASPIRIN 81 MG CHEW TABLET PO SCH (07:52)
[2020-02-20] MEDS: ramipriL 5 MG CAP PO SCH ×2 (07:52→20:36)
[2020-02-20] MEDS: amLODIPine 10 MG TAB PO SCH (07:53)
[2020-02-20] MEDS: CARVedilol 12.5 MG TAB PO SCH ×2 (07:53→20:36)
[2020-02-20] MEDS: LACTOBACILLUS ACIDOPHILUS CAP (BACID) PO SCH ×4 (07:53→20:37)
[2020-02-20] MEDS: BISACODYL 5 MG TAB PO SCH (07:53)
[2020-02-20] MEDS: oxyBUTYnin 5 MG TAB PO SCH ×2 (07:53→20:36)
[2020-02-20] MEDS: guaiFENesin 200 MG TAB PO SCH ×3 (07:53→20:37)
[2020-02-20] MEDS: REMEDY PHYTOPLEX Z-GUARD PASTE 113GM TUBE (FROM STOREROOM PRODUCT) TOP SCH ×3 (07:54→20:42)
[2020-02-20] MEDS: IPRATROPIUM 0.5MG/ALBUTEROL 2.5MG INH SOL UD 3ML (DUONEB) NEB SCH ×3 (08:00→19:35)
--- NOTE | 2020-02-20 13:36 | IPNPDOC ---
PM&R Progress Note DATE OF SERVICE: Feb 20, 2020 [place] Progress Note Subjective: Patient reporting he is frustrated because he has difficulty holding the urinal and fastening his pants. He was encouraged to work on this when he goes to SNF in order to optimize he self-care. REVIEW OF SYSTEMS: The following is a completed review of systems and has been reviewed. Review of systems otherwise unremarkable. PAIN: Patient self reports no pain EYES: No recent vision changes EARS, NOSE, & THROAT: No throat pain, or dysphagia, or rhinorrhea CARDIOVASCULAR: Denies chest pain or palpitations PULMONARY: Denies shortness of breath GASTROINTESTINAL: denies constipation/diarrhea GENITOURINARY: denies dysuria MUSCULOSKELETAL: right sided weakness NEUROLOGICAL:right sided paresis and mild neglect, +dizziness (resolved) HEMATOLOGICAL: denies easy bruising SKIN: denies rash PSYCHIATRIC: Unremarkable All other review of systems found to be negative. PHYSICAL EXAMINATION: VITAL SIGNS: Please see below. GENERAL: Pleasant and cooperative. No acute distress. HEENT: PERRL. Extraocular movements intact. Clear conjunctiva CARDIOVASCULAR: Regular rate and rhythm. No murmurs, rubs, or gallops, + AICD LUNGS: Clear to auscultation bilaterally. No wheezes. No rhonchi ABDOMEN: Soft, nontender, nondistended. Positive bowel sounds. Normal active bowel sounds NEUROLOGICAL: Alert and oriented times three. Cranial nerves II through XII grossly intact. Sensation diminished to light touch RUE with extinction to light touch (-) nystagmus EXTREMITIES: 5\5 strength LUE, 4/5 Right elbow flexors/extensors and wrist extensors, 4+/5 cell repairer, 4\5 strength right lower extremity. 5/5 strength in left lower extremity. SKIN: no rash ASSESSMENT:69-year-old M with past medical history of vascular dementia with multiple strokes who presents status new onset right sided weakness likely due to new CVA was transferred to acute level of care on 01-28-20 for Hypertensive emergency requiring IV BP meds, returned 01-30-20 for an interrupted stay- PLAN: 1. Rehab-PT/OT advance gait and ADLs, strengthen/stretch/maintain ROM all 4 limbs- avoid E-stim to RUE as patient reporting seizure-like activity following an old stroke and AICD in place - DRAIN CLEANER eval for cog and swallow- dysphagia resolved 2. Neuro: hx of multiple infarcts with new right sided weakness, MRI incompatible, with symptoms most consistent with new ischemic stroke in setting of severely stenotic left vertebral artery- c/u statin, ASA and Pradaxa for secondary stroke prevention, optimize BPs -vascular dementia with depression- c/u Effexor -f/u neuro as outpatient -patient sent out for hypertensive urgency 01-28-20 with nausea and vomiting, suspect possible posterior circulation infarct given severe vertebral artery stenosis, with significant new impairments in his mobility level due to positional vertigo making a new posterior infarct very likely- dizziness overall better, c/u Meclizine to 12.5 mg TID prn for central vertigo-patient currently not requesting 3. Cardiac- chronic diastolic CHF (ECHO )- fluid restrict, daily weights, medicine consulted to assist in overall management -HTN c/u Coreg and Ramipril, amlodipine added, c/u hydralazine 25mg q6h and hold for sBP <140 -Afib s/p ablation on pradaxa 4. Resp: encourage incentive spirometry, recent CXR positive for Right LL PNA s/p 7 day course of Levaquin, patient denies cough or fever- +leukocytosis improving and clinically patient does not appear infected -c/u Duonebs 5. Endo: pmh DM with fluctuating po intake however patient reporting his appetite is improving, c/u levemir and c/u ISS for now -hypokalemia- resolved, holding daily supplement and c/u to monitor 6. : monitor PVRS, c/u ditropan -repeat Ua negative and leukocytosis resolved 7. GI ppx: protonix 40mg -reglan d/c'd 8. DVT ppx: on pradaxa, TEDs -dopplers negative for DVT 9. Pain: Tylenol prn 10. Psych- c/u Effexor for depression 11. Dispo: 02-21-20 to SNF as patient would benefit from ongoing rehab given his complex neurological deficits Allergies Coded Allergies: Penicillins (Verified Allergy, Unknown, UNKNOWN CHILDHOOD REACTION, 12/10/19) lorazepam (Verified Adverse Reaction, Unknown, AGGRESSIVE, 12/10/19) Vital Signs Vital Signs Date Time Temp Pulse Resp B/P (MAP) Pulse Ox O2 Delivery O2 Flow Rate FiO2 02/20/20 12:00 106/56 02/20/20 07:53 71 02/20/20 05:56 97.5 18 96 Room Air Laboratory Data CBC/BMP Laboratory Tests 02/20/20 05:47 Labs 24H Laboratory Tests 2 02/19/20 16:23: Bedside Glucose (Misc Panel) 260H 02/19/20 20:03: Bedside Glucose (Misc Panel) 239H 02/20/20 05:47: Immature Granulocyte % (Auto) 0.3, Neutrophils (%) (Auto) 65.5, Lymphocytes (%) (Auto) 22.2L, Monocytes (%) (Auto) 9.3H, Eosinophils (%) (Auto) 2.0, Basophils (%) (Auto) 0.7, Neutrophils # (Auto) 5.8, Lymphocytes # (Auto) 2.0, Monocytes # (Auto) 0.8, Eosinophils # (Auto) 0.2, Basophils # (Auto) 0.1, Nucleated Red Blood Cells % (auto) 0.0, Anion Gap 5L, Glomerular Filtration Rate > 60.0, Calcium Level 8.4L 02/20/20 06:01: Bedside Glucose (Misc Panel) 185H 02/20/20 11:30: Bedside Glucose (Misc Panel) 169H Current Medications Current Medications Current Medications Medications (Trade) Dose Ordered Sig/Kenneth Route PRN Reason Start Time Stop Time Status Last Admin Dose Admin Acetaminophen (Tylenol Tab) 650 mg Q4HP PRN PO fever/MILD PAIN (PS 1-4) 01/27/20 12:30 01/29/20 21:13 DC Albuterol/ Ipratropium (Duoneb (Ipr 0.5mg/Alb 2.5mg)) 3 ml RTID NEB 01/27/20 20:00 01/29/20 21:13 DC 01/28/20 13:29 Albuterol/ Ipratropium (Duoneb (Ipr 0.5mg/Alb 2.5mg)) 3 ml RTID NEB 01/30/20 14:00 02/12/20 07:50 Amlodipine Besylate (Norvasc) 2.5 mg DAILY PO 01/28/20 09:00 01/28/20 19:12 DC Amlodipine Besylate (Norvasc) 10 mg DAILY PO 01/31/20 09:00 02/20/20 07:53 Aspirin (Aspirin Chewable) 81 mg DAILY PO 01/31/20 09:00 02/20/20 07:52 Aspirin (Ecotrin) 81 mg DAILY PO 01/28/20 09:00 01/29/20 21:13 DC 01/28/20 09:25 Atorvastatin Calcium (Lipitor) 40 mg QHS PO 01/27/20 21:00 01/29/20 21:13 DC 01/27/20 20:17 Atorvastatin Calcium (Lipitor) 40 mg QHS PO 01/30/20 21:00 02/19/20 21:15 Bisacodyl (Dulcolax Suppository) 10 mg DAILYPRN PRN OR CONSTIPATION 02/05/20 15:00 02/12/20 20:49 Bisacodyl (Dulcolax Suppository) 10 mg DAILYPRN PRN OR CONSTIPATION 01/27/20 12:30 01/29/20 21:13 DC Bisacodyl (Dulcolax Tab) 5 mg DAILY PO 02/04/20 09:00 02/20/20 07:53 Carvedilol (COReg) 12.5 mg BID PO 01/27/20 21:00 01/29/20 21:13 DC 01/28/20 09:27 Carvedilol (COReg) 12.5 mg BID PO 01/30/20 21:00 02/20/20 07:53 Dabigatran (Pradaxa) 150 mg BID PO 01/27/20 21:00 01/29/20 21:13 DC 01/28/20 09:25 Dabigatran (Pradaxa) 150 mg BID PO 01/28/20 21:00 UNV Dabigatran (Pradaxa) 150 mg BID PO 01/30/20 21:00 02/20/20 07:52 Dextrose (Dextrose 50%) 25 ml ASDIRECTED PRN IV SEE LABEL COMMENTS 01/27/20 12:30 01/29/20 21:13 DC Docusate Sodium (Colace) 100 mg BID PO 01/27/20 21:00 01/29/20 21:13 DC 01/28/20 09:26 Docusate Sodium (Colace) 100 mg BIDP PRN PO CONSTIPATION 02/02/20 16:15 02/06/20 15:16 DC 02/04/20 09:30 Docusate Sodium (Colace) 100 mg BIDP PRN PO CONSTIPATION 02/06/20 15:30 02/15/20 21:22 Docusate Sodium (Colace) 100 mg TID PO 02/06/20 16:00 Cancel Glucagon (Glucagon) 1 mg ASDIRECTED PRN SC SEE LABEL COMMENTS 01/27/20 12:30 01/29/20 21:13 DC Glucose (Glucose) 16 GM ASDIRECTED PRN PO SEE LABEL COMMENTS 01/27/20 12:30 01/29/20 21:13 DC Guaifenesin (Robitussin Tab) 400 mg TID PO 01/30/20 16:00 02/20/20 07:53 Heparin Sodium (Porcine) (Heparin) 5,000 units Q12H SC 01/27/20 12:30 01/27/20 15:41 DC Hydralazine HCl (Apresoline) 25 mg Q6H PO 01/30/20 12:00 02/18/20 12:17 Hydrochlorothiazide (Hydrodiuril) 6.25 mg DAILY PO 01/28/20 09:00 01/28/20 17:33 DC Insulin Detemir (Levemir Insulin) 5 units DAILY SC 02/01/20 09:00 02/06/20 10:23 DC 02/06/20 08:16 Insulin Detemir (Levemir Insulin) 10 units QHS SC 01/27/20 21:00 01/29/20 21:13 DC 01/27/20 20:18 Insulin Detemir (Levemir Insulin) 15 units QHS SC 02/06/20 21:00 02/19/20 21:14 Insulin Detemir (Levemir Insulin) 15 units QHS SC 01/30/20 21:00 01/31/20 10:21 DC 01/30/20 21:25 Insulin Detemir (Levemir Insulin) 20 units QHS SC 01/31/20 21:00 02/01/20 10:03 DC 01/31/20 21:29 Insulin Detemir (Levemir Insulin) 24 units QHS SC 02/01/20 21:00 02/06/20 10:22 DC 02/05/20 21:34 Insulin Human Lispro (HumaLOG INSULIN) SEE PROTOCOL TABLE AC SC 01/27/20 17:30 01/29/20 21:13 DC 01/28/20 11:53 Insulin Human Lispro (HumaLOG INSULIN) SEE PROTOCOL TABLE QHS SC 01/27/20 21:00 01/29/20 21:13 DC Insulin Human Lispro (HumaLOG INSULIN) See Protocol Table AC SC 01/30/20 17:30 02/20/20 13:17 Insulin Human Lispro (HumaLOG INSULIN) See Protocol Table QHS SC 01/30/20 21:00 02/15/20 21:20 Lactobacillus Acidophilus (Bacid) 1 ea WMHS PO 02/08/20 12:30 02/20/20 13:17 Levofloxacin (Levaquin) 750 mg DAILY@06 PO 02/07/20 06:00 02/13/20 21:00 DC 02/13/20 05:38 Lidocaine (Lidoderm Patch) 1 patch DAILY TD 01/31/20 09:00 02/20/20 07:51 Lidocaine (Lidoderm Patch) 1 patch DAILY TD 01/31/20 09:00 02/20/20 07:51 Magnesium Hydroxide (Milk Of Magnesia) 30 ml DAILYPRN PRN PO CONSTIPATION 02/02/20 16:15 02/02/20 17:22 Meclizine HCl (Antivert) 12.5 mg TID PO 02/06/20 16:00 02/08/20 13:13 DC 02/08/20 08:41 Meclizine HCl (Antivert) 12.5 mg TID PO 01/30/20 16:00 01/31/20 13:52 DC 01/31/20 09:07 Meclizine HCl (Antivert) 12.5 mg TID PRN PO dizziness 02/08/20 13:15 02/16/20 12:30 Meclizine HCl (Antivert) 25 mg TID PO 01/31/20 16:00 02/06/20 10:22 DC 02/06/20 08:13 Metformin HCl (Glucophage) 500 mg BID@08,18 PO 01/27/20 18:00 01/28/20 19:12 DC 01/28/20 09:26 Metoclopramide HCl (Reglan) 5 mg ACHS PO 01/30/20 12:00 02/02/20 09:14 DC 02/01/20 21:05 Metoprolol Tartrate (Lopressor) 2.5 mg STAT STAT IV 01/28/20 19:11 01/28/20 19:28 DC Miscellaneous (Unresolved Clarification Entry) SEE LABEL COMMENTS DAILY XX 02/11/20 09:00 02/12/20 11:02 DC 02/11/20 09:00 Miscellaneous (Unresolved Clarification Entry) SEE LABEL COMMENTS DAILY XX 02/18/20 09:00 02/18/20 14:29 DC Non-Formulary Medication ( See Comment Field Below ) REMOVE LIDODERM PATCH DAILY@21 XX 01/31/20 21:00 02/19/20 21:16 Non-Formulary Medication ( See Comment Field Below ) REMOVE LIDODERM PATCH DAILY@21 XX 01/31/20 21:00 02/19/20 21:16 Ondansetron HCl (ZOFRAN INJection) 4 mg Q4H IV 02/11/20 02:15 02/11/20 02:19 DC Ondansetron HCl (ZOFRAN INJection) 4 mg Q4HP PRN IV NAUSEA OR VOMITING 02/11/20 02:15 02/16/20 01:04 DC 02/11/20 03:14 Ondansetron HCl (ZOFRAN INJection) 4 mg Q4HP PRN IV NAUSEA OR VOMITING 01/28/20 19:15 01/29/20 21:13 DC Ondansetron HCl (Zofran Odt) 4 mg Q4HP PRN SL NAUSEA OR VOMITING 02/16/20 01:00 02/17/20 00:20 Ondansetron HCl (Zofran) 4 mg Q6HP PRN PO NAUSEA OR VOMITING 01/28/20 17:15 01/28/20 19:12 DC 01/28/20 17:39 Oxybutynin Chloride (Ditropan) 5 mg BID PO 01/27/20 21:00 01/29/20 21:13 DC 01/28/20 09:26 Oxybutynin Chloride (Ditropan) 5 mg BID PO 01/30/20 21:00 02/20/20 07:53 Pantoprazole Sodium (Protonix) 40 mg DAILY PO 01/28/20 09:00 01/29/20 21:13 DC Polyethylene Glycol (Miralax) 1 pkt DAILY PO 02/04/20 09:00 02/20/20 07:51 Potassium Chloride (Micro-K Extencaps) 20 meq DAILY PO 02/02/20 09:00 02/07/20 10:10 DC 02/07/20 08:40 Ramelteon (Rozerem) 8 mg QHSP PRN PO INSOMNIA 02/14/20 22:45 02/16/20 10:43 DC 02/15/20 21:22 Ramipril (Altace) 10 mg Q12H PO 01/30/20 21:00 02/20/20 07:52 Ramipril (Altace) 10 mg QHS PO 01/27/20 21:00 01/29/20 21:13 DC 01/27/20 20:16 Senna (Senokot) 1 tab BIDP PRN PO CONSTIPATION 02/02/20 16:15 02/15/20 21:22 Senna (Senokot) 1 tab QHS PO 01/27/20 21:00 01/29/20 21:13 DC 01/27/20 20:16 Sodium Chloride 1,000 ml @ 40 mls/hr Q24H IV 01/28/20 19:15 01/29/20 21:13 DC 01/28/20 20:08 Trazodone HCl (Desyrel) 25 mg QHS PO 02/06/20 21:00 02/07/20 17:37 DC 02/06/20 22:08 Venlafaxine HCl (Effexor) 75 mg BID PO 01/27/20 21:00 01/29/20 21:13 DC 01/28/20 09:26 Venlafaxine HCl (Effexor) 75 mg BID PO 01/30/20 21:00 02/20/20 07:52 Zolpidem Tartrate (Ambien) 5 mg QHSP PRN PO insomnia 01/27/20 12:30 01/29/20 21:13 DC 01/27/20 20:16 Zolpidem Tartrate (Ambien) 5 mg QHSP PRN PO insomnia 01/30/20 13:30 02/06/20 15:15 DC 02/05/20 21:36 RUSLAN SOTELO MD Feb 20, 2020 13:36
[2020-02-20 14:00] VITALS: BP 115/56
--- NOTE | 2020-02-20 14:42 | IPNPDOC ---
Subjective Date Seen The patient was seen on 02/20/20. Subjective Chief Complaint/HPI Patient is comfortable offers no new complaints at the present time, General: Denies: ROS Unobtainable, Chills, Night Sweats, Fatigue, Malaise, Normal Appetite, Other Symptoms Constitutional: Denies: Chills, Fever, Malaise, Night Sweats, Weakness, Fatigue, Weight Loss, Lethargy, Other Skin: Denies: Rash, Lesions, Jaundice, Bruising, Itching, Dry, Breakdown, Nail Changes, Other Pulmonary: Denies: Dyspnea, Cough, Pleuritic Chest Pain, Other Symptoms Cardiovascular: Denies: Chest Pain, Palpitations, Orthopnea, Paroxysmal Noc. Dyspnea, Edema, Lt Headedness, Other Symptoms Gastrointestinal: Denies: Nausea, Vomiting, Abdominal Pain, Diarrhea, Constipation, Melena, Hematochezia, Other Symptoms Genitourinary: Denies: Dysuria, Frequency, Incontinence, Hematuria, Retention, Other Symptoms Musculoskeletal: Denies: Neck Pain, Back Pain, Shoulder Pain, Arm Pain, Hand Pa in, Leg Pain, Foot Pain, Joint Pain, Muscle Pain, Spasms, Other Symptoms Neurological: Denies: Weakness, Numbness, Incoordination, Change in speech, Confusion, Seizures, Other Symptoms Objective Physical Examination General Exam: Positive: Alert, Cooperative Eye Exam: Positive: PERRLA, Conjunctiva & lids normal ENT Exam: Positive: Atraumatic Neck Exam: Positive: Supple Chest Exam: Positive: Clear to auscultation, Normal air movement Heart Exam: Positive: Rate Normal, Normal S1 Abdomen Exam: Positive: Normal bowel sounds, Soft Extremity Exam: Positive: Normal pulses Skin Exam: Positive: Nl turgor and temperature Neuro Exam: Positive: Other (no focal sensory or motor deficit) Psych Exam: Positive: Mental status NL, Mood NL Assessment /Plan Problems (1) HTN (hypertension) Status: Chronic Problem Text: Blood pressure is under control Continue amlodipine, Coreg, hydralazine and ramipril (2) Diabetes mellitus Status: Chronic Problem Text: Fingerstick blood sugar every before meals and at bedtime with coverage Continue basal insulin, Levemir, as per orders (3) Dementia Status: Chronic Problem Text: Continue home meds 4. Depression. Continue his velnafaxine (4) Atrial fibrillation Status: Chronic Problem Text: Rate is under well control. Continue beta blockers, and pradaxa (5) CVA (cerebral vascular accident) Status: Acute Problem Text: Right upper or lower extremity weakness secondary to CVA PT, OT in progress patient will possibly benefit from a transfer to half-way facility once he completes his course. Continue all current medication including aspirin, atorvastatin. Discharge planning as per Dr. Brewer Plan/VTE VTE Prophylaxis Ordered?: Yes VS, I&O, 24H, Fishbone Vital Signs/I&O Vital Signs Date Time Temp Pulse Resp B/P (MAP) Pulse Ox O2 Delivery O2 Flow Rate FiO2 02/20/20 12:00 106/56 02/20/20 07:53 71 02/20/20 05:56 97.5 18 96 Room Air I&O- Last 24 Hours up to 6 AM0 02/20/20 06:00 Intake Total 1250 ml Output Total 300 ml Balance 950 ml Laboratory Data 24H LABS Laboratory Tests 2 02/19/20 16:23: Bedside Glucose (Misc Panel) 260H 02/19/20 20:03: Bedside Glucose (Misc Panel) 239H 02/20/20 05:47: Immature Granulocyte % (Auto) 0.3, Neutrophils (%) (Auto) 65.5, Lymphocytes (%) (Auto) 22.2L, Monocytes (%) (Auto) 9.3H, Eosinophils (%) (Auto) 2.0, Basophils (%) (Auto) 0.7, Neutrophils # (Auto) 5.8, Lymphocytes # (Auto) 2.0, Monocytes # (Auto) 0.8, Eosinophils # (Auto) 0.2, Basophils # (Auto) 0.1, Nucleated Red Blood Cells % (auto) 0.0, Anion Gap 5L, Glomerular Filtration Rate > 60.0, Calcium Level 8.4L 02/20/20 06:01: Bedside Glucose (Misc Panel) 185H 02/20/20 11:30: Bedside Glucose (Misc Panel) 169H CBC/BMP Laboratory Tests 02/20/20 05:47 FESTUS GROSS MD Feb 20, 2020 14:42
[2020-02-20 19:55] VITALS: BP 152/69
[2020-02-20 19:58] VITALS: BP 123/63
[2020-02-20] MEDS: ATORVASTATIN 20 MG TAB PO SCH (20:35)
[2020-02-20] MEDS: LEVEMIR (INSULIN DETEMIR) 1 UNITS/0.01ML SC SCH (20:37)
[2020-02-20 23:58] VITALS: BP 139/71
[2020-02-21] MEDS: **hydrALAZINE HCL** 25 MG TAB PO SCH ×2 (05:35→11:55)
[2020-02-21 05:36] VITALS: BP 150/89
[2020-02-21] MEDS: IPRATROPIUM 0.5MG/ALBUTEROL 2.5MG INH SOL UD 3ML (DUONEB) NEB SCH (07:02)
[2020-02-21] MEDS: LIDOCAINE 5% (LIDODERM) PATCH TD SCH ×2 (08:46)
[2020-02-21] MEDS: MIRALAX *UNIT DOSE* 17GM PACKET PO SCH (08:46)
[2020-02-21] MEDS: HumaLOG INSULIN (NovoLOG) PER UNIT SC SCH ×2 (08:47→11:55)
[2020-02-21] MEDS: LACTOBACILLUS ACIDOPHILUS CAP (BACID) PO SCH ×2 (08:47→11:55)
[2020-02-21] MEDS: VENLAFAXINE 37.5 MG TAB PO SCH (08:48)
[2020-02-21] MEDS: BISACODYL 5 MG TAB PO SCH (08:48)
[2020-02-21] MEDS: ASPIRIN 81 MG CHEW TABLET PO SCH (08:48)
[2020-02-21] MEDS: DABIGATRAN ETEXILATE 75 MG CAP (PRADAXA) PO SCH (08:48)
[2020-02-21] MEDS: amLODIPine 10 MG TAB PO SCH (08:49)
[2020-02-21] MEDS: oxyBUTYnin 5 MG TAB PO SCH (08:49)
[2020-02-21] MEDS: ramipriL 5 MG CAP PO SCH (08:49)
[2020-02-21] MEDS: guaiFENesin 200 MG TAB PO SCH (08:49)
[2020-02-21] MEDS: CARVedilol 12.5 MG TAB PO SCH (08:49)
[2020-02-21] MEDS: REMEDY PHYTOPLEX Z-GUARD PASTE 113GM TUBE (FROM STOREROOM PRODUCT) TOP SCH (08:50)
[2020-02-21 11:55] VITALS: BP 111/57
== END 2020-02-21 12:20 | DRG 57 ==
LOC: M PM&R 01-27 15:00 → UNDODISIN 01-28 20:49 → M PM&R 02-06 06:17
PROVIDERS: ADMIT Physical Medicine & Rehabilitation; ATTEND Physical Medicine & Rehabilitation
DX: I69.351 Hemiplegia and hemiparesis following cerebral infarction affecting right dominant side (principal); I50.32 Chronic diastolic (congestive) heart failure; R56.9 Unspecified convulsions; I25.10 Atherosclerotic heart disease of native coronary artery without angina pectoris; I11.0 Hypertensive heart disease with heart failure; I48.91 Unspecified atrial fibrillation; F01.50 Vascular dementia, unspecified severity, without behavioral disturbance, psychotic disturbance, mood disturbance, and anxiety; F17.200 Nicotine dependence, unspecified, uncomplicated; K59.00 Constipation, unspecified; R26.89 Other abnormalities of gait and mobility; F32.9 Major depressive disorder, single episode, unspecified; E11.9 Type 2 diabetes mellitus without complications; Z95.5 Presence of coronary angioplasty implant and graft; Z79.82 Long term (current) use of aspirin; Z79.4 Long term (current) use of insulin; Z79.899 Other long term (current) drug therapy; Z88.0 Allergy status to penicillin; Z88.8 Allergy status to other drugs, medicaments and biological substances; E87.6 Hypokalemia

== ENCOUNTER 2020-01-28 20:30 | Inpatient (IN) | payer MEDICARE ==
[~2020-01-28] VITALS: Ht 177.8 cm; Wt 84.5 kg
[~2020-01-28 20:30] MED LIST changes: +ASPI81CH8 PO
[2020-01-28] MEDS ORDERED: GLUCOSE 4GM CHEW TABLET PO PRN (21:00)
[2020-01-28] MEDS ORDERED: METOPROLOL SUCC *XL* 25MG TAB (TopROL *XL*) PO SCH (21:00)
[2020-01-28] MEDS ORDERED: DEXTROSE 50% 50 ML SYRINGE IV PRN (21:00)
[2020-01-28] MEDS ORDERED: HumaLOG INSULIN (NovoLOG) PER UNIT SC SCH (21:00)
[2020-01-28] MEDS ORDERED: ACETAMINOPHEN TAB 650MG DOSE (2X325MG) PO PRN (21:00)
[2020-01-28] MEDS ORDERED: MOM 30ML SUSPENSION UDC PO PRN (21:00)
[2020-01-28] MEDS ORDERED: HEPARIN SOD (PORCINE) 5000UNITS/ML VIAL (J1644 PER 1000UNITS) SC SCH (21:00)
[2020-01-28] MEDS ORDERED: MAALOX 30 ML SUSP *UDC PO PRN (21:00)
[2020-01-28] MEDS ORDERED: zolPIDEM TARTRATE 5 MG TAB PO PRN (21:00)
[2020-01-28] MEDS ORDERED: GLUCAGON INJ 1MG VIAL SC PRN (21:00)
--- NOTE | 2020-01-28 21:05 | HPEPDOC ---
General Date of Admission Date of Service: Jan 28, 2020 Chief Complaint The patient is a 69-year-old male admitted with a reason for visit of Uncontrolled Htn,N/V. Source: Patient Exam Limitations: No limitations Timing/Duration: Other Severity: Other Associated Symptoms: Nausea, Other History of Present Illness This is a 69 years old white male with past medical history of CAD, coronary stent, chronic hypertension, seizures, A. fib status post ablation, chronic diastolic heart failure, vascular dementia, AICD placement, right parietal infarct by history, patient recently admitted with a new stroke and later was transferred to acute rehabilitation unit for physical therapy. Patient was admitted to medical floor on January 24 with complaints Sided weakness, dysarthria CT was done was negative for any new infarct that he could not get MRI secondary to AICD, but CT of the chest confirmed presence of severe stenosis of proximal left vertebral artery. Patient was started on pradaxa Aspirin and was transferred to ARU for rehabilitation. Patient had complained of fall with persistent nausea since admission to AIU and today's blood pressure was found to be extremely elevated and the salesforce consultant water systems engineer was called and she ordered metoprolol IV as patient has a nausea but since metoprolol IV cannot be given on acute rehabilitation unit and patient is still has a nausea with dry heaving, patient will be transferred to PCU for blood pressure control and and further workup for his persistent nausea. Home Medications Scheduled Aspirin (Children's Aspirin) 81 Mg Tab.chew, 81 MG PO DAILY Atorvastatin Calcium (Atorvastatin Calcium) 20 Mg Tablet, 40 MG PO QHS Carvedilol (Carvedilol) 12.5 Mg Tablet, 12.5 MG PO BID, (Reported) Dabigatran Etexilate Mesylate (Pradaxa) 150 Mg Capsule, 150 MG PO BID, (Reported) Insulin Glargine (Lantus) 100 Unit/1 Ml Vial, 60 UNIT SC DAILY, (Reported) Insulin Lispro (Humalog Kwikpen U-100) 100 Unit/1 Ml Insuln.pen, 1 DOSE SC AC, (Reported) PER SLIDING SCALE Metformin HCl (Metformin HCl) 500 Mg Tablet, 500 MG PO BID, (Reported) Ondansetron HCl (Ondansetron HCl) 8 Mg Tablet, 8 MG PO BID, (Reported) Oxybutynin Chloride (Oxybutynin Chloride) 5 Mg Tablet, 5 MG PO BID, (Reported) Ramipril (Ramipril) 10 Mg Capsule, 10 MG PO QHS, (Reported) Venlafaxine HCl (Venlafaxine HCl) 75 Mg Tablet, 75 MG PO BID, (Reported) Allergies Coded Allergies: Penicillins (Verified Allergy, Unknown, UNKNOWN CHILDHOOD REACTION, 12/10/19) lorazepam (Verified Adverse Reaction, Unknown, AGGRESSIVE, 12/10/19) Past Medical History Medical History CAD, coronary stent, chronic hypertension, seizures, A. fib status post ablation, chronic diastolic heart failure, vascular dementia, AICD placement, right parietal infarct, severe stenosis of proximal left vertebral artery Surgical History Cardiac stents 2, cardiac defibrillator placement, cardiac ablation Family History Family history reviewed. Patient does not good historian. Hence, history was obtained from his old records which shows a father , CHF, hypertension. Mother is also with sepsis and diabetes and one sibling is with a homicide Social History * Smoker: current smoker Alcohol: Denies Drugs: marijuana A-FIB/CHADSVASC A-FIB History Current/History of A-Fib/PAF?: Yes Current PO Anticoag Therapy: Yes Review of Systems Constitutional: Denies: Chills, Fever, Malaise, Night Sweats, Weakness, Fatigue, Weight Loss, Lethargy, Other Eyes: Denies: Pain, Vision change, Conjunctivae inflammation, Eyelid inflammation, Redness, Other ENT: Denies: Head Aches, Ear Pain, Dysphagia, Sinus Congestion, Post Nasal Drip, Sore Throat, Epistaxis, Other Symptoms Skin: Denies: Rash, Lesions, Jaundice, Bruising, Itching, Dry, Breakdown, Nail Changes, Other Cardiovascular: Denies: Chest Pain, Palpitations, Orthopnea, Paroxysmal Noc. Dyspnea, Edema, Lt Headedness, Other Symptoms Gastrointestinal: Reports: Nausea Genitourinary: Denies: Dysuria, Frequency, Incontinence, Hematuria, Retention, Other Symptoms Hematologic: Denies: Bruising, Bleeding Excessively, Petecchia, Purpura, Enlarged Lymph Nodes, Other Hematologic Endocrine: Denies: Polydipsia, Polyphagia, Polyuria, Heat Intolerance, Cold Intolerance, Other Endocrine Sx Musculoskeletal: Denies: Neck Pain, Back Pain, Shoulder Pain, Arm Pain, Hand P ain, Leg Pain, Foot Pain, Joint Pain, Muscle Pain, Spasms, Other Symptoms Neurological: Denies: Weakness, Numbness, Incoordination, Change in speech, Confusion, Seizures, Other Symptoms Psych: Reports: Mood Normal; Denies: Anxiety, Depression, Memory Issues, Thoughts of Self Harm, Anger, Thoughts of Harming Other, Other Psych Physical Examination General Exam: Positive: Alert, Cooperative Eye Exam: Positive: PERRLA, Conjunctiva & lids normal ENT Exam: Positive: Atraumatic Neck Exam: Positive: Supple Chest Exam: Positive: Clear to auscultation, Normal air movement Heart Exam: Positive: Rate Normal, Normal S1, Normal S2 Abdomen Exam: Positive: Normal bowel sounds Extremity Exam: Positive: Normal pulses Skin Exam: Positive: Nl turgor and temperature Neuro Exam: Positive: Strength at 5/5 X4 ext, Cranial Nerves 3-12 NL Psych Exam: Positive: Mood NL, Oriented x 3 Vital Signs As per Nursing Sheet Problems (1) Hypertensive urgency Status: Acute Problem Text: Admit patient back to PCU with telemetry monitoring Patient has uncontrolled hypertension and since he had nausea and he could not take his by mouth meds Will start patient on Norvasc 10 mg by mouth daily Hydralazine 10 mg IV every 6 hours when necessary for systolic blood pressure more than 150 And will continue his home antihypertensive meds, such as ramipril and Coreg Continue adjusting meds under his blood pressure is under control Diet is consistent carbohydrate Activity at tolerated DVT prophylaxis. Patient already on Pradaxa (2) Nausea Status: Chronic Problem Text: Persistent nausea, most likely secondary to diabetic gastroparesis Will start patient on Reglan 10 MG daily 4 times a day , initially IV then changed to by mouth Also Zofran 4 mg IV every 4 hours when necessary Continue consistent carbohydrate diet as tolerated On examination his abdominal is absolutely negative. No tenderness. Bowel sounds present, no further GI workup is indicated at this point (3) Atrial fibrillation Status: Chronic Problem Text: Ventricular rate is under control Continue Coreg and Pradexa (4) Dementia Status: Chronic Problem Text: Supportive care (5) Diabetes mellitus Status: Chronic Problem Text: Continue home insulin. Insulin detemir 60 units daily Fingerstick blood sugar every before meals and at bedtime with coverage DC Glucophage as it can cause nausea Continue monitoring patient's fingerstick blood sugar and at bedtime insulin dose accordingly Plan / VTE VTE Prophylaxis Ordered?: Yes FESTUS GROSS MD Jan 28, 2020 21:05
[2020-01-28 21:15] VITALS: BP 190/98
[2020-01-28] MEDS ORDERED: hydrALAZINE 20MG/ML 1ML VIAL (J0360 PER 20MG) IV PRN (22:00)
[2020-01-28] MEDS: ONDANSETRON 4MG/2ML VIAL IV PRN (22:06)
[2020-01-28] MEDS: METOCLOPRAMIDE INJ 10MG/2ML VIAL (J2765 PER 1) IV SCH (23:10)
[2020-01-28] MEDS: CARVedilol 12.5 MG TAB PO SCH (23:11)
[2020-01-28] MEDS: LEVEMIR (INSULIN DETEMIR) 1 UNITS/0.01ML SC SCH (23:11)
[2020-01-28] MEDS: oxyBUTYnin 5 MG TAB PO SCH (23:12)
[2020-01-28] MEDS: ATORVASTATIN 20 MG TAB PO SCH (23:12)
[2020-01-29] VITALS (8 sets, daily range): BP systolic 110–204; BP diastolic 62–100
[2020-01-29] MEDS: ramipriL 5 MG CAP PO SCH ×2 (00:43→21:49)
[2020-01-29] MEDS: DABIGATRAN ETEXILATE 75 MG CAP (PRADAXA) PO SCH ×3 (00:43→21:31)
[2020-01-29] MEDS: VENLAFAXINE 37.5 MG TAB PO SCH ×3 (00:44→21:30)
[2020-01-29] MEDS: ONDANSETRON 4MG/2ML VIAL IV PRN (05:40)
[2020-01-29 05:56] LABS: ALBUMIN 3.3 GM/DL (3.2-5.2); ALT/SGPT 21 U/L (12-78); BILIRUBIN,TOTAL 0.7 MG/DL (0.2-1.0); BLOOD UREA NITROGEN 17 MG/DL (7-18); CALCIUM LEVEL 9.2 MG/DL (8.8-10.2); CARBON DIOXIDE LEVEL 30 MEQ/L (21-32); CHLORIDE LEVEL 98 MEQ/L (98-107); CREATININE FOR GFR 0.85 MG/DL (0.70-1.30); GLOMERULAR FILTRATION RATE > 60.0 (>49); GLUCOSE, FASTING 267 MG/DL (70-100); MAGNESIUM LEVEL 1.9 MG/DL (1.8-2.4); POTASSIUM SERUM 4.2 MEQ/L (3.5-5.1); SODIUM LEVEL 136 MEQ/L (136-145); TOTAL PROTEIN 6.9 GM/DL (6.4-8.2)
[2020-01-29 07:25] LABS: BASO % 0.2 % (0.0-1.0); HEMATOCRIT 37.1 % (42.0-52.0); HEMOGLOBIN 12.6 g/dl (13.5-17.5); LYMPH # 1.1 10^3/uL (1.5-5.0); LYMPH % 7.9 % (24.0-44.0); MEAN CORPUSCULAR HEMOGLOBIN 31.3 pg (27.0-33.0); MEAN CORPUSCULAR VOLUME 92.1 fl (80.0-96.0); MONO # 0.7 10^3/uL (0.0-0.8); MONO % 5.1 % (0.0-5.0); NEUTROPHILS # 11.5 10^3/uL (1.5-8.5); NEUTROPHILS % 86.4 % (36.0-66.0); PLATELET COUNT, AUTOMATED 295 10^3/uL (150-450); RED BLOOD COUNT 4.03 10^6/uL (4.30-6.10); WHITE BLOOD COUNT 13.4 10^3/uL (4.0-10.0)
[2020-01-29] MEDS ORDERED: HumaLOG INSULIN (NovoLOG) PER UNIT SC SCH ×2 (07:30→12:00)
[2020-01-29] MEDS: METOCLOPRAMIDE INJ 10MG/2ML VIAL (J2765 PER 1) IV SCH (08:01)
[2020-01-29] MEDS: CARVedilol 12.5 MG TAB PO SCH ×2 (08:02→21:49)
[2020-01-29] MEDS: ASPIRIN 81 MG ENTERIC TAB PO SCH (08:03)
[2020-01-29] MEDS: amLODIPine 10 MG TAB PO SCH (08:03)
[2020-01-29] MEDS: oxyBUTYnin 5 MG TAB PO SCH ×2 (08:03→21:30)
--- NOTE | 2020-01-29 12:09 | IPNPDOC ---
Text Note Date of Service The patient was seen on 01/29/20. NOTE Time of service 8:10 AM Subjective: The patient reports still feeling nauseous but denies having any other acute complaints. He is requesting breakfast. Per chart review, he rece ived 1 dose of iv Reglan last night and is receiving his second dose this morning. Objective: VITAL SIGNS: Please see below. GEN: well-nourished / well developed/ sitting up in bed HEENT: mucus membranes moist and pink abdominojugular reflux CVS: RRR/NMRG LUNGS: lungs are clear to auscultation bilaterally on room air MSK/EXTREMITIES: range of motion intact in all 4 extremities NEURO: CN 2-12 are grossly intact / he has marked right upper and right lower extremity weakness PSYCH: alert and oriented / able to understand and follow all commands LABORATORY DATA: See below. ASSESSMENT: Mr. Ngo is a 59-year-old with a history of CAD, HTN, A. fib, chronic diastolic CHF, vascular dementia, and CVA who presented on January 24 with complaints of right upper extremity weakness and was found to have severe stenosis of the proximal left vertebral artery. He was deemed not to be candidate for interventional procedure, but was started on aspirin along with Pradaxa. He was transferred to ARU on January 26 for rehabilitation. Yesterday he was complaining of nausea and his blood pressure was noted to be elevated. After receiving amlodipine he vomited and his BP continued to increase. He was unable to receive IV BP meds therefore he was transferred to the medical floor so that he could receive IV BP meds. PLAN: 1. HTN Urgency. Resolved - c/w carvedilol, ramipril, & amlodipione / he has hy dralazine 10mg IV Q6H PRN 2. DM Gastroparesis. Improving. - Switch from IV to by mouth reglan & zofran 3. Right upper and lower extremity weakness, possibly due to new CVA - plan per PMNR / continue with aspirin, atorvastatin & Pradaxa 4. IDDM - FSBS Q6H / levemir 10 & lispro / metformin has been discontinued bc it can cause nausea 5. Depression - venlafaxine 6. A Fib - pradaxa DVT PROPHYLAXIS: n/a bc he is on AC DISPO: transfer back to ARU tomorrow if his blood pressure is within normal limi ts & his vomiting has resolved VS,Fishbone, I+O VS, Fishbone, I+O Laboratory Tests 01/29/20 04:49 Vital Signs Date Time Temp Pulse Resp B/P (MAP) Pulse Ox O2 Delivery O2 Flow Rate FiO2 01/29/20 08:03 93 162/64 01/29/20 08:00 98.1 17 95 Room Air I&O- Last 24 Hours up to 6 AM 01/29/20 06:00 Intake Total 300 ml Balance 300 ml MARY BENJAMIN MD Jan 29, 2020 12:09
[2020-01-29] MEDS ORDERED: ONDANSETRON 4 MG TAB PO PRN (12:30)
[2020-01-29] MEDS: HumaLOG INSULIN (NovoLOG) PER UNIT SC SCH ×2 (13:56→17:37)
[2020-01-29] MEDS ORDERED: SLF 3 ML SYR IV PRN (16:15)
[2020-01-29] MEDS: METOCLOPRAMIDE 10 MG TAB PO SCH ×2 (17:37→21:30)
[2020-01-29] MEDS: LEVEMIR (INSULIN DETEMIR) 1 UNITS/0.01ML SC SCH (21:30)
[2020-01-29] MEDS: ATORVASTATIN 20 MG TAB PO SCH (21:30)
[2020-01-29] MEDS: SLF 3 ML SYR IV SCH (21:32)
[2020-01-30] VITALS: BP 134/77
[2020-01-30] MEDS: HumaLOG INSULIN (NovoLOG) PER UNIT SC SCH ×3 (00:26→11:42)
[2020-01-30 04:00] VITALS: BP 153/74
[2020-01-30] MEDS: SLF 3 ML SYR IV SCH (05:16)
[2020-01-30 05:59] LABS: BASO % 0.1 % (0.0-1.0); EOS % 0.1 % (0.0-3.0); HEMATOCRIT 36.6 % (42.0-52.0); HEMOGLOBIN 12.3 g/dl (13.5-17.5); LYMPH # 2.2 10^3/uL (1.5-5.0); LYMPH % 14.8 % (24.0-44.0); MEAN CORPUSCULAR HEMOGLOBIN 30.8 pg (27.0-33.0); MEAN CORPUSCULAR HGB CONC 33.6 g/dl (32.0-36.5); MEAN CORPUSCULAR VOLUME 91.7 fl (80.0-96.0); MONO # 1.4 10^3/uL (0.0-0.8); MONO % 9.7 % (0.0-5.0); NEUTROPHILS # 10.9 10^3/uL (1.5-8.5); NEUTROPHILS % 74.8 % (36.0-66.0); PLATELET COUNT, AUTOMATED 299 10^3/uL (150-450); RED BLOOD COUNT 3.99 10^6/uL (4.30-6.10); WHITE BLOOD COUNT 14.6 10^3/uL (4.0-10.0)
[2020-01-30 06:22] LABS: BLOOD UREA NITROGEN 34 MG/DL (7-18); CARBON DIOXIDE LEVEL 30 MEQ/L (21-32); CHLORIDE LEVEL 98 MEQ/L (98-107); CREATININE FOR GFR 0.91 MG/DL (0.70-1.30); GLOMERULAR FILTRATION RATE > 60.0 (>49); GLUCOSE, FASTING 235 MG/DL (70-100); POTASSIUM SERUM 3.6 MEQ/L (3.5-5.1); SODIUM LEVEL 136 MEQ/L (136-145)
[2020-01-30 08:00] VITALS: BP 125/70
[2020-01-30] MEDS ORDERED: ramipriL 5 MG CAP PO SCH ×2 (08:15→09:00)
[2020-01-30] MEDS ORDERED: AMLO10TA5 PO (08:18)
--- NOTE | 2020-01-30 08:19 | DS.PDOC ---
Discharge Summary General Date of Admission Jan 28, 2020 at 21:15 Date of Discharge 01/30/2020 Attending Physician: MARY BENJAMIN MD Specialist/Consultants Involve: RUSLAN SOTELO MD Discharge Summary PROCEDURES PERFORMED DURING STAY: [None]. ADMITTING DIAGNOSES: (1) Hypertensive urgency (2) Nausea (3) Atrial fibrillation (4) Dementia (5) Diabetes mellitus DISCHARGE DIAGNOSES: (1) Hypertensive urgency - resolved (2) Nausea & vomiting 2/2 Diabetic Gastroperesis - resolved (3) Chronic Atrial fibrillation (4) Vascular Dementia (5) IDDM COMPLICATIONS/CHIEF COMPLAINT: Uncontrolled Htn,N/V. HISTORY OF PRESENT ILLNESS: Per HPI " This is a 69 years old white male with past medical history of CAD, coronary stent, chronic hypertension, seizures, A. fib status post ablation, chronic diastolic heart failure, vascular dementia, AICD placement, right parietal infarct by history, patient recently admitted with a new stroke and later was transferred to acute rehabilitation unit for physical therapy. Patient was admitted to medical floor on January 24 with complaints Sided weakness, dysarthria CT was done was negative for any new infarct that he could not get MRI secondary to AICD, but CT of the chest confirmed presence of severe stenosis of proximal left vertebral artery. Patient was started on pradaxa. Aspirin and was transferred to ARU for rehabilitation. Patient had complained of fall with persistent nausea since admission to AIU and today's blood pressure was found to be extremely elevated and the independent beauty consultant service delivery supervisor was called and she ordered m etoprolol IV as patient has a nausea but since metoprolol IV cannot be given on acute rehabilitation unit and patient is still has a nausea with dry heaving, patient will be transferred to PCU for blood pressure control and and further workup for his persistent nausea." HOSPITAL COURSE: He was admitted to the medical floor and started on Reglan. His amlodipine was increased from 2.5-10 mg daily and his ramipril was increased from 10 mg daily at bedtime to 10 mg twice a day. He was also started on hydralazine when necessary. On the morning of January 29 he reported that his nausea had resolved. Per discussion with his RN he had not had additional episodes of emesis overnight. DISCHARGE MEDICATIONS: Please see below. ALLERGIES: Please see below. PHYSICAL EXAMINATION ON DISCHARGE: VITAL SIGNS: Please see below. GENERAL: NAD HEENT: NCAT CARDIOVASCULAR EXAMINATION: RRR/NRMG RESPIRATORY EXAMINATION: CTAB on RA PSYCHIATRIC EXAMINATION: Asleep but arousable vocal stimuli LABORATORY DATA: Please see below. PROGNOSIS: Fair ACTIVITY: [As tolerated]. DIET: Low-salt DISCHARGE PLAN: Transfer back to ARU PMNR eval DISPOSITION: . DISCHARGE INSTRUCTIONS: 1. See below ITEMS TO FOLLOWUP ON ON OUTPATIENT: 1. Consider gastric emptying study to confirm the diagnosis of gastroparesis DISCHARGE CONDITION: [Stable]. TIME SPENT ON DISCHARGE: Approximately 15 minutes Vital Signs/I&Os Vital Signs Date Time Temp Pulse Resp B/P (MAP) Pulse Ox O2 Delivery O2 Flow Rate FiO2 01/30/20 04:00 98.6 83 16 153/74 (100) 93 Room Air I&O- Last 24 Hours up to 6 AM 01/30/20 06:00 Intake Total 840 ml Output Total 300 ml Balance 540 ml Laboratory Data Labs 24H Laboratory Tests 2 01/29/20 12:14: Bedside Glucose (Misc Panel) 261H 01/29/20 17:26: Bedside Glucose (Misc Panel) 265H 01/29/20 23:59: Bedside Glucose (Misc Panel) 251H 01/30/20 05:10: Bedside Glucose (Misc Panel) 227H 01/30/20 05:29: Immature Granulocyte % (Auto) 0.5, Neutrophils (%) (Auto) 74.8H, Lymphocytes (%) (Auto) 14.8L, Monocytes (%) (Auto) 9.7H, Eosinophils (%) (Auto) 0.1, Basophils (%) (Auto) 0.1, Neutrophils # (Auto) 10.9H, Lymphocytes # (Auto) 2.2, Monocytes # (Auto) 1.4H, Eosinophils # (Auto) 0.0, Basophils # (Auto) 0.0, Nucleated Red Blood Cells % (auto) 0.0, Anion Gap 8, Glomerular Filtration Rate > 60.0, Calcium Level 9.0 CBC/BMP Laboratory Tests 01/30/20 05:29 FSBS Laboratory Tests Test 01/29/20 12:14 01/29/20 17:26 01/29/20 23:59 01/30/20 05:10 Range/Units Bedside Glucose (Misc Panel) 261 265 251 227 80-115 MG/DL Discharge Medications Scheduled Aspirin (Children's Aspirin) 81 Mg Tab.chew, 81 MG PO DAILY Atorvastatin Calcium (Atorvastatin Calcium) 20 Mg Tablet, 40 MG PO QHS Carvedilol (Carvedilol) 12.5 Mg Tablet, 12.5 MG PO BID, (Reported) Dabigatran Etexilate Mesylate (Pradaxa) 150 Mg Capsule, 150 MG PO BID, (Reported) Insulin Glargine (Lantus) 100 Unit/1 Ml Vial, 60 UNIT SC DAILY, (Reported) Insulin Lispro (Humalog Kwikpen U-100) 100 Unit/1 Ml Insuln.pen, 1 DOSE SC AC, (Reported) PER SLIDING SCALE Metformin HCl (Metformin HCl) 500 Mg Tablet, 500 MG PO BID, (Reported) Ondansetron HCl (Ondansetron HCl) 8 Mg Tablet, 8 MG PO BID, (Reported) Oxybutynin Chloride (Oxybutynin Chloride) 5 Mg Tablet, 5 MG PO BID, (Reported) Ramipril (Ramipril) 10 Mg Capsule, 10 MG PO QHS, (Reported) Venlafaxine HCl (Venlafaxine HCl) 75 Mg Tablet, 75 MG PO BID, (Reported) Allergies Coded Allergies: Penicillins (Verified Allergy, Unknown, UNKNOWN CHILDHOOD REACTION, 12/10/19) lorazepam (Verified Adverse Reaction, Unknown, AGGRESSIVE, 12/10/19) MARY BENJAMIN MD Jan 30, 2020 08:19
[2020-01-30] MEDS ORDERED: ALTA1CAP3 PO (08:21)
[2020-01-30] MEDS ORDERED: METO10TA2 PO (08:24)
[2020-01-30] MEDS: oxyBUTYnin 5 MG TAB PO SCH (08:26)
[2020-01-30] MEDS: DABIGATRAN ETEXILATE 75 MG CAP (PRADAXA) PO SCH (08:27)
[2020-01-30] MEDS: ASPIRIN 81 MG ENTERIC TAB PO SCH (08:27)
[2020-01-30] MEDS: VENLAFAXINE 37.5 MG TAB PO SCH (08:27)
[2020-01-30] MEDS: METOCLOPRAMIDE 10 MG TAB PO SCH ×2 (08:27→11:42)
[2020-01-30] MEDS: amLODIPine 10 MG TAB PO SCH (08:27)
[2020-01-30] MEDS: CARVedilol 12.5 MG TAB PO SCH (08:28)
[2020-01-30] MEDS ORDERED: LEVEMIR (INSULIN DETEMIR) 1 UNITS/0.01ML SC ONE (08:30)
[2020-01-30 09:10] VITALS: BP 125/70
[2020-01-30 12:00] VITALS: BP 152/83
[2020-01-30] MEDS ORDERED: LEVEMIR (INSULIN DETEMIR) 1 UNITS/0.01ML SC SCH (21:00)
== END 2020-01-30 12:20 | DRG 305 ==
LOC: M PCU 21:15
PROVIDERS: ADMIT Internal Medicine; ATTEND Internal Medicine
DX: I16.0 Hypertensive urgency (principal); I50.32 Chronic diastolic (congestive) heart failure; I48.20 Chronic atrial fibrillation, unspecified; R11.0 Nausea; I25.10 Atherosclerotic heart disease of native coronary artery without angina pectoris; I11.0 Hypertensive heart disease with heart failure; R56.9 Unspecified convulsions; E11.43 Type 2 diabetes mellitus with diabetic autonomic (poly)neuropathy; K31.84 Gastroparesis; F32.9 Major depressive disorder, single episode, unspecified; F17.200 Nicotine dependence, unspecified, uncomplicated; F01.50 Vascular dementia, unspecified severity, without behavioral disturbance, psychotic disturbance, mood disturbance, and anxiety; Z95.810 Presence of automatic (implantable) cardiac defibrillator; Z86.73 Personal history of transient ischemic attack (TIA), and cerebral infarction without residual deficits; Z95.5 Presence of coronary angioplasty implant and graft; Z88.0 Allergy status to penicillin; Z88.8 Allergy status to other drugs, medicaments and biological substances

== ENCOUNTER → 2020-02-29 | Outpatient (REF) ==
[~2020-02-29] MED LIST changes: +ALTA1CAP3 PO; +AMLO1TAB25 PO; +BISAC5TA PO; +HYDR25TA PO; +INSUDET SC; +INSUHUMDS SC; +IPRA0.00 NEB; +LIDO5TD TD; +MECL12.589 PO; +METO10TA2 PO; +ONDA4TAB6 SL; +PRAD75CA5 PO; +RISATAB3 PO; +VENL37TA PO; +Zinc Oxide/Petrolatum,White TOP
== END ==
LOC: SKLAB5 08:35
DX: Z03.818 Encounter for observation for suspected exposure to other biological agents ruled out (principal)

== ENCOUNTER → 2020-09-19 | Outpatient (REF) ==
[~2020-09-19] MED LIST changes: -MECL12.589 PO; +MECL12.590 PO
[2020-09-19 11:57] LABS: HEMATOCRIT 38.7 % (42.0-52.0); HEMOGLOBIN 12.4 g/dl (13.5-17.5); MEAN CORPUSCULAR HEMOGLOBIN 29.2 pg (27.0-33.0); MEAN CORPUSCULAR VOLUME 91.3 fl (80.0-96.0); PLATELET COUNT, AUTOMATED 194 10^3/uL (150-450); RED BLOOD COUNT 4.24 10^6/uL (4.30-6.10); WHITE BLOOD COUNT 5.9 10^3/uL (4.0-10.0)
[2020-09-19 12:21] LABS: BLOOD UREA NITROGEN 14 MG/DL (7-18); CREATININE FOR GFR 0.86 MG/DL (0.70-1.30); GLUCOSE, FASTING 221 MG/DL (70-100)
[2020-09-19 12:22] LABS: CALCIUM LEVEL 8.8 MG/DL (8.8-10.2); CARBON DIOXIDE LEVEL 33 MEQ/L (21-32); CHLORIDE LEVEL 101 MEQ/L (98-107); GLOMERULAR FILTRATION RATE > 60.0 (>42); POTASSIUM SERUM 4.2 MEQ/L (3.5-5.1); SODIUM LEVEL 139 MEQ/L (136-145)
== END ==
PROVIDERS: ATTEND Internal Medicine
DX: I10 Essential (primary) hypertension (principal); Z20.822 Contact with and (suspected) exposure to COVID-19

== ENCOUNTER → 2020-09-26 | Outpatient (REF) ==
[2020-09-26 11:54] LABS: HEMOGLOBIN 11.9 g/dl (13.5-17.5); MEAN CORPUSCULAR HEMOGLOBIN 29.1 pg (27.0-33.0); MEAN CORPUSCULAR HGB CONC 31.3 g/dl (32.0-36.5); MEAN CORPUSCULAR VOLUME 92.9 fl (80.0-96.0); PLATELET COUNT, AUTOMATED 204 10^3/uL (150-450); RED BLOOD COUNT 4.09 10^6/uL (4.30-6.10); WHITE BLOOD COUNT 7.6 10^3/uL (4.0-10.0)
[2020-09-26 12:23] LABS: BLOOD UREA NITROGEN 20 MG/DL (7-18); CALCIUM LEVEL 8.8 MG/DL (8.8-10.2); CARBON DIOXIDE LEVEL 29 MEQ/L (21-32); CHLORIDE LEVEL 108 MEQ/L (98-107); CREATININE FOR GFR 1.01 MG/DL (0.70-1.30); GLOMERULAR FILTRATION RATE > 60.0 (>42); GLUCOSE, FASTING 184 MG/DL (70-100); POTASSIUM SERUM 4.4 MEQ/L (3.5-5.1); SODIUM LEVEL 141 MEQ/L (136-145)
== END ==
PROVIDERS: ATTEND Internal Medicine
DX: I10 Essential (primary) hypertension (principal); Z20.822 Contact with and (suspected) exposure to COVID-19

== ENCOUNTER → 2020-09-26 | Outpatient (REF) | PROVIDERS: ATTEND Internal Medicine | DX: Z20.822 Contact with and (suspected) exposure to COVID-19 (principal) ==

== ENCOUNTER → 2020-10-01 | Outpatient (REF) ==
[2020-10-01 09:42] LABS: HEMATOCRIT 38.2 % (42.0-52.0); HEMOGLOBIN 12.2 g/dl (13.5-17.5); MEAN CORPUSCULAR HEMOGLOBIN 29.1 pg (27.0-33.0); MEAN CORPUSCULAR HGB CONC 31.9 g/dl (32.0-36.5); MEAN CORPUSCULAR VOLUME 91.2 fl (80.0-96.0); PLATELET COUNT, AUTOMATED 220 10^3/uL (150-450); RED BLOOD COUNT 4.19 10^6/uL (4.30-6.10); WHITE BLOOD COUNT 6.6 10^3/uL (4.0-10.0)
[2020-10-01 10:11] LABS: BLOOD UREA NITROGEN 14 MG/DL (7-18); CALCIUM LEVEL 8.9 MG/DL (8.8-10.2); CARBON DIOXIDE LEVEL 30 MEQ/L (21-32); CHLORIDE LEVEL 103 MEQ/L (98-107); CREATININE FOR GFR 0.79 MG/DL (0.70-1.30); GLOMERULAR FILTRATION RATE > 60.0 (>42); GLUCOSE, FASTING 190 MG/DL (70-100); POTASSIUM SERUM 4.4 MEQ/L (3.5-5.1); SODIUM LEVEL 140 MEQ/L (136-145)
== END ==
PROVIDERS: ATTEND Physician Assistant
DX: I10 Essential (primary) hypertension (principal)

== ENCOUNTER → 2020-10-03 | Outpatient (REF) | payer MEDICARE | PROVIDERS: ATTEND Internal Medicine | DX: Z20.822 Contact with and (suspected) exposure to COVID-19 (principal) ==

== ENCOUNTER → 2020-10-10 | Outpatient (REF) | payer MEDICARE | PROVIDERS: ATTEND Internal Medicine | DX: Z20.822 Contact with and (suspected) exposure to COVID-19 (principal) ==

== ENCOUNTER → 2020-10-17 | Outpatient (REF) | payer MEDICARE | PROVIDERS: ATTEND Internal Medicine | DX: Z20.822 Contact with and (suspected) exposure to COVID-19 (principal) ==

== ENCOUNTER → 2020-10-24 | Outpatient (REF) | payer MEDICARE, OTHER ==
[~2020-10-24] MED LIST changes: +MECL-136 PO; -MECL12.590 PO
== END ==
PROVIDERS: ATTEND Internal Medicine
DX: Z20.822 Contact with and (suspected) exposure to COVID-19 (principal)

== ENCOUNTER → 2020-10-31 | Outpatient (REF) | payer MEDICARE, OTHER ==
[2020-10-31 12:48] LABS: BLOOD UREA NITROGEN 16 MG/DL (7-18); CARBON DIOXIDE LEVEL 30 MEQ/L (21-32); CHLORIDE LEVEL 103 MEQ/L (98-107); CREATININE FOR GFR 0.81 MG/DL (0.70-1.30); GLOMERULAR FILTRATION RATE > 60.0 (>42); GLUCOSE, FASTING 291 MG/DL (70-100); POTASSIUM SERUM 4.4 MEQ/L (3.5-5.1); SODIUM LEVEL 138 MEQ/L (136-145)
[2020-10-31 12:57] LABS: HEMATOCRIT 40.5 % (42.0-52.0); HEMOGLOBIN 13.5 g/dl (13.5-17.5); MEAN CORPUSCULAR HEMOGLOBIN 29.9 pg (27.0-33.0); MEAN CORPUSCULAR HGB CONC 33.3 g/dl (32.0-36.5); MEAN CORPUSCULAR VOLUME 89.6 fl (80.0-96.0); PLATELET COUNT, AUTOMATED 224 10^3/uL (150-450); RED BLOOD COUNT 4.52 10^6/uL (4.30-6.10); WHITE BLOOD COUNT 7.5 10^3/uL (4.0-10.0)
== END ==
PROVIDERS: ATTEND Internal Medicine
DX: I10 Essential (primary) hypertension (principal); Z20.822 Contact with and (suspected) exposure to COVID-19

== ENCOUNTER → 2020-11-14 | Outpatient (REF) | payer MEDICARE, OTHER ==
[2020-11-14 10:32] LABS: BLOOD UREA NITROGEN 13 MG/DL (7-18); CALCIUM LEVEL 8.4 MG/DL (8.8-10.2); CARBON DIOXIDE LEVEL 31 MEQ/L (21-32); CHLORIDE LEVEL 102 MEQ/L (98-107); GLOMERULAR FILTRATION RATE > 60.0 (>42); GLUCOSE, FASTING 266 MG/DL (70-100); POTASSIUM SERUM 4.2 MEQ/L (3.5-5.1); SODIUM LEVEL 138 MEQ/L (136-145)
== END ==
DX: I10 Essential (primary) hypertension (principal)

== ENCOUNTER → 2020-11-28 | Outpatient (CLI) | payer MEDICARE ==
--- NOTE | 2020-11-28 09:41 | REP ---
INDICATION: RIGHT SHOULDER PAIN. COMPARISON: None. TECHNIQUE: Plain film study includes PA, lateral and oblique views of the cervical spine. FINDINGS: No evidence of fracture or malalignment. No evidence of instability. Degenerative changes noted with diffuse disc space narrowing and osteophytic spurring. Osteophytes appear to narrow the neural foramen at multiple levels although the angle of the oblique is suboptimal. IMPRESSION: No acute findings. Degenerative changes. Osteophytes appear to narrow the neural foramen at multiple levels although the angle of the oblique is suboptimal. Consider further evaluation with CT cervical spine. <Electronically signed by Keegan Spence > 11/28/20 0937
--- NOTE | 2020-11-28 09:42 | REP ---
INDICATION: RIGHT SHOULDER PAIN COMPARISON: None. TECHNIQUE: Internal rotation, external rotation, and Y view. FINDINGS: No acute fracture or dislocation. The acromioclavicular is intact and normal. Glenohumeral joint demonstrates subchondral sclerosis, joint space narrowing, along with bulky osteophyte forming along the inferior margin of the humeral head. No obvious periarticular calcifications or calcified loose bodies noted. IMPRESSION: Moderate to significant degenerative changes at the glenohumeral joint. <Electronically signed by Marcus Kong > 11/28/20 0955
== END ==
LOC: M RAD 08:35
PROVIDERS: ATTEND Nurse Practitioner Adult Health
DX: M25.711 Osteophyte, right shoulder (principal); M25.511 Pain in right shoulder

== ENCOUNTER → 2020-11-30 | Outpatient (REF) | payer MEDICARE ==
[2020-11-30 19:40] LABS: RSV AMPLIFICATION NEGATIVE (NEGATIVE)
== END ==
PROVIDERS: ATTEND Internal Medicine
DX: Z11.52 Encounter for screening for COVID-19 (principal)

== ENCOUNTER → 2020-12-04 | Outpatient (REF) | payer MEDICARE | PROVIDERS: ATTEND Internal Medicine | DX: Z20.822 Contact with and (suspected) exposure to COVID-19 (principal) ==

== ENCOUNTER → 2020-12-06 | Outpatient (CLI) | payer MEDICARE ==
--- NOTE | 2020-12-06 13:34 | REP ---
INDICATION: RADICULOPATHY PT IN CT HOLDING ARE. COMPARISON: None. TECHNIQUE: Axial CT with multiplanar reformations. FINDINGS: No acute fracture or malalignment. There is [id number] multilevel degenerative disc disease with loss of disc height, minimal retrolisthesis of C4 over C5. On the sagittal imaging, no definite limiting canal stenosis. Disc-osteophyte complex formation with moderate foraminal narrowing at C4-5 and C5-6 levels. IMPRESSION: No acute findings. Degenerative disc disease. CT relatively insensitive for soft tissue finding such as disc herniation. If clinical symptoms persist, MRI recommended. <Electronically signed by Keegan Spence > 12/06/20 [id number]
== END ==
LOC: M RAD 13:09
PROVIDERS: ATTEND Nurse Practitioner Adult Health
DX: G89.29 Other chronic pain (principal)

== ENCOUNTER → 2020-12-11 | Outpatient (REF) | payer MEDICARE | PROVIDERS: ATTEND Internal Medicine | DX: Z20.822 Contact with and (suspected) exposure to COVID-19 (principal) ==

== ENCOUNTER → 2020-12-18 | Outpatient (REF) | payer MEDICARE | PROVIDERS: ATTEND Internal Medicine | DX: Z20.822 Contact with and (suspected) exposure to COVID-19 (principal) ==

== ENCOUNTER 2021-01-29 08:55 | Inpatient (IN) | payer MEDICARE ==
[~2021-01-29] VITALS: Ht 175.3 cm; Wt 100.6 kg
[2021-01-29] MEDS ORDERED: LOPERAMIDE 2 MG CAPLET PO PRN (09:00)
[2021-01-29] MEDS ORDERED: MOM 30ML SUSPENSION UDC PO PRN (09:00)
--- NOTE | 2021-01-29 09:26 | REPVR ---
PROCEDURE INFORMATION: Exam: CT Head Without Contrast Exam date and time: 01/29/2021 9:21 AM Age: 70 years old Clinical indication: Pain; Other: Neuro; Additional info: Neuro symptoms TECHNIQUE: Imaging protocol: Computed tomography of the head without contrast. Radiation optimization: All CT scans at this facility use at least one of these dose optimization techniques: automated exposure control; mA and/or kV adjustment per patient size (includes targeted exams where dose is matched to clinical indication); or iterative reconstruction. COMPARISON: CT Head without contrast 01/26/2020 11:46 AM FINDINGS: Brain: There is no acute intracranial hemorrhage. There is lucency in the cerebral white matter, likely microvascular disease although non-specific. There is chronic right middle cerebral artery distribution infarct. There is encephalomalacia in left superior parietal lobe consistent small old infarct. There are chronic lacunar infarcts in bilateral thalami. No findings to suggest acute infarct. There are no extra-axial fluid collections. No evidence of mass. There is no mass effect or midline shift. Cerebral ventricles: The ventricles and sulci are enlarged, consistent with volume loss / atrophy. No hydrocephalus. Paranasal sinuses: Visualized sinuses are unremarkable. No fluid levels. Mastoid air cells: No significant mastoid effusion. Vasculature: There is vascular calcification. Bones/joints: No acute fracture. Soft tissues: Unremarkable as visualized. IMPRESSION: 1. No evidence of acute intracranial abnormality. No evidence of acute infarction, hemorrhage, or mass. 2. Atrophy and microvascular disease. Chronic infarcts as described. Electronically signed by: Sasha Reynoso On 01/29/2021 09:26:23 AM
[2021-01-29] MEDS ORDERED: LANTINJ4 SC (10:17)
[2021-01-29] MEDS ORDERED: INSUHUMDS SC (10:17)
--- NOTE | 2021-01-29 10:27 | REP ---
INDICATION: CVA. COMPARISON: 02/05/2020. TECHNIQUE: Single portable AP view of the chest was performed. FINDINGS: There is no acute infiltrate or pulmonary edema. Lungs are clear. The heart is not significantly enlarged. The mediastinal silhouette is unremarkable. The visualized osseous structures are intact.Left pacemaker is again noted. IMPRESSION: No acute pulmonary disease. <Electronically signed by Trey Thibodeaux > 01/29/21 1024
[2021-01-29 10:31] LABS: HEMATOCRIT 37.5 % (42.0-52.0); HEMOGLOBIN 12.4 g/dl (13.5-17.5); MEAN CORPUSCULAR HEMOGLOBIN 29.8 pg (27.0-33.0); MEAN CORPUSCULAR HGB CONC 33.1 g/dl (32.0-36.5); MEAN CORPUSCULAR VOLUME 90.1 fl (80.0-96.0); PLATELET COUNT, AUTOMATED 212 10^3/uL (150-450); RED BLOOD COUNT 4.16 10^6/uL (4.30-6.10)
[2021-01-29] MEDS ORDERED: ATOR40TA75 PO (10:34)
[2021-01-29] MEDS ORDERED: LEXA1TAB PO (10:34)
[2021-01-29] MEDS ORDERED: BISA10SU27 PR (10:34)
[2021-01-29] MEDS ORDERED: VOLT1GEL15 TOP (10:34)
[2021-01-29] MEDS ORDERED: ENEMENE PR (10:34)
[2021-01-29] MEDS ORDERED: ASPI81CH33 PO (10:34)
[2021-01-29] MEDS ORDERED: MIRT-62 PO (10:34)
[2021-01-29] MEDS ORDERED: TRAM50TA2 PO ×2 (10:34)
[2021-01-29] MEDS ORDERED: TEMO0.0520 TOP (10:34)
[2021-01-29] MEDS ORDERED: ELIQ5TAB PO (10:34)
[2021-01-29] MEDS ORDERED: ANTI2TAB16 PO (10:34)
[2021-01-29] MEDS ORDERED: APAP325T4 PO (10:34)
[2021-01-29] MEDS ORDERED: ACET-840 PO (10:34)
[2021-01-29] MEDS ORDERED: GLUC1KIT IM (10:34)
[2021-01-29] MEDS ORDERED: MILK400S12 PO (10:34)
[2021-01-29] MEDS ORDERED: MYRB25TA PO (10:34)
[2021-01-29] MEDS ORDERED: PANT40TA29 PO (10:34)
[2021-01-29 10:52] LABS: BLOOD UREA NITROGEN 13 MG/DL (7-18); CALCIUM LEVEL 8.5 MG/DL (8.8-10.2); CARBON DIOXIDE LEVEL 31 MEQ/L (21-32); CHLORIDE LEVEL 104 MEQ/L (98-107); CREATININE FOR GFR 0.63 MG/DL (0.70-1.30); GLOMERULAR FILTRATION RATE > 60.0 (>42); GLUCOSE, FASTING 200 MG/DL (70-100); SODIUM LEVEL 138 MEQ/L (136-145)
[2021-01-29 11:38] LABS: RSV AMPLIFICATION NEGATIVE (NEGATIVE)
[2021-01-29] MEDS ORDERED: BISACODYL 10 MG SUPP PR PRN (11:45)
[2021-01-29] MEDS ORDERED: GLUCAGON INJ 1MG VIAL SC PRN (11:45)
[2021-01-29] MEDS ORDERED: GLUCOSE 4GM CHEW TABLET PO PRN (11:45)
[2021-01-29] MEDS ORDERED: DEXTROSE 50% 50 ML SYRINGE IV PRN (11:45)
[2021-01-29] MEDS: HumaLOG INSULIN (NovoLOG) PER UNIT SC SCH ×2 (12:00→18:28)
[2021-01-29] MEDS ORDERED: HumaLOG INSULIN (NovoLOG) PER UNIT SC SCH ×2 (12:00→21:00)
[2021-01-29] MEDS ORDERED: FLEET ENEMA PR PRN (13:00)
--- NOTE | 2021-01-29 13:01 | HPEPDOC ---
General Date of Admission Jan 29, 2021 at 11:43 Date of Service: Jan 29, 2021 Chief Complaint The patient is a 70-year-old male admitted with a reason for visit of CVA. Source: Patient, Family Exam Limitations: Clinical conditions, Dementia History of Present Illness This is a 70 years old white male with past medical history of CAD, coronary stent, chronic hypertension, seizures, A. fib status post ablation, chronic diastolic heart failure, vascular dementia, AICD placement, right parietal infarct by history, patient was transferred from SNF. Pt was found to have around 9:30 in the morning left-sided arm and hand weakness with garbled speech. Of note patient had 2 prior strokes with right-sided residual weakness. Patient currently on Eliquis by mouth. The last one was in 2019. In ER CT head was done and showed no acute stroke or bleed. was contacted by ER physician, he recommended MRI and MRA, continue statin and Eliquis . Patient denied fever, chills, nausea, vomiting. Home Medications Scheduled Acetaminophen (Acetaminophen) 500 Mg Tablet, 500 MG PO TID, (Reported) Apixaban (Eliquis) 5 Mg Tablet, 5 MG PO BID, (Reported) Aspirin (Aspirin) 81 Mg Tab.chew, 81 MG PO DAILY, (Reported) Atorvastatin Calcium (Atorvastatin Calcium) 40 Mg Tablet, 40 MG PO QHS, (Reported) Carvedilol (Carvedilol) 12.5 Mg Tablet, 12.5 MG PO BID, (Reported) Clobetasol Propionate (Temovate) 30 Gm Cream..g., 1 APLCT TOP DAILY, (Reported) APPLY TO AFFECTED SKIN Diclofenac Sodium (Voltaren) 100 Gm Gel..gram., 2 GRAM TOP TID, (Reported) APPLY TO SHOULDERS Escitalopram Oxalate (Lexapro) 10 Mg Tablet, 10 MG PO QHS, (Reported) Insulin Glargine,Hum.rec.anlog (Lantus Solostar) 100 Unit/1 Ml Insuln.pen, 35 UNITS SC QAM, (Reported) Insulin Human Lispro (Humalog) 100 Unit/1 Ml Vial, 7 UNITS SC BID, (Reported) 0700/1600, GIVE IF FSBS >300 Mirabegron (Myrbetriq) 25 Mg Tab.er.24h, 25 MG PO DAILY, (Reported) Mirtazapine (Remeron) 15 Mg Tablet, 15 MG PO QHS, (Reported) Pantoprazole Sodium (Pantoprazole Sodium) 40 Mg Tablet.dr, 40 MG PO DAILY, (Reported) Tramadol HCl (Tramadol HCl) 50 Mg Tablet, 50 MG PO QHS, (Reported) Venlafaxine HCl (Venlafaxine HCl) 75 Mg Tablet, 75 MG PO TID, (Reported) Scheduled PRN Acetaminophen (Acetaminophen) 325 Mg Tablet, 650 MG PO Q4H PRN for PAIN, (Reported) Bisacodyl (Bisacodyl) 10 Mg Supp.rect, 10 MG AL DAILY PRN for CONSTIPATION, (Reported) Glucagon,Human Recombinant (Glucagon Emergency Kit) 1 Mg Vial, 1 MG IM ASDIRECTED PRN for LOW BLOOD SUGAR, (Reported) Loperamide HCl (Anti-Diarrheal) 2 Mg Tablet, 2 MG PO TID PRN for DIARRHEA, (Reported) Magnesium Hydroxide (Milk of Magnesia) 400 Mg/5 Ml Oral.susp, 2,400 MG PO DAILY PRN for CONSTIPATION, (Reported) Sodium Phosphate,[place]-Dibasic (Enema) 133 Ml Enema, 1 MARGIE AL DAILY PRN for CONSTIPATION, (Reported) Tramadol HCl (Tramadol HCl) 50 Mg Tablet, 50 MG PO TID PRN for PAIN, (Reported) Allergies Coded Allergies: Penicillins (Verified Allergy, Unknown, UNKNOWN CHILDHOOD REACTION, 12/10/19) lorazepam (Verified Adverse Reaction, Unknown, AGGRESSIVE, 12/10/19) Past Medical History Medical History STROKE 2019 DM LYME DISEASE HTN SEIZURES HX OF ATRIAL FIBRILLATION s/p Ablation AICD CAD S/P stents DEPRESSION VASCULAR DEMENTIA WITHOUT BEHAVIORAL DISTURBANCE MEMORY LOSS Mild left ventricular hypertrophy(LVH), small apical wall motion abnormality and overall preserved LV systolic function. Grade 1 diastolic dysfunction. Surgical History CARDIAC STENTS X 2 2012 CARDIAC DEFIBRILLATOR 2012 CARDIAC ABLATION 2011 Family History FATHER: 71 YRS, CHF, DIAGNOSED WITH HYPERTENSION, UNSPECIFIED HEART DISEASE MOTHER: 70 YRS, SEPSIS, DIABETES SIBLINGS: 45 YRS, HOMICIDE Social History * Smoker: former Smoker Alcohol: Denies Drugs: denies A-FIB/CHADSVASC A-FIB History Current/History of A-Fib/PAF?: Yes Current PO Anticoag Therapy: Yes Review of Systems Constitutional: Denies: Chills, Fever Eyes: Denies: Pain ENT: Denies: Head Aches Skin: Denies: Rash, Lesions Pulmonary: Denies: Dyspnea Cardiovascular: Denies: Chest Pain Gastrointestinal: Denies: Nausea, Vomiting Genitourinary: Denies: Hematuria Hematologic: Denies: Bruising Endocrine: Denies: Polydipsia, Polyphagia Musculoskeletal: Denies: Neck Pain Neurological: Reports: Weakness, Change in speech Psych: Reports: Mood Normal Physical Examination General Exam: Positive: Alert, Cooperative Eye Exam: Positive: PERRLA ENT Exam: Positive: Atraumatic Neck Exam: Positive: Supple; Negative: JVD Chest Exam: Positive: Clear to auscultation Heart Exam: Positive: Irregular Rhythm Telemetry: Positive: Atrial fibrillation Abdomen Exam: Positive: Normal bowel sounds Extremity Exam: Negative: Clubbing, Cyanosis Skin Exam: Positive: Nl turgor and temperature Neuro Exam: Positive: Sensation Intact; Negative: Strength at 5/5 X4 ext (Left UE2/5, LE2/5) Psych Exam: Positive: Mood NL Vital Signs Vital Signs Date Time Temp Pulse Resp B/P (MAP) Pulse Ox O2 Delivery O2 Flow Rate FiO2 01/29/21 12:00 60 19 164/79 (107) 94 Room Air 01/29/21 09:32 97.2 Laboratory Data Labs 24H Laboratory Tests 2 01/29/21 10:10: Nucleated Red Blood Cells % (auto) 0.0, Anion Gap 3L, Glomerular Filtration Rate > 60.0, Calcium Level 8.5L 01/29/21 10:38: Coronavirus (COVID-19)(PCR) NEGATIVE, Influenza Type A (RT-PCR) NEGATIVE, Influenza Type B (RT-PCR) NEGATIVE, Respiratory Syncytial Virus (PCR) NEGATIVE CBC/BMP Laboratory Tests 01/29/21 10:10 Assessment/Plan This is a 69 years old white male with past medical history of CAD, coronary stent, chronic hypertension, seizures, A. fib status post ablation, chronic diastolic heart failure, vascular dementia, AICD placement, right parietal infarct by history, patient was transferred from SNF. Pt was found to have around 9:30 in the morning left-sided arm and hand weakness with garbled speech. Of note patient had 2 prior strokes with right-sided residual weakness. Patient currently on Eliquis by mouth. The last one was in 2019. In ER CT head was done and showed no acute stroke or bleed. was contacted by ER physician, he recommended MRI and MRA, continue statin and Eliquis . Patient denied fever, chills, nausea, vomiting. Problems (1) Left-sided weakness Status: Acute Problem Text: Most likely CVA given history of previous strokes CT head negative for stroke or acute bleed MRI, MRA, Us carotid Doppler Continue Eliquis Appreciate/agree with neurologist consult Telemetry (2) Coronary artery disease Status: Chronic Problem Text: Continue home meds EKG did not show any acute ischemic changes (3) Diabetes mellitus Status: Chronic Problem Text: Detemir twice a day Insulin sliding NPO for now till speech see him (4) Dementia Status: Chronic Problem Text: Continue home meds (5) Atrial fibrillation Status: Chronic Problem Text: Heart rate under control Continue Eliquis 5 mg BID (6) HTN (hypertension) Status: Chronic Problem Text: Lisinopril 20 mg started Plan / VTE VTE Prophylaxis Ordered?: Yes TAYLOR MANZANARES DO Jan 29, 2021 13:01
[2021-01-29] MEDS: NS 1,000 ML IV SCH (13:25)
[2021-01-29 13:32] VITALS: BP 131/94
[2021-01-29] MEDS: traMADol 50 MG TAB PO PRN (14:00)
[2021-01-29] MEDS: VENLAFAXINE 37.5 MG TAB PO SCH ×2 (15:26→22:26)
[2021-01-29] MEDS: ONDANSETRON 4MG/2ML VIAL IV SCH ×2 (15:27→22:26)
[2021-01-29] MEDS: ACETAMINOPHEN TAB 650MG DOSE (2X325MG) PO PRN (16:49)
--- NOTE | 2021-01-29 17:35 | ECGEPIP ---
[facility] - ED Test Date: 2021-01-29 Pat Name: ADAM WARD Department: Room: - Gender: Male Ict Support Engineer: GIOVANNA : 1950 Requested By: Sam Alvarez Order Number: [id number] Reading MD: Marbella Zaragoza Measurements Intervals [place] Rate: 57 P: 60 NJ: 204 QRS: -8 QRSD: 112 T: 2 QT: 444 QTc: 432 Interpretive Statements Sinus bradycardia ivcd NSTTW abnormalities decreased rate 01/25/20 Electronically Signed on 01-29-2021 17:35:12 EDT by Marbella Zaragoza
[2021-01-29 18:20] VITALS: BP 162/94
[2021-01-29 18:31] VITALS: BP 168/92
[2021-01-29] MEDS: ESCITALOPRAM OXALATE 10 MG TAB (LEXAPRO) PO SCH (21:12)
[2021-01-29] MEDS: MIRTAZAPINE 15 MG TAB PO SCH (21:12)
[2021-01-29] MEDS: ATORVASTATIN 20 MG TAB PO SCH (21:13)
[2021-01-29] MEDS: APIXABAN 5 MG TAB (ELIQUIS) PO SCH (21:13)
[2021-01-29] MEDS: CARVedilol 12.5 MG TAB PO SCH (21:17)
[2021-01-29 22:00] VITALS: BP 160/80
[2021-01-29] MEDS: traMADol 50 MG TAB PO SCH (22:28)
[2021-01-30 02:00] VITALS: BP 131/68
[2021-01-30] MEDS: NS 1,000 ML IV SCH (02:31)
--- NOTE | 2021-01-30 05:07 | REP ---
INDICATION: stroke COMPARISON: None. TECHNIQUE: Thibodeaux scale and color Doppler evaluation using linear high frequency transducer Findings: FINDINGS: Two-dimensional thibodeaux scale and color images demonstrate normal arterial lumen with laminar flow and no appreciable narrowing. Color Doppler interrogation demonstrates normal arterial wave patterns and velocities with no significant spectral broadening. Normal flow direction is appreciated in the bilateral vertebral arteries. ICA peak systolic velocity: Right 40.6 cm/s; Left 39.1 cm/s ICA diastolic velocity: Right 11.8 cm/s; Left 9.8 cm/s ECA peak systolic velocity: Right 74.1 cm/s; Left 61.8 cm/s CCA peak systolic velocity: Right 80.5 cm/s; Left 70.2 cm/s ICA/CCA ratio: Right 0.5 cm/s; Left 0.56 cm/s IMPRESSION: No hemodynamically significant areas of narrowing or stenosis appreciated. Based on set standards narrowing falls within the less than 50% range. <Electronically signed by Marcus Kong > 01/30/21 0509
[2021-01-30] MEDS: ONDANSETRON 4MG/2ML VIAL IV SCH ×4 (05:36→23:05)
[2021-01-30] MEDS: HumaLOG INSULIN (NovoLOG) PER UNIT SC SCH ×4 (05:38→17:42)
[2021-01-30 06:00] VITALS: BP 134/70
[2021-01-30 06:41] LABS: MEAN CORPUSCULAR HEMOGLOBIN 30.2 pg (27.0-33.0); MEAN CORPUSCULAR HGB CONC 33.3 g/dl (32.0-36.5); MEAN CORPUSCULAR VOLUME 90.5 fl (80.0-96.0); PLATELET COUNT, AUTOMATED 235 10^3/uL (150-450); RED BLOOD COUNT 4.31 10^6/uL (4.30-6.10); WHITE BLOOD COUNT 7.9 10^3/uL (4.0-10.0)
[2021-01-30 07:06] LABS: ALBUMIN 2.9 GM/DL (3.2-5.2); ALT/SGPT 21 U/L (12-78); BILIRUBIN,TOTAL 0.6 MG/DL (0.2-1.0); BLOOD UREA NITROGEN 11 MG/DL (7-18); CALCIUM LEVEL 8.6 MG/DL (8.8-10.2); CARBON DIOXIDE LEVEL 28 MEQ/L (21-32); CHLORIDE LEVEL 105 MEQ/L (98-107); CREATININE FOR GFR 0.63 MG/DL (0.70-1.30); GLOMERULAR FILTRATION RATE > 60.0 (>42); GLUCOSE, FASTING 107 MG/DL (70-100); MAGNESIUM LEVEL 1.9 MG/DL (1.8-2.4); POTASSIUM SERUM 3.7 MEQ/L (3.5-5.1); SODIUM LEVEL 140 MEQ/L (136-145); TOTAL PROTEIN 5.8 GM/DL (6.4-8.2)
[2021-01-30] MEDS: CLOBETASOL PROP 0.05% OINT 30 GM TOP SCH (09:00)
[2021-01-30] MEDS ORDERED: LEVEMIR (INSULIN DETEMIR) 1 UNITS/0.01ML SC SCH (09:00)
[2021-01-30] MEDS: APIXABAN 5 MG TAB (ELIQUIS) PO SCH ×2 (09:42→20:50)
[2021-01-30] MEDS: PANTOPRAZOLE 40MG TAB (PROTONIX) PO SCH (09:42)
[2021-01-30] MEDS: ASPIRIN 81 MG CHEW TABLET PO SCH (09:42)
[2021-01-30] MEDS: VENLAFAXINE 37.5 MG TAB PO SCH ×3 (09:45→20:51)
[2021-01-30] MEDS: LEVEMIR (INSULIN DETEMIR) 1 UNITS/0.01ML SC SCH ×2 (09:48→20:52)
[2021-01-30] MEDS: CARVedilol 12.5 MG TAB PO SCH ×2 (09:49→20:51)
[2021-01-30 10:00] VITALS: BP 168/88
[2021-01-30] MEDS: traMADol 50 MG TAB PO PRN ×2 (11:32→17:43)
[2021-01-30] MEDS ORDERED: GLUCOSE 4GM CHEW TABLET PO PRN ×2 (12:10→12:55)
[2021-01-30] MEDS ORDERED: GLUCAGON INJ 1MG VIAL SC PRN ×2 (12:10→12:55)
[2021-01-30] MEDS ORDERED: DEXTROSE 50% 50 ML SYRINGE IV PRN ×2 (12:10→12:55)
--- NOTE | 2021-01-30 13:29 | IPNPDOC ---
Text Note Date of Service The patient was seen on 01/30/21. NOTE Subjective: No any acute events overnight patient denied fever, chills, nausea, vomiting. Speech specialist evaluated patient and upgraded his diet. Objective: GENERAL APPEARANCE: NAD HEENT: no scleral icterus, no JVD, EOMI CARDIOVASCULAR: Irregularly irregular LUNGS: CTA ABDOMEN: soft & not tender w palpitation MUSCULOSKELETAL: no cyanosis, no swelling INTEGUMENT: no generalized pallor NEUROLOGICAL: cranial nerve function from 2-12 intact intact, 2/5 left UE and LE,3/5 right upper extremity, 3/5 right lower extremity Assessment/Plan This is a 69 years old white male with past medical history of CAD, coronary stent, chronic hypertension, seizures, A. fib status post ablation, chronic diastolic heart failure, vascular dementia, AICD placement, right parietal infarct by history, patient was transferred from SNF. Pt was found to have around 9:30 in the morning left-sided arm and hand weakness with garbled speech. Of note patient had 2 prior strokes with right-sided residual weakness. Patient currently on Eliquis by mouth. The last one was in 2019. In ER CT head was done and showed no acute stroke or bleed. was contacted by ER physician, he recommended MRI and MRA, continue statin and Eliquis . Patient denied fever, chills, nausea, vomiting. Problems (1) Left-sided weakness Most likely CVA given history of previous strokes CT head negative for stroke or acute bleed. Will repeat CT today Patient cannot obtain MRI, MRA due to pacemaker, Us carotid Doppler shows no significant stenosis of carotid arteries Continue Eliquis Appreciate/agree with neurologist consult Telemetry (2) Coronary artery disease Continue home meds EKG did not show any acute ischemic changes (3) Diabetes mellitus Detemir twice a day Insulin sliding Diabetes diet with medications (4) Dementia Continue home meds (5) Atrial fibrillation Heart rate under control Continue Eliquis 5 mg BID (6) HTN (hypertension) Continue Lisinopril 20 mg Deconditioning PT/OT VS,Fishbone, I+O VS, Fishbone, I+O Laboratory Tests 01/30/21 05:54 Vital Signs Date Time Temp Pulse Resp B/P (MAP) Pulse Ox O2 Delivery O2 Flow Rate FiO2 01/30/21 12:02 18 01/30/21 10:00 97.9 70 168/88 (114) 94 01/29/21 22:28 Room Air I&O- Last 24 Hours up to 6 AM 01/30/21 06:00 Intake Total 960 ml Output Total 900 ml Balance 60 ml TAYLOR MANZANARES DO Jan 30, 2021 13:29
[2021-01-30 14:00] VITALS: BP 164/73
--- NOTE | 2021-01-30 14:52 | REPVR ---
PROCEDURE INFORMATION: Exam: CT Head Without Contrast Exam date and time: 01/30/2021 2:05 PM Age: 70 years old Clinical indication: Pain; Other: CVA TECHNIQUE: Imaging protocol: Computed tomography of the head without contrast. Radiation optimization: All CT scans at this facility use at least one of these dose optimization techniques: automated exposure control; mA and/or kV adjustment per patient size (includes targeted exams where dose is matched to clinical indication); or iterative reconstruction. COMPARISON: 1. CT Head without contrast 01/29/2021 9:[address] Head without contrast 01/26/2020 11:46:27 AM FINDINGS: Brain: There is no acute intracranial hemorrhage. There is lucency in the cerebral white matter, likely microvascular disease although non-specific. There is chronic right middle cerebral artery distribution infarct. There is encephalomalacia in left superior parietal lobe consistent small old infarct. There are chronic lacunar infarcts in bilateral thalami. No findings to suggest acute infarct. There are no extra-axial fluid collections. No evidence of mass. There is no mass effect or midline shift. Cerebral ventricles: The ventricles and sulci are enlarged, consistent with volume loss / atrophy. No hydrocephalus. Paranasal sinuses: Visualized sinuses are unremarkable. No fluid levels. Mastoid air cells: No significant mastoid effusion. Bones/joints: Small rounded lucency in left skull is stable to 2020 examination. Soft tissues: Unremarkable as visualized. IMPRESSION: 1. No evidence of acute intracranial abnormality. No evidence of acute infarction, hemorrhage, or mass. 2. Atrophy and microvascular disease. Chronic infarcts as described. Electronically signed by: Sasha Reynoso On 01/30/2021 14:52:44 PM
[2021-01-30] MEDS: ACETAMINOPHEN TAB 650MG DOSE (2X325MG) PO PRN (15:00)
[2021-01-30] MEDS: MIRTAZAPINE 15 MG TAB PO SCH (20:51)
[2021-01-30] MEDS: ATORVASTATIN 20 MG TAB PO SCH (20:51)
[2021-01-30] MEDS: ESCITALOPRAM OXALATE 10 MG TAB (LEXAPRO) PO SCH (20:52)
[2021-01-30] MEDS ORDERED: HumaLOG INSULIN (NovoLOG) PER UNIT SC SCH (21:00)
[2021-01-30 22:00] VITALS: BP 122/73
[2021-01-30] MEDS: traMADol 50 MG TAB PO SCH (23:04)
[2021-01-31 02:00] VITALS: BP 155/73
[2021-01-31] MEDS: ONDANSETRON 4MG/2ML VIAL IV SCH ×2 (04:09→08:51)
[2021-01-31 06:00] VITALS: BP 152/80
[2021-01-31] MEDS: HumaLOG INSULIN (NovoLOG) PER UNIT SC SCH ×2 (07:02→13:14)
--- NOTE | 2021-01-31 07:10 | CR ---
CONSULTATION DATE: 01/29/2021 REFERRING PHYSICIAN: Vicente Carranza DO. REASON FOR CONSULTATION: TIA. HISTORY OF PRESENT ILLNESS: Zak Ngo is a 69-year-old man with history of coronary artery disease, hypertension, AICD placement, atrial fibrillation, and history of stroke who was at his baseline health until the morning of 01/29/2021, when he was noted to have garbled speech, incoordination of both sides of his body, unable to hold anything with his arms. The patient stated that he does not remember most of the day. He started feeling better when he came to [facility]. He has a history of stroke causing right-sided weakness in the past. He has been compliant with his medications. He was admitted at [facility] for further workup of possible TIA. He denies any headaches, neck pain, back pain, dysphagia, dysarthria, diplopia, urinary incontinence, falls, and loss of consciousness. DIAGNOSTIC STUDIES: He cannot have MRI scan due to his AICD. CT scan of the head twice showed small vessel ischemic disease of the brain without acute disease. Carotid ultrasound showed less than 50% bilateral carotid artery stenosis. CTA head and neck in 01/2020 showed less than 50% bilateral carotid artery stenosis and multivessel intracranial arterial stenosis. PAST MEDICAL HISTORY: 1. Strokes. 2. Diabetes. 3. Lyme disease. 4. Hypertension. 5. Seizures. 6. Atrial flutter. 7. Automated implantable cardioverter defibrillator (AICD). 8. Depression. 9. Mild left ventricular hypertrophy. 10. Grade 1 diastolic dysfunction. 11. Coronary artery stents. 12. AICD placement and cardiac ablation in 2011. HOME MEDICATIONS: 1. Aspirin 81 mg p.o. daily. 2. Eliquis 5 mg p.o. b.i.d. 3. Atorvastatin 40 mg p.o. daily. 4. Carvedilol 12.5 mg p.o. b.i.d. 5. Lexapro 10 mg p.o. daily. 6. Insulin Lantus 35 units once a day. 7. Myrbetriq 25 mg p.o. daily. 8. Mirtazapine 15 mg p.o. q. h.s. 9. Protonix 40 mg p.o. daily. 10. Tramadol 50 mg p.o. daily. 11. Effexor 75 mg p.o. t.i.d. 12. Magnesium hydroxide. 13. Phosphate enema. 14. Tramadol 50 mg t.i.d. p.r.n. 15. Bisacodyl as needed. ALLERGIES: PENICILLIN, LORAZEPAM. SOCIAL HISTORY: He is a former smoker. He denies alcohol or illicit drugs. FAMILY HISTORY: Father with history of hypertension. Mother with history of diabetes. REVIEW OF SYSTEMS: All systems were reviewed and found to be non-contributory except as mentioned in the History of Present Illness. PHYSICAL EXAMINATION: VITAL SIGNS: Temperature 97.4, pulse 75, respiratory rate 18, blood pressure 164/73, 98% saturations on room air. HEART: Irregular in rhythm. LUNGS: Clear to auscultation. ABDOMEN: Soft, nontender, and nondistended. EXTREMITIES: No pedal edema. No musculoskeletal abnormalities. No rash. No signs of meningeal irritation or tremor. NEUROLOGIC: The patient is awake, alert, and oriented to month, year, place, and person. Normal speech, comprehension, and repetition. Extraocular muscles are intact. No facial weakness. Tongue and uvula are midline. 5/5 strength in all four extremities. Deep tendon reflexes are 1+ in the arms and knees and absent at the ankles. He has decreased pinprick, vibration, and sensation in his feet. Gait was not tested. There is no dysmetria. ASSESSMENT: 1. Possible transient ischemic attack (TIA). 2. Less than 50% bilateral carotid artery stenosis and multivessel intracranial stenosis. 3. Atrial fibrillation and history of strokes in the past. PLAN: 1. Continue aspirin 81 mg p.o. daily and Eliquis 5 mg p.o. b.i.d. 2. The patient can return to [facility] tomorrow after his tests are complete. 3. Follow with our office as needed. He will follow-up with cardiology.
[2021-01-31 08:00] VITALS: BP 175/85
[2021-01-31] MEDS: VENLAFAXINE 37.5 MG TAB PO SCH (08:48)
[2021-01-31] MEDS: PANTOPRAZOLE 40MG TAB (PROTONIX) PO SCH (08:48)
[2021-01-31] MEDS: ASPIRIN 81 MG CHEW TABLET PO SCH (08:48)
[2021-01-31] MEDS: LEVEMIR (INSULIN DETEMIR) 1 UNITS/0.01ML SC SCH (08:48)
[2021-01-31] MEDS: APIXABAN 5 MG TAB (ELIQUIS) PO SCH (08:48)
[2021-01-31 08:49] VITALS: BP 145/78
[2021-01-31] MEDS: CARVedilol 12.5 MG TAB PO SCH (08:49)
[2021-01-31] MEDS: CLOBETASOL PROP 0.05% OINT 30 GM TOP SCH (08:52)
[2021-01-31] MEDS ORDERED: LISI20TA33 PO (10:34)
--- NOTE | 2021-01-31 18:00 | DS.PDOC ---
Discharge Summary General Date of Admission Jan 29, 2021 at 11:43 Date of Discharge 01/31/21 Discharge Summary PROCEDURES PERFORMED DURING STAY: [None]. ADMITTING DIAGNOSES: Left-sided weakness Coronary artery disease Diabetes mellitus Dementia Atrial fibrillation HTN (hypertension) DISCHARGE DIAGNOSES: Left-sided weakness Coronary artery disease Diabetes mellitus Dementia Atrial fibrillation HTN (hypertension) COMPLICATIONS/CHIEF COMPLAINT: CVA. HISTORY OF PRESENT ILLNESS: This is a 69 years old white male with past medical history of CAD, coronary stent, chronic hypertension, seizures, A. fib status post ablation, chronic diastolic heart failure, vascular dementia, AICD placement, right parietal infarct by history, patient was transferred from SNF. Pt was found to have around 9:30 in the morning left-sided arm and hand weakness with garbled speech. Of note patient had 2 prior strokes with right-sided residual weakness. Patient currently on Eliquis by mouth. The last one was in 2019. In ER CT head was done and showed no acute stroke or bleed. was contacted by ER physician, he recommended MRI and MRA, continue statin and Eliquis . Patient denied fever, chills, nausea, vomiting. HOSPITAL COURSE: During the hospital stay the following issue addressed 1) Left-sided weakness CT head negative for stroke or acute bleed. Repeated CT negative for stroke Patient cannot obtain MRI, MRA due to pacemaker, Us carotid Doppler shows no significant stenosis of carotid arteries Continue Eliquis Telemetry (2) Coronary artery disease Continue home meds EKG did not show any acute ischemic changes (3) Diabetes mellitus Detemir twice a day Insulin sliding Diabetes diet with medications (4) Dementia Continue home meds (5) Atrial fibrillation Heart rate under control Continue Eliquis 5 mg BID (6) HTN (hypertension) Continue Lisinopril 20 mg Deconditioning PT/OT DISCHARGE MEDICATIONS: Please see below. ALLERGIES: Please see below. PHYSICAL EXAMINATION ON DISCHARGE: VITAL SIGNS: Please see below. GENERAL APPEARANCE: NAD HEENT: no scleral icterus, no JVD, EOMI CARDIOVASCULAR: Irregularly irregular LUNGS: CTA ABDOMEN: soft & not tender w palpitation MUSCULOSKELETAL: no cyanosis, no swelling INTEGUMENT: no generalized pallor NEUROLOGICAL: cranial nerve function from 2-12 intact intact, 2/5 left UE and LE,3/5 right upper extremity, 3/5 right lower extremity LABORATORY DATA: Please see below. IMAGING: [facility] NAME: ADAM WARD DATE OF : 1950 BUSINESS NUMBER: [id number] AGE: 70 SEX: M REPORT #: [id number] ROOM: [facility] TECHNOLOGIST: [id number] DOCTOR: TAYLOR MANZANARES DO Ordered for Date&Time: 01/30/21 1245 cc: [~ rep ct ivnm] Service Date&Time: 01/30/21 1405 This report is in Signed status. Interpretation performed by [facility]. Thank you for having your radiology procedures performed at [facility] RADIOLOGY REPORT Date&Time printed: [~ rep prt dt last] [~ rep prt tm last] Page 2 of 2 [place] [id number] RADIOLOGY REPORT This report is in Signed status. Interpretation performed by [facility]. Thank you for having your radiology procedures performed at [facility] RADIOLOGY REPORT Date&Time printed: [~ rep prt dt last] [~ rep prt tm last] Page 1 of 2 PROCEDURE INFORMATION: Exam: CT Head Without Contrast Exam date and time: 01/30/2021 2:05 PM Age: 70 years old Clinical indication: Pain; Other: CVA TECHNIQUE: Imaging protocol: Computed tomography of the head without contrast. Radiation optimization: All CT scans at this facility use at least one of these dose optimization techniques: automated exposure control; mA and/or kV adjustment per patient size (includes targeted exams where dose is matched to clinical indication); or iterative reconstruction. COMPARISON: 1. CT Head without contrast 01/29/2021 9:[address] Head without contrast 01/26/2020 11:46:27 AM FINDINGS: Brain: There is no acute intracranial hemorrhage. There is lucency in the cerebral white matter, likely microvascular disease although non-specific. There is chronic right middle cerebral artery distribution infarct. There is encephalomalacia in left superior parietal lobe consistent small old infarct. There are chronic lacunar infarcts in bilateral thalami. No findings to suggest acute infarct. There are no extra-axial fluid collections. No evidence of mass. There is no mass effect or midline shift. Cerebral ventricles: The ventricles and sulci are enlarged, consistent with volume loss / atrophy. No hydrocephalus. Paranasal sinuses: Visualized sinuses are unremarkable. No fluid levels. Mastoid air cells: No significant mastoid effusion. Bones/joints: Small rounded lucency in left skull is stable to 2020 examination. Soft tissues: Unremarkable as visualized. IMPRESSION: 1. No evidence of acute intracranial abnormality. No evidence of acute infarction, hemorrhage, or mass. 2. Atrophy and microvascular disease. Chronic infarcts as described. Electronically signed by: Estrada Lawson On 01/30/2021 14:52:44 PM DD: ESTRADA LAWSON MD 01/30/21 1405 DT: BREN 01/30/21 1452 DS: JAYE 01/30/21 1452 [~ rep ct labl] PROGNOSIS: Guarded ACTIVITY: [As tolerated]. DIET: Modified diet DISPOSITION: [facility]. ITEMS TO FOLLOWUP ON ON OUTPATIENT: Follow-up with neurologist and PCP DISCHARGE CONDITION: [Stable]. TIME SPENT ON DISCHARGE: 40 minutes. Vital Signs/I&Os Vital Signs Date Time Temp Pulse Resp B/P (MAP) Pulse Ox O2 Delivery O2 Flow Rate FiO2 01/31/21 08:49 145/78 01/31/21 08:49 73 01/31/21 08:00 97.2 16 94 Room Air I&O- Last 24 Hours up to 6 AM 01/31/21 06:00 Intake Total 2280 ml Output Total 525 ml Balance 1755 ml Laboratory Data Labs 24H Laboratory Tests 2 01/30/21 20:44: Bedside Glucose (Misc Panel) 297H 01/31/21 05:56: Bedside Glucose (Misc Panel) 183H 01/31/21 11:55: Bedside Glucose (Misc Panel) 169H FSBS Laboratory Tests Test 01/30/21 20:44 01/31/21 05:56 01/31/21 11:55 Range/Units Bedside Glucose (Misc Panel) 297 183 169 83-110 MG/DL Discharge Medications Scheduled Acetaminophen (Acetaminophen) 500 Mg Tablet, 500 MG PO TID, (Reported) Apixaban (Eliquis) 5 Mg Tablet, 5 MG PO BID, (Reported) Aspirin (Aspirin) 81 Mg Tab.chew, 81 MG PO DAILY, (Reported) Atorvastatin Calcium (Atorvastatin Calcium) 40 Mg Tablet, 40 MG PO QHS, (Re ported) Carvedilol (Carvedilol) 12.5 Mg Tablet, 12.5 MG PO BID, (Reported) Clobetasol Propionate (Temovate) 30 Gm Cream..g., 1 APLCT TOP DAILY, (Reported) APPLY TO AFFECTED SKIN Diclofenac Sodium (Voltaren) 100 Gm Gel..gram., 2 GRAM TOP TID, (Reported) APPLY TO SHOULDERS Escitalopram Oxalate (Lexapro) 10 Mg Tablet, 10 MG PO QHS, (Reported) Insulin Glargine,Hum.rec.anlog (Lantus Solostar) 100 Unit/1 Ml Insuln.pen, 35 UNITS SC QAM, (Reported) Insulin Human Lispro (Humalog) 100 Unit/1 Ml Vial, 7 UNITS SC BID, (Reported) 0700/1600, GIVE IF FSBS >300 Lisinopril (Lisinopril) 20 Mg Tablet, 40 MG PO DAILY Mirabegron (Myrbetriq) 25 Mg Tab.er.24h, 25 MG PO DAILY, (Reported) Mirtazapine (Remeron) 15 Mg Tablet, 15 MG PO QHS, (Reported) Pantoprazole Sodium (Pantoprazole Sodium) 40 Mg Tablet.dr, 40 MG PO DAILY, (Reported) Tramadol HCl (Tramadol HCl) 50 Mg Tablet, 50 MG PO QHS, (Reported) Venlafaxine HCl (Venlafaxine HCl) 75 Mg Tablet, 75 MG PO TID, (Reported) Scheduled PRN Acetaminophen (Acetaminophen) 325 Mg Tablet, 650 MG PO Q4H PRN for PAIN, (Reported) Bisacodyl (Bisacodyl) 10 Mg Supp.rect, 10 MG MA DAILY PRN for CONSTIPATION, (Reported) Glucagon,Human Recombinant (Glucagon Emergency Kit) 1 Mg Vial, 1 MG IM ASDIRECTED PRN for LOW BLOOD SUGAR, (Reported) Loperamide HCl (Anti-Diarrheal) 2 Mg Tablet, 2 MG PO TID PRN for DIARRHEA, (Reported) Magnesium Hydroxide (Milk of Magnesia) 400 Mg/5 Ml Oral.susp, 2,400 MG PO DAILY PRN for CONSTIPATION, (Reported) Sodium Phosphate,Porter-Dibasic (Enema) 133 Ml Enema, 1 MARGIE MA DAILY PRN for CONSTIPATION, (Reported) Tramadol HCl (Tramadol HCl) 50 Mg Tablet, 50 MG PO TID PRN for PAIN, (Reported) Allergies Coded Allergies: Penicillins (Verified Allergy, Unknown, UNKNOWN CHILDHOOD REACTION, 12/10/19) lorazepam (Verified Adverse Reaction, Unknown, AGGRESSIVE, 12/10/19) TAYLOR MANZANARES DO Jan 31, 2021 18:00
== END 2021-01-31 13:59 | DRG 948 ==
LOC: EDBD 08:55 → M ED 08:55 → M ED INP 11:43 → ENRESERV 12:10 → M MSPAV 13:12
PROVIDERS: ADMIT Internal Medicine; ATTEND Internal Medicine
DX: R53.1 Weakness (principal); I50.32 Chronic diastolic (congestive) heart failure; I69.351 Hemiplegia and hemiparesis following cerebral infarction affecting right dominant side; G45.9 Transient cerebral ischemic attack, unspecified; I25.10 Atherosclerotic heart disease of native coronary artery without angina pectoris; E11.9 Type 2 diabetes mellitus without complications; F32.9 Major depressive disorder, single episode, unspecified; F01.50 Vascular dementia, unspecified severity, without behavioral disturbance, psychotic disturbance, mood disturbance, and anxiety; Z66 Do not resuscitate; I48.91 Unspecified atrial fibrillation; R56.9 Unspecified convulsions; I11.0 Hypertensive heart disease with heart failure; Z95.5 Presence of coronary angioplasty implant and graft; Z87.891 Personal history of nicotine dependence; Z95.810 Presence of automatic (implantable) cardiac defibrillator; Z20.822 Contact with and (suspected) exposure to COVID-19; Z79.01 Long term (current) use of anticoagulants; Z79.82 Long term (current) use of aspirin; Z79.891 Long term (current) use of opiate analgesic; Z79.899 Other long term (current) drug therapy

== ENCOUNTER → 2021-02-04 | Outpatient (REF) | payer MEDICARE ==
[~2021-02-04] MED LIST changes: +ACET-840 PO; +ANTI2TAB16 PO; +APAP325T4 PO; +ATOR40TA75 PO; +BISA10SU27 PR; +ELIQ5TAB PO; +ENEMENE PR; +GLUC1KIT IM; +LEXA1TAB PO; +LISI20TA33 PO; +MILK400S12 PO; +MIRT-62 PO; +MYRB25TA PO; +PANT40TA29 PO; +TEMO0.0520 TOP; +VOLT1GEL15 TOP
[2021-02-04 10:47] LABS: HEMATOCRIT 38.8 % (42.0-52.0); HEMOGLOBIN 12.5 g/dl (13.5-17.5); MEAN CORPUSCULAR HEMOGLOBIN 29.8 pg (27.0-33.0); MEAN CORPUSCULAR HGB CONC 32.2 g/dl (32.0-36.5); MEAN CORPUSCULAR VOLUME 92.6 fl (80.0-96.0); PLATELET COUNT, AUTOMATED 279 10^3/uL (150-450); RED BLOOD COUNT 4.19 10^6/uL (4.30-6.10); WHITE BLOOD COUNT 6.9 10^3/uL (4.0-10.0)
[2021-02-04 11:12] LABS: BLOOD UREA NITROGEN 13 MG/DL (7-18); CALCIUM LEVEL 8.7 MG/DL (8.8-10.2); CARBON DIOXIDE LEVEL 32 MEQ/L (21-32); CHLORIDE LEVEL 102 MEQ/L (98-107); CREATININE FOR GFR 0.79 MG/DL (0.70-1.30); GLOMERULAR FILTRATION RATE > 60.0 (>42); GLUCOSE, FASTING 324 MG/DL (70-100); POTASSIUM SERUM 4.1 MEQ/L (3.5-5.1); SODIUM LEVEL 138 MEQ/L (136-145)
[2021-02-04 11:14] LABS: CHOLESTEROL RISK RATIO 3.631 (<5); PROSTATIC SPECIFIC AG MONITOR 0.7 NG/ML (< 4.00); THYROID STIMULATING HORMONE 0.955 uIU/ML (0.358-3.740)
[2021-02-04 11:35] LABS: HEMOGLOBIN A1c 9.4 %
== END ==
DX: I10 Essential (primary) hypertension (principal); Z79.899 Other long term (current) drug therapy

== ENCOUNTER → 2021-02-28 | Outpatient (REF) | payer MEDICARE ==
[2021-02-28 10:06] LABS: BLOOD UREA NITROGEN 16 MG/DL (7-18); CARBON DIOXIDE LEVEL 29 MEQ/L (21-32); CHLORIDE LEVEL 105 MEQ/L (98-107); CREATININE FOR GFR 0.79 MG/DL (0.70-1.30); GLOMERULAR FILTRATION RATE > 60.0 (>42); GLUCOSE, FASTING 262 MG/DL (70-100); POTASSIUM SERUM 3.9 MEQ/L (3.5-5.1); SODIUM LEVEL 142 MEQ/L (136-145)
== END ==
PROVIDERS: ATTEND Internal Medicine
DX: Z01.818 Encounter for other preprocedural examination (principal)

== ENCOUNTER → 2021-03-01 | Outpatient (CLI) | payer MEDICARE ==
[~2021-03-01] MED LIST changes: +ISOVUE-370 76% 100ML VIAL As Ordered ONE
== END ==
LOC: M RAD 10:21
PROVIDERS: ATTEND Physician Assistant Medical
DX: I63.89 Other cerebral infarction (principal)

== ENCOUNTER → 2021-03-06 | Outpatient (REF) | payer MEDICARE ==
[~2021-03-06] MED LIST changes: -ISOVUE-370 76% 100ML VIAL As Ordered ONE
--- NOTE | 2021-03-06 16:35 | REPPI ---
INDICATION: COUGH [id number]. COMPARISON: Multiple the latest 01/29/2021 a portable exam TECHNIQUE: AP FINDINGS: The patient is tilted rotated to the right. There is a single chamber bipolar pacemaker device status quo. The cardiomediastinal silhouette is stable. Lung marshall are stable. The osseous structures stable. IMPRESSION: No significant change compared to the prior exam. No evidence of acute disease. <Electronically signed by Heriberto Whitney > 03/06/21 [id number]
== END ==
PROVIDERS: ATTEND Internal Medicine
DX: R05 Cough (principal); Z95.0 Presence of cardiac pacemaker

== ENCOUNTER → 2021-03-13 | Outpatient (REF) | payer MEDICARE ==
[~2021-03-13] MED LIST changes: +ONDA-84 PO; -ONDA8TAB10 PO
[2021-03-13 13:29] LABS: BLOOD UREA NITROGEN 16 MG/DL (7-18); CALCIUM LEVEL 8.4 MG/DL (8.8-10.2); CARBON DIOXIDE LEVEL 34 MEQ/L (21-32); CHLORIDE LEVEL 102 MEQ/L (98-107); CREATININE FOR GFR 0.88 MG/DL (0.70-1.30); GLOMERULAR FILTRATION RATE > 60.0 (>42); GLUCOSE, FASTING 287 MG/DL (70-100); SODIUM LEVEL 139 MEQ/L (136-145)
== END ==
PROVIDERS: ATTEND Internal Medicine
DX: R60.0 Localized edema (principal)

== ENCOUNTER → 2021-03-13 | Outpatient (CLI) | payer MEDICARE ==
[~2021-03-13] MED LIST changes: +ISOVUE-370 76% 100ML VIAL As Ordered ONE; -ONDA-84 PO; +ONDA8TAB10 PO
--- NOTE | 2021-03-13 15:42 | REPVR ---
PROCEDURE INFORMATION: Exam: CT Angiography Head With Contrast, Arteriography Exam date and time: 03/13/2021 2:12 PM Age: 70 years old Clinical indication: Condition or disease; Infarction; Additional info: Cerebral infarction PT in CT holding area TECHNIQUE: Imaging protocol: Computed tomography angiography of the head with contrast. Exam focused on the arteries. 3D rendering (Not supervised by radiologist): MIP and/or 3D reconstructed images were created and reviewed. COMPARISON: CT ANGIO NECK 01/25/2020 7:44 PM FINDINGS: ANTERIOR CIRCULATION: Right internal carotid artery: Atherosclerotic calcifications are seen involving the right cavernous internal carotid artery. There is severe stenosis a involving the horizontal segment of the right cavernous carotid artery. Moderate/severe stenosis of the right paraclinoid ICA is also noted. Right middle cerebral artery: Unremarkable. No occlusion or significant stenosis. No aneurysm. Right anterior cerebral artery: Unremarkable. No occlusion or significant stenosis. No aneurysm. Left internal carotid artery: Atherosclerotic calcifications are seen involving the left cavernous internal carotid artery. There is severe stenosis involving the horizontal segment of the left cavernous carotid artery. Moderate narrowing of the left supraclinoid ICA is also present. Left middle cerebral artery: Unremarkable. No occlusion or significant stenosis. No aneurysm. Left anterior cerebral artery: Unremarkable. No occlusion or significant stenosis. No aneurysm. POSTERIOR CIRCULATION: Right vertebral artery: Unremarkable. No occlusion or significant stenosis. No aneurysm. Left vertebral artery: Unremarkable. No occlusion or significant stenosis. No aneurysm. Basilar artery: Unremarkable. No occlusion or significant stenosis. No aneurysm. Right posterior cerebral artery: Unremarkable. No occlusion or significant stenosis. No aneurysm. Left posterior cerebral artery: Unremarkable. No occlusion or significant stenosis. No aneurysm. 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 3D rendering (Not supervised by radiologist): MIP and/or 3D reconstructed images were created by the technologist. Radiation optimization: All CT scans at this facility use at least one of these dose optimization techniques: automated exposure control; mA and/or kV adjustment per patient size (includes targeted exams where dose is matched to clinical indication); or iterative reconstruction. Contrast material: ISOVUE 370; Contrast volume: 75 ml; Contrast route: INTRAVENOUS (IV); COMPARISON: CT ANGIO NECK 01/25/2020 7:44 PM FINDINGS: Right common carotid artery: No stenosis. No dissection or occlusion. Right internal carotid artery: There is mild stenosis of the right subclavian/axillary artery junction. Atherosclerotic calcifications are present at the right carotid bifurcation and within the proximal right internal carotid artery. This is causing less than 20% stenosis. Right external carotid artery: No occlusion or stenosis of the origin. Left common carotid artery: No stenosis. No dissection or occlusion. Left internal carotid artery: Atherosclerotic calcifications are present at the left carotid bifurcation and within the proximal left internal carotid artery. There is no stenosis. Left external carotid artery: No occlusion or stenosis of the origin. Right vertebral artery: No stenosis. No dissection or occlusion. Left vertebral artery: Dense calcification is present at the left vertebral artery origin. Moderate stenosis is likely present. Left subclavian artery: There is minimal atherosclerotic narrowing of the proximal left subclavian artery. Soft tissues: Normal. No significant soft tissue swelling. Bones/joints: Moderate/severe degenerative changes of the cervical spine are present. There is moderate/severe spinal canal stenosis at C3-C4, C4-C5, and C5-C6. Lungs: Paraseptal emphysema is present in the lung apices. IMPRESSION: 1. No acute abnormality. 2. Chronic findings as discussed above. REFERENCES: NASCET CRITERIA. The degree of internal carotid artery stenosis is based on NASCET criteria. Normal is no stenosis. Mild is less than 50% stenosis. Moderate is 50-69% stenosis. Severe is 70% to 99% stenosis. Total occlusion is no detectable patent lumen. Electronically signed by: Gelacio Hooks On 03/13/2021 15:42:21 PM
== END ==
LOC: M RAD 13:03
PROVIDERS: ATTEND Physician Assistant Medical
DX: I63.89 Other cerebral infarction (principal)
CPT/HCPCS: 70498; Q9967

== ENCOUNTER → 2021-05-01 | Outpatient (REF) | payer MEDICARE ==
[~2021-05-01] MED LIST changes: -ISOVUE-370 76% 100ML VIAL As Ordered ONE
[2021-05-01 12:49] LABS: HEMATOCRIT 39.5 % (42.0-52.0); HEMOGLOBIN 12.6 g/dl (13.5-17.5); MEAN CORPUSCULAR HEMOGLOBIN 30.5 pg (27.0-33.0); MEAN CORPUSCULAR HGB CONC 31.9 g/dl (32.0-36.5); MEAN CORPUSCULAR VOLUME 95.6 fl (80.0-96.0); PLATELET COUNT, AUTOMATED 297 10^3/uL (150-450); RED BLOOD COUNT 4.13 10^6/uL (4.30-6.10); WHITE BLOOD COUNT 7.9 10^3/uL (4.0-10.0)
[2021-05-01 13:11] LABS: BLOOD UREA NITROGEN 17 MG/DL (7-18); CALCIUM LEVEL 8.6 MG/DL (8.8-10.2); CARBON DIOXIDE LEVEL 28 MEQ/L (21-32); CHLORIDE LEVEL 105 MEQ/L (98-107); CREATININE FOR GFR 0.92 MG/DL (0.70-1.30); GLOMERULAR FILTRATION RATE > 60.0 (>42); GLUCOSE, FASTING 251 MG/DL (70-100); POTASSIUM SERUM 4.5 MEQ/L (3.5-5.1); SODIUM LEVEL 139 MEQ/L (136-145)
[2021-05-01 14:14] LABS: HEMOGLOBIN A1c 9.3 %
== END ==
PROVIDERS: ATTEND Nurse Practitioner Adult Health
DX: I10 Essential (primary) hypertension (principal); Z79.899 Other long term (current) drug therapy

== ENCOUNTER → 2021-05-15 | Outpatient (CLI) | payer MEDICARE ==
--- NOTE | 2021-05-15 15:05 | REP ---
INDICATION: EDEMA/ORTHOPNEA. COMPARISON: Comparison chest x-ray January 29, 2021. TECHNIQUE: Portable upright AP chest radiograph. FINDINGS: A unipolar pacemaker is seen in the right heart view of the left side as before. Heart size is near the upper range of normal. Pulmonary vasculature is cephalized. There is no evidence of pleural effusion or pulmonary edema. No focal infiltrate. IMPRESSION: Mildly prominent heart with pacemaker. Pulmonary vascular cephalization. No evidence of pulmonary edema or pleural effusion. <Electronically signed by Ricardo Ye > 05/15/21 [id number]
== END ==
LOC: M PLAIMG 13:41
PROVIDERS: ATTEND Internal Medicine
DX: R60.9 Edema, unspecified (principal); R06.01 Orthopnea; Z95.0 Presence of cardiac pacemaker

== ENCOUNTER → 2021-05-15 | Outpatient (REF) | payer MEDICARE ==
[2021-05-15 10:43] LABS: HEMATOCRIT 37.2 % (42.0-52.0); HEMOGLOBIN 12.4 g/dl (13.5-17.5); MEAN CORPUSCULAR HEMOGLOBIN 30.5 pg (27.0-33.0); MEAN CORPUSCULAR HGB CONC 33.3 g/dl (32.0-36.5); MEAN CORPUSCULAR VOLUME 91.6 fl (80.0-96.0); PLATELET COUNT, AUTOMATED 223 10^3/uL (150-450); RED BLOOD COUNT 4.06 10^6/uL (4.30-6.10); WHITE BLOOD COUNT 7.9 10^3/uL (4.0-10.0)
[2021-05-15 11:09] LABS: ALBUMIN 3.1 GM/DL (3.2-5.2); ALT/SGPT 30 U/L (12-78); BILIRUBIN,TOTAL 0.4 MG/DL (0.2-1.0); BLOOD UREA NITROGEN 17 MG/DL (7-18); CALCIUM LEVEL 8.7 MG/DL (8.8-10.2); CARBON DIOXIDE LEVEL 28 MEQ/L (21-32); CHLORIDE LEVEL 103 MEQ/L (98-107); CREATININE FOR GFR 0.83 MG/DL (0.70-1.30); GLOMERULAR FILTRATION RATE > 60.0 (>42); GLUCOSE, FASTING 200 MG/DL (70-100); NT-PRO BNP 231 PG/ML (<125); POTASSIUM SERUM 4.2 MEQ/L (3.5-5.1); SODIUM LEVEL 137 MEQ/L (136-145); TOTAL PROTEIN 6.5 GM/DL (6.4-8.2)
== END ==
PROVIDERS: ATTEND Internal Medicine
DX: R60.0 Localized edema (principal)

== ENCOUNTER → 2021-05-17 | Outpatient (REF) | payer MEDICARE ==
[2021-05-17 11:08] LABS: BLOOD UREA NITROGEN 25 MG/DL (7-18); CALCIUM LEVEL 8.8 MG/DL (8.8-10.2); CARBON DIOXIDE LEVEL 29 MEQ/L (21-32); CHLORIDE LEVEL 104 MEQ/L (98-107); CREATININE FOR GFR 0.92 MG/DL (0.70-1.30); GLOMERULAR FILTRATION RATE > 60.0 (>42); GLUCOSE, FASTING 229 MG/DL (70-100); NT-PRO BNP 94 PG/ML (<125); POTASSIUM SERUM 4.3 MEQ/L (3.5-5.1); SODIUM LEVEL 139 MEQ/L (136-145)
== END ==
PROVIDERS: ATTEND Internal Medicine
DX: I50.9 Heart failure, unspecified (principal)

== ENCOUNTER → 2021-05-29 | Outpatient (REF) | payer MEDICARE ==
[2021-05-29 14:02] LABS: INR 1.3; PROTHROMBIN TIME 16.6 SECONDS (12.7-14.5)
[2021-05-29 16:13] LABS: ALBUMIN 2.9 GM/DL (3.2-5.2); ALT/SGPT 30 U/L (12-78); BILIRUBIN,TOTAL 0.3 MG/DL (0.2-1.0); BLOOD UREA NITROGEN 16 MG/DL (7-18); CALCIUM LEVEL 8.8 MG/DL (8.8-10.2); CARBON DIOXIDE LEVEL 27 MEQ/L (21-32); CHLORIDE LEVEL 107 MEQ/L (98-107); CREATININE FOR GFR 0.79 MG/DL (0.70-1.30); GLOMERULAR FILTRATION RATE > 60.0 (>42); GLUCOSE, FASTING 228 MG/DL (70-100); POTASSIUM SERUM 4.3 MEQ/L (3.5-5.1); SODIUM LEVEL 140 MEQ/L (136-145); TOTAL PROTEIN 6.5 GM/DL (6.4-8.2)
== END ==
PROVIDERS: ATTEND Nurse Practitioner Adult Health
DX: I10 Essential (primary) hypertension (principal)

== ENCOUNTER → 2021-05-30 | Outpatient (CLI) | payer MEDICARE ==
--- NOTE | 2021-05-30 10:17 | REP ---
INDICATION: ANASARCA - XRAY AFTER COMPARISON: None. TECHNIQUE: Real time fernandez scale ultrasound examination using curved array transducer. FINDINGS: Liver is normal in contour, size, and echogenicity without focal hepatic lesions identified. Pancreas is incompletely evaluated due to interposed bowel gas. The gallbladder is normal and without gallstones, wall thickening, or pericholecystic fluid. No biliary ductal dilatation is appreciated and the common bile duct measures 5.5 mm diameter. Right kidney is normal in reniform shape without hydronephrosis and measures 11.8 x 4.9 x 4.5 cm. No ascites in the visualized right upper quadrant. IMPRESSION: Normal limited right upper quadrant ultrasound <Electronically signed by Marcus Kong > 05/30/21 1017
--- NOTE | 2021-05-30 10:19 | REP ---
INDICATION: ANASARCA - US FIRST COMPARISON: 05/15/2021 TECHNIQUE: PA and lateral. FINDINGS: The mediastinum and cardiac silhouette are stable. Single lead pacemaker again noted. No cardiomegaly. The lung marshall are clear and without acute consolidation, effusion, or pneumothorax. The skeletal structures are intact and normal. IMPRESSION: No acute cardiopulmonary process. <Electronically signed by Marcus Kong > 05/30/21 1016
== END ==
LOC: M RAD 09:34
PROVIDERS: ATTEND Nurse Practitioner Adult Health
DX: R60.1 Generalized edema (principal)

== ENCOUNTER → 2021-05-31 | Outpatient (REF) | payer MEDICARE ==
[2021-05-31 19:22] LABS: APPEARANCE, URINE CLEAR (CLEAR); BACTERIA, URINE AUTO NEGATIVE (NEGATIVE); BILIRUBIN, URINE AUTO NEGATIVE (NEGATIVE); BLOOD, URINE BLOOD 2+ (NEGATIVE); COLOR, URINE STRAW (YELLOW); GLUCOSE, URINE (UA) AUTO NEGATIVE (NEGATIVE); KETONE, URINE AUTO NEGATIVE (NEGATIVE); LEUKOCYTE ESTERASE, URINE AUTO NEGATIVE (NEGATIVE); MUCUS, URINE SMALL (NEGATIVE); NITRITE, URINE AUTO NEGATIVE (NEGATIVE); PROTEIN, URINE AUTO NEGATIVE (NEGATIVE); RBC, URINE AUTO 7 /HPF (0-3); SPECIFIC GRAVITY URINE AUTO 1.023 (1.002-1.035); SQUAMOUS EPITHELIAL CELL UR AU 0 /HPF (0-6); UROBILINOGEN, URINE AUTO 0.2 mg/dL (0.0-2.0); WBC, URINE AUTO 3 /HPF (0-3)
== END ==
PROVIDERS: ATTEND Internal Medicine
DX: R31.9 Hematuria, unspecified (principal)

== ENCOUNTER → 2021-05-31 | Outpatient (CLI) | payer MEDICARE ==
[~2021-05-31] MED LIST changes: +ISOVUE-370 76% 100ML VIAL As Ordered ONE
--- NOTE | 2021-05-31 15:05 | REP ---
INDICATION: SUPRACLAVICULAR LYMPHNODE / ANASAREA COMPARISON: None TECHNIQUE: Axial contrast enhanced images from the thoracic inlet to the upper abdomen with coronal and sagittal reformations using 100 ml Isovue 370 intravenous contrast material. This CT examination was performed using the following dose reduction techniques: Automated exposure control, adjustment of mA and/or kv according to the patient's size, and use of iterative reconstruction technique. FINDINGS: Lung marshall demonstrate diffuse chronic emphysematous and interstitial changes along with scattered scarring. Superimposed bibasilar atelectasis/early consolidations noted (right greater than left). No effusion. No pneumothorax. Tracheobronchial tree is grossly patent. Reactive mediastinal and hilar adenopathy noted. Atherosclerotic changes to the thoracic aorta and coronary arteries appreciated without aortic aneurysm or cardiomegaly. No pericardial effusion. Pacemaker with leads in the right atrium and right ventricle. Surrounding musculoskeletal structures demonstrate degenerative changes. Limited upper abdomen demonstrates normal bilateral adrenal glands. IMPRESSION: Small areas of bibasilar atelectasis/early consolidations (right greater than left) with reactive mediastinal/hilar adenopathy. Follow-up to resolution. <Electronically signed by Marcus Kong > 05/31/21 [id number]
--- NOTE | 2021-05-31 15:07 | REP ---
INDICATION: SUPRACLAVICULAR LYMPHNODE / ANASAREA. COMPARISON: None TECHNIQUE: Axial contrast-enhanced images from the lung bases to the pubic symphysis using 100 cc Isovue 370 intravenous contrast material. Coronal and sagittal reformations obtained. This CT examination was performed using the following dose reduction techniques: Automated exposure control, adjustment of mA and/or kv according to the patient's size, and the use of iterative reconstruction technique. FINDINGS: Liver, spleen, pancreas, gallbladder, bilateral adrenal glands and kidneys are essentially normal/age-appropriate. The enteric system is without obstruction or acute inflammatory process. Scattered colonic diverticula noted without acute diverticulitis.. Pelvis demonstrates normal bladder and age-appropriate prostate/seminal vesicles. No ascites. No free air. No intraperitoneal or retroperitoneal adenopathy. Atherosclerotic changes to the aorta and vasculature noted without aneurysm or dissection. Musculoskeletal structures demonstrate age-related degenerative changes without acute osseous abnormality. Bibasilar atelectasis to the lung bases (right greater than left). IMPRESSION: 1. No obvious acute abdominopelvic pathology appreciated. <Electronically signed by Marcus Kong > 05/31/21 [id number]
== END ==
LOC: M RAD 14:05
PROVIDERS: ATTEND Nurse Practitioner Adult Health
DX: J43.8 Other emphysema (principal); R31.9 Hematuria, unspecified
CPT/HCPCS: 71260; 74177; 81001; 87086; 88108; Q9967

== ENCOUNTER → 2021-06-03 | Outpatient (REF) | payer MEDICARE ==
[~2021-06-03] MED LIST changes: -ISOVUE-370 76% 100ML VIAL As Ordered ONE
[2021-06-03 10:39] LABS: HEMATOCRIT 36.9 % (42.0-52.0); MEAN CORPUSCULAR HEMOGLOBIN 30.4 pg (27.0-33.0); MEAN CORPUSCULAR HGB CONC 32.5 g/dl (32.0-36.5); MEAN CORPUSCULAR VOLUME 93.4 fl (80.0-96.0); PLATELET COUNT, AUTOMATED 286 10^3/uL (150-450); RED BLOOD COUNT 3.95 10^6/uL (4.30-6.10); WHITE BLOOD COUNT 11.4 10^3/uL (4.0-10.0)
[2021-06-03 11:05] LABS: CALCIUM LEVEL 8.2 MG/DL (8.8-10.2); CREATININE FOR GFR 1.28 MG/DL (0.70-1.30); POTASSIUM SERUM 4.1 MEQ/L (3.5-5.1)
== END ==
PROVIDERS: ATTEND Internal Medicine
DX: R60.1 Generalized edema (principal)

== ENCOUNTER → 2021-06-07 | Outpatient (REF) | payer MEDICARE | PROVIDERS: ATTEND Internal Medicine | DX: R31.9 Hematuria, unspecified (principal) ==

== ENCOUNTER → 2021-06-10 | Outpatient (REF) | payer MEDICARE | PROVIDERS: ATTEND Internal Medicine | DX: R31.9 Hematuria, unspecified (principal); Z53.8 Procedure and treatment not carried out for other reasons ==

== ENCOUNTER → 2021-06-14 | Outpatient (REF) | payer MEDICARE | PROVIDERS: ATTEND Nurse Practitioner Adult Health | DX: R31.9 Hematuria, unspecified (principal) ==

== ENCOUNTER → 2021-06-21 | Outpatient (REF) | payer MEDICARE ==
[2021-06-21 09:14] LABS: BASO # 0.1 10^3/uL (0.0-0.2); BASO % 0.6 % (0.0-1.0); EOS # 0.2 10^3/uL (0.0-0.5); EOS % 1.4 % (0.0-3.0); HEMATOCRIT 38.9 % (42.0-52.0); HEMOGLOBIN 12.8 g/dl (13.5-17.5); LYMPH # 1.9 10^3/uL (1.5-5.0); LYMPH % 15.1 % (24.0-44.0); MEAN CORPUSCULAR HGB CONC 32.9 g/dl (32.0-36.5); MEAN CORPUSCULAR VOLUME 91.3 fl (80.0-96.0); MONO # 0.9 10^3/uL (0.0-0.8); MONO % 6.7 % (2.0-8.0); NEUTROPHILS # 9.7 10^3/uL (1.5-8.5); NEUTROPHILS % 75.5 % (36.0-66.0); PLATELET COUNT, AUTOMATED 323 10^3/uL (150-450); RED BLOOD COUNT 4.26 10^6/uL (4.30-6.10); WHITE BLOOD COUNT 12.8 10^3/uL (4.0-10.0)
[2021-06-21 09:45] LABS: ALBUMIN 3.2 GM/DL (3.2-5.2); BILIRUBIN,TOTAL 0.3 MG/DL (0.2-1.0); CALCIUM LEVEL 9.2 MG/DL (8.8-10.2); CREATININE FOR GFR 1.47 MG/DL (0.70-1.30); GLOMERULAR FILTRATION RATE 50.3 (>42); POTASSIUM SERUM 4.7 MEQ/L (3.5-5.1); THYROID STIMULATING HORMONE 0.757 uIU/ML (0.358-3.740); TOTAL PROTEIN 7.2 GM/DL (6.4-8.2)
== END ==
PROVIDERS: ATTEND Nurse Practitioner Adult Health
DX: R53.83 Other fatigue (principal)

== ENCOUNTER → 2021-06-24 | Outpatient (REF) | payer MEDICARE ==
[2021-06-24 11:53] LABS: HEMATOCRIT 37.4 % (42.0-52.0); HEMOGLOBIN 12.1 g/dl (13.5-17.5); MEAN CORPUSCULAR HEMOGLOBIN 30.2 pg (27.0-33.0); MEAN CORPUSCULAR HGB CONC 32.4 g/dl (32.0-36.5); MEAN CORPUSCULAR VOLUME 93.3 fl (80.0-96.0); PLATELET COUNT, AUTOMATED 276 10^3/uL (150-450); RED BLOOD COUNT 4.01 10^6/uL (4.30-6.10)
[2021-06-24 12:21] LABS: CALCIUM LEVEL 8.7 MG/DL (8.8-10.2); CREATININE FOR GFR 1.67 MG/DL (0.70-1.30); GLOMERULAR FILTRATION RATE 43.4 (>42); POTASSIUM SERUM 4.6 MEQ/L (3.5-5.1)
== END ==
PROVIDERS: ATTEND Internal Medicine
DX: I10 Essential (primary) hypertension (principal)

== ENCOUNTER → 2021-06-26 | Outpatient (REF) | payer MEDICARE ==
[2021-06-26 13:01] LABS: BLOOD UREA NITROGEN 37 MG/DL (7-18); CALCIUM LEVEL 9.1 MG/DL (8.8-10.2); CARBON DIOXIDE LEVEL 32 MEQ/L (21-32); CHLORIDE LEVEL 100 MEQ/L (98-107); CREATININE FOR GFR 1.18 MG/DL (0.70-1.30); GLOMERULAR FILTRATION RATE > 60.0 (>42); GLUCOSE, FASTING 216 MG/DL (70-100); SODIUM LEVEL 137 MEQ/L (136-145)
== END ==
PROVIDERS: ATTEND Internal Medicine
DX: N18.9 Chronic kidney disease, unspecified (principal)

== ENCOUNTER → 2021-08-26 | Outpatient (REF) | payer MEDICARE, MEDICAID ==
[~2021-08-26] MED LIST changes: +ONDA-84 PO; -ONDA8TAB10 PO
[2021-08-26 11:41] LABS: HEMATOCRIT 36.9 % (42.0-52.0); MEAN CORPUSCULAR HEMOGLOBIN 30.2 pg (27.0-33.0); MEAN CORPUSCULAR HGB CONC 32.5 g/dl (32.0-36.5); MEAN CORPUSCULAR VOLUME 92.9 fl (80.0-96.0); PLATELET COUNT, AUTOMATED 258 10^3/uL (150-450); RED BLOOD COUNT 3.97 10^6/uL (4.30-6.10); WHITE BLOOD COUNT 7.2 10^3/uL (4.0-10.0)
[2021-08-26 12:11] LABS: CHOLESTEROL RISK RATIO 3.8 (<5); HEMOGLOBIN A1c 7.6 %
[2021-08-26 12:15] LABS: CALCIUM LEVEL 9.1 MG/DL (8.8-10.2); CREATININE FOR GFR 1.5 MG/DL (0.70-1.30); GLOMERULAR FILTRATION RATE 49.1 (>42); POTASSIUM SERUM 4.9 MEQ/L (3.5-5.1)
== END ==
PROVIDERS: ATTEND Internal Medicine
DX: E11.9 Type 2 diabetes mellitus without complications (principal)

== ENCOUNTER → 2021-09-23 | Outpatient (CLI) | payer MEDICARE, MEDICAID | PROVIDERS: ATTEND Internal Medicine | DX: R11.2 Nausea with vomiting, unspecified (principal) ==

== ENCOUNTER → 2021-09-23 | Outpatient (REF) | payer MEDICARE, MEDICAID | PROVIDERS: ATTEND Internal Medicine | DX: R11.2 Nausea with vomiting, unspecified (principal) ==

== ENCOUNTER → 2021-09-25 | Outpatient (REF) | payer MEDICARE, MEDICAID ==
[2021-09-25 13:11] LABS: BASO # 0.1 10^3/uL (0.0-0.2); BASO % 0.6 % (0.0-1.0); EOS # 0.1 10^3/uL (0.0-0.5); EOS % 0.6 % (0.0-3.0); HEMATOCRIT 33.2 % (42.0-52.0); HEMOGLOBIN 10.6 g/dl (13.5-17.5); LYMPH # 2.3 10^3/uL (1.5-5.0); LYMPH % 23.4 % (24.0-44.0); MEAN CORPUSCULAR HEMOGLOBIN 30.1 pg (27.0-33.0); MEAN CORPUSCULAR HGB CONC 31.9 g/dl (32.0-36.5); MEAN CORPUSCULAR VOLUME 94.3 fl (80.0-96.0); MONO # 0.9 10^3/uL (0.0-0.8); MONO % 9.3 % (2.0-8.0); NEUTROPHILS # 6.5 10^3/uL (1.5-8.5); NEUTROPHILS % 65.3 % (36.0-66.0); PLATELET COUNT, AUTOMATED 324 10^3/uL (150-450); RED BLOOD COUNT 3.52 10^6/uL (4.30-6.10); WHITE BLOOD COUNT 9.9 10^3/uL (4.0-10.0)
[2021-09-25 14:15] LABS: CALCIUM LEVEL 8.5 MG/DL (8.8-10.2); CREATININE FOR GFR 1.42 MG/DL (0.70-1.30); GLOMERULAR FILTRATION RATE 52.3 (>42); POTASSIUM SERUM 4.1 MEQ/L (3.5-5.1)
== END ==
PROVIDERS: ATTEND Nurse Practitioner Primary Care
DX: N18.9 Chronic kidney disease, unspecified (principal)

== ENCOUNTER → 2021-10-01 | Outpatient (CLI) | payer MEDICARE, MEDICAID | LOC: M RAD 10:06 | PROVIDERS: ATTEND Nurse Practitioner Primary Care | DX: R79.9 Abnormal finding of blood chemistry, unspecified (principal) ==

== ENCOUNTER → 2021-10-15 | Outpatient (REF) | payer MEDICARE, MEDICAID ==
[2021-10-15 14:11] LABS: BASO # 0.1 10^3/uL (0.0-0.2); BASO % 0.6 % (0.0-1.0); EOS # 0.1 10^3/uL (0.0-0.5); EOS % 0.8 % (0.0-3.0); HEMATOCRIT 38.9 % (42.0-52.0); HEMOGLOBIN 13.2 g/dl (13.5-17.5); LYMPH # 2.6 10^3/uL (1.5-5.0); LYMPH % 22.3 % (24.0-44.0); MEAN CORPUSCULAR HEMOGLOBIN 31.1 pg (27.0-33.0); MEAN CORPUSCULAR HGB CONC 33.9 g/dl (32.0-36.5); MEAN CORPUSCULAR VOLUME 91.5 fl (80.0-96.0); MONO % 8.2 % (2.0-8.0); NEUTROPHILS # 7.9 10^3/uL (1.5-8.5); NEUTROPHILS % 67.7 % (36.0-66.0); PLATELET COUNT, AUTOMATED 259 10^3/uL (150-450); RED BLOOD COUNT 4.25 10^6/uL (4.30-6.10); WHITE BLOOD COUNT 11.7 10^3/uL (4.0-10.0)
[2021-10-15 14:41] LABS: CALCIUM LEVEL 9.7 MG/DL (8.8-10.2); CREATININE FOR GFR 2.89 MG/DL (0.70-1.30); POTASSIUM SERUM 4.3 MEQ/L (3.5-5.1)
== END ==
PROVIDERS: ATTEND Nurse Practitioner Primary Care
DX: R11.0 Nausea (principal)

== ENCOUNTER → 2021-10-21 | Outpatient (CLI) | payer MEDICARE, MEDICAID | PROVIDERS: ATTEND Internal Medicine | DX: N39.9 Disorder of urinary system, unspecified (principal) ==

== ENCOUNTER → 2021-10-21 | Outpatient (REF) | payer MEDICARE, MEDICAID ==
[2021-10-21 10:38] LABS: HEMATOCRIT 33.3 % (42.0-52.0); HEMOGLOBIN 10.7 g/dl (13.5-17.5); MEAN CORPUSCULAR HEMOGLOBIN 30.7 pg (27.0-33.0); MEAN CORPUSCULAR HGB CONC 32.1 g/dl (32.0-36.5); MEAN CORPUSCULAR VOLUME 95.7 fl (80.0-96.0); PLATELET COUNT, AUTOMATED 209 10^3/uL (150-450); RED BLOOD COUNT 3.48 10^6/uL (4.30-6.10); WHITE BLOOD COUNT 9.4 10^3/uL (4.0-10.0)
[2021-10-21 11:33] LABS: CALCIUM LEVEL 8.9 MG/DL (8.8-10.2); CREATININE FOR GFR 1.54 MG/DL (0.70-1.30); GLOMERULAR FILTRATION RATE 47.6 (>42); POTASSIUM SERUM 3.5 MEQ/L (3.5-5.1)
== END ==
PROVIDERS: ATTEND Nurse Practitioner Primary Care
DX: I50.9 Heart failure, unspecified (principal); R71.8 Other abnormality of red blood cells

== ENCOUNTER → 2021-10-22 | Outpatient (REF) | payer MEDICARE, MEDICAID | PROVIDERS: ATTEND Internal Medicine | DX: R71.8 Other abnormality of red blood cells (principal) ==

== ENCOUNTER → 2021-10-28 | Outpatient (REF) | payer MEDICARE, MEDICAID ==
[2021-10-28 16:02] LABS: HEMATOCRIT 35.1 % (42.0-52.0); HEMOGLOBIN 11.6 g/dl (13.5-17.5); MEAN CORPUSCULAR HEMOGLOBIN 30.9 pg (27.0-33.0); MEAN CORPUSCULAR VOLUME 93.4 fl (80.0-96.0); PLATELET COUNT, AUTOMATED 279 10^3/uL (150-450); RED BLOOD COUNT 3.76 10^6/uL (4.30-6.10); WHITE BLOOD COUNT 10.6 10^3/uL (4.0-10.0)
[2021-10-28 16:25] LABS: CALCIUM LEVEL 8.9 MG/DL (8.8-10.2); CREATININE FOR GFR 1.39 MG/DL (0.70-1.30); GLOMERULAR FILTRATION RATE 53.6 (>42); POTASSIUM SERUM 4.1 MEQ/L (3.5-5.1)
== END ==
PROVIDERS: ATTEND Internal Medicine
DX: R71.8 Other abnormality of red blood cells (principal)

== ENCOUNTER → 2021-11-25 | Outpatient (REF) | payer MEDICARE, MEDICAID ==
[~2021-11-25] MED LIST changes: +CARA1TAB6 PO; +DULC10SU2 PR; +DULC5TAB PO; +KETO2SHA8 TOP; +LEXA1TAB2 PO; +LIPI20TA PO; +ONDA8TAB8 PO; +SENN-23 PO
[2021-11-25 13:01] LABS: HEMATOCRIT 33.3 % (42.0-52.0); HEMOGLOBIN 10.9 g/dl (13.5-17.5); MEAN CORPUSCULAR HEMOGLOBIN 30.8 pg (27.0-33.0); MEAN CORPUSCULAR HGB CONC 32.7 g/dl (32.0-36.5); MEAN CORPUSCULAR VOLUME 94.1 fl (80.0-96.0); PLATELET COUNT, AUTOMATED 310 10^3/uL (150-450); RED BLOOD COUNT 3.54 10^6/uL (4.30-6.10); WHITE BLOOD COUNT 9.8 10^3/uL (4.0-10.0)
[2021-11-25 13:19] LABS: HEMOGLOBIN A1c 5.9 %
[2021-11-25 13:23] LABS: BLOOD UREA NITROGEN 18 MG/DL (7-18); CALCIUM LEVEL 8.9 MG/DL (8.8-10.2); CARBON DIOXIDE LEVEL 28 MEQ/L (21-32); CHLORIDE LEVEL 102 MEQ/L (98-107); CREATININE FOR GFR 1.24 MG/DL (0.70-1.30); GLOMERULAR FILTRATION RATE > 60.0 (>42); GLUCOSE, FASTING 232 MG/DL (70-100); POTASSIUM SERUM 4.5 MEQ/L (3.5-5.1); SODIUM LEVEL 137 MEQ/L (136-145)
== END ==
PROVIDERS: ATTEND Internal Medicine
DX: I10 Essential (primary) hypertension (principal); Z79.899 Other long term (current) drug therapy

== ENCOUNTER → 2021-12-04 | Outpatient (REF) | payer MEDICARE, MEDICAID ==
[~2021-12-04] MED LIST changes: -CARA1TAB6 PO; -DULC10SU2 PR; -DULC5TAB PO; -KETO2SHA8 TOP; -LEXA1TAB2 PO; -LIPI20TA PO; -ONDA8TAB8 PO; -SENN-23 PO
[2021-12-04 11:12] LABS: BASO # 0.1 10^3/uL (0.0-0.2); BASO % 0.5 % (0.0-1.0); EOS # 0.1 10^3/uL (0.0-0.5); EOS % 0.9 % (0.0-3.0); HEMATOCRIT 35.1 % (42.0-52.0); HEMOGLOBIN 11.6 g/dl (13.5-17.5); LYMPH # 1.8 10^3/uL (1.5-5.0); LYMPH % 16.1 % (24.0-44.0); MEAN CORPUSCULAR HEMOGLOBIN 30.6 pg (27.0-33.0); MEAN CORPUSCULAR VOLUME 92.6 fl (80.0-96.0); MONO # 0.8 10^3/uL (0.0-0.8); MONO % 6.9 % (2.0-8.0); NEUTROPHILS # 8.5 10^3/uL (1.5-8.5); PLATELET COUNT, AUTOMATED 313 10^3/uL (150-450); RED BLOOD COUNT 3.79 10^6/uL (4.30-6.10); WHITE BLOOD COUNT 11.4 10^3/uL (4.0-10.0)
[2021-12-04 13:59] LABS: ALBUMIN 3.3 GM/DL (3.2-5.2); ALT/SGPT 29 U/L (12-78); BILIRUBIN,TOTAL 0.5 MG/DL (0.2-1.0); BLOOD UREA NITROGEN 20 MG/DL (7-18); CALCIUM LEVEL 9.8 MG/DL (8.8-10.2); CARBON DIOXIDE LEVEL 27 MEQ/L (21-32); CHLORIDE LEVEL 102 MEQ/L (98-107); CREATININE FOR GFR 1.23 MG/DL (0.70-1.30); GLOMERULAR FILTRATION RATE > 60.0 (>42); GLUCOSE, FASTING 169 MG/DL (70-100); POTASSIUM SERUM 4.4 MEQ/L (3.5-5.1); SODIUM LEVEL 136 MEQ/L (136-145); TOTAL PROTEIN 6.5 GM/DL (6.4-8.2)
[2021-12-04 15:27] LABS: APPEARANCE, URINE HAZY (CLEAR); BACTERIA, URINE AUTO NEGATIVE (NEGATIVE); BILIRUBIN, URINE AUTO NEGATIVE (NEGATIVE); BLOOD, URINE BLOOD NEGATIVE (NEGATIVE); COLOR, URINE YELLOW (YELLOW); GLUCOSE, URINE (UA) AUTO NEGATIVE (NEGATIVE); KETONE, URINE AUTO NEGATIVE (NEGATIVE); LEUKOCYTE ESTERASE, URINE AUTO NEGATIVE (NEGATIVE); MUCUS, URINE SMALL (NEGATIVE); NITRITE, URINE AUTO NEGATIVE (NEGATIVE); PROTEIN, URINE AUTO NEGATIVE (NEGATIVE); RBC, URINE AUTO 1 /HPF (0-3); SPECIFIC GRAVITY URINE AUTO 1.017 (1.002-1.035); SQUAMOUS EPITHELIAL CELL UR AU 0 /HPF (0-6); UROBILINOGEN, URINE AUTO 0.2 mg/dL (0.0-2.0); WBC, URINE AUTO 1 /HPF (0-3)
== END ==
PROVIDERS: ATTEND Nurse Practitioner Family
DX: R41.82 Altered mental status, unspecified (principal)

== ENCOUNTER → 2021-12-21 | Outpatient (REF) | payer MEDICARE, MEDICAID ==
[~2021-12-21] MED LIST changes: +CARA1TAB6 PO; +DULC10SU2 PR; +DULC5TAB PO; +KETO2SHA8 TOP; +LEXA1TAB2 PO; +LIPI20TA PO; +ONDA8TAB8 PO; +SENN-23 PO
== END ==
LOC: EDSTATUS 10:15
PROVIDERS: ATTEND Anesthesiology
DX: Z01.818 Encounter for other preprocedural examination (principal); Z20.822 Contact with and (suspected) exposure to COVID-19

== ENCOUNTER 2021-12-26 10:17 | Day surgery (SDC) | payer MEDICARE, MEDICAID ==
[~2021-12-26] VITALS: Ht 177.8 cm; Wt 94.8 kg
[~2021-12-26 10:17] MED LIST changes: +NS 1,000 ML IV ONE
[2021-12-26] MEDS ORDERED: fentaNYL 100 MCG/2 ML INJECTION As Ordered ONE (11:39)
[2021-12-26] MEDS ORDERED: propofoL 500 MG/50 ML VIAL As Ordered ONE (11:39)
[2021-12-26] MEDS ORDERED: LIDOCAINE 2% 100MG/5ML SDV (FOR ANES.) As Ordered ONE (11:39)
[2021-12-26 12:45] VITALS: BP 168/84
== END 2021-12-26 13:30 | disposition home or self-care (01) ==
LOC: M OPP 10:17
PROVIDERS: ATTEND Surgery
DX: D50.9 Iron deficiency anemia, unspecified (principal); K44.9 Diaphragmatic hernia without obstruction or gangrene; I25.10 Atherosclerotic heart disease of native coronary artery without angina pectoris; I10 Essential (primary) hypertension; I48.19 Other persistent atrial fibrillation; K63.5 Polyp of colon; Z87.891 Personal history of nicotine dependence; Z88.0 Allergy status to penicillin; Z79.899 Other long term (current) drug therapy
CPT/HCPCS: 43235; 45384; J3010

== ENCOUNTER → 2022-01-30 | Outpatient (REF) | payer MEDICARE, MEDICAID ==
[~2022-01-30] MED LIST changes: -NS 1,000 ML IV ONE
[2022-01-30 17:51] LABS: MALB URINE SIEMENS 32.1 MG/L; MAU/CREAT RATIO 18.5 MCG/MG (0.0-30.0)
== END ==
PROVIDERS: ATTEND Internal Medicine
DX: E11.9 Type 2 diabetes mellitus without complications (principal)

== ENCOUNTER → 2022-02-10 | Outpatient (REF) | payer MEDICARE, MEDICAID ==
[2022-02-10 11:44] LABS: BLOOD UREA NITROGEN 19 MG/DL (7-18); CALCIUM LEVEL 8.5 MG/DL (8.8-10.2); CARBON DIOXIDE LEVEL 20 MEQ/L (21-32); CHLORIDE LEVEL 112 MEQ/L (98-107); CREATININE FOR GFR 0.85 MG/DL (0.70-1.30); GLOMERULAR FILTRATION RATE > 60.0 (>42); GLUCOSE, FASTING 175 MG/DL (70-100); POTASSIUM SERUM 4.2 MEQ/L (3.5-5.1); SODIUM LEVEL 142 MEQ/L (136-145)
== END ==
PROVIDERS: ATTEND Nurse Practitioner Family
DX: I10 Essential (primary) hypertension (principal)

== ENCOUNTER → 2022-03-05 | Outpatient (REF) | payer MEDICARE, MEDICAID ==
[2022-03-05 12:33] LABS: HEMATOCRIT 35.4 % (42.0-52.0); HEMOGLOBIN 11.1 g/dl (13.5-17.5); MEAN CORPUSCULAR HGB CONC 31.4 g/dl (32.0-36.5); MEAN CORPUSCULAR VOLUME 89.2 fl (80.0-96.0); PLATELET COUNT, AUTOMATED 235 10^3/uL (150-450); RED BLOOD COUNT 3.97 10^6/uL (4.30-6.10); WHITE BLOOD COUNT 9.5 10^3/uL (4.0-10.0)
[2022-03-05 15:43] LABS: BLOOD UREA NITROGEN 13 MG/DL (7-18); CALCIUM LEVEL 8.7 MG/DL (8.8-10.2); CARBON DIOXIDE LEVEL 25 MEQ/L (21-32); CHLORIDE LEVEL 110 MEQ/L (98-107); CHOLESTEROL LEVEL 103 MG/DL (<200); CHOLESTEROL RISK RATIO 3.814 (<5); CREATININE FOR GFR 0.82 MG/DL (0.70-1.30); GLOMERULAR FILTRATION RATE > 60.0 (>42); GLUCOSE, FASTING 217 MG/DL (70-100); HDL CHOLESTEROL 27 MG/DL (>40); LDL CHOLESTEROL 47 MG/DL (<100); NON-HDL-C 76 MG/DL; POTASSIUM SERUM 4.3 MEQ/L (3.5-5.1); SODIUM LEVEL 140 MEQ/L (136-145); TRIGLYCERIDES LEVEL 144 MG/DL (<150)
== END ==
PROVIDERS: ATTEND Internal Medicine
DX: I10 Essential (primary) hypertension (principal); E11.9 Type 2 diabetes mellitus without complications

== ENCOUNTER → 2022-04-09 | Outpatient (REF) | payer MEDICARE, MEDICAID ==
[2022-04-09 12:55] LABS: BLOOD UREA NITROGEN 11 MG/DL (7-18); CALCIUM LEVEL 8.8 MG/DL (8.8-10.2); CARBON DIOXIDE LEVEL 29 MEQ/L (21-32); CHLORIDE LEVEL 108 MEQ/L (98-107); CREATININE FOR GFR 0.75 MG/DL (0.70-1.30); GLOMERULAR FILTRATION RATE > 60.0 (>42); GLUCOSE, FASTING 146 MG/DL (70-100); MAGNESIUM LEVEL 1.9 MG/DL (1.8-2.4); POTASSIUM SERUM 3.9 MEQ/L (3.5-5.1); SODIUM LEVEL 141 MEQ/L (136-145)
== END ==
PROVIDERS: ATTEND Nurse Practitioner Family
DX: I50.9 Heart failure, unspecified (principal)

== ENCOUNTER → 2022-06-04 | Outpatient (REF) | payer MEDICARE, MEDICAID ==
[2022-06-04 12:05] LABS: HEMATOCRIT 37.7 % (42.0-52.0); HEMOGLOBIN 11.9 g/dl (13.5-17.5); MEAN CORPUSCULAR HEMOGLOBIN 29.7 pg (27.0-33.0); MEAN CORPUSCULAR HGB CONC 31.6 g/dl (32.0-36.5); PLATELET COUNT, AUTOMATED 216 10^3/uL (150-450); RED BLOOD COUNT 4.01 10^6/uL (4.30-6.10); WHITE BLOOD COUNT 8.8 10^3/uL (4.0-10.0)
[2022-06-04 12:17] LABS: HEMOGLOBIN A1c 7.9 %
[2022-06-04 12:35] LABS: BLOOD UREA NITROGEN 12 MG/DL (7-18); CALCIUM LEVEL 8.7 MG/DL (8.8-10.2); CARBON DIOXIDE LEVEL 29 MEQ/L (21-32); CHLORIDE LEVEL 104 MEQ/L (98-107); GLOMERULAR FILTRATION RATE > 60.0 (>42); GLUCOSE, FASTING 243 MG/DL (70-100); SODIUM LEVEL 137 MEQ/L (136-145)
== END ==
PROVIDERS: ATTEND Internal Medicine
DX: N18.9 Chronic kidney disease, unspecified (principal); I12.9 Hypertensive chronic kidney disease with stage 1 through stage 4 chronic kidney disease, or unspecified chronic kidney disease; E11.22 Type 2 diabetes mellitus with diabetic chronic kidney disease

== ENCOUNTER → 2022-08-27 | Outpatient (REF) | payer MEDICARE, MEDICAID ==
[~2022-08-27] MED LIST changes: +DULA3PEN SQ; -DULC5TAB PO; +DULC5TAB PR; +FURO20TA2 PO; +LISI2.5T9 PO; +MIRT1TAB PO; +OMEP-173 PO; +PRESCAP PO
[2022-08-27 11:23] LABS: BASO # 0.1 10^3/uL (0.0-0.2); BASO % 0.7 % (0.0-1.0); EOS # 0.2 10^3/uL (0.0-0.5); EOS % 1.9 % (0.0-3.0); HEMATOCRIT 40.3 % (42.0-52.0); HEMOGLOBIN 12.9 g/dl (13.5-17.5); LYMPH # 2.2 10^3/uL (1.5-5.0); LYMPH % 24.5 % (24.0-44.0); MEAN CORPUSCULAR HEMOGLOBIN 30.1 pg (27.0-33.0); MEAN CORPUSCULAR VOLUME 93.9 fl (80.0-96.0); MONO # 0.8 10^3/uL (0.0-0.8); MONO % 8.7 % (2.0-8.0); NEUTROPHILS # 5.7 10^3/uL (1.5-8.5); NEUTROPHILS % 63.8 % (36.0-66.0); PLATELET COUNT, AUTOMATED 214 10^3/uL (150-450); RED BLOOD COUNT 4.29 10^6/uL (4.30-6.10); WHITE BLOOD COUNT 8.9 10^3/uL (4.0-10.0)
[2022-08-27 11:55] LABS: BLOOD UREA NITROGEN 13 MG/DL (9-23); CALCIUM LEVEL 8.5 MG/DL (8.3-10.6); CARBON DIOXIDE LEVEL 26 MMOL/L (20-31); CHLORIDE LEVEL 99 MMOL/L (98-107); CREATININE FOR GFR 0.79 MG/DL (0.70-1.30); GLOMERULAR FILTRATION RATE > 60.0 (>42); GLUCOSE, FASTING 260 MG/DL (74-106); POTASSIUM SERUM 4.1 MMOL/L (3.5-5.1); SODIUM LEVEL 137 MMOL/L (136-145)
== END ==
PROVIDERS: ATTEND Internal Medicine
DX: Z01.812 Encounter for preprocedural laboratory examination (principal); H26.9 Unspecified cataract; Z79.899 Other long term (current) drug therapy

== ENCOUNTER → 2022-08-28 | Outpatient (CLI) | payer MEDICARE, MEDICAID | LOC: M LABSMTC 09:30 | PROVIDERS: ATTEND Anesthesiology | DX: Z01.818 Encounter for other preprocedural examination (principal); Z11.52 Encounter for screening for COVID-19 ==

== ENCOUNTER → 2022-08-28 | Outpatient (REF) | payer MEDICARE, MEDICAID | PROVIDERS: ATTEND Internal Medicine | DX: Z01.818 Encounter for other preprocedural examination (principal); Z20.822 Contact with and (suspected) exposure to COVID-19; Z53.8 Procedure and treatment not carried out for other reasons ==

== ENCOUNTER 2022-09-02 07:30 | Day surgery (SDC) | payer MEDICARE, MEDICAID ==
[~2022-09-02] VITALS: Ht 188 cm; Wt 103.9 kg
[~2022-09-02 07:30] MED LIST changes: +BSS IRR 500ML/OMIDRIA 4ML IRR BAG (OR ONLY) As Ordered ONE; +LIDOCAINE 1% 1ML PF SYRINGE (OR EYE CASES) As Ordered ONE; +PROPARACAINE 0.5% OPHTH SOL 15ML OD ONE
[2022-09-02] MEDS ORDERED: TOBRADEX OPHTH OINT 3.5 GM As Ordered ONE (07:54)
[2022-09-02] MEDS: CYCLOPENTOLATE 1% OPHTH SOLN 2ML BTL OD SCH ×2 (08:48→08:50)
[2022-09-02] MEDS: PHENYLEPHRINE 2.5% OPHTH SOL 2ML OD SCH ×2 (08:48→08:50)
[2022-09-02] MEDS: TROPICAMIDE 1% OPHTH SOLN 15ML OD SCH (08:49)
[2022-09-02] MEDS: OFLOXACIN 0.3 % (OCUFLOX) OPTH SOL 5ML OD SCH (08:49)
[2022-09-02] MEDS ORDERED: MIDAZOLAM INJ 2MG/2ML VIAL As Ordered ONE (09:39)
[2022-09-02] MEDS ORDERED: POVIDONE-IODINE 5% OPHTH PREP SOL 30ML As Ordered ONE (09:47)
[2022-09-02] MEDS ORDERED: PROVISC 10 MG/ML 0.85ML SYRINGE As Ordered ONE (10:08)
[2022-09-02 10:21] VITALS: BP 179/89
== END 2022-09-02 11:02 | disposition home or self-care (01) ==
LOC: M SDC 07:30
PROVIDERS: ATTEND Ophthalmology
DX: H25.11 Age-related nuclear cataract, right eye (principal); I12.9 Hypertensive chronic kidney disease with stage 1 through stage 4 chronic kidney disease, or unspecified chronic kidney disease; E78.5 Hyperlipidemia, unspecified; E11.9 Type 2 diabetes mellitus without complications; K21.9 Gastro-esophageal reflux disease without esophagitis; F03.90 Unspecified dementia, unspecified severity, without behavioral disturbance, psychotic disturbance, mood disturbance, and anxiety; N18.30 Chronic kidney disease, stage 3 unspecified; R32 Unspecified urinary incontinence; Z79.4 Long term (current) use of insulin; Z79.01 Long term (current) use of anticoagulants; Z79.899 Other long term (current) drug therapy; I25.10 Atherosclerotic heart disease of native coronary artery without angina pectoris; Z98.61 Coronary angioplasty status; Z87.891 Personal history of nicotine dependence; Z88.0 Allergy status to penicillin; Z88.8 Allergy status to other drugs, medicaments and biological substances
CPT/HCPCS: 66984; 92015; A4649; J1097; V2632

== ENCOUNTER → 2022-09-03 | Outpatient (REF) | payer MEDICARE, MEDICAID ==
[~2022-09-03] MED LIST changes: -BSS IRR 500ML/OMIDRIA 4ML IRR BAG (OR ONLY) As Ordered ONE; -LIDOCAINE 1% 1ML PF SYRINGE (OR EYE CASES) As Ordered ONE; -PROPARACAINE 0.5% OPHTH SOL 15ML OD ONE
[2022-09-03 11:28] LABS: HEMATOCRIT 40.7 % (42.0-52.0); MEAN CORPUSCULAR HEMOGLOBIN 29.8 pg (27.0-33.0); MEAN CORPUSCULAR HGB CONC 31.9 g/dl (32.0-36.5); MEAN CORPUSCULAR VOLUME 93.3 fl (80.0-96.0); PLATELET COUNT, AUTOMATED 210 10^3/uL (150-450); RED BLOOD COUNT 4.36 10^6/uL (4.30-6.10); WHITE BLOOD COUNT 7.3 10^3/uL (4.0-10.0)
[2022-09-03 11:57] LABS: HEMOGLOBIN A1c 9.8 % (4.0-6.0)
[2022-09-03 12:01] LABS: BLOOD UREA NITROGEN 9 MG/DL (9-23); CALCIUM LEVEL 8.8 MG/DL (8.3-10.6); CARBON DIOXIDE LEVEL 30 MMOL/L (20-31); CHLORIDE LEVEL 100 MMOL/L (98-107); CHOLESTEROL LEVEL 115 MG/DL (<200); CREATININE FOR GFR 0.73 MG/DL (0.70-1.30); GLOMERULAR FILTRATION RATE > 60.0 (>42); GLUCOSE, FASTING 298 MG/DL (74-106); HDL CHOLESTEROL 26.1 MG/DL (>40); LDL CHOLESTEROL 51.3 MG/DL (<100); NON-HDL-C 89 MG/DL; POTASSIUM SERUM 4.2 MMOL/L (3.5-5.1); SODIUM LEVEL 137 MMOL/L (136-145); TRIGLYCERIDES LEVEL 188 MG/DL (<150)
== END ==
PROVIDERS: ATTEND Nurse Practitioner Family
DX: I10 Essential (primary) hypertension (principal); E11.9 Type 2 diabetes mellitus without complications

== ENCOUNTER → 2022-09-03 | Outpatient (REF) | payer MEDICARE, MEDICAID | PROVIDERS: ATTEND Nurse Practitioner Family | DX: I10 Essential (primary) hypertension (principal); E11.9 Type 2 diabetes mellitus without complications; Z53.8 Procedure and treatment not carried out for other reasons ==

== ENCOUNTER → 2022-09-03 | Outpatient (REF) | payer MEDICARE, MEDICAID | PROVIDERS: ATTEND Nurse Practitioner Family | DX: I10 Essential (primary) hypertension (principal); E11.9 Type 2 diabetes mellitus without complications; Z53.8 Procedure and treatment not carried out for other reasons ==

== ENCOUNTER → 2022-10-29 | Outpatient (REF) | payer MEDICARE, MEDICAID ==
[~2022-10-29] MED LIST changes: +INSU100I9; +MELA10CA6 PO; +PRES10CA2 PO; +ZINCLOZ8 MT
[2022-10-29 10:27] LABS: HEMATOCRIT 40.3 % (42.0-52.0); HEMOGLOBIN 12.9 g/dl (13.5-17.5); MEAN CORPUSCULAR HEMOGLOBIN 30.4 pg (27.0-33.0); MEAN CORPUSCULAR VOLUME 94.8 fl (80.0-96.0); PLATELET COUNT, AUTOMATED 205 10^3/uL (150-450); RED BLOOD COUNT 4.25 10^6/uL (4.30-6.10); WHITE BLOOD COUNT 10.1 10^3/uL (4.0-10.0)
[2022-10-29 11:18] LABS: ALBUMIN 3.2 G/DL (3.2-5.2); ALKALINE PHOSPHATASE 118 U/L (46-116); ALT/SGPT 22 U/L (7.0-40); AST/SGOT 20 U/L (<34); BILIRUBIN,TOTAL 0.5 MG/DL (0.3-1.2); BLOOD UREA NITROGEN 12 MG/DL (9-23); CALCIUM LEVEL 8.5 MG/DL (8.3-10.6); CARBON DIOXIDE LEVEL 28 MMOL/L (20-31); CHLORIDE LEVEL 103 MMOL/L (98-107); CREATININE FOR GFR 0.67 MG/DL (0.70-1.30); GLOMERULAR FILTRATION RATE > 60.0 (>42); GLUCOSE, FASTING 217 MG/DL (74-106); POTASSIUM SERUM 3.9 MMOL/L (3.5-5.1); SODIUM LEVEL 140 MMOL/L (136-145); TOTAL PROTEIN 6.1 G/DL (5.7-8.2)
== END ==
PROVIDERS: ATTEND Internal Medicine
DX: Z01.818 Encounter for other preprocedural examination (principal)

== ENCOUNTER → 2022-10-30 | Outpatient (REF) | payer MEDICARE, MEDICAID | PROVIDERS: ATTEND Nurse Practitioner Family | DX: Z01.818 Encounter for other preprocedural examination (principal); Z20.822 Contact with and (suspected) exposure to COVID-19 ==

== ENCOUNTER 2022-11-04 08:20 | Day surgery (SDC) | payer MEDICARE, MEDICAID ==
[~2022-11-04] VITALS: Ht 170.2 cm; Wt 106.2 kg
[~2022-11-04 08:20] MED LIST changes: +CYCLOPENTOLATE 1% OPHTH SOLN 2ML BTL OS SCH; +LIDOCAINE 1% SDV 5ML VIAL As Ordered ONE; +MIDAZOLAM INJ 2MG/2ML VIAL As Ordered ONE; +OFLOXACIN 0.3 % (OCUFLOX) OPTH SOL 5ML OS SCH; +PHENYLEPHRINE 2.5% OPHTH SOL 2ML OS SCH; +PROPARACAINE 0.5% OPHTH SOL 15ML OS ONE; +TOBRADEX OPHTH OINT 3.5 GM As Ordered ONE; +TROPICAMIDE 1% OPHTH SOLN 15ML OS SCH; +fentaNYL 100 MCG/2 ML INJECTION As Ordered ONE
[2022-11-04] MEDS ORDERED: BSS IRR 500ML/OMIDRIA 4ML IRR BAG (OR ONLY) As Ordered ONE (10:44)
[2022-11-04 12:25] VITALS: BP 139/82
== END 2022-11-04 12:44 | disposition home or self-care (01) ==
LOC: M SDC 08:20
PROVIDERS: ATTEND Ophthalmology
DX: H25.12 Age-related nuclear cataract, left eye (principal); Z95.5 Presence of coronary angioplasty implant and graft; I48.91 Unspecified atrial fibrillation; I25.2 Old myocardial infarction; I11.0 Hypertensive heart disease with heart failure; I50.9 Heart failure, unspecified; E78.5 Hyperlipidemia, unspecified; Z95.0 Presence of cardiac pacemaker; E11.9 Type 2 diabetes mellitus without complications; R56.9 Unspecified convulsions; Z86.73 Personal history of transient ischemic attack (TIA), and cerebral infarction without residual deficits; Z88.0 Allergy status to penicillin; Z88.8 Allergy status to other drugs, medicaments and biological substances; Z79.899 Other long term (current) drug therapy; Z79.84 Long term (current) use of oral hypoglycemic drugs; Z79.4 Long term (current) use of insulin; Z79.01 Long term (current) use of anticoagulants
CPT/HCPCS: 66984; J1097; J2250; J3010; V2632

== ENCOUNTER → 2022-12-03 | Outpatient (REF) | payer MEDICARE, MEDICAID ==
[~2022-12-03] MED LIST changes: -CYCLOPENTOLATE 1% OPHTH SOLN 2ML BTL OS SCH; -LIDOCAINE 1% SDV 5ML VIAL As Ordered ONE; -MIDAZOLAM INJ 2MG/2ML VIAL As Ordered ONE; -OFLOXACIN 0.3 % (OCUFLOX) OPTH SOL 5ML OS SCH; -PHENYLEPHRINE 2.5% OPHTH SOL 2ML OS SCH; -PROPARACAINE 0.5% OPHTH SOL 15ML OS ONE; -TOBRADEX OPHTH OINT 3.5 GM As Ordered ONE; -TROPICAMIDE 1% OPHTH SOLN 15ML OS SCH; -fentaNYL 100 MCG/2 ML INJECTION As Ordered ONE
[2022-12-03 09:46] LABS: HEMOGLOBIN A1c 7.2 % (4.0-6.0)
== END ==
PROVIDERS: ATTEND Internal Medicine
DX: I10 Essential (primary) hypertension (principal); E11.9 Type 2 diabetes mellitus without complications

== ENCOUNTER → 2023-01-14 | Outpatient (REF) | payer MEDICARE, MEDICAID ==
[2023-01-14 09:17] LABS: BLOOD UREA NITROGEN 12 MG/DL (9-23); CALCIUM LEVEL 8.5 MG/DL (8.3-10.6); CARBON DIOXIDE LEVEL 30 MMOL/L (20-31); CHLORIDE LEVEL 104 MMOL/L (98-107); CREATININE FOR GFR 0.76 MG/DL (0.70-1.30); GLOMERULAR FILTRATION RATE > 60.0 (>42); GLUCOSE, FASTING 104 MG/DL (74-106); SODIUM LEVEL 139 MMOL/L (136-145)
== END ==
PROVIDERS: ATTEND Nurse Practitioner Family
DX: I50.9 Heart failure, unspecified (principal)

== ENCOUNTER → 2023-03-02 | Outpatient (REF) | payer MEDICARE, MEDICAID ==
[~2023-03-02] MED LIST changes: +INSU100I24; -INSU100I9
[2023-03-02 08:50] LABS: HEMATOCRIT 35.6 % (42.0-52.0); HEMOGLOBIN 11.9 g/dl (13.5-17.5); MEAN CORPUSCULAR HEMOGLOBIN 31.2 pg (27.0-33.0); MEAN CORPUSCULAR HGB CONC 33.4 g/dl (32.0-36.5); MEAN CORPUSCULAR VOLUME 93.4 fl (80.0-96.0); PLATELET COUNT, AUTOMATED 204 10^3/uL (150-450); RED BLOOD COUNT 3.81 10^6/uL (4.30-6.10); WHITE BLOOD COUNT 9.4 10^3/uL (4.0-10.0)
[2023-03-02 09:25] LABS: BLOOD UREA NITROGEN 10 MG/DL (9-23); CALCIUM LEVEL 8.1 MG/DL (8.3-10.6); CARBON DIOXIDE LEVEL 28 MMOL/L (20-31); CHLORIDE LEVEL 102 MMOL/L (98-107); GLOMERULAR FILTRATION RATE > 60.0 (>42); GLUCOSE, FASTING 162 MG/DL (74-106); POTASSIUM SERUM 3.9 MMOL/L (3.5-5.1); SODIUM LEVEL 137 MMOL/L (136-145)
[2023-03-02 09:57] LABS: HEMOGLOBIN A1c 7.6 % (4.0-6.0)
== END ==
PROVIDERS: ATTEND Internal Medicine
DX: E11.9 Type 2 diabetes mellitus without complications (principal)

== ENCOUNTER → 2023-03-09 | Outpatient (REF) | payer MEDICARE, MEDICAID ==
[2023-03-09 09:52] LABS: BLOOD UREA NITROGEN 16 MG/DL (9-23); CALCIUM LEVEL 8.7 MG/DL (8.3-10.6); CARBON DIOXIDE LEVEL 28 MMOL/L (20-31); CHLORIDE LEVEL 103 MMOL/L (98-107); CREATININE FOR GFR 0.66 MG/DL (0.70-1.30); GLOMERULAR FILTRATION RATE > 60.0 (>42); GLUCOSE, FASTING 184 MG/DL (74-106); POTASSIUM SERUM 4.3 MMOL/L (3.5-5.1); SODIUM LEVEL 141 MMOL/L (136-145)
== END ==
PROVIDERS: ATTEND Nurse Practitioner Family
DX: I50.9 Heart failure, unspecified (principal)

== ENCOUNTER → 2023-05-01 | Outpatient (REF) | payer MEDICARE, MEDICAID ==
[~2023-05-01] MED LIST changes: -MIRT-62 PO; +MIRT-88 PO
== END ==
PROVIDERS: ATTEND Internal Medicine
DX: J98.4 Other disorders of lung (principal); Z95.0 Presence of cardiac pacemaker

== ENCOUNTER → 2023-05-01 | Outpatient (REF) | payer MEDICARE, MEDICAID ==
[2023-05-01 13:40] LABS: BASO # 0.1 10^3/uL (0.0-0.2); BASO % 0.6 % (0.0-1.0); EOS # 0.1 10^3/uL (0.0-0.5); HEMATOCRIT 34.6 % (42.0-52.0); HEMOGLOBIN 11.1 g/dl (13.5-17.5); LYMPH # 1.6 10^3/uL (1.5-5.0); MEAN CORPUSCULAR HEMOGLOBIN 31.4 pg (27.0-33.0); MEAN CORPUSCULAR HGB CONC 32.1 g/dl (32.0-36.5); MEAN CORPUSCULAR VOLUME 97.7 fl (80.0-96.0); MONO # 1.4 10^3/uL (0.0-0.8); MONO % 12.5 % (2.0-8.0); NEUTROPHILS # 7.6 10^3/uL (1.5-8.5); NEUTROPHILS % 70.2 % (36.0-66.0); PLATELET COUNT, AUTOMATED 273 10^3/uL (150-450); RED BLOOD COUNT 3.54 10^6/uL (4.30-6.10); WHITE BLOOD COUNT 10.8 10^3/uL (4.0-10.0)
[2023-05-01 14:04] LABS: ALBUMIN 2.8 G/DL (3.2-5.2); BILIRUBIN,TOTAL 0.6 MG/DL (0.3-1.2); CALCIUM LEVEL 8.8 MG/DL (8.3-10.6); CREATININE FOR GFR 1.55 MG/DL (0.70-1.30); GLOMERULAR FILTRATION RATE 47.2 (>42); POTASSIUM SERUM 5.2 MMOL/L (3.5-5.1); TOTAL PROTEIN 6.3 G/DL (5.7-8.2)
== END ==
PROVIDERS: ATTEND Nurse Practitioner Family
DX: I50.9 Heart failure, unspecified (principal); J98.4 Other disorders of lung; Z95.0 Presence of cardiac pacemaker

== ENCOUNTER → 2023-05-04 | Outpatient (REF) | payer MEDICARE, MEDICAID ==
[2023-05-04 11:28] LABS: BLOOD UREA NITROGEN 46 MG/DL (9-23); CALCIUM LEVEL 8.5 MG/DL (8.3-10.6); CARBON DIOXIDE LEVEL 30 MMOL/L (20-31); CHLORIDE LEVEL 96 MMOL/L (98-107); CREATININE FOR GFR 1.06 MG/DL (0.70-1.30); GLOMERULAR FILTRATION RATE > 60.0 (>42); GLUCOSE, FASTING 266 MG/DL (74-106); POTASSIUM SERUM 4.3 MMOL/L (3.5-5.1); SODIUM LEVEL 132 MMOL/L (136-145)
== END ==
PROVIDERS: ATTEND Nurse Practitioner Family
DX: I50.9 Heart failure, unspecified (principal)

== ENCOUNTER → 2023-05-06 | Outpatient (REF) | payer MEDICARE, MEDICAID | PROVIDERS: ATTEND Nurse Practitioner Family | DX: I50.9 Heart failure, unspecified (principal); Z53.8 Procedure and treatment not carried out for other reasons ==

== ENCOUNTER → 2023-06-03 | Outpatient (REF) | payer MEDICARE, MEDICAID ==
[~2023-06-03] MED LIST changes: -OXYB5TAB10 PO; +OXYB5TAB11 PO
[2023-06-03 11:42] LABS: HEMOGLOBIN A1c 8.1 % (4.0-6.0)
== END ==
PROVIDERS: ATTEND Internal Medicine
DX: E11.9 Type 2 diabetes mellitus without complications (principal)

== ENCOUNTER → 2023-06-17 | Outpatient (REF) | payer MEDICARE, MEDICAID ==
[2023-06-17 12:10] LABS: BLOOD UREA NITROGEN 14 MG/DL (9-23); CALCIUM LEVEL 8.4 MG/DL (8.3-10.6); CARBON DIOXIDE LEVEL 27 MMOL/L (20-31); CHLORIDE LEVEL 101 MMOL/L (98-107); CREATININE FOR GFR 0.63 MG/DL (0.70-1.30); GLOMERULAR FILTRATION RATE > 60.0 (>42); GLUCOSE, FASTING 341 MG/DL (74-106); POTASSIUM SERUM 4.3 MMOL/L (3.5-5.1); SODIUM LEVEL 135 MMOL/L (136-145)
== END ==
PROVIDERS: ATTEND Internal Medicine
DX: N18.30 Chronic kidney disease, stage 3 unspecified (principal)

== ENCOUNTER → 2023-07-06 | Outpatient (REF) | payer MEDICARE, MEDICAID ==
[2023-07-06 12:09] LABS: BLOOD UREA NITROGEN 10 MG/DL (9-23); CALCIUM LEVEL 8.7 MG/DL (8.3-10.6); CARBON DIOXIDE LEVEL 30 MMOL/L (20-31); CHLORIDE LEVEL 100 MMOL/L (98-107); CREATININE FOR GFR 0.63 MG/DL (0.70-1.30); GLOMERULAR FILTRATION RATE > 60.0 (>42); GLUCOSE, FASTING 211 MG/DL (74-106); POTASSIUM SERUM 3.8 MMOL/L (3.5-5.1); SODIUM LEVEL 136 MMOL/L (136-145)
== END ==
PROVIDERS: ATTEND Nurse Practitioner Family
DX: I11.9 Hypertensive heart disease without heart failure (principal)

== ENCOUNTER → 2023-08-03 | Outpatient (REF) | payer MEDICARE, MEDICAID ==
[2023-08-03 11:55] LABS: HEMATOCRIT 38.1 % (42.0-52.0); MEAN CORPUSCULAR HEMOGLOBIN 30.5 pg (27.0-33.0); MEAN CORPUSCULAR HGB CONC 31.5 g/dl (32.0-36.5); MEAN CORPUSCULAR VOLUME 96.9 fl (80.0-96.0); PLATELET COUNT, AUTOMATED 230 10^3/uL (150-450); RED BLOOD COUNT 3.93 10^6/uL (4.30-6.10); WHITE BLOOD COUNT 9.5 10^3/uL (4.0-10.0)
[2023-08-03 12:14] LABS: BLOOD UREA NITROGEN 17 MG/DL (9-23); CALCIUM LEVEL 8.8 MG/DL (8.3-10.6); CARBON DIOXIDE LEVEL 28 MMOL/L (20-31); CHLORIDE LEVEL 106 MMOL/L (98-107); CREATININE FOR GFR 0.69 MG/DL (0.70-1.30); GLOMERULAR FILTRATION RATE > 60.0 (>42); GLUCOSE, FASTING 201 MG/DL (74-106); SODIUM LEVEL 142 MMOL/L (136-145)
== END ==
PROVIDERS: ATTEND Internal Medicine
DX: I50.9 Heart failure, unspecified (principal)

== ENCOUNTER → 2023-08-03 | Outpatient (REF) | payer MEDICARE, MEDICAID | PROVIDERS: ATTEND Internal Medicine | DX: I50.9 Heart failure, unspecified (principal) ==

== ENCOUNTER → 2023-09-04 | Outpatient (REF) | payer MEDICARE, MEDICAID ==
[2023-09-04 10:16] LABS: HEMOGLOBIN 12.5 g/dl (13.5-17.5); MEAN CORPUSCULAR HEMOGLOBIN 30.3 pg (27.0-33.0); MEAN CORPUSCULAR HGB CONC 32.1 g/dl (32.0-36.5); MEAN CORPUSCULAR VOLUME 94.7 fl (80.0-96.0); PLATELET COUNT, AUTOMATED 222 10^3/uL (150-450); RED BLOOD COUNT 4.12 10^6/uL (4.30-6.10); WHITE BLOOD COUNT 9.8 10^3/uL (4.0-10.0)
[2023-09-04 10:45] LABS: BLOOD UREA NITROGEN 18 MG/DL (9-23); CALCIUM LEVEL 8.8 MG/DL (8.3-10.6); CARBON DIOXIDE LEVEL 30 MMOL/L (20-31); CHLORIDE LEVEL 104 MMOL/L (98-107); CHOLESTEROL LEVEL 126 MG/DL (<200); CREATININE FOR GFR 0.76 MG/DL (0.70-1.30); GLOMERULAR FILTRATION RATE > 60.0 (>42); GLUCOSE, FASTING 180 MG/DL (74-106); HDL CHOLESTEROL 26.8 MG/DL (>40); LDL CHOLESTEROL 52.8 MG/DL (<100); NON-HDL-C 99.2 MG/DL; POTASSIUM SERUM 4.3 MMOL/L (3.5-5.1); SODIUM LEVEL 139 MMOL/L (136-145); TRIGLYCERIDES LEVEL 232 MG/DL (<150)
[2023-09-04 10:54] LABS: HEMOGLOBIN A1c 8.3 % (4.0-6.0)
== END ==
PROVIDERS: ATTEND Internal Medicine
DX: N18.9 Chronic kidney disease, unspecified (principal); Z79.899 Other long term (current) drug therapy

== ENCOUNTER → 2023-11-04 | Outpatient (REF) | payer MEDICARE, MEDICAID ==
[~2023-11-04] MED LIST changes: -HYDR25TA PO; +HYDR25TA88 PO; -OXYB5TAB11 PO; +OXYB5TAB14 PO
== END ==
PROVIDERS: ATTEND Internal Medicine
DX: R19.7 Diarrhea, unspecified (principal)

== ENCOUNTER → 2023-11-16 | Outpatient (REF) | payer MEDICARE, MEDICAID ==
[2023-11-16 10:58] LABS: HEMATOCRIT 39.3 % (42.0-52.0); HEMOGLOBIN 12.6 g/dl (13.5-17.5); MEAN CORPUSCULAR HEMOGLOBIN 30.3 pg (27.0-33.0); MEAN CORPUSCULAR HGB CONC 32.1 g/dl (32.0-36.5); MEAN CORPUSCULAR VOLUME 94.5 fl (80.0-96.0); PLATELET COUNT, AUTOMATED 233 10^3/uL (150-450); RED BLOOD COUNT 4.16 10^6/uL (4.30-6.10); WHITE BLOOD COUNT 9.8 10^3/uL (4.0-10.0)
[2023-11-16 11:25] LABS: BLOOD UREA NITROGEN 16 MG/DL (9-23); CALCIUM LEVEL 8.5 MG/DL (8.3-10.6); CARBON DIOXIDE LEVEL 28 MMOL/L (20-31); CHLORIDE LEVEL 104 MMOL/L (98-107); CREATININE FOR GFR 0.76 MG/DL (0.70-1.30); GLOMERULAR FILTRATION RATE > 60.0 (>42); GLUCOSE, FASTING 158 MG/DL (74-106); POTASSIUM SERUM 3.9 MMOL/L (3.5-5.1); SODIUM LEVEL 138 MMOL/L (136-145)
== END ==
PROVIDERS: ATTEND Nurse Practitioner Adult Health
DX: R63.8 Other symptoms and signs concerning food and fluid intake (principal)

== ENCOUNTER → 2023-11-30 | Outpatient (REF) | payer MEDICARE, MEDICAID | PROVIDERS: ATTEND Internal Medicine | DX: I10 Essential (primary) hypertension (principal); E11.9 Type 2 diabetes mellitus without complications ==

== ENCOUNTER → 2024-02-19 | Outpatient (REF) | payer MEDICARE, MEDICAID ==
[~2024-02-19] MED LIST changes: +ONDA-282 SL; +ONDA-284 PO; -ONDA4TAB6 SL; -ONDA8TAB8 PO; +RAMI10CA64 PO; -RAMI1CAP26 PO
[2024-02-19 10:09] LABS: HEMOGLOBIN A1c 8.6 % (4.0-6.0)
== END ==
PROVIDERS: ATTEND Nurse Practitioner Adult Health
DX: E11.9 Type 2 diabetes mellitus without complications (principal)

== ENCOUNTER → 2024-02-23 | Outpatient (REF) | payer MEDICARE, MEDICAID | PROVIDERS: ATTEND Nurse Practitioner Adult Health | DX: R60.9 Edema, unspecified (principal); Z53.8 Procedure and treatment not carried out for other reasons ==

== ENCOUNTER → 2024-02-24 | Outpatient (REF) | payer MEDICARE, MEDICAID ==
[2024-02-24 12:25] LABS: BLOOD UREA NITROGEN 35 MG/DL (9-23); CALCIUM LEVEL 8.7 MG/DL (8.3-10.6); CARBON DIOXIDE LEVEL 30 MMOL/L (20-31); CHLORIDE LEVEL 101 MMOL/L (98-107); CREATININE FOR GFR 1.22 MG/DL (0.70-1.30); GLOMERULAR FILTRATION RATE > 60.0 (>42); GLUCOSE, FASTING 260 MG/DL (74-106); POTASSIUM SERUM 4.5 MMOL/L (3.5-5.1); SODIUM LEVEL 136 MMOL/L (136-145)
== END ==
PROVIDERS: ATTEND Nurse Practitioner Adult Health
DX: R60.9 Edema, unspecified (principal)

== ENCOUNTER → 2024-02-29 | Outpatient (REF) | payer MEDICARE, MEDICAID ==
[2024-02-29 11:21] LABS: HEMATOCRIT 40.6 % (42.0-52.0); MEAN CORPUSCULAR HEMOGLOBIN 30.3 pg (27.0-33.0); MEAN CORPUSCULAR VOLUME 94.6 fl (80.0-96.0); PLATELET COUNT, AUTOMATED 220 10^3/uL (150-450); RED BLOOD COUNT 4.29 10^6/uL (4.30-6.10); WHITE BLOOD COUNT 10.1 10^3/uL (4.0-10.0)
[2024-02-29 11:50] LABS: BLOOD UREA NITROGEN 36 MG/DL (9-23); CARBON DIOXIDE LEVEL 29 MMOL/L (20-31); CHLORIDE LEVEL 100 MMOL/L (98-107); CREATININE FOR GFR 1.07 MG/DL (0.70-1.30); GLOMERULAR FILTRATION RATE > 60.0 (>42); GLUCOSE, FASTING 210 MG/DL (74-106); POTASSIUM SERUM 4.7 MMOL/L (3.5-5.1); SODIUM LEVEL 136 MMOL/L (136-145)
[2024-02-29 12:46] LABS: HEMOGLOBIN A1c 8.2 % (4.0-6.0)
== END ==
PROVIDERS: ATTEND Nurse Practitioner Adult Health
DX: I10 Essential (primary) hypertension (principal); Z79.899 Other long term (current) drug therapy

== ENCOUNTER → 2024-03-21 | Outpatient (REF) | payer MEDICARE, MEDICAID ==
[2024-03-21 12:58] LABS: HEMOGLOBIN A1c 8.8 % (4.0-6.0)
== END ==
PROVIDERS: ATTEND Nurse Practitioner Adult Health
DX: E11.9 Type 2 diabetes mellitus without complications (principal)

== ENCOUNTER → 2024-04-04 | Outpatient (REF) | payer MEDICARE, MEDICAID ==
[2024-04-04 11:49] LABS: BLOOD UREA NITROGEN 31 MG/DL (9-23); CALCIUM LEVEL 9.4 MG/DL (8.3-10.6); CARBON DIOXIDE LEVEL 31 MMOL/L (20-31); CHLORIDE LEVEL 101 MMOL/L (98-107); GLOMERULAR FILTRATION RATE > 60.0 (>42); GLUCOSE, FASTING 207 MG/DL (74-106); POTASSIUM SERUM 4.3 MMOL/L (3.5-5.1); SODIUM LEVEL 137 MMOL/L (136-145)
== END ==
PROVIDERS: ATTEND Nurse Practitioner Adult Health
DX: R60.9 Edema, unspecified (principal)

== ENCOUNTER → 2024-05-02 | Outpatient (REF) | payer MEDICARE, MEDICAID | PROVIDERS: ATTEND Nurse Practitioner Adult Health | DX: E11.9 Type 2 diabetes mellitus without complications (principal); Z53.8 Procedure and treatment not carried out for other reasons ==

== ENCOUNTER → 2024-05-04 | Outpatient (REF) | payer MEDICARE, MEDICAID ==
[2024-05-04 10:08] LABS: HEMOGLOBIN A1c 8.7 % (4.0-6.0)
[2024-05-04 10:25] LABS: CALCIUM LEVEL 8.9 MG/DL (8.3-10.6); CREATININE FOR GFR 1.3 MG/DL (0.70-1.30); GLOMERULAR FILTRATION RATE 57.4 (>42); POTASSIUM SERUM 4.1 MMOL/L (3.5-5.1)
== END ==
PROVIDERS: ATTEND Nurse Practitioner Adult Health
DX: N18.9 Chronic kidney disease, unspecified (principal); Z79.899 Other long term (current) drug therapy

== ENCOUNTER → 2024-05-11 | Outpatient (REF) | payer MEDICARE, MEDICAID ==
[2024-05-11 11:21] LABS: CHOLESTEROL RISK RATIO 6.68 (<5); HDL CHOLESTEROL 21.4 MG/DL (>40); NON-HDL-C 121.6 MG/DL
== END ==
PROVIDERS: ATTEND Nurse Practitioner Adult Health
DX: E78.5 Hyperlipidemia, unspecified (principal)

== ENCOUNTER → 2024-06-06 | Outpatient (REF) | payer MEDICARE, MEDICAID ==
[2024-06-06 10:08] LABS: HEMOGLOBIN A1c 8.6 % (4.0-6.0)
== END ==
PROVIDERS: ATTEND Nurse Practitioner Adult Health
DX: I10 Essential (primary) hypertension (principal); Z79.899 Other long term (current) drug therapy

== ENCOUNTER → 2024-06-20 | Outpatient (REF) | payer MEDICARE, MEDICAID ==
[2024-06-20 08:59] LABS: BLOOD UREA NITROGEN 26 MG/DL (9-23); CALCIUM LEVEL 9.1 MG/DL (8.3-10.6); CARBON DIOXIDE LEVEL 32 MMOL/L (20-31); CHLORIDE LEVEL 102 MMOL/L (98-107); CREATININE FOR GFR 1.08 MG/DL (0.70-1.30); GLOMERULAR FILTRATION RATE > 60.0 (>42); GLUCOSE, FASTING 128 MG/DL (74-106); SODIUM LEVEL 138 MMOL/L (136-145)
== END ==
PROVIDERS: ATTEND Nurse Practitioner Adult Health
DX: R60.9 Edema, unspecified (principal)

== ENCOUNTER → 2024-09-05 | Outpatient (REF) | payer MEDICARE, MEDICAID ==
[2024-09-05 10:33] LABS: HEMATOCRIT 41.4 % (42.0-52.0); HEMOGLOBIN 12.9 g/dl (13.5-17.5); MEAN CORPUSCULAR HEMOGLOBIN 29.5 pg (27.0-33.0); MEAN CORPUSCULAR HGB CONC 31.2 g/dl (32.0-36.5); MEAN CORPUSCULAR VOLUME 94.7 fl (80.0-96.0); PLATELET COUNT, AUTOMATED 213 10^3/uL (150-450); RED BLOOD COUNT 4.37 10^6/uL (4.30-6.10); WHITE BLOOD COUNT 9.2 10^3/uL (4.0-10.0)
[2024-09-05 10:51] LABS: BLOOD UREA NITROGEN 20 MG/DL (9-23); CALCIUM LEVEL 8.9 MG/DL (8.3-10.6); CARBON DIOXIDE LEVEL 30 MMOL/L (20-31); CHLORIDE LEVEL 105 MMOL/L (98-107); CHOLESTEROL LEVEL 147 MG/DL (<200); CHOLESTEROL RISK RATIO 5.85 (<5); CREATININE FOR GFR 0.94 MG/DL (0.70-1.30); GLOMERULAR FILTRATION RATE > 60.0 (>42); GLUCOSE, FASTING 64 MG/DL (74-106); HDL CHOLESTEROL 25.1 MG/DL (>40); LDL CHOLESTEROL 79.7 MG/DL (<100); NON-HDL-C 121.9 MG/DL; POTASSIUM SERUM 4.4 MMOL/L (3.5-5.1); SODIUM LEVEL 143 MMOL/L (136-145); TRIGLYCERIDES LEVEL 211 MG/DL (<150)
[2024-09-05 10:53] LABS: HEMOGLOBIN A1c 6.6 % (4.0-6.0)
== END ==
PROVIDERS: ATTEND Internal Medicine
DX: I50.9 Heart failure, unspecified (principal); I11.0 Hypertensive heart disease with heart failure; E78.5 Hyperlipidemia, unspecified; Z79.899 Other long term (current) drug therapy

== ENCOUNTER → 2024-12-07 | Outpatient (REF) | payer MEDICARE, MEDICAID ==
[2024-12-07 09:19] LABS: HEMOGLOBIN A1c 5.6 % (4.0-6.0)
== END ==
PROVIDERS: ATTEND Nurse Practitioner Family
DX: I10 Essential (primary) hypertension (principal); E11.9 Type 2 diabetes mellitus without complications

== ENCOUNTER → 2025-03-06 | Outpatient (REF) | payer MEDICARE, MEDICAID ==
[~2025-03-06] MED LIST changes: -GLUC1KIT IM; +GLUC1VIA14 IM; +KETO120S5 TOP; -KETO2SHA8 TOP
[2025-03-06 08:52] LABS: PLATELET COUNT, AUTOMATED 224 10^3/uL (150-450)
[2025-03-06 09:27] LABS: CALCIUM LEVEL 8.9 MG/DL (8.3-10.6); CARBON DIOXIDE LEVEL 31.0 MMOL/L (20-31); CHLORIDE LEVEL 101.0 MMOL/L (98-107); CREATININE FOR GFR 1.01 MG/DL (0.70-1.30); GLOMERULAR FILTRATION RATE 78.0 (>42); POTASSIUM SERUM 4.7 MMOL/L (3.5-5.1); SODIUM LEVEL 142.0 MMOL/L (136-145)
[2025-03-06 09:29] LABS: ESTIMATED AVERAGE GLUCOSE 131.0 MG/DL (60-110)
== END ==
PROVIDERS: ATTEND Physician Assistant
DX: E11.9 Type 2 diabetes mellitus without complications (principal); I11.0 Hypertensive heart disease with heart failure; I50.9 Heart failure, unspecified

== ENCOUNTER → 2025-06-05 | Outpatient (REF) | payer MEDICARE, MEDICAID | PROVIDERS: ATTEND Internal Medicine | DX: M79.641 Pain in right hand (principal); M19.041 Primary osteoarthritis, right hand ==

== ENCOUNTER → 2025-06-07 | Outpatient (REF) | payer MEDICARE, MEDICAID ==
[2025-06-07 13:23] LABS: ESTIMATED AVERAGE GLUCOSE 131.0 MG/DL (60-110)
[2025-06-07 13:41] LABS: CHOLESTEROL LEVEL 133.0 MG/DL (<200); CHOLESTEROL RISK RATIO 5.8 (<5); LDL CHOLESTEROL 71.5 MG/DL (<100); NON-HDL-C 110.1 MG/DL; TRIGLYCERIDES LEVEL 193.0 MG/DL (<150)
== END ==
PROVIDERS: ATTEND Nurse Practitioner Family
DX: I10 Essential (primary) hypertension (principal); E11.9 Type 2 diabetes mellitus without complications

== ENCOUNTER → 2025-06-12 | Outpatient (REF) | payer MEDICARE, MEDICAID ==
[2025-06-12 14:09] LABS: PLATELET COUNT, AUTOMATED 233 10^3/uL (150-450)
[2025-06-12 14:41] LABS: CALCIUM LEVEL 9.0 MG/DL (8.3-10.6); CARBON DIOXIDE LEVEL 33.0 MMOL/L (20-31); CHLORIDE LEVEL 99.0 MMOL/L (98-107); CREATININE FOR GFR 1.22 MG/DL (0.70-1.30); GLOMERULAR FILTRATION RATE 61.8 (>42); POTASSIUM SERUM 4.3 MMOL/L (3.5-5.1); SODIUM LEVEL 142.0 MMOL/L (136-145)
== END ==
PROVIDERS: ATTEND Nurse Practitioner Family
DX: I10 Essential (primary) hypertension (principal)

== ENCOUNTER → 2025-06-13 | Outpatient (REF) | payer MEDICARE, MEDICAID ==
[2025-06-13 13:53] LABS: APPEARANCE, URINE HAZY (CLEAR); BACTERIA, URINE AUTO NEGATIVE (NEGATIVE); BILIRUBIN, URINE AUTO NEGATIVE (NEGATIVE); BLOOD, URINE BLOOD 1+ (NEGATIVE); GLUCOSE, URINE (UA) AUTO NEGATIVE (NEGATIVE); KETONE, URINE AUTO NEGATIVE (NEGATIVE); LEUKOCYTE ESTERASE, URINE AUTO NEGATIVE (NEGATIVE); MUCUS, URINE SMALL (NEGATIVE); NITRITE, URINE AUTO NEGATIVE (NEGATIVE); PROTEIN, URINE AUTO NEGATIVE (NEGATIVE); RBC, URINE AUTO 7 /HPF (0-3); SPECIFIC GRAVITY URINE AUTO 1.020 (1.002-1.035); SQUAMOUS EPITHELIAL CELL UR AU 0 /HPF (0-6); UROBILINOGEN, URINE AUTO 2.0 mg/dL (0.0-2.0); WBC, URINE AUTO 1 /HPF (0-3)
[2025-06-13 14:19] LABS: PLATELET COUNT, AUTOMATED 226 10^3/uL (150-450)
== END ==
PROVIDERS: ATTEND Nurse Practitioner Family
DX: D72.829 Elevated white blood cell count, unspecified (principal); Z79.899 Other long term (current) drug therapy

== ENCOUNTER → 2025-06-14 | Outpatient (REF) | payer MEDICARE, MEDICAID | PROVIDERS: ATTEND Internal Medicine | DX: D72.829 Elevated white blood cell count, unspecified (principal); Z95.810 Presence of automatic (implantable) cardiac defibrillator ==

== ENCOUNTER → 2025-06-16 | Outpatient (REF) | payer MEDICARE, MEDICAID ==
[2025-06-16 10:55] LABS: PLATELET COUNT, AUTOMATED 232 10^3/uL (150-450)
[2025-06-16 11:27] LABS: CALCIUM LEVEL 8.5 MG/DL (8.3-10.6); CARBON DIOXIDE LEVEL 29.0 MMOL/L (20-31); CHLORIDE LEVEL 100.0 MMOL/L (98-107); CREATININE FOR GFR 1.11 MG/DL (0.70-1.30); GLOMERULAR FILTRATION RATE 69.3 (>42); POTASSIUM SERUM 4.1 MMOL/L (3.5-5.1); SODIUM LEVEL 140.0 MMOL/L (136-145)
== END ==
PROVIDERS: ATTEND Nurse Practitioner Family
DX: D72.829 Elevated white blood cell count, unspecified (principal)

== ENCOUNTER → 2025-07-21 | Outpatient (REF) | payer MEDICARE, MEDICAID ==
[2025-07-21 14:31] LABS: CALCIUM LEVEL 8.1 MG/DL (8.3-10.6); CARBON DIOXIDE LEVEL 28.0 MMOL/L (20-31); CHLORIDE LEVEL 104.0 MMOL/L (98-107); CREATININE FOR GFR 0.87 MG/DL (0.70-1.30); GLOMERULAR FILTRATION RATE 90.0 (>42); POTASSIUM SERUM 4.9 MMOL/L (3.5-5.1); SODIUM LEVEL 142.0 MMOL/L (136-145)
== END ==
PROVIDERS: ATTEND Nurse Practitioner Family
DX: I50.9 Heart failure, unspecified (principal)

== ENCOUNTER → 2025-07-24 | Outpatient (REF) | payer MEDICARE, MEDICAID ==
[2025-07-24 13:06] LABS: CALCIUM LEVEL 8.5 MG/DL (8.3-10.6); CARBON DIOXIDE LEVEL 32.0 MMOL/L (20-31); CHLORIDE LEVEL 102.0 MMOL/L (98-107); CREATININE FOR GFR 1.04 MG/DL (0.70-1.30); GLOMERULAR FILTRATION RATE 74.9 (>42); POTASSIUM SERUM 4.4 MMOL/L (3.5-5.1); SODIUM LEVEL 143.0 MMOL/L (136-145)
== END ==
PROVIDERS: ATTEND Nurse Practitioner Family
DX: I50.9 Heart failure, unspecified (principal)